=== PATIENT | male | born 1960 | race Hispanic/Latino ===

== ENCOUNTER 2017-06-10 10:39 | Inpatient (IN) | payer OTHER ==
[2017-06-10] MEDS ORDERED: Sodium Chloride 0.9% 1,000 ML IV ONE (11:05)
--- NOTE | 2017-06-10 11:10 | C.PDOC ---
History Of Present Illness Patient is a 56 y/o M diagnosed with prostate cancer with metastasis while incarcerated. He reports that he got 1 lupron injection and was instructed to follow-up with urology and oncology. Patient reports that he has no insurance and no ability to follow-up. He is presenting with uncontrolled pain. Time Seen by Provider: 06/10/17 10:49 Chief Complaint (Nursing): Pain, Chronic Past Medical History Vital Signs: Last Vital Signs Temp 97.7 F 06/10/17 10:43 Pulse 61 06/10/17 11:26 Resp 20 06/10/17 11:26 BP 135/85 06/10/17 11:26 Pulse Ox 100 06/10/17 15:01 Family History: States: No Known Family Hx - Social History Hx Alcohol Use: Yes Hx Substance Use: Yes Review Of Systems Constitutional: Negative for: Fever, Chills Cardiovascular: Negative for: Chest Pain Respiratory: Negative for: Cough, Shortness of Breath Gastrointestinal: Negative for: Nausea, Vomiting, Abdominal Pain, Diarrhea, Constipation Genitourinary: Negative for: Dysuria, Frequency Musculoskeletal: Positive for: Back Pain Neurological: Negative for: Weakness, Numbness Physical Exam - Physical Exam Appears: Well, Non-toxic Skin: Normal Color, Warm, Dry Head: Atraumatic, Normacephalic Eye(s): bilateral: Normal Inspection, PERRL, EOMI Cardiovascular: Rhythm Regular Respiratory: Normal Breath Sounds Gastrointestinal/Abdominal: Soft, No Tenderness, No Mass, No Distention Back: Normal Inspection Extremity: Normal ROM, No Tenderness, No Pedal Edema, No Swelling Neurological/Psych: Oriented x3, Normal Speech, Normal Cranial Nerves, Normal Motor, Normal Sensation Gait: Steady ED Course And Treatment - Laboratory Results Result Diagrams: 06/10/17 11:40 06/10/17 11:40 O2 Sat by Pulse Oximetry: 100 Medical Decision Making Medical Decision Making: Patient's CT shows Heterogeneous abnormal appearance of the included portions inferior thyroid gland with evidence of bilateral suspicious nodules, [id number]. Substernal extension of the left lower pole thyroid. Recommend further evaluation with thyroid ultrasound. Scattered subsegmental basilar atelectasis. Lingular infiltrate. Subpleural 4 mm right upper lobe pulmonary nodule. Follow-up CT at 12 months recommended. Several too small to characterize hepatic hypodensities. For example 5 mm at the hepatic dome, 4 mm and 5 mm within the right hepatic lobe. Hepatomegaly. Hypoattenuation of the liver compatible with hepatic steatosis. Diminished enhancement of the left kidney as compared to the right. Left-sided moderate hydronephrosis and hydroureter to the level of the distal 1/3rd ureter ; no obstructing calculus evident. Enlarged heterogeneous prostate gland consistent with provided history of prostate cancer. Irregularly thick-walled under distended urinary bladder. Recommend correlation with urinalysis. Bulky bilateral inguinal adenopathy. Left pelvic sidewall bulky lymph nodes. 12 mm sclerotic focus worrisome for metastatic disease, right iliac bone. Subtle 14 mm sclerotic lesion within the superior posterior endplate L4. Recommend further evaluation with nuclear medicine bone scan to assess for osseous metastatic disease. 3:01PM Dr. Orozco evaluated at bedside. He will continue to follow during inpatient stay 3:33PM Patient has uncontrolled back pain likely secondary to metastatic disease. He needs PET scan to further evaluate his cancer, as well as urology and oncology evaluation. He has no insurance and has been unable to arrange any follow-up. SW consult placed. Spoke to Dr. Manuel who accepts patient to his service, Disposition - Disposition Disposition Time: 15:35 Condition: FAIR - Clinical Impression Clinical Impression: Prostate cancer metastatic to bone
[2017-06-10] MEDS ORDERED: Sodium Chloride 0.9% 1,000 ML ONE (11:29)
[2017-06-10] MEDS ORDERED: Morphine 4 MG/ML VIAL ONE (11:29)
[2017-06-10 11:44] LABS: BASO # 0.1 K/uL (0.0-0.2); BASO % 0.9 % (0.0-2.0); EOS # 0.9 K/uL (0.0-0.7); EOS % 12.1 % (0.0-4.0); HEMOGLOBIN 11.2 g/dL (12.0-18.0); LYMPH # 1.5 K/uL (1.0-4.3); MEAN CELL VOLUME 73.3 fL (80.0-94.0); MEAN CORPUSCULAR HGB CONC 32.7 g/dL (33.0-37.0); MONO # 0.5 K/uL (0.0-0.8); MONO % 7.2 % (0.0-10.0); NEUT # 4.1 K/uL (1.8-7.0); NEUT % 58.8 % (50.0-75.0); RBC 4.66 Mil/uL (4.40-5.90); WHITE BLOOD COUNT 7.1 K/uL (4.8-10.8)
[2017-06-10 11:52] LABS: ALBUMIN 4.1 g/dL (3.5-5.0)
[2017-06-10 11:55] LABS: GFR AFRICAN-AMERICAN > 60; GFR NON-AFRICAN AMERICAN 58
[2017-06-10 11:56] LABS: ALB/GLOB RATIO 1.1 (1.0-2.1); ALT/SGPT 51 U/L (21-72); AST/SGOT 41 U/L (17-59); BLOOD UREA NITROGEN 19 mg/dL (9-20); MAGNESIUM 2.1 mg/dL (1.6-2.3)
[2017-06-10] MEDS ORDERED: Iodixanol 320 MG/ML 100 ML BOTTLE IV ONE (11:57)
[2017-06-10 13:40] LABS: URINE BILIRUBIN NEGATIVE (NEGATIVE); URINE BLOOD NEGATIVE (NEGATIVE); URINE CLARITY Clear (Clear); URINE COLOR Straw (YELLOW); URINE GLUCOSE (UA) NORMAL (Normal); URINE LEUKOCYTE ESTERASE NEG Leu/uL (Negative); URINE NITRATE NEGATIVE (NEGATIVE); URINE PROTEIN NEGATIVE (NEGATIVE); URINE UROBILINOGEN NORMAL mg/dL (0.2-1.0)
--- NOTE | 2017-06-10 14:53 | CT ---
CT chest, abdomen, and pelvis with IV contrast Indication: Prostate cancer with metastases Technique: Contiguous axial images of the chest, abdomen, and pelvis. Coronal and Sagittal reformats generated and reviewed. This CT exam was performed using 1 or more of the following dose reduction techniques: Automated exposure control, adjustment of the MAA and/or kV according to patient size, and/or use of iterative reconstruction technique. Oral contrast was administered. 100 mL Visipaque. Radiation dose: Total exam DLP = 663.89 MGy-cm. Comparison: None available Findings: Heterogeneous abnormal appearance of the included portions inferior thyroid gland with evidence of bilateral suspicious nodules, [id number]. Substernal extension of the left lower pole thyroid. The mediastinal and hilar vascular structures appear within normal limits. The heart appears within normal limits of size. Scattered subsegmental basilar atelectasis. Lingular infiltrate. No pleural effusion. No pneumothorax. Subpleural right upper lobe pulmonary nodule measures approximately 4 mm (series 4, image 28). Several too small to characterize hepatic hypodensities. For example 5 mm at the hepatic dome, 4 mm and 5 mm within the right hepatic lobe. Hepatomegaly. Hypoattenuation of the liver compatible with hepatic steatosis. Diminished enhancement of the left kidney as compared to the right. Left-sided moderate hydronephrosis and hydroureter to the level of the distal 3rd ureter (approximately series 6, image 128) ; no obstructing calculus evident. Enlarged heterogeneous prostate gland. Irregularly thick-walled under distended urinary bladder. Bulky bilateral inguinal adenopathy. Left pelvic sidewall bulky lymph nodes. The stomach is nondistended. The bowel loops appear within normal limits of caliber without evidence of intestinal obstruction. There is no definite free air. 12 mm sclerotic focus worrisome for metastatic disease, right iliac bone. Subtle 14 mm sclerotic lesion within the superior posterior endplate L4. Recommend further evaluation with nuclear medicine bone scan to assess for osseous metastatic disease. Impression: Heterogeneous abnormal appearance of the included portions inferior thyroid gland with evidence of bilateral suspicious nodules, [id number]-right. Substernal extension of the left lower pole thyroid. Recommend further evaluation with thyroid ultrasound. Scattered subsegmental basilar atelectasis. Lingular infiltrate. Subpleural 4 mm right upper lobe pulmonary nodule. Follow-up CT at 12 months recommended. Several too small to characterize hepatic hypodensities. For example 5 mm at the hepatic dome, 4 mm and 5 mm within the right hepatic lobe. Hepatomegaly. Hypoattenuation of the liver compatible with hepatic steatosis. Diminished enhancement of the left kidney as compared to the right. Left-sided moderate hydronephrosis and hydroureter to the level of the distal 1/3rd ureter ; no obstructing calculus evident. Enlarged heterogeneous prostate gland consistent with provided history of prostate cancer. Irregularly thick-walled under distended urinary bladder. Recommend correlation with urinalysis. Bulky bilateral inguinal adenopathy. Left pelvic sidewall bulky lymph nodes. 12 mm sclerotic focus worrisome for metastatic disease, right iliac bone. Subtle 14 mm sclerotic lesion within the superior posterior endplate L4. Recommend further evaluation with nuclear medicine bone scan to assess for osseous metastatic disease.
--- NOTE | 2017-06-10 16:47 | PCM.URO ---
Urology Progress Note - Objective Vital Signs: Vital Signs - 24 hr 06/10/17 15:35 O2 Sat by Pulse 100 Oximetry
[2017-06-10] MEDS ORDERED: Bisacodyl 5mg EC Tab PO PRN (16:56)
--- NOTE | 2017-06-10 17:13 | CP.PCM.HP ---
History of Present Illness - History of Present Illness History of Present Illness: CC: diffuse bone pain 56 year old male with past medical history of high grade adenocarcinoma prostate cancer diagnosed in 02/2017 [place] score of 10, eczema and polysubstance abuse presents for bone pain located in B/L knees, B/L chest and low back. Patient states that bone pain has been present since January of this year. Patient was in nursing home for about 4 years and discharged about 5 years ago. In January, patient began experiencing diffuse bone pain. He was also having urinary frequency for about 1.5 months. He then began to have difficulty initiating urination. While in nursing home, he had urinary catheter placed for about 1.5 months. It was then removed and patient had TURP procedure done and was found to have high grade adenocarcinoma of prostate. PSA done in April was 394. Patient had Urology consult done in April 2017 while in nursing home. He was given 1 Lupron injection on April 25 2017 and was told that he needs repeat injection in 4 months. While in nursing home, patient had bone scan done which showed bone mets. Ct scan done in nursing home showed extensive retroperitoneal lymph nodes. Patient denies having any weight loss, fatigue. He does c/o cold sweats occasionally. 12 point ROS are negative except for the above mentioned. PMHx: stated above Sx: TURP 02/2017 NKDA Meds: see MAR Social: released from nursing home 5 days ago. Currently homeless. Currently uses heroin (inhales) and history of marijuana use. Smokes 1/2 ppd of ciggs x 30 years. Present on Admission - Present on Admission Any Indicators Present on Admission: No Past Patient History - Past Social History Smoking Status: Light Smoker < 10 Cigarettes Daily Chewing Tobacco Use: No Cigar Use: No Alcohol: Occasional Drugs: Cannabis, Opiates Home Situation {Lives}: Homeless - HEMATOLOGICAL/ONCOLOGICAL Hx Blood Disorders: Yes Hx Cancer: Yes (PROSTATE) - GENITOURINARY/GYNECOLOGICAL Hx Genitourinary Disorders: Yes Hx Prostate Cancer: Yes - PSYCHIATRIC Hx Substance Use: Yes - SURGICAL HISTORY Hx Surgeries: Yes Other/Comment: BONE BIOPSY Meds Allergies/Adverse Reactions: Allergies Allergy/AdvReac Type Severity Reaction Status Date / Time No Known Allergies Allergy Verified 06/10/17 10:43 Physical Exam - Constitutional Appears: Non-toxic, No Acute Distress - Head Exam Head Exam: ATRAUMATIC - Eye Exam Eye Exam: EOMI - ENT Exam ENT Exam: Mucous Membranes Moist - Respiratory Exam Respiratory Exam: Clear to Auscultation Bilateral. absent: Accessory Muscle Use , Rales, Rhonchi, Wheezes, Respiratory Distress - Cardiovascular Exam Cardiovascular Exam: REGULAR RHYTHM, +S1, +S2. absent: Diastolic murmur, Gallop , Rubs, Systolic Murmur - GI/Abdominal Exam GI & Abdominal Exam: Normal Bowel Sounds, Soft. absent: Distended, Firm, Guarding, Organomegaly, Rigid, Tenderness - Extremities Exam Extremities exam: Negative for: pedal edema, tenderness - Neurological Exam Neurological exam: Alert, Oriented x3 - Psychiatric Exam Psychiatric exam: Normal Affect, Normal Mood - Skin Skin Exam: Dry, Intact, Normal Color, Warm Results - Vital Signs Recent Vital Signs: Last Vital Signs Temp 97.7 F 06/10/17 10:43 Pulse 61 06/10/17 11:26 Resp 20 06/10/17 11:26 BP 135/85 06/10/17 11:26 Pulse Ox 100 06/10/17 15:35 - Labs Result Diagrams: 06/10/17 11:40 06/10/17 11:40 Assessment & Plan - Assessment and Plan (Free Text) Assessment: 56 year old male with past medical history of high grade adenocarcinoma of prostate and polysubstance abuse is admitted for intractable bone and muscle pain likely 2/2 metastasis from prostate cancer. CT of chest/abd/pelvis showed suspicious nodules in thyroid gland L>R; scattered subsegmental bibasilar atelectasis; subpleural 4 mm PUL pulm nodule (F/U CT recommended in 12 mo); several small hypodensities in liver; hepatomegaly; left moderate hydronephrosis and hydroureter at distal 1/3 ureter with no obstructing calculi ; enlarged heterogenous prostate gland consistent with prostate cancer; irregularly thick urinary bladder; B/L inguinal LAD; sclerotic lesion in iliac bone likely mets. Intractable bone and muscle pain - Will start patient on oxycontin extended release 20 mg q12 YARELIS and percocet q4 prn High grade adenocarcinoma of prostate - PSA in 04/25/2017 was 394 - Patient received Lupron shot on 04/25/2017. According to records that pt brought with him, next shot is due 08/25 - Urology, Dr. Orozco is consulted. Recommended repeat PSA - Palliative care is consulted Left hydronephrosis with hydroureter - Urology is consulted Microcytic anemia - Recommend outpatient workup Right forearm mass - Right forearm xray ordered. F/U results Prophylaxis - Lovenox - Protonix - SCDs Case discussed with attending, Dr. Hopkins - Date & Time Date: 06/10/17 Time: 17:14
[2017-06-10 17:39] LABS: BENZODIAZEPINES, UR NEGATIVE (NEGATIVE)
[2017-06-10 17:40] LABS: BARBITURATES, UR NEGATIVE (NEGATIVE)
[2017-06-10 17:43] LABS: PHENCYCLIDINE, UR NEGATIVE (NEGATIVE)
[2017-06-10 17:47] LABS: OPIATES, UR POSITIVE (NEGATIVE)
[2017-06-10] MEDS: Enoxaparin 40 mg Syringe SC SCH (17:54)
[2017-06-10] MEDS ORDERED: Enoxaparin 40 mg Syringe ONE (17:54)
[2017-06-10] MEDS ORDERED: oxyCODONE 20 mg ER Tab (oxyCONTIN) PO SCH (22:00)
[2017-06-10] MEDS: oxyCODONE 20 mg ER Tab (oxyCONTIN) PO SCH (23:43)
[2017-06-11] MEDS: Oxycodone/Acetaminophen 5/325 mg Tab PO PRN ×2 (07:59→19:40)
[2017-06-11 08:39] LABS: HEMOGLOBIN 10.1 g/dL (12.0-18.0); MEAN CELL VOLUME 73.6 fL (80.0-94.0); MEAN CORPUSCULAR HEMOGLOBIN 23.7 pg (27.0-31.0); MEAN CORPUSCULAR HGB CONC 32.2 g/dL (33.0-37.0); MEAN PLATELET VOLUME 8.4 fL (7.2-11.7); RBC 4.25 Mil/uL (4.40-5.90); RED CELL DISTRIBUTION WIDTH 16.4 % (11.5-14.5); WHITE BLOOD COUNT 5.9 K/uL (4.8-10.8)
[2017-06-11 08:46] LABS: ALBUMIN 3.4 g/dL (3.5-5.0)
[2017-06-11 08:49] LABS: AST/SGOT 35 U/L (17-59); BLOOD UREA NITROGEN 19 mg/dL (9-20); GFR AFRICAN-AMERICAN > 60; GFR NON-AFRICAN AMERICAN 53
[2017-06-11 08:50] LABS: ALT/SGPT 45 U/L (21-72); CALCIUM 8.7 mg/dl (8.6-10.4)
[2017-06-11] MEDS: Pantoprazole 40 mg EC Tab PO SCH (09:48)
[2017-06-11] MEDS: Enoxaparin 40 mg Syringe SC SCH (09:48)
[2017-06-11] MEDS: BICALUTAMIDE 50 MG PO SCH (09:48)
[2017-06-11] MEDS: oxyCODONE 20 mg ER Tab (oxyCONTIN) PO SCH (09:49)
--- NOTE | 2017-06-11 10:24 | RAD ---
PROCEDURE: Radiographs of the Right Forearm HISTORY: tender growth COMPARISON: None available. TECHNIQUE: Frontal and lateral views obtained. FINDINGS: BONES: No fracture or destructive lesion. Olecranon spurring -triceps insertional enthesophyte. JOINT SPACES: Ulna humeral hypertrophic arthrosis OTHER FINDINGS: None. IMPRESSION: Osseous hypertrophic changes -arthrosis as above. . Comments: Study is limited for evaluating soft tissue pathology. No marker placed regarding "Tender growth" . If the patient has a soft tissue "Mass" clinically evident, consider MR
--- NOTE | 2017-06-11 12:51 | CP.PCM.CON ---
Past Patient History - Past Medical History & Family History Past Medical History?: Yes - Past Social History Smoking Status: Light Smoker < 10 Cigarettes Daily - CARDIAC Hx Cardiac Disorders: No - PULMONARY Hx Respiratory Disorders: No - NEUROLOGICAL Hx Neurological Disorder: No - HEENT Hx HEENT Problems: No - RENAL Hx Chronic Kidney Disease: No - HEMATOLOGICAL/ONCOLOGICAL Hx Blood Disorders: Yes Hx Cancer: Yes (PROSTATE) - INTEGUMENTARY Hx Dermatological Problems: No - MUSCULOSKELETAL/RHEUMATOLOGICAL Hx Musculoskeletal Disorders: Yes Hx Falls: No - GASTROINTESTINAL Hx Gastrointestinal Disorders: No - GENITOURINARY/GYNECOLOGICAL Hx Genitourinary Disorders: Yes Hx Prostate Cancer: Yes - PSYCHIATRIC Hx Psychophysiologic Disorder: Yes Hx Substance Use: Yes (heroin and marijuana) - SURGICAL HISTORY Hx Surgeries: Yes Other/Comment: BONE BIOPSY - ANESTHESIA Hx Anesthesia: Yes Hx Anesthesia Reactions: No Hx Malignant Hyperthermia: No Meds Allergies/Adverse Reactions: Allergies Allergy/AdvReac Type Severity Reaction Status Date / Time No Known Allergies Allergy Verified 06/10/17 10:43 - Medications Medications: Current Medications Bisacodyl (Dulcolax) 10 mg PO DAILY PRN PRN Reason: Constipation Enoxaparin Sodium (Lovenox) 40 mg SC DAILY [facility] Last Admin: 06/11/17 09:48 Dose: 40 mg Home Med (Bicalutamide [Casodex]) 50 mg PO DAILY [facility] Last Admin: 06/11/17 09:48 Dose: 50 mg Oxycodone HCl (Oxycontin Extended Release Tab) 20 mg PO Q12 [facility] Last Admin: 06/11/17 09:49 Dose: 20 mg Oxycodone/Acetaminophen (Percocet 5/325 Mg Tab) 1 tab PO Q4 PRN PRN Reason: Pain, severe (8-10) Stop: 06/13/17 16:57 Last Admin: 06/11/17 07:59 Dose: 1 tab Pantoprazole Sodium (Protonix Ec Tab) 40 mg PO DAILY [facility] Last Admin: 06/11/17 09:48 Dose: 40 mg Tamsulosin HCl (Flomax) 0.4 mg PO HS [facility] Last Admin: 06/10/17 23:43 Dose: 0.4 mg Results - Vital Signs Recent Vital Signs: Last Vital Signs Temp 98 F 06/11/17 09:39 Pulse 55 L 06/11/17 09:39 Resp 20 06/11/17 09:39 BP 106/61 07/18/17 09:39 Pulse Ox 97 06/11/17 09:39 - Labs Result Diagrams: 06/11/17 08:22 06/11/17 08:22 Labs: Laboratory Results - last 24 hr 06/10/17 06/10/17 06/11/17 17:13 17:17 08:22 WBC 5.9 RBC 4.25 L Hgb 10.1 L Hct 31.3 L MCV 73.6 L MCH 23.7 L MCHC 32.2 L RDW 16.4 H Plt Count 308 MPV 8.4 Sodium Potassium Chloride Carbon Dioxide Anion Gap BUN Creatinine Est GFR ( Amer) Est GFR (Non-Af Amer) Random Glucose Calcium Total Bilirubin AST ALT Alkaline Phosphatase Total Protein Albumin Globulin Albumin/Globulin Ratio Prostate Specific Ag 28.5 H Urine Opiates Screen Positive Urine Methadone Screen Negative Ur Barbiturates Screen Negative Ur Phencyclidine Scrn Negative Ur Amphetamines Screen Negative U Benzodiazepines Scrn Negative U Oth Cocaine Metabols Negative U Cannabinoids Screen Negative 06/11/17 08:22 WBC RBC Hgb Hct MCV MCH MCHC RDW Plt Count MPV Sodium 141 Potassium 3.6 Chloride 103 Carbon Dioxide 28 Anion Gap 14 BUN 19 Creatinine 1.4 Est GFR ( Amer) > 60 Est GFR (Non-Af Amer) 53 Random Glucose 94 Calcium 8.7 Total Bilirubin 0.5 AST 35 ALT 45 Alkaline Phosphatase 64 Total Protein 6.6 Albumin 3.4 L Globulin 3.3 Albumin/Globulin Ratio 1.0 Prostate Specific Ag Urine Opiates Screen Urine Methadone Screen Ur Barbiturates Screen Ur Phencyclidine Scrn Ur Amphetamines Screen U Benzodiazepines Scrn U Oth Cocaine Metabols U Cannabinoids Screen
--- NOTE | 2017-06-11 13:34 | CP.PCM.CON ---
History of Present Illness - History of Present Illness History of Present Illness: Palliative consult Requested by Don KAPOOR Reason; Goals of care discussion Patient is a 56 yo male admitted with uncontrolled abdominal pain. Patient diagnosed with stage 4 prostate cancer while was incarcerated. Patient was given one dose of Lupron injection and advised to fallow up. Due to financial issues ( patient is homeless and has no job), patient has not fallowed instructions. Upon admission, Ct abdomen and chest was significant for thyroid and lung nodules, enlarged prostate gland, distended bladder and findings suggestive of hepatic steatosis. Drug screen test was positive for opiates. PSA elevated at 28.5. Flomax on board. Patient seen by Doctor Shobha MEEK. Pain management initiated. PMH: Metastatic prostate cancer Soc. Hx: recently released from nursing home, unemployed, homeless, ETOH and substance use Fam. Hx: mother in her sleep of unknown cause, patient does not know his father, single, has one daughter who grow up without himj Review of Systems - Review of Systems All systems: reviewed and no additional remarkable complaints except - Constitutional Constitutional: absent: As Per HPI, Anorexia, Chills, Daytime Sleepiness, Excessive Sweating, Fatigue, Fever, Frequent Falls, Headache, Increased Appetite , Lethargy, Malaise, Night Sweats, Snoring, Sleep Apnea, Weight Gain, Weight Loss, Weakness, Other - EENT Eyes: absent: As Per HPI, Blind Spots, Blurred Vision, Change in Vision, Decreased Night Vision, Diplopia, Discharge, Dry Eye, Exophthalmos, Floaters, Irritation, Itchy Eyes, Loss of Peripheral Vision, Pain, Photophobia, Requires Corrective Lenses, Sees Flashes, Spots in Vision, Tunnel Vision, Other Visual Disturbances, Loss of Vision, Other Ears: absent: As Per HPI, Decreased Hearing, Ear Discharge, Ear Pain, Tinnitus, Abnormal Hearing, Disequilibrium, Dizziness, Other Nose/Mouth/Throat: absent: As Per HPI, Epistaxis, Nasal Congestion, Nasal Discharge, Nasal Obstruction, Nasal Trauma, Nose Pain, Post Nasal Drip, Sinus Pain, Sinus Pressure, Bleeding Gums, Change in Voice, Dental Pain, Dry Mouth, Dysphagia, Halitosis, Hoarsness, Lip Swelling, Mouth Lesions, Mouth Pain, Odynophagia, Sore Throat, Throat Swelling, Tongue Swelling, Facial Pain, Neck Pain, Neck Mass, Other - Cardiovascular Cardiovascular: absent: As Per HPI, Acrocyanosis, Chest Pain, Chest Pain at Rest , Chest Pain with Activity, Claudication, Diaphoresis, Dyspnea, Dyspnea on Exertion, Edema, Irregular Heart Rhythm, Pain Radiating to Arm/Neck/Jaw, Leg Edema, Leg Ulcers, Lightheadedness, Orthopnea, Palpitations, Paroxysmal Nocturnal Dyspnea, Pedal Edema, Radiating Pain, Rapid Heart Rate, Slow Heart Rate, Syncope, Other - Respiratory Respiratory: absent: As Per HPI, Cough, Dyspnea, Hemoptysis, Dyspnea on Exertion , Wheezing, Snoring, Stridor, Pain on Inspiration, Chest Congestion, Excessive Mucous Production, Change in Mucous Color, Pain with Coughing, Other - Gastrointestinal Gastrointestinal: absent: As Per HPI, Abdominal Pain, Belching, Bloating, Change in Bowel Habits, Change in Stool Character, Coffee Ground Emesis, Constipation, Cramping, Diarrhea, Dyspepsia, Dysphagia, Early Satiety, Excessive Flatus, Fecal Incontinence, Heartburn, Hematemesis, Hematochezia, Loose Stools, Melena, Nausea, Odynophagia, Temesmus, Vomiting, Other - Genitourinary Genitourinary: Bladder Distension Additional comments: lower abdominal pain - Musculoskeletal Musculoskeletal: absent: As Per HPI, Abnormal Gait, Arthralgias, Atrophy, Back Pain, Deformity, Joint Swelling, Limited Range of Motion, Loss of Height, Muscle Cramps, Muscle Weakness, Myalgias, Neck Pain, Numbness, Radiating Pain into Limb, Stiffness, Tingling, Other - Integumentary Integumentary: Change in Pigmentation, Unusual Bruising - Neurological Neurological: absent: As Per HPI, Abnormal Gait, Abnormal Hearing, Abnormal Movements, Abnormal Speech, Behavioral Changes, Burning Sensations, Confusion, Convulsions, Disequilibrium, Dizziness, Numbness, Focal Weakness, Frequent Falls , Headaches, Lack of Coordination, Loss of Vision, Memory Loss, Paresthesias, Radicular Pain, Restless Legs, Sensory Deficit, Syncope, Tingling, Tremor, Vertigo, Weakness, Other Visual Disturbances, Other - Psychiatric Psychiatric: absent: As Per HPI, Abnormal Sleep Pattern, Anhedonia, Anxiety, Auditory Hallucinations, Behavioral Changes, Change in Appetite, Change in Libido, Confusion, Depression, Difficulty Concentrating, Hallucinations, Homicidal Ideation, Hopelessness, Irritability, Memory Loss, Mood Swings, Panic Attacks, Paranoia, Suicidal Ideation, Visual Hallucinations, Tactile Hallucinations, Other - Endocrine Endocrine: absent: As Per HPI, Change in Body Appearance, Change in Libido, Cold Intolorance, Deepening of Voice, Excessive Sweating, Fatigue, Flushing, Heat Intolorance, Increase in Ring/Shoe/Hat Size, Palpitations, Polydipsia, Polyphagia, Polyuria, Other - Hematologic/Lymphatic Hematologic: absent: As Per HPI, Easy Bleeding, Easy Bruising, Lymphadenopathy, Other Past Patient History - Past Medical History & Family History Past Medical History?: Yes - Past Social History Smoking Status: Light Smoker < 10 Cigarettes Daily - CARDIAC Hx Cardiac Disorders: No - PULMONARY Hx Respiratory Disorders: No - NEUROLOGICAL Hx Neurological Disorder: No - HEENT Hx HEENT Problems: No - RENAL Hx Chronic Kidney Disease: No - HEMATOLOGICAL/ONCOLOGICAL Hx Blood Disorders: Yes Hx Cancer: Yes (PROSTATE) - INTEGUMENTARY Hx Dermatological Problems: No - MUSCULOSKELETAL/RHEUMATOLOGICAL Hx Musculoskeletal Disorders: Yes Hx Falls: No - GASTROINTESTINAL Hx Gastrointestinal Disorders: No - GENITOURINARY/GYNECOLOGICAL Hx Genitourinary Disorders: Yes Hx Prostate Cancer: Yes - PSYCHIATRIC Hx Psychophysiologic Disorder: Yes Hx Substance Use: Yes (heroin and marijuana) - SURGICAL HISTORY Hx Surgeries: Yes Other/Comment: BONE BIOPSY - ANESTHESIA Hx Anesthesia: Yes Hx Anesthesia Reactions: No Hx Malignant Hyperthermia: No Meds Allergies/Adverse Reactions: Allergies Allergy/AdvReac Type Severity Reaction Status Date / Time No Known Allergies Allergy Verified 06/10/17 10:43 - Medications Medications: Current Medications Bisacodyl (Dulcolax) 10 mg PO DAILY PRN PRN Reason: Constipation Enoxaparin Sodium (Lovenox) 40 mg SC DAILY [facility] Last Admin: 06/11/17 09:48 Dose: 40 mg Home Med (Bicalutamide [Casodex]) 50 mg PO DAILY [facility] Last Admin: 06/11/17 09:48 Dose: 50 mg Oxycodone HCl (Oxycontin Extended Release Tab) 20 mg PO Q12 [facility] Last Admin: 06/11/17 09:49 Dose: 20 mg Oxycodone/Acetaminophen (Percocet 5/325 Mg Tab) 1 tab PO Q4 PRN PRN Reason: Pain, severe (8-10) Stop: 06/13/17 16:57 Last Admin: 06/11/17 07:59 Dose: 1 tab Pantoprazole Sodium (Protonix Ec Tab) 40 mg PO DAILY [facility] Last Admin: 06/11/17 09:48 Dose: 40 mg Tamsulosin HCl (Flomax) 0.4 mg PO HS [facility] Last Admin: 06/10/17 23:43 Dose: 0.4 mg Physical Exam - Constitutional Appears: No Acute Distress - Head Exam Head Exam: ATRAUMATIC, NORMAL INSPECTION, NORMOCEPHALIC - Eye Exam Eye Exam: EOMI, Normal appearance, PERRL Pupil Exam: NORMAL ACCOMODATION, PERRL - ENT Exam ENT Exam: Mucous Membranes Moist, Normal Exam - Neck Exam Neck exam: Positive for: Normal Inspection - Respiratory Exam Respiratory Exam: Clear to Auscultation Bilateral, NORMAL BREATHING PATTERN - Cardiovascular Exam Cardiovascular Exam: REGULAR RHYTHM, +S1, +S2 - GI/Abdominal Exam GI & Abdominal Exam: Normal Bowel Sounds, Soft - Rectal Exam Rectal Exam: Deferred - Exam Exam: NORMAL INSPECTION - Extremities Exam Extremities exam: Positive for: normal inspection - Back Exam Back exam: NORMAL INSPECTION - Neurological Exam Neurological exam: Alert, CN II-XII Intact, Normal Gait, Oriented x3, Reflexes Normal - Psychiatric Exam Psychiatric exam: Normal Affect, Normal Mood - Skin Skin Exam: Dry, Intact, Normal Color, Petechiae Results - Vital Signs Recent Vital Signs: Last Vital Signs Temp 98 F 06/11/17 09:39 Pulse 55 L 06/11/17 09:39 Resp 20 06/11/17 09:39 BP 106/61 06/11/17 09:39 Pulse Ox 97 06/11/17 09:39 - Labs Result Diagrams: 06/11/17 08:22 06/11/17 08:22 Labs: Laboratory Results - last 24 hr 06/10/17 06/10/17 06/11/17 17:13 17:17 08:22 WBC 5.9 RBC 4.25 L Hgb 10.1 L Hct 31.3 L MCV 73.6 L MCH 23.7 L MCHC 32.2 L RDW 16.4 H Plt Count 308 MPV 8.4 Sodium Potassium Chloride Carbon Dioxide Anion Gap BUN Creatinine Est GFR ( Amer) Est GFR (Non-Af Amer) Random Glucose Calcium Total Bilirubin AST ALT Alkaline Phosphatase Total Protein Albumin Globulin Albumin/Globulin Ratio Prostate Specific Ag 28.5 H Urine Opiates Screen Positive Urine Methadone Screen Negative Ur Barbiturates Screen Negative Ur Phencyclidine Scrn Negative Ur Amphetamines Screen Negative U Benzodiazepines Scrn Negative U Oth Cocaine Metabols Negative U Cannabinoids Screen Negative 06/11/17 08:22 WBC RBC Hgb Hct MCV MCH MCHC RDW Plt Count MPV Sodium 141 Potassium 3.6 Chloride 103 Carbon Dioxide 28 Anion Gap 14 BUN 19 Creatinine 1.4 Est GFR ( Amer) > 60 Est GFR (Non-Af Amer) 53 Random Glucose 94 Calcium 8.7 Total Bilirubin 0.5 AST 35 ALT 45 Alkaline Phosphatase 64 Total Protein 6.6 Albumin 3.4 L Globulin 3.3 Albumin/Globulin Ratio 1.0 Prostate Specific Ag Urine Opiates Screen Urine Methadone Screen Ur Barbiturates Screen Ur Phencyclidine Scrn Ur Amphetamines Screen U Benzodiazepines Scrn U Oth Cocaine Metabols U Cannabinoids Screen Assessment & Plan - Assessment and Plan (Free Text) Assessment: Palliative consult Full Code status prior to consult, PPS 100% I reviewed medical records, all diagnostic studies, examined and interviewed patient in the bed. Patient is alert, oriented X 3, with affect that is appropriate, ambulatory, in no acute distress. BP 134/75, HR 61, O2Sat 96% RA. Breath sounds are clear, HR regular, no murmur, abdomen softly distended. patient reports suprapubic pain only relieved by meds. Patient denied difficulties urinating and denies blood in the urine. Patient reports seeing Doctor Ernesto and was told about his stage 4 prostate cancer. We discussed goals of care. Patient talk openly about his nursing home time, the reasons he went there for 4 years and " need to pay for his mistakes". patient grew up without knowing the father, dropped out of high school, was stealing things as he said " become a criminal". Now when is homeless and has no job, he is concerned about his existence. We discussed his diagnosis. I reviewed the nature of prostate cancer, its slow progression and statistics on 5 years survival rate. Patient took it very well and stated was to fallow up with [facility]. Patient said that the diagnosis of cancer came at worse time , just after he was let out of nursing home, without job and home. Code status discussed as well. Patient was first one to bring it up. he was vry specific that he would not want his life to be prolonged by life support if meaningful recovery was not expected. FRANK completed, calling for DNR/DNI. This was shared with Doctor Kellie and Rochelle, the piano case and bench assembler. I offered information about hospice care as patient may ashly it in the future. Patient had a few questions regarding hospice which I answered. Impression * This is a very unfortunate young man , whose life turned in wrong directions as a teenager * Recently released from nursing home, homeless * Prostate cancer stage 4 with mets * Abdominal pain , controlled by meds only * Patient shows symptoms of despair * Patient is aware of deadly nature of his cancer, and chose natural if his condition becomes terminal * POLST completed Suggestion * DNR/DNI * Continue pain management * Pastoral care for spiritual support * patient should fallow up with [facility] * Discharge to community Thank you very much for consulting Palliative Care
--- NOTE | 2017-06-11 14:46 | CP.PCM.PN ---
Subjective - Date & Time of Evaluation Date of Evaluation: 06/11/17 Time of Evaluation: 09:40 - Subjective Subjective: Medicine note (PGY 1): Dr. Hopkins's service Patient was seen and examined at bedside. Patient reports that his pain is continuous and remains at a 7/10; pain medication was adjusted appropriately. Patient denies chest pain, sob, nausea, vomiting, fever, chills, diarrhea or constipation. Patient is tolerating diet and ambulating. Objective - Vital Signs/Intake and Output Vital Signs (last 24 hours): Temp Pulse Resp BP Pulse Ox 98 F 55 L 20 106/61 97 06/11/17 09:39 06/11/17 09:39 06/11/17 09:39 06/11/17 09:39 06/11/17 09:39 Intake and Output: 06/11/17 06/11/17 06:59 18:59 Intake Total 200 190 Output Total 450 Balance -250 190 - Medications Medications: Current Medications Bisacodyl (Dulcolax) 10 mg PO DAILY PRN PRN Reason: Constipation Enoxaparin Sodium (Lovenox) 40 mg SC DAILY [facility] Last Admin: 06/11/17 09:48 Dose: 40 mg Home Med (Bicalutamide [Casodex]) 50 mg PO DAILY [facility] Last Admin: 06/11/17 09:48 Dose: 50 mg Oxycodone HCl (Oxycontin Extended Release Tab) 40 mg PO Q12 [facility] Oxycodone/Acetaminophen (Percocet 5/325 Mg Tab) 1 tab PO Q4 PRN PRN Reason: Pain, severe (8-10) Stop: 06/13/17 16:57 Last Admin: 06/11/17 07:59 Dose: 1 tab Pantoprazole Sodium (Protonix Ec Tab) 40 mg PO DAILY [facility] Last Admin: 06/11/17 09:48 Dose: 40 mg Tamsulosin HCl (Flomax) 0.4 mg PO HS [facility] Last Admin: 06/10/17 23:43 Dose: 0.4 mg - Labs Labs: 06/11/17 08:22 06/11/17 08:22 - Constitutional Appears: Well, No Acute Distress - Head Exam Head Exam: ATRAUMATIC - Eye Exam Eye Exam: EOMI, Normal appearance - ENT Exam ENT Exam: Mucous Membranes Moist, Normal Exam - Respiratory Exam Respiratory Exam: Clear to Ausculation Bilateral, NORMAL BREATHING PATTERN - Cardiovascular Exam Cardiovascular Exam: REGULAR RHYTHM, +S1, +S2 - GI/Abdominal Exam GI & Abdominal Exam: Soft, Normal Bowel Sounds - Extremities Exam Extremities Exam: Normal Capillary Refill, Normal Inspection. absent: Calf Tenderness, Tenderness - Neurological Exam Neurological Exam: Alert, Awake, Oriented x3 - Psychiatric Exam Psychiatric exam: Flat Affect - Skin Skin Exam: Dry, Normal Color, Warm Assessment and Plan (1) Diffuse pain Assessment & Plan: Intractable bone and muscle pain: secondary to prostate cancer metastasis. CT chest/abdomen/pelvis: Enlarged heterogeneous prostate gland consistent with provided history of prostate cancer. 12 mm sclerotic focus worrisome for metastatic disease, right iliac bone. Subtle 14 mm sclerotic lesion within the superior posterior endplate L4. Recommend further evaluation with nuclear medicine bone scan to assess for osseous metastatic disease. Irregularly thick- walled under distended urinary bladder. Recommend correlation with urinalysis. Bulky bilateral inguinal adenopathy. Left pelvic sidewall bulky lymph nodes. * oxycontin extended release 20 mg q12 YARELIS and percocet q4 prn for pain control- --> Oxycontin extended release adjusted to 40mg Q12H (06/11/17) Status: Acute (2) Pulmonary nodule Assessment & Plan: CT scan chest/abdomen/pelvis: Subpleural 4 mm right upper lobe pulmonary nodule. * Follow-up CT at 12 months recommended to assess stability Status: Acute (3) Prostate cancer Assessment & Plan: Urology, Dr. Orozco is consulted---> help appreciated High grade adenocarcinoma of the prostate * PSA in 04/25/2017 was 394 * Patient received Lupron shot on 04/25/2017. According to records that pt brought with him, next shot is due 08/25 * PSA : 28.5 (06/10/17) Palliative care is consulted----> help appreciated * Patient has decided to be DNR/DNI Status: Acute (4) Hydronephrosis, left Assessment & Plan: - Urology is consulted, Dr. Orozco ---> Help appreciated CT scan of chest/abdomen/pelvis: Diminished enhancement of the left kidney as compared to the right. Left-sided moderate hydronephrosis and hydroureter to the level of the distal 1/3rd ureter ; no obstructing calculus evident Status: Acute (5) Microcytic anemia Assessment & Plan: Stable On admission (06/10/17) H/H: 11.2/34.1---> 10.1/31.3 (06/11/17) MCV: 73.3--> 73.6 (06/11/17) MCH: 24--->23.7 (06/11/17) MCHC: 32.7--->32.3 (06/11/17) RDW: 16--->16.4 (06/11/17) * Recommendation for outpatient work-up Status: Acute (6) Prophylactic measure Assessment & Plan: SCD Lovenox 40mg SC daily Protonix 40mg PO daily Status: Acute
[2017-06-12] MEDS: Oxycodone/Acetaminophen 5/325 mg Tab PO PRN ×4 (00:43→23:58)
[2017-06-12 08:16] LABS: BASO # 0.1 K/uL (0.0-0.2); BASO % 0.8 % (0.0-2.0); EOS % 15.8 % (0.0-4.0); HEMOGLOBIN 10.7 g/dL (12.0-18.0); LYMPH # 0.9 K/uL (1.0-4.3); LYMPH % 14.3 % (20.0-40.0); MEAN CELL VOLUME 72.7 fL (80.0-94.0); MEAN CORPUSCULAR HEMOGLOBIN 23.4 pg (27.0-31.0); MEAN CORPUSCULAR HGB CONC 32.2 g/dL (33.0-37.0); MEAN PLATELET VOLUME 8.1 fL (7.2-11.7); MONO # 0.6 K/uL (0.0-0.8); MONO % 8.5 % (0.0-10.0); NEUT % 60.6 % (50.0-75.0); RBC 4.58 Mil/uL (4.40-5.90); RED CELL DISTRIBUTION WIDTH 16.3 % (11.5-14.5); WHITE BLOOD COUNT 6.6 K/uL (4.8-10.8)
[2017-06-12 08:30] LABS: ALBUMIN 3.5 g/dL (3.5-5.0)
[2017-06-12 08:33] LABS: GFR AFRICAN-AMERICAN > 60; GFR NON-AFRICAN AMERICAN 58
[2017-06-12 08:34] LABS: ALT/SGPT 54 U/L (21-72); AST/SGOT 43 U/L (17-59); BLOOD UREA NITROGEN 18 mg/dL (9-20); CALCIUM 8.9 mg/dl (8.6-10.4); MAGNESIUM 1.9 mg/dL (1.6-2.3)
[2017-06-12] MEDS: Pantoprazole 40 mg EC Tab PO SCH (11:11)
[2017-06-12] MEDS: Enoxaparin 40 mg Syringe SC SCH (11:12)
[2017-06-12] MEDS: oxyCODONE 40 mg ER Tab (oxyCONTIN) PO SCH ×2 (11:12→21:45)
[2017-06-12] MEDS: BICALUTAMIDE 50 MG PO SCH ×2 (11:16→14:26)
[2017-06-12] MEDS ORDERED: POLYETHYLENE GLYCOL 3350 17 GM/Dose PACKET PO ONE ×2 (16:00→19:00)
--- NOTE | 2017-06-12 16:03 | CP.PCM.PN ---
<Dolly Barba V - Last Filed: 06/12/17 16:34> Objective - Vital Signs/Intake and Output Vital Signs (last 24 hours): Temp Pulse Resp BP Pulse Ox 97.6 F 63 20 136/78 97 06/12/17 08:11 06/12/17 08:11 06/12/17 08:11 06/12/17 08:11 06/12/17 08:11 Intake and Output: 06/12/17 06/12/17 06:59 18:59 Intake Total 200 Output Total 1000 Balance -800 - Medications Medications: Current Medications Bisacodyl (Dulcolax) 10 mg PO DAILY PRN PRN Reason: Constipation Last Admin: 06/12/17 11:15 Dose: 10 mg Docusate Sodium (Colace) 100 mg PO BID [facility] Enoxaparin Sodium (Lovenox) 40 mg SC DAILY [facility] Last Admin: 06/12/17 11:12 Dose: 40 mg Home Med (Bicalutamide [Casodex]) 50 mg PO DAILY [facility] Last Admin: 06/12/17 14:26 Dose: 50 mg Oxycodone HCl (Oxycontin Extended Release Tab) 40 mg PO Q12 [facility] Last Admin: 06/12/17 11:12 Dose: 40 mg Oxycodone/Acetaminophen (Percocet 5/325 Mg Tab) 1 tab PO Q4 PRN PRN Reason: Pain, severe (8-10) Stop: 06/13/17 16:57 Last Admin: 06/12/17 14:32 Dose: 1 tab Pantoprazole Sodium (Protonix Ec Tab) 40 mg PO DAILY [facility] Last Admin: 06/12/17 11:11 Dose: 40 mg Tamsulosin HCl (Flomax) 0.4 mg PO HS [facility] Last Admin: 06/11/17 21:31 Dose: 0.4 mg - Labs Labs: 06/12/17 08:04 06/12/17 08:04 Attending/Attestation - Attestation I have personally seen and examined this patient.: Yes I have fully participated in the care of the patient.: Yes I have reviewed all pertinent clinical information, including history, physical exam and plan: Yes Notes (Text): Patient seen, examined, and case discussed with day-time resident. Patient did not achieve adequate pain control. Patient had not receive Oxycodone ER 40mg PO last night; patient received first dose this morning. Patient reports when he was [facility] about 5-6 days ago, and found out about his prostate cancer diagnosis; he wanted to escape and took heroin. I explained to the patient he is currently on two medications for pain relief: one is short-acting and the other is long acting to try to keep the pain tolerable. He understands he cannot mix heroin with his pain medications; it will cause respiratory depression and he can from that. Attempt pain control given metastatic disease Will follow-up with urology Order for heme-onc consult Assessment/Plan (1) Metastatic Prostate Cancer Assessment & Plan: * CT chest/abdomen/pelvis (06/10/17): Enlarged heterogeneous prostate gland consistent with provided history of prostate cancer. 12 mm sclerotic focus worrisome for metastatic disease, right iliac bone. Subtle 14 mm sclerotic lesion within the superior posterior endplate L4. Recommend further evaluation with nuclear medicine bone scan to assess for osseous metastatic disease. Irregularly thick-walled under distended urinary bladder. Recommend correlation with urinalysis. Bulky bilateral inguinal adenopathy. Left pelvic sidewall bulky lymph nodes. * Urology (Dr. Ezekiel Orozco) on the case-->help appreciated * Increased to Oxycontin extended release 40 mg q12 [facility] and Percocet 5/325 1 tab q4 prn for pain control * Patient received Lupron shot on 04/25/2017. According to records that pt brought with him, next shot is due 08/25 * PSA: 28.5 (elevated) Status: Acute (2) Pulmonary nodule Assessment & Plan: * CT scan chest/abdomen/pelvis: Subpleural 4 mm right upper lobe pulmonary nodule. * Follow-up CT at 12 months recommended to assess stability * Likely related to patient's prostate cancer Status: Acute (3) Hydronephrosis, left Assessment & Plan: * Urology is consulted, Dr. Orozco ---> Help appreciated * CT scan of chest/abdomen/pelvis (06/10/17): Diminished enhancement of the left kidney as compared to the right. Left-sided moderate hydronephrosis and hydroureter to the level of the distal 1/3rd ureter ; no obstructing calculus evident Status: Acute (5) Microcytic anemia Assessment & Plan: * low Hgb; order for iron studies, reti count, b12, folate, haptoglobin, occult blood * Recommendation for outpatient work-up Status: Chronic (6) Prophylactic measure Assessment & Plan: * SCDs b/l * Lovenox 40mg SC daily * Protonix 40mg PO daily * DNR/DNI Status: Acute <Vin Mars - Last Filed: 06/12/17 21:45> Subjective - Date & Time of Evaluation Date of Evaluation: 06/12/17 Time of Evaluation: 15:58 - Subjective Subjective: PGY-[address] Barba's service: Patient was seen and examined at bedside in no acute distress. Patient reports that his pain is continuous, and even with medication never decreases below 7/ 10. Patient continues to complain of occasional cold sweats, sometimes accompanied by palpations or dizziness, but denies concurrent new chest pain, changes in the continuous bilateral chest pain located laterally, or sensation of heaviness in his chest. Patient reports that his last BM was 3 days ago. He states he is able to urinate without difficulty. Patient is ambulating to the restroom. Patient denies nausea, vomiting, diarrhea, SOB, fever or chills. Objective - Vital Signs/Intake and Output Vital Signs (last 24 hours): Temp Pulse Resp BP Pulse Ox 97.6 F 63 20 136/78 97 06/12/17 08:11 06/12/17 08:11 06/12/17 08:11 06/12/17 08:11 06/12/17 08:11 Intake and Output: 06/12/17 06/12/17 06:59 18:59 Intake Total 200 Output Total 1000 Balance -800 - Medications Medications: Current Medications Bisacodyl (Dulcolax) 10 mg PO DAILY PRN PRN Reason: Constipation Last Admin: 06/12/17 11:15 Dose: 10 mg Enoxaparin Sodium (Lovenox) 40 mg SC DAILY [facility] Last Admin: 06/12/17 11:12 Dose: 40 mg Home Med (Bicalutamide [Casodex]) 50 mg PO DAILY [facility] Last Admin: 06/12/17 14:26 Dose: 50 mg Oxycodone HCl (Oxycontin Extended Release Tab) 40 mg PO Q12 [facility] Last Admin: 06/12/17 11:12 Dose: 40 mg Oxycodone/Acetaminophen (Percocet 5/325 Mg Tab) 1 tab PO Q4 PRN PRN Reason: Pain, severe (8-10) Stop: 06/13/17 16:57 Last Admin: 06/12/17 14:32 Dose: 1 tab Pantoprazole Sodium (Protonix Ec Tab) 40 mg PO DAILY [facility] Last Admin: 06/12/17 11:11 Dose: 40 mg Tamsulosin HCl (Flomax) 0.4 mg PO HS [facility] Last Admin: 06/11/17 21:31 Dose: 0.4 mg - Labs Labs: 06/12/17 08:04 06/12/17 08:04 - Constitutional Appears: Non-toxic, No Acute Distress - Head Exam Head Exam: ATRAUMATIC, NORMAL INSPECTION, NORMOCEPHALIC - Eye Exam Eye Exam: EOMI Pupil Exam: PERRL - ENT Exam ENT Exam: Mucous Membranes Moist - Respiratory Exam Respiratory Exam: Clear to Ausculation Bilateral, NORMAL BREATHING PATTERN. absent: Rales, Rhonchi, Wheezes - Cardiovascular Exam Cardiovascular Exam: REGULAR RHYTHM. absent: +S1 - GI/Abdominal Exam GI & Abdominal Exam: Soft, Normal Bowel Sounds. absent: Tenderness - Extremities Exam Extremities Exam: Normal Inspection. absent: Pedal Edema - Back Exam Back Exam: absent: CVA tenderness (L), CVA tenderness (R) - Neurological Exam Neurological Exam: Alert, Awake, Oriented x3 - Psychiatric Exam Psychiatric exam: Normal Affect, Normal Mood - Skin Skin Exam: Dry, Normal Color, Warm - Additional Findings Additional findings: - Constitutional Appears: Well, No Acute Distress - Head Exam Head Exam: ATRAUMATIC - Eye Exam Eye Exam: EOMI, Normal appearance - ENT Exam ENT Exam: Mucous Membranes Moist, Normal Exam - Respiratory Exam Respiratory Exam: Clear to Ausculation Bilateral, NORMAL BREATHING PATTERN - Cardiovascular Exam Cardiovascular Exam: REGULAR RHYTHM, +S1, +S2 - GI/Abdominal Exam GI & Abdominal Exam: Soft, Normal Bowel Sounds - Extremities Exam Extremities Exam: Normal Capillary Refill, Normal Inspection. absent: Calf Tenderness, Tenderness - Neurological Exam Neurological Exam: Alert, Awake, Oriented x3 - Psychiatric Exam Psychiatric exam: Flat Affect - Skin Skin Exam: Dry, Normal Color, Warm Assessment and Plan - Assessment and Plan (Free Text) Plan: Disposition: PT DNR/DNI (1) Diffuse pain Assessment & Plan: Intractable bone and muscle pain: secondary to prostate cancer metastasis. CT chest/abdomen/pelvis (06/10/17): Enlarged heterogeneous prostate gland consistent with provided history of prostate cancer. 12 mm sclerotic focus worrisome for metastatic disease, right iliac bone. Subtle 14 mm sclerotic lesion within the superior posterior endplate L4. Recommend further evaluation with nuclear medicine bone scan to assess for osseous metastatic disease. Irregularly thick-walled under distended urinary bladder. Recommend correlation with urinalysis. Bulky bilateral inguinal adenopathy. Left pelvic sidewall bulky lymph nodes. * percocet q4 prn * Oxycontin extended release increased to 40mg Q12H (06/11/17) (2) Pulmonary nodule Assessment & Plan: CT scan chest/abdomen/pelvis: Subpleural 4 mm right upper lobe pulmonary nodule. * Follow-up CT at 12 months recommended to assess stability Status: Acute (3) Prostate cancer Assessment & Plan: Urology, Dr. Orozco is consulted: help appreciated High grade adenocarcinoma of the prostate, Alhaji score of 10 * PSA in 04/25/2017 was 394 * Patient received Lupron shot on 04/25/2017. According to records that pt brought with him, next shot is due 08/25 * PSA : 28.5 (06/10/17) Palliative care is consulted----> help appreciated * Patient has decided to be DNR/DNI Status: Acute (4) Sclerotic lesion, possible metastasis CT C/A/P (06/10/17): 14mm sclerotic lesion within superior posterior endplate L4. 12 mm sclerotic focus worrisome for metastatic disease in right iliac bone. Recommend NM bone scan to assess for osseous metastatic disease. (see full report) - recommend NM Bone scan as outpatient (5) Hydronephrosis, left Assessment & Plan: - Urology is consulted, Dr. Orozco ---> Help appreciated CT scan of chest/abdomen/pelvis: Diminished enhancement of the left kidney as compared to the right. Left-sided moderate hydronephrosis and hydroureter to the level of the distal 1/3rd ureter ; no obstructing calculus evident Status: Acute (6) Microcytic anemia Assessment & Plan: H/H stable: 10.7/33.3 MCV: 73.6 (06/11/17) - f/u iron studies Status: Acute (7) Constipation Dulcolax 10mg PO Daily Miralax once (8) Prophylactic measure Assessment & Plan: SCD Lovenox 40mg SC daily Protonix 40mg PO daily Status: Acute Discussed with Dr. Jameson Mars PGY-1
--- NOTE | 2017-06-12 19:10 | US ---
EXAM: US Soft Tissues Head and Neck, Thyroid CLINICAL HISTORY: 56 years old, male; Signs and symptoms; Other: Nodules seen on CT; Additional info: Thyroid nodules seen on CT TECHNIQUE: Real-time ultrasound scan of the thyroid gland and soft tissues of the neck with image documentation. EXAM DATE/TIME: Exam ordered 06/12/2017 4:10 PM COMPARISON: No relevant prior studies available. FINDINGS: Left thyroid lobe: The left lobe measures 8.6 x 3.1 x 4.4 cm. Multiple nodules are present. Dominant nodule is noted in the midportion of the gland measuring 4.3 x 3 x 3.7 cm. Nodule is isoechoic to the adjacent gland. Small cystic spaces are noted around and within the nodule. No calcifications are seen. A second left batsheva seen in the upper pole measuring 2.5 x 1.5 x 2.1 cm. The nodule was isoechoic to the gland. Small cystic spaces are present. Vascularity seen within the nodule on color Doppler examination. Inferiorly there is a left nodule measuring 2.3 x 2.4 x 2.3 cm. The nodules is isoechoic to the adjacent gland. Internal cystic spaces are noted. Vascularity is present within the nodule.TI-RADS 2 Right thyroid lobe: The right lobe of the thyroid measures 5.8 x 2.5 x 3.6 cm. Complex solid and cystic nodule is noted in the midportion of gland measuring 3.5 x 2.2 x 3.2 cm. A central cystic area is noted. Inferiorly there is a solid nodule measuring 2.9 x 1.8 x 2.2 cm. It is isoechoic to the adjacent gland. A right nodule isoechoic to the glands extends into the right side of the isthmus measuring 2.7 x 2.2 x 1.1 cm. TI-rads 2 Isthmus: Thyroid isthmus is normal in thickness of 4 mm. Lymph nodes: Unremarkable. No lymphadenopathy. Other findings: IMPRESSION: Bilateral thyroid nodules. Dominant nodules received a score of TI-RADs 2 or benign.
--- NOTE | 2017-06-13 06:32 | CP.PCM.PN ---
<Dolly Barba V - Last Filed: 06/13/17 17:19> Objective - Vital Signs/Intake and Output Vital Signs (last 24 hours): Temp Pulse Resp BP Pulse Ox 98.2 F 72 20 135/80 95 06/13/17 15:00 06/13/17 15:00 06/13/17 15:00 06/13/17 15:00 06/13/17 15:00 Intake and Output: 06/13/17 06/13/17 06:59 18:59 Intake Total 740 Balance 740 - Medications Medications: Current Medications Bisacodyl (Dulcolax) 10 mg PO DAILY PRN PRN Reason: Constipation Last Admin: 06/12/17 11:15 Dose: 10 mg Docusate Sodium (Colace) 100 mg PO BID [facility] Last Admin: 06/13/17 09:12 Dose: 100 mg Enoxaparin Sodium (Lovenox) 40 mg SC DAILY [facility] Last Admin: 06/13/17 09:12 Dose: 40 mg Home Med (Bicalutamide [Casodex]) 50 mg PO DAILY [facility] Last Admin: 06/13/17 09:15 Dose: 50 mg Oxycodone HCl (Oxycontin Extended Release Tab) 40 mg PO Q12 [facility] Last Admin: 06/13/17 09:11 Dose: 40 mg Pantoprazole Sodium (Protonix Ec Tab) 40 mg PO DAILY [facility] Last Admin: 06/13/17 09:11 Dose: 40 mg Tamsulosin HCl (Flomax) 0.4 mg PO HS [facility] Last Admin: 06/12/17 21:45 Dose: 0.4 mg - Labs Labs: 06/13/17 07:15 06/13/17 07:15 Attending/Attestation - Attestation I have personally seen and examined this patient.: Yes I have fully participated in the care of the patient.: Yes I have reviewed all pertinent clinical information, including history, physical exam and plan: Yes Notes (Text): Patient seen, examined, and case discussed with day-time resident. I had lengthy conversation with patient regarding NOT using heroin while on being on long acting oxycodone release and percocet. Advised I can only given 5 days worth. Patient has an established first appointment with the [facility], on Jan 19-->he was advised he need to keep this appointment to receive referral for heme-onc, pain management, and refill of medications. Resident had lengthy discussion with hematology-onc regarding prostate cancer management. Heme-onc to see the patient this afternoon. Discharge tomorrow in the morning for residential; will prepare for discharge planning. Discussed with case management who are aware. Assessment/Plan (1) Metastatic Prostate Cancer Assessment & Plan: * CT chest/abdomen/pelvis (06/10/17): Enlarged heterogeneous prostate gland consistent with provided history of prostate cancer. 12 mm sclerotic focus worrisome for metastatic disease, right iliac bone. Subtle 14 mm sclerotic lesion within the superior posterior endplate L4. Recommend further evaluation with nuclear medicine bone scan to assess for osseous metastatic disease. Irregularly thick-walled under distended urinary bladder. Recommend correlation with urinalysis. Bulky bilateral inguinal adenopathy. Left pelvic sidewall bulky lymph nodes. * Urology (Dr. Ezekiel Orozco) on the case-->help appreciated * Oxycontin extended release 40 mg q12 [facility] and Percocet 5/325 1 tab q4 prn for pain control * Patient received Lupron shot on 04/25/2017. According to records that pt brought with him, next shot is due 08/25 (Documentation is physically with the patient) * PSA: 28.5 (elevated) * Heme-oncology: Dr. Skye Oreilly on board-->help appreciated Status: Acute (2) Pulmonary nodule Assessment & Plan: * CT scan chest/abdomen/pelvis: Subpleural 4 mm right upper lobe pulmonary nodule. * Follow-up CT at 12 months recommended to assess stability * Likely related to patient's prostate cancer Status: Acute (3) Hydronephrosis, left Assessment & Plan: * Urology is consulted, Dr. Orozco ---> Help appreciated * CT scan of chest/abdomen/pelvis (06/10/17): Diminished enhancement of the left kidney as compared to the right. Left-sided moderate hydronephrosis and hydroureter to the level of the distal 1/3rd ureter ; no obstructing calculus evident Status: Acute (5) Microcytic anemia Assessment & Plan: * low Hgb * Iron: 68, TIBC: 303, %saturation: 22 * f/u heme onc as outpatient Status: Chronic (6) Prophylactic measure Assessment & Plan: * SCDs b/l * Lovenox 40mg SC daily * Protonix 40mg PO daily * DNR/DNI Status: Acute <Vin Mars - Last Filed: 06/13/17 20:05> Subjective - Date & Time of Evaluation Date of Evaluation: 06/13/17 Time of Evaluation: 06:31 - Subjective Subjective: PGY-[address] Barba's service: Patient was seen and examined at bedside in no acute distress. Patient reports "whole body pain" is improved since yesterday. When asked to point to spot that is most painful he points to his bilateral ribs, and his lower back. Often thought, he cannot localize the pain and he hurts all over. Patient reports that his last BM was yesterday evening, with stool both loose and solid. He states he is able to urinate without difficulty. Patient is ambulating to the restroom. Patient denies nausea, vomiting, diarrhea, SOB, fever or chills. Objective - Vital Signs/Intake and Output Vital Signs (last 24 hours): Temp Pulse Resp BP Pulse Ox 97.1 F L 65 20 130/75 96 06/13/17 00:00 06/13/17 00:00 06/13/17 00:00 06/13/17 00:00 06/13/17 00:00 Intake and Output: 06/12/17 06/13/17 18:59 06:59 Intake Total 500 Balance 500 - Medications Medications: Current Medications Bisacodyl (Dulcolax) 10 mg PO DAILY PRN PRN Reason: Constipation Last Admin: 06/12/17 11:15 Dose: 10 mg Docusate Sodium (Colace) 100 mg PO BID [facility] Last Admin: 06/12/17 18:53 Dose: 100 mg Enoxaparin Sodium (Lovenox) 40 mg SC DAILY [facility] Last Admin: 06/12/17 11:12 Dose: 40 mg Home Med (Bicalutamide [Casodex]) 50 mg PO DAILY [facility] Last Admin: 06/12/17 14:26 Dose: 50 mg Oxycodone HCl (Oxycontin Extended Release Tab) 40 mg PO Q12 [facility] Last Admin: 06/12/17 21:45 Dose: 40 mg Oxycodone/Acetaminophen (Percocet 5/325 Mg Tab) 1 tab PO Q4 PRN PRN Reason: Pain, severe (8-10) Stop: 06/13/17 16:57 Last Admin: 06/12/17 23:58 Dose: 1 tab Pantoprazole Sodium (Protonix Ec Tab) 40 mg PO DAILY [facility] Last Admin: 06/12/17 11:11 Dose: 40 mg Tamsulosin HCl (Flomax) 0.4 mg PO HS [facility] Last Admin: 06/12/17 21:45 Dose: 0.4 mg - Labs Labs: 06/12/17 08:04 06/12/17 08:04 - Additional Findings Additional findings: - Constitutional Appears: Non-toxic, No Acute Distress - Head Exam Head Exam: ATRAUMATIC, NORMAL INSPECTION, NORMOCEPHALIC - Eye Exam Eye Exam: EOMI Pupil Exam: PERRL - ENT Exam ENT Exam: Mucous Membranes Moist - Respiratory Exam Respiratory Exam: Clear to Ausculation Bilateral, NORMAL BREATHING PATTERN. absent: Rales, Rhonchi, Wheezes - Cardiovascular Exam Cardiovascular Exam: REGULAR RHYTHM. absent: +S1 - GI/Abdominal Exam GI & Abdominal Exam: Soft, Normal Bowel Sounds. absent: Tenderness - Extremities Exam Extremities Exam: Normal Inspection. absent: Pedal Edema - Back Exam Back Exam: absent: CVA tenderness (L), CVA tenderness (R) - Neurological Exam Neurological Exam: Alert, Awake, Oriented x3 - Psychiatric Exam Psychiatric exam: Normal Affect, Normal Mood - Skin Skin Exam: Dry, Normal Color, Warm - Eczematous lesion Assessment and Plan - Assessment and Plan (Free Text) Plan: (1) Diffuse pain Assessment & Plan: Intractable bone and muscle pain: secondary to prostate cancer metastasis. CT chest/abdomen/pelvis (06/10/17): Enlarged heterogeneous prostate gland consistent with provided history of prostate cancer. 12 mm sclerotic focus worrisome for metastatic disease, right iliac bone. Subtle 14 mm sclerotic lesion within the superior posterior endplate L4. Recommend further evaluation with nuclear medicine bone scan to assess for osseous metastatic disease. Irregularly thick-walled under distended urinary bladder. Recommend correlation with urinalysis. Bulky bilateral inguinal adenopathy. Left pelvic sidewall bulky lymph nodes. * percocet q4 prn * Oxycontin extended release increased to 40mg Q12H (06/11/17) (2) Pulmonary nodule Assessment & Plan: CT scan chest/abdomen/pelvis: Subpleural 4 mm right upper lobe pulmonary nodule. * Follow-up CT at 12 months recommended to assess stability Status: Acute (3) Prostate cancer Assessment & Plan: High grade adenocarcinoma of the prostate, Alhaji score of 10 (diagnosed 03/11 by [facility] urologist) * PSA in 04/25/2017 was 394, PSA : 28.5 (06/10/17) * Patient received Lupron shot on 04/25/2017. According to records that pt brought with him, next shot is due 08/25 * Casodex 50mg PO daily * Tamsulosin Hcl 0.4 mg PO HS Urology, Dr. Orozco is consulted: help appreciated - recommends Hem/Onc consult for further management Hem/Onc Dr. Oreilly: help appreciated -f/u reccs Palliative care is consulted----> help appreciated * Patient has decided to be DNR/DNI (4) Sclerotic lesion, possible metastasis CT C/A/P (06/10/17): 14mm sclerotic lesion within superior posterior endplate L4. 12 mm sclerotic focus worrisome for metastatic disease in right iliac bone. Recommend NM bone scan to assess for osseous metastatic disease. (see full report) - recommend NM Bone scan as outpatient (5) Hydronephrosis, left Assessment & Plan: Urology is consulted, Dr. Orozco ---> Help appreciated - Tamsulosin 0.4mg PO HS CT scan of chest/abdomen/pelvis: Diminished enhancement of the left kidney as compared to the right. Left-sided moderate hydronephrosis and hydroureter to the level of the distal 1/3rd ureter ; no obstructing calculus evident (6) Microcytic anemia Assessment & Plan: H/H stable: 10.7/33.3 MCV: 73.6 (06/11/17) - iron studies WNL Status: Acute (7) Thyroid nodules Seen on CT C/A/P: bilateral thyroid nodules. Dominant nodules score of TI-RADS 2 (benign) (8) Constipation Dulcolax 10mg PO Daily (9) Eczema Hydrocortisone 1% topical Q6H PRN (10) Prophylactic measure Assessment & Plan: SCD Lovenox 40mg SC daily Protonix 40mg PO daily Disposition: Case mgmt/SW helping pt by providing list of nearby shelters. Pt marked for discharge for tomorrow AM to allow enough time for him to find residential. [facility] appt [facility] for f/u of pain medications. Discussed with Dr. Jameson Mars PGY-1
[2017-06-13 07:34] LABS: BASO % 0.5 % (0.0-2.0); EOS # 1.1 K/uL (0.0-0.7); EOS % 16.7 % (0.0-4.0); HEMOGLOBIN 11.8 g/dL (12.0-18.0); LYMPH # 1.7 K/uL (1.0-4.3); MEAN CORPUSCULAR HEMOGLOBIN 24.2 pg (27.0-31.0); MEAN CORPUSCULAR HGB CONC 33.2 g/dL (33.0-37.0); MEAN PLATELET VOLUME 8.3 fL (7.2-11.7); MONO # 0.6 K/uL (0.0-0.8); MONO % 8.6 % (0.0-10.0); NEUT # 3.3 K/uL (1.8-7.0); NEUT % 49.2 % (50.0-75.0); RBC 4.87 Mil/uL (4.40-5.90); WHITE BLOOD COUNT 6.6 K/uL (4.8-10.8)
[2017-06-13 08:01] LABS: CALCIUM 9.1 mg/dl (8.6-10.4); MAGNESIUM 2.1 mg/dL (1.6-2.3)
[2017-06-13 08:10] LABS: IRON 68 ug/dL (49-181)
[2017-06-13 08:20] LABS: % IRON SATURATION 22 (20-55); TOTAL IRON BINDING CAPACITY 303 ug/dL (250-450)
[2017-06-13 08:28] LABS: FERRITIN 71.2 ng/mL
[2017-06-13] MEDS: oxyCODONE 40 mg ER Tab (oxyCONTIN) PO SCH ×2 (09:11→22:13)
[2017-06-13] MEDS: Pantoprazole 40 mg EC Tab PO SCH (09:11)
[2017-06-13] MEDS: Enoxaparin 40 mg Syringe SC SCH (09:12)
[2017-06-13] MEDS: BICALUTAMIDE 50 MG PO SCH (09:15)
[2017-06-13] MEDS: Oxycodone/Acetaminophen 5/325 mg Tab PO PRN (14:36)
--- NOTE | 2017-06-13 18:35 | CP.PCM.CON ---
History of Present Illness - History of Present Illness History of Present Illness: 56 year old male with a history of stage IV prostate cancer (tk 10) recently initiated in total androgen deprivation in 04/2017 admitted with diffuse body aches. The patient was diagnosed with prostate cancer while in senior care. His initial PSA was about 400 and he had evidence of retroperitoneal and bone metastasis. He was started on Lupron 30mg and Casodex on 04/25/17. Past medical history: HTN, prostate cancer Past surgical history: Denies Family history: Denies hematologic and oncologic problems Social history: Heroin abuse Allergies: NKA Review of systems: All remaining review of systems including HEENT, cardiovascular, respiratory, gastrointestinal, genitourinary, musculoskeletal, dermatologic, neurologic, and psychiatric are negative unless mentioned in the HPI. Past Patient History - Past Medical History & Family History Past Medical History?: Yes - Past Social History Smoking Status: Light Smoker < 10 Cigarettes Daily - CARDIAC Hx Cardiac Disorders: No - PULMONARY Hx Respiratory Disorders: No - NEUROLOGICAL Hx Neurological Disorder: No - HEENT Hx HEENT Problems: No - RENAL Hx Chronic Kidney Disease: No - HEMATOLOGICAL/ONCOLOGICAL Hx Blood Disorders: Yes Hx Cancer: Yes (PROSTATE) - INTEGUMENTARY Hx Dermatological Problems: No - MUSCULOSKELETAL/RHEUMATOLOGICAL Hx Musculoskeletal Disorders: Yes Hx Falls: No - GASTROINTESTINAL Hx Gastrointestinal Disorders: No - GENITOURINARY/GYNECOLOGICAL Hx Genitourinary Disorders: Yes Hx Prostate Cancer: Yes - PSYCHIATRIC Hx Psychophysiologic Disorder: Yes Hx Substance Use: Yes (heroin and marijuana) - SURGICAL HISTORY Hx Surgeries: Yes Other/Comment: BONE BIOPSY - ANESTHESIA Hx Anesthesia: Yes Hx Anesthesia Reactions: No Hx Malignant Hyperthermia: No Meds Home Medications: Home Medication List Medication Instructions Recorded Confirmed Type Hydrocortisone 1% Cream [Cortizone 1 gm TOP Q4H PRN #1 06/14/17 Rx 1% Cream] Tamsulosin [Flomax] 0.4 mg PO HS #30 06/14/17 Rx oxyCODONE [oxyCODONE Immediate 5 mg PO Q4 PRN #30 tab 06/14/17 Rx Release Tab] oxyCODONE [oxyCONTIN Extended 40 mg PO Q12 #10 tab 06/14/17 Rx Release Tab] Allergies/Adverse Reactions: Allergies Allergy/AdvReac Type Severity Reaction Status Date / Time No Known Allergies Allergy Verified 06/10/17 10:43 - Medications Medications: Current Medications Bisacodyl (Dulcolax) 10 mg PO DAILY PRN PRN Reason: Constipation Last Admin: 06/12/17 11:15 Dose: 10 mg Docusate Sodium (Colace) 100 mg PO BID [facility] Last Admin: 06/13/17 17:49 Dose: 100 mg Enoxaparin Sodium (Lovenox) 40 mg SC DAILY [facility] Last Admin: 06/13/17 09:12 Dose: 40 mg Home Med (Bicalutamide [Casodex]) 50 mg PO DAILY [facility] Last Admin: 06/13/17 09:15 Dose: 50 mg Oxycodone HCl (Oxycontin Extended Release Tab) 40 mg PO Q12 [facility] Last Admin: 06/13/17 09:11 Dose: 40 mg Pantoprazole Sodium (Protonix Ec Tab) 40 mg PO DAILY [facility] Last Admin: 06/13/17 09:11 Dose: 40 mg Tamsulosin HCl (Flomax) 0.4 mg PO HS [facility] Last Admin: 06/12/17 21:45 Dose: 0.4 mg Physical Exam - Head Exam Head Exam: ATRAUMATIC - Eye Exam Eye Exam: Normal appearance - ENT Exam ENT Exam: Mucous Membranes Dry - Respiratory Exam Respiratory Exam: NORMAL BREATHING PATTERN - Cardiovascular Exam Cardiovascular Exam: +S1, +S2 - GI/Abdominal Exam GI & Abdominal Exam: Normal Bowel Sounds - Extremities Exam Extremities exam: Positive for: normal inspection - Neurological Exam Neurological exam: Oriented x3 - Psychiatric Exam Psychiatric exam: Normal Affect, Normal Mood - Skin Skin Exam: Warm Results - Vital Signs Recent Vital Signs: Last Vital Signs Temp 98.2 F 06/13/17 15:00 Pulse 72 06/13/17 15:00 Resp 20 06/13/17 15:00 BP 135/80 06/13/17 15:00 Pulse Ox 95 06/13/17 15:00 - Labs Result Diagrams: 06/14/17 07:09 06/14/17 07:09 Labs: Laboratory Results - last 24 hr 06/13/17 06/13/17 06/13/17 07:15 07:15 07:15 WBC 6.6 RBC 4.87 Hgb 11.8 L Hct 35.5 MCV 73.0 L MCH 24.2 L MCHC 33.2 RDW 16.0 H Plt Count 344 MPV 8.3 Neut % (Auto) 49.2 L Lymph % (Auto) 25.0 Nelson % (Auto) 8.6 Eos % (Auto) 16.7 H Baso % (Auto) 0.5 Neut # 3.3 Lymph # 1.7 Nelson # 0.6 Eos # 1.1 H Baso # 0.0 Sodium 139 Potassium 4.1 Chloride 96 L Carbon Dioxide 30 Anion Gap 17 BUN 20 Creatinine 1.5 Est GFR ( Amer) 59 Est GFR (Non-Af Amer) 49 Random Glucose 91 Calcium 9.1 Phosphorus 4.1 Magnesium 2.1 Iron TIBC 306 % Saturation Transferrin Ferritin 71.2 Total Bilirubin 0.8 AST 59 D ALT 70 Alkaline Phosphatase 78 Total Protein 7.9 Albumin 4.0 Globulin 3.9 Albumin/Globulin Ratio 1.0 06/13/17 06/13/17 06/13/17 07:15 07:15 07:17 WBC RBC Hgb Hct MCV MCH MCHC RDW Plt Count MPV Neut % (Auto) Lymph % (Auto) Nelson % (Auto) Eos % (Auto) Baso % (Auto) Neut # Lymph # Nelson # Eos # Baso # Sodium Potassium Chloride Carbon Dioxide Anion Gap BUN Creatinine Est GFR ( Amer) Est GFR (Non-Af Amer) Random Glucose Calcium Phosphorus Magnesium Iron 68 TIBC 303 % Saturation 22 22 Transferrin 244.31 Ferritin Total Bilirubin AST ALT Alkaline Phosphatase Total Protein Albumin Globulin Albumin/Globulin Ratio Assessment & Plan (1) Prostate cancer Assessment and Plan: stage IV lymph node and bone metastasis PSA declining on total androgen deprivation repeat Lupron dosing due in 08/2017 Status: Acute (2) Anemia Assessment and Plan: chronic disease Thank you for this interesting consult. Status: Acute
[2017-06-13] MEDS ORDERED: Hydrocortisone 1% Cream (30 GM) TOP PRN (19:50)
--- NOTE | 2017-06-14 07:08 | CP.PCM.PN ---
Subjective - Date & Time of Evaluation Date of Evaluation: 06/14/17 Time of Evaluation: 07:08 - Subjective Subjective: PGY-[address] Barba's service: Pt seen and examined at bedside. Nursing reports no acute events overnight. Objective - Vital Signs/Intake and Output Vital Signs (last 24 hours): Temp Pulse Resp BP Pulse Ox 97.5 F L 89 16 123/89 99 06/14/17 00:21 06/14/17 00:21 06/14/17 00:21 06/14/17 00:21 06/14/17 00:21 Intake and Output: 06/14/17 06/14/17 06:59 18:59 Intake Total 1240 Balance 1240 - Medications Medications: Current Medications Bisacodyl (Dulcolax) 10 mg PO DAILY PRN PRN Reason: Constipation Last Admin: 06/12/17 11:15 Dose: 10 mg Docusate Sodium (Colace) 100 mg PO BID [facility] Last Admin: 06/13/17 17:49 Dose: 100 mg Enoxaparin Sodium (Lovenox) 40 mg SC DAILY [facility] Last Admin: 06/13/17 09:12 Dose: 40 mg Home Med (Bicalutamide [Casodex]) 50 mg PO DAILY [facility] Last Admin: 06/13/17 09:15 Dose: 50 mg Hydrocortisone (Cortizone 1% Cream) 1 gm TOP Q4H PRN PRN Reason: Itching / Pruritus Last Admin: 06/13/17 22:16 Dose: 1 applic Oxycodone HCl (Oxycontin Extended Release Tab) 40 mg PO Q12 [facility] Last Admin: 06/13/17 22:13 Dose: 40 mg Pantoprazole Sodium (Protonix Ec Tab) 40 mg PO DAILY [facility] Last Admin: 06/13/17 09:11 Dose: 40 mg Tamsulosin HCl (Flomax) 0.4 mg PO HS [facility] Last Admin: 06/13/17 22:13 Dose: 0.4 mg - Labs Labs: 06/13/17 07:15 06/13/17 07:15
[2017-06-14 07:25] LABS: BASO % 0.7 % (0.0-2.0); EOS # 1.1 K/uL (0.0-0.7); EOS % 16.5 % (0.0-4.0); HEMOGLOBIN 10.3 g/dL (12.0-18.0); LYMPH # 1.1 K/uL (1.0-4.3); LYMPH % 16.8 % (20.0-40.0); MEAN CELL VOLUME 73.3 fL (80.0-94.0); MEAN CORPUSCULAR HEMOGLOBIN 23.7 pg (27.0-31.0); MEAN CORPUSCULAR HGB CONC 32.3 g/dL (33.0-37.0); MEAN PLATELET VOLUME 8.2 fL (7.2-11.7); MONO # 0.6 K/uL (0.0-0.8); MONO % 8.3 % (0.0-10.0); NEUT # 3.9 K/uL (1.8-7.0); NEUT % 57.7 % (50.0-75.0); NRBC % 0.1 % (0.0-2.0); RBC 4.36 Mil/uL (4.40-5.90); RED CELL DISTRIBUTION WIDTH 16.2 % (11.5-14.5); WHITE BLOOD COUNT 6.8 K/uL (4.8-10.8)
[2017-06-14 07:47] LABS: ALBUMIN 3.7 g/dL (3.5-5.0)
[2017-06-14 07:50] LABS: CALCIUM 8.7 mg/dl (8.6-10.4)
[2017-06-14 07:51] LABS: MAGNESIUM 1.8 mg/dL (1.6-2.3)
[2017-06-14] MEDS ORDERED: Oxycodone/Acetaminophen 5/325 mg Tab PO PRN (08:48)
[2017-06-14] MEDS: Enoxaparin 40 mg Syringe SC SCH (09:03)
[2017-06-14] MEDS: Pantoprazole 40 mg EC Tab PO SCH (09:03)
[2017-06-14] MEDS: BICALUTAMIDE 50 MG PO SCH (09:04)
[2017-06-14] MEDS: oxyCODONE 40 mg ER Tab (oxyCONTIN) PO SCH (09:47)
[2017-06-14 10:02] VITALS: BP 127/76; PULSE 82; RESP 23; TEMP 98.2; O2SAT 96
--- NOTE | 2017-06-14 10:59 | CP.PCM.DIS ---
Provider - Provider Date of Admission: 06/10/17 15:11 Attending physician: Dolly Barba DO Primary care physician: none, will f/u in clinc moving forward though Consults: Urology: Dr. Ernesto Oreilly: Hem-onc Time Spent in preparation of Discharge (in minutes): 40 Diagnosis - Discharge Diagnosis (1) Hydronephrosis, left Status: Acute Comment: CT scan of chest/abdomen/pelvis (06/10/17): Diminished enhancement of the left kidney as compared to the right. Left-sided moderate hydronephrosis and hydroureter to the level of the distal 1/3rd ureter ; no obstructing calculus evident (2) Prostate cancer Status: Acute Comment: Urology: Dr. Orozco recommended Hem-Onc consult. Dr. Oreilly will see pt as OPDX. Pt can gt lupron injection in august at [facility], provided he gets referred from clinic. PSA in April nearly 400. PSA 28 in [facility]. Takes daily Casadex as home med. Hospital Course - Lab Results Lab Results: Most Recent Lab Values WBC 6.8 K/uL (4.8-10.8) 06/14/17 07:09 RBC 4.36 Mil/uL (4.40-5.90) L 06/14/17 07:09 Hgb 10.3 g/dL (12.0-18.0) L 06/14/17 07:09 Hct 32.0 % (35.0-51.0) L 06/14/17 07:09 MCV 73.3 fL (80.0-94.0) L 06/14/17 07:09 MCH 23.7 pg (27.0-31.0) L 06/14/17 07:09 MCHC 32.3 g/dL (33.0-37.0) L 06/14/17 07:09 RDW 16.2 % (11.5-14.5) H 06/14/17 07:09 Plt Count 305 K/uL (130-400) 06/14/17 07:09 MPV 8.2 fL (7.2-11.7) 06/14/17 07:09 Neut % (Auto) 57.7 % (50.0-75.0) 06/14/17 07:09 Lymph % (Auto) 16.8 % (20.0-40.0) L 06/14/17 07:09 [place] % (Auto) 8.3 % (0.0-10.0) 06/14/17 07:09 Eos % (Auto) 16.5 % (0.0-4.0) H 06/14/17 07:09 Baso % (Auto) 0.7 % (0.0-2.0) 06/14/17 07:09 Neut # 3.9 K/uL (1.8-7.0) 06/14/17 07:09 Lymph # 1.1 K/uL (1.0-4.3) 06/14/17 07:09 [place] # 0.6 K/uL (0.0-0.8) 06/14/17 07:09 Eos # 1.1 K/uL (0.0-0.7) H 06/14/17 07:09 Baso # 0.0 K/uL (0.0-0.2) 06/14/17 07:09 Sodium 134 mmol/L (132-148) 06/14/17 07:09 Potassium 4.0 mmol/L (3.6-5.2) 06/14/17 07:09 Chloride 95 mmol/L (98-107) L 06/14/17 07:09 Carbon Dioxide 30 mmol/L (22-30) 06/14/17 07:09 Anion Gap 13 (10-20) 06/14/17 07:09 BUN 19 mg/dL (9-20) 06/14/17 07:09 Creatinine 1.5 MG/DL (0.8-1.5) 06/14/17 07:09 Est GFR ( Amer) 59 06/14/17 07:09 Est GFR (Non-Af Amer) 49 06/14/17 07:09 Random Glucose 90 mg/dL (75-110) 06/14/17 07:09 Calcium 8.7 mg/dl (8.6-10.4) 06/14/17 07:09 Phosphorus 4.5 mg/dL (2.5-4.5) 06/14/17 07:09 Magnesium 1.8 mg/dL (1.6-2.3) 06/14/17 07:09 Iron 68 ug/dL (49-181) 06/13/17 07:17 TIBC 303 ug/dL (250-450) 06/13/17 07:17 % Saturation 22 (20-55) 06/13/17 07:17 Transferrin 244.31 mg/dL (206-381) 06/13/17 07:15 Ferritin 71.2 ng/mL 06/13/17 07:15 Total Bilirubin 0.7 mg/dL (0.2-1.3) 06/14/17 07:09 AST 66 U/L (17-59) H 06/14/17 07:09 ALT 84 U/L (21-72) H 06/14/17 07:09 Alkaline Phosphatase 70 U/L (38-126) 06/14/17 07:09 Total Protein 7.2 g/dL (6.3-8.3) 06/14/17 07:09 Albumin 3.7 g/dL (3.5-5.0) 06/14/17 07:09 Globulin 3.5 gm/dL (2.2-3.9) 06/14/17 07:09 Albumin/Globulin Ratio 1.0 (1.0-2.1) 06/14/17 07:09 Prostate Specific Ag 28.5 ng/mL (0.00-4.0) H 06/10/17 17:13 Urine Color Straw (YELLOW) 06/10/17 13:34 Urine Clarity Clear (Clear) 06/10/17 13:34 Urine pH 5.0 (5.0-8.0) 06/10/17 13:34 Ur Specific Bullock 1.012 (1.003-1.030) 06/10/17 13:34 Urine Protein Negative mg/dL (NEGATIVE) 06/10/17 13:34 Urine Glucose (UA) Normal mg/dL (Normal) 06/10/17 13:34 Urine Ketones Negative mg/dL (NEGATIVE) 06/10/17 13:34 Urine Blood Negative (NEGATIVE) 06/10/17 13:34 Urine Nitrate Negative (NEGATIVE) 06/10/17 13:34 Urine Bilirubin Negative (NEGATIVE) 06/10/17 13:34 Urine Urobilinogen Normal mg/dL (0.2-1.0) 06/10/17 13:34 Ur Leukocyte Esterase Neg Frederick/uL (Negative) 06/10/17 13:34 Urine WBC (Auto) 3 /hpf (0-5) 06/10/17 13:34 Urine RBC (Auto) < 1 /hpf (0-3) 06/10/17 13:34 Urine Opiates Screen Positive (NEGATIVE) 06/10/17 17:17 Urine Methadone Screen Negative (NEGATIVE) 06/10/17 17:17 Ur Barbiturates Screen Negative (NEGATIVE) 06/10/17 17:17 Ur Phencyclidine Scrn Negative (NEGATIVE) 06/10/17 17:17 Ur Amphetamines Screen Negative (NEGATIVE) 06/10/17 17:17 U Benzodiazepines Scrn Negative (NEGATIVE) 06/10/17 17:17 U Oth Cocaine Metabols Negative (NEGATIVE) 06/10/17 17:17 U Cannabinoids Screen Negative (NEGATIVE) 06/10/17 17:17 - Hospital Course Hospital Course: On admission: HPI 56 year old male with past medical history of high grade adenocarcinoma prostate cancer diagnosed in 02/2017 Cally score of 10, eczema and polysubstance abuse presents for bone pain located in B/L knees, B/L chest and low back. Patient states that bone pain has been present since January of this year. Patient was in skilled nursing for about 3 years and discharged about 5 years ago. In January, patient began experiencing diffuse bone pain. He was also having urinary frequency for about 1.5 months. He then began to have difficulty initiating urination. While in skilled nursing, he had urinary catheter placed for about 1.5 months. It was then removed and patient had TURP procedure done and was found to have high grade adenocarcinoma of prostate. PSA done in April was 394. Patient had Urology consult done in April 2017 while in skilled nursing. He was given 1 Lupron injection on April 25, 2017 and was told that he needs to repeat injection in 4 months. While in skilled nursing, patient had bone scan done which showed bone mets. CT scan done in skilled nursing showed extensive retroperitoneal lymph nodes. Patient denies having any weight loss, fatigue. He does c/o cold sweats occasionally. 12 point ROS are negative except for the above mentioned. Hospital course: Patient admitted on 06/10/17 for intractable bone and muscle pain likely secondary to high grade adenocarcinoma of prostate. Chest/abdomen/pelvis CT with IV contrast [06/10] found an enlarged heterogeneous prostate gland consistent with provided history of prostate cancer. There is 14mm sclerotic lesion within the superior posterior endplate L4. There is irregularly thick walled under distended urinary bladder. Found bulky bilateral inguinal adenopathy. Found left pelvic sidewall bulky lymph nodes. PSA was previously [ 04/25/17] 394 and was 28.5H on 06/10/17. Medication administered included lupron, casodex, tamsulosin. Urologist Dr. Ezekiel Orozco was consulted. Heme oncologist Dr. Skye Oreilly was consulted. Palliative care was consulted - for which pt elected DNR/DNI. Patient monitored for possible metastasis. Chest/abdomen/pelvis CT [06/10] found here is 14mm sclerotic lesion within the superior posterior endplate L4. 12mm sclerotic focus worrisome for metastatic disease in right iliac bone. Recommend further evaluation with nuclear medicine bone scan to assess for osseous metastatic disease. Pulmonary nodule was found on the chest/abdomen/ pelvis CT [06/10] where it found subpleural 4mm right upper lobe pulmonary nodule. Follow up CT at 12 months is recommended to assess stability, it is likely related to prostate cancer Patient monitored and treated for left hydronephrosis. Chest/abdomen/pelvis CT [06/10] found diminished enhancement of the left kidney when compared to the right. There is left sided moderate hydronephrosis and hydroureter to the level of the distal 1/3rd ureter with no evident obstructing calculus. Medications administered include tamsulosin. Patient monitored for thyroid nodules that were seen on Chest/abdomen/pelvis CT [06/10] as bilateral nodules. Thyroid ultrasound [06/12] found bilateral thyroid nodules, dominant nodules received a score of TI-RADS 2 (benign). Pain Management: Adjusted over course to provide pt appropriate relief. At discharge given 5 day prescription of opiods listed below. He was told he must follow up with [facility] on June 17, to get new prescriptions. At the clinic he will be given referral to Dr. Oreilly for further management. Discharge Exam - Additional Findings Additional findings: - Constitutional Appears: Non-toxic, No Acute Distress - Head Exam Head Exam: ATRAUMATIC, NORMAL INSPECTION, NORMOCEPHALIC - Eye Exam Eye Exam: EOMI Pupil Exam: PERRL - ENT Exam ENT Exam: Mucous Membranes Moist - Respiratory Exam Respiratory Exam: Clear to Ausculation Bilateral, NORMAL BREATHING PATTERN. absent: Rales, Rhonchi, Wheezes - Cardiovascular Exam Cardiovascular Exam: REGULAR RHYTHM. absent: +S1 - GI/Abdominal Exam GI & Abdominal Exam: Soft, Normal Bowel Sounds. absent: Tenderness - Extremities Exam Extremities Exam: Normal Inspection. absent: Pedal Edema - Back Exam Back Exam: absent: CVA tenderness (L), CVA tenderness (R) - Neurological Exam Neurological Exam: Alert, Awake, Oriented x3 - Psychiatric Exam Psychiatric exam: Normal Affect, Normal Mood - Skin Skin Exam: Dry, Normal Color, Warm - Additional Findings Additional findings: - Constitutional Appears: Well, No Acute Distress - Head Exam Head Exam: ATRAUMATIC - Eye Exam Eye Exam: EOMI, Normal appearance - ENT Exam ENT Exam: Mucous Membranes Moist, Normal Exam - Respiratory Exam Respiratory Exam: Clear to Ausculation Bilateral, NORMAL BREATHING PATTERN - Cardiovascular Exam Cardiovascular Exam: REGULAR RHYTHM, +S1, +S2 - GI/Abdominal Exam GI & Abdominal Exam: Soft, Normal Bowel Sounds - Extremities Exam Extremities Exam: Normal Capillary Refill, Normal Inspection. absent: Calf Tenderness, Tenderness - Neurological Exam Neurological Exam: Alert, Awake, Oriented x3 - Psychiatric Exam Psychiatric exam: Flat Affect - Skin Skin Exam: Eczema, Petechiae over chest and arms Discharge Plan - Discharge Medications Prescriptions: Hydrocortisone 1% Cream [Cortizone 1% Cream] 1 gm TOP Q4H PRN #1 PRN Reason: Itching / Pruritus oxyCODONE [oxyCODONE Immediate Release Tab] 5 mg PO Q4 PRN #30 tab PRN Reason: Pain, Moderate (4-7) oxyCODONE [oxyCONTIN Extended Release Tab] 40 mg PO Q12 #10 tab Tamsulosin [Flomax] 0.4 mg PO HS #30 - Follow Up Plan Condition: FAIR Disposition: HOME/ ROUTINE Instructions: Oxycodone/Acetaminophen (By mouth), Corticosteroids (On the skin) , Tamsulosin (By mouth), Oxycodone, Slow Release (By mouth) Additional Instructions: Patient stable for discharge home per Dr. Barba. He may continue his home medications for his prostate cancer. He has been prescribed five days of pain medications: oxycontin and percocet. Patient should follow up at his appointment with the [facility] on saturdayJune 18 for referral to hematology/oncology and pain management. He is advised to return to the emergency department if symptoms return or worsen. These instructions were given to the pt, and pts family at bedside, in Georgian. Patient expressed verbal understanding of these instructions. Prescribed medications: Oxcontin IR 5mg, by mouth, every four hours as needed (dispense 30 tabs) Oxcontin ER 40mg, by mouth, every 12 hours as needed (dispense 10 tabs) Flomax 0.4mg PO HS (dispense #30) Cane for ambulation Referrals: Julia Jeong MD [Staff Provider] -
== END 2017-06-14 12:40 | disposition home or self-care (01) | DRG 239 ==
LOC: C.ER 10:39 → C.9E 15:11 → C.3T 20:52
PROVIDERS: ADMIT Hospitalist; ATTEND Hospitalist
DX: C79.51 Secondary malignant neoplasm of bone (principal); C61 Malignant neoplasm of prostate; N13.30 Unspecified hydronephrosis; F11.10 Opioid abuse, uncomplicated; D50.9 Iron deficiency anemia, unspecified; E04.2 Nontoxic multinodular goiter; G89.3 Neoplasm related pain (acute) (chronic); M54.9 Dorsalgia, unspecified; L30.9 Dermatitis, unspecified; Z59.0 Homelessness; F12.90 Cannabis use, unspecified, uncomplicated; F17.210 Nicotine dependence, cigarettes, uncomplicated; Z51.5 Encounter for palliative care; Z66 Do not resuscitate; R91.1 Solitary pulmonary nodule

== ENCOUNTER 2017-08-26 11:41 | Emergency (ER) | payer MEDICAID ==
[2017-08-26 11:42] VITALS: BMI 26.4
[2017-08-26 12:08] VITALS: BP 123/75; RESP 18; TEMP 97.4
--- NOTE | 2017-08-26 12:26 | C.PDOC ---
History Of Present Illness Patient is a 57 y/o M with stage 4 prostate cancer. He is presenting to ED for his shot. He cannot state medication. He reports that he gets them every 4 months and was told that he could come to ED for injection. He reports that his doctor is Dr. Oreilly. Has no new complaints. Time Seen by Provider: 08/26/17 12:21 Chief Complaint (Nursing): Medical Clearance Past Medical History Vital Signs: Last Vital Signs Temp 97.4 F L 08/26/17 12:07 Pulse 61 08/26/17 12:46 Resp 18 08/26/17 12:46 BP 123/75 08/26/17 12:07 Pulse Ox 98 08/26/17 12:46 - Medical History PMH: Hyperthyroidism, Malignancy (prostate CA stage IV) Denies: Chronic Kidney Disease Family History: States: Unknown Family Hx - Social History Hx Alcohol Use: Yes (drinks occasionally) Hx Substance Use: Yes (heroin and marijuana) - Immunization History Hx Tetanus Toxoid Vaccination: No Hx Influenza Vaccination: No Hx Pneumococcal Vaccination: No Review Of Systems Constitutional: Negative for: Fever Cardiovascular: Negative for: Chest Pain Respiratory: Negative for: Cough, Shortness of Breath Gastrointestinal: Negative for: Nausea, Vomiting, Abdominal Pain, Diarrhea, Constipation Neurological: Negative for: Weakness Psych: Negative for: Anxiety, Depression Physical Exam - Physical Exam Appears: Well, Non-toxic, No Acute Distress Skin: Normal Color, Warm, Dry Head: Atraumatic, Normacephalic Eye(s): bilateral: Normal Inspection, PERRL, EOMI Cardiovascular: Rhythm Regular Respiratory: Normal Breath Sounds Extremity: Normal ROM Gait: Steady ED Course And Treatment O2 Sat by Pulse Oximetry: 99 Medical Decision Making Medical Decision Making: Called Dr. Oreilly at [phone]. He reports that patient needs his lupron injection but that patient has never followed up in his office. He reports that this should not be given now in ED. He reports that patient needs to follow-up in his office where he can give lupron injection or refer to Oncology infusion clinic for injection. He instructed me to refer patient to his office. Disposition - Disposition Referrals: Eliu Oreilly MD [Staff Provider] - Disposition: HOME/ ROUTINE Disposition Time: 12:31 Condition: GOOD Additional Instructions: Go to Dr. Oreilly for further evaluation. Return to ED if condition worsens. - Clinical Impression Clinical Impression: Medical assessment
[2017-08-26 12:49] VITALS: PULSE 61
[2017-08-26 13:19] VITALS: O2SAT 99
== END 2017-08-26 12:48 | disposition home or self-care (01) ==
LOC: C.ER 11:41
DX: Z00.00 Encounter for general adult medical examination without abnormal findings (principal)

== ENCOUNTER 2017-10-22 13:12 | Emergency (ER) | payer MEDICAID ==
[2017-10-22 13:12] VITALS: BMI 18.0
--- NOTE | 2017-10-22 15:44 | C.PDOC ---
History Of Present Illness 57 y/o male, diagnosed with metastatic prostate ca to the bone in December, , presents to ED with c/o increasing urinary frequency w/ decreased stream. Patient states he ran out of Flomax, which he renewed and took 1 today. Denies nausea, vomiting, abdominal pain. Time Seen by Provider: 10/22/17 15:16 Chief Complaint (Nursing): Medical Clearance History Per: Patient History/Exam Limitations: no limitations Onset/Duration Of Symptoms: Days, Persistent Current Symptoms Are (Timing): Still Present Recent travel outside of the [place]: No Past Medical History Reviewed: Historical Data, Nursing Documentation, Vital Signs Vital Signs: Last Vital Signs Temp 98.8 F 10/22/17 13:25 Pulse 56 L 10/22/17 13:25 Resp 18 10/22/17 13:25 BP 137/77 10/22/17 15:45 Pulse Ox 100 10/22/17 18:11 - Medical History PMH: Hyperthyroidism, Malignancy (prostate CA stage IV) Family History: States: Unknown Family Hx - Social History Hx Alcohol Use: Yes (drinks occasionally) Hx Substance Use: Yes (heroin and marijuana) - Immunization History Hx Tetanus Toxoid Vaccination: No Hx Influenza Vaccination: No Hx Pneumococcal Vaccination: No Review Of Systems Except As Marked, All Systems Reviewed And Found Negative. Constitutional: Positive for: Other (chronic pain ). Negative for: Fever, Chills Cardiovascular: Negative for: Chest Pain, Palpitations Respiratory: Negative for: Cough, Shortness of Breath Gastrointestinal: Negative for: Vomiting Genitourinary: Positive for: Frequency. Negative for: Hematuria Skin: Negative for: Rash Physical Exam - Physical Exam Appears: Non-toxic, No Acute Distress Skin: Normal Color, Warm, Dry Head: Atraumatic, Normacephalic Oral Mucosa: Moist Chest: Symmetrical Cardiovascular: Rhythm Regular Respiratory: Normal Breath Sounds, No Rales, No Rhonchi, No Wheezing Gastrointestinal/Abdominal: Soft, No Tenderness, No Guarding, No Rebound Back: Normal Inspection, No CVA Tenderness Extremity: Normal ROM, Capillary Refill (< 2 sec.) Neurological/Psych: Oriented x3 ED Course And Treatment - Laboratory Results Result Diagrams: 10/22/17 15:55 10/22/17 15:55 O2 Sat by Pulse Oximetry: 100 (RA) Pulse Ox Interpretation: Normal Medical Decision Making Medical Decision Making: Assessment: urinary sx, chronic pain Progress: Patient refuses Osorio catheter placement in ED. Labs, Toradol, morphine ordered. On reevaluation, patient repots he feels better. Flomax given and patient states urinary stream has improved. Will discharge home. Advised follow up with PMD Dx: urinary retention, prostate ca Disposition Counseled Patient/Family Regarding: Studies Performed, Diagnosis, Need For Followup, Rx Given - Disposition Disposition: HOME/ ROUTINE Disposition Time: 18:03 Condition: STABLE Additional Instructions: follow up with your doctor in 2 days call to make an appointment take medications as prescribed return to hospital if symptoms worsens or progress Prescriptions: Naproxen [Naprosyn] 500 mg PO BID PRN #16 tab PRN Reason: Pain, Moderate (4-7) Oxycodone HCl/Acetaminophen [Percocet 10-325 mg Tablet] 1 each PO TID PRN #12 tablet PRN Reason: Pain, Severe (8-10) Tamsulosin [Flomax] 0.4 mg PO DAILY #15 cap Instructions: Urinary Retention in Men (ED), Bone Metastasis (ED) Forms: [employer] (Ukrainian), General Discharge Instructions - Clinical Impression Clinical Impression: Prostate cancer, Urinary retention - Scribe Statement The provider has reviewed the documentation as recorded by the Scribe SM All medical record entries made by the Scribe were at my direction and personally dictated by me. I have reviewed the chart and agree that the record accurately reflects my personal performance of the history, physical exam, medical decision making, and the department course for this patient. I have also personally directed, reviewed, and agree with the discharge instructions and disposition.
[2017-10-22 16:00] LABS: BASO # 0.1 K/uL (0.0-0.2); BASO % 1.3 % (0.0-2.0); EOS # 0.5 K/uL (0.0-0.7); EOS % 8.2 % (0.0-4.0); HEMATOCRIT 33.3 % (35.0-51.0); LYMPH # 1.2 K/uL (1.0-4.3); LYMPH % 19.5 % (20.0-40.0); MEAN CELL VOLUME 72.3 fL (80.0-94.0); MEAN CORPUSCULAR HEMOGLOBIN 23.7 pg (27.0-31.0); MEAN CORPUSCULAR HGB CONC 32.8 g/dL (33.0-37.0); MEAN PLATELET VOLUME 7.7 fL (7.2-11.7); MONO # 0.4 K/uL (0.0-0.8); NRBC % 0.1 % (0.0-2.0); RED CELL DISTRIBUTION WIDTH 16.3 % (11.5-14.5); WHITE BLOOD COUNT 6.2 K/uL (4.8-10.8)
[2017-10-22 16:16] LABS: ALKALINE PHOSPHATASE 77 U/L (38-126); ALT/SGPT 38 U/L (21-72); AST/SGOT 26 U/L (17-59); BILIRUBIN,TOTAL 0.7 mg/dL (0.2-1.3); BLOOD UREA NITROGEN 18 mg/dL (9-20); CALCIUM 8.6 mg/dl (8.6-10.4); CARBON DIOXIDE 27 mmol/L (22-30); CHLORIDE 100 mmol/L (98-107); GFR AFRICAN-AMERICAN > 60; GLUCOSE,RANDOM 87 mg/dL (75-110); POTASSIUM 3.8 mmol/L (3.6-5.2); SODIUM 135 mmol/L (132-148); TOTAL PROTEIN 8.9 g/dL (6.3-8.3)
[2017-10-22 16:26] LABS: ALB/GLOB RATIO 0.9 (1.0-2.1)
[2017-10-22 16:27] LABS: RBC URINE < 1 /hpf (0-3); URINE BILIRUBIN NEGATIVE (NEGATIVE); URINE BLOOD NEGATIVE (NEGATIVE); URINE COLOR Yellow (YELLOW); URINE GLUCOSE (UA) NORMAL (Normal); URINE KETONE NEGATIVE (NEGATIVE); URINE LEUKOCYTE ESTERASE NEG Leu/uL (Negative); URINE PROTEIN NEGATIVE (NEGATIVE); URINE UROBILINOGEN NORMAL mg/dL (0.2-1.0); WBC URINE < 1 /hpf (0-5)
[2017-10-22 18:35] VITALS: BP 132/78; PULSE 78; RESP 16; TEMP 97.6; O2SAT 98
== END 2017-10-22 18:34 | disposition home or self-care (01) ==
LOC: C.ER 13:12
DX: R33.9 Retention of urine, unspecified (principal); C61 Malignant neoplasm of prostate
CPT/HCPCS: 80053; 81001; 83690; 85025; 87086; 96374; 96375; 99283; J1885; J2270

== ENCOUNTER 2017-11-11 14:14 | Emergency (ER) | payer MEDICAID, OTHER ==
[2017-11-11 14:15] VITALS: BMI 18.0
[2017-11-11] MEDS ORDERED: Sodium Chloride 0.9% 1,000 ML IV ONE (17:01)
[2017-11-11 17:09] LABS: BASO # 0.1 K/uL (0.0-0.2); BASO % 1.4 % (0.0-2.0); EOS # 0.5 K/uL (0.0-0.7); EOS % 8.2 % (0.0-4.0); HEMATOCRIT 33.2 % (35.0-51.0); LYMPH # 1.3 K/uL (1.0-4.3); MEAN CELL VOLUME 71.8 fL (80.0-94.0); MEAN CORPUSCULAR HGB CONC 33.4 g/dL (33.0-37.0); MEAN PLATELET VOLUME 7.6 fL (7.2-11.7); MONO # 0.4 K/uL (0.0-0.8); MONO % 6.3 % (0.0-10.0); RED CELL DISTRIBUTION WIDTH 16.6 % (11.5-14.5); WHITE BLOOD COUNT 6.3 K/uL (4.8-10.8)
[2017-11-11 17:21] LABS: RBC URINE 1 /hpf (0-3); URINE BACTERIA RARE (<OCC); URINE BILIRUBIN NEGATIVE (NEGATIVE); URINE BLOOD NEGATIVE (NEGATIVE); URINE COLOR Yellow (YELLOW); URINE GLUCOSE (UA) NORMAL (Normal); URINE KETONE NEGATIVE (NEGATIVE); URINE LEUKOCYTE ESTERASE NEG Leu/uL (Negative); URINE PROTEIN NEGATIVE (NEGATIVE); URINE UROBILINOGEN NORMAL mg/dL (0.2-1.0); WBC URINE 1 /hpf (0-5)
[2017-11-11 17:22] LABS: ALB/GLOB RATIO 1.1 (1.0-2.1); ALKALINE PHOSPHATASE 63 U/L (38-126); ALT/SGPT 40 U/L (21-72); AST/SGOT 26 U/L (17-59); BILIRUBIN,TOTAL 0.5 mg/dL (0.2-1.3); BLOOD UREA NITROGEN 19 mg/dL (9-20); CALCIUM 8.6 mg/dl (8.6-10.4); CARBON DIOXIDE 29 mmol/L (22-30); CHLORIDE 101 mmol/L (98-107); GFR AFRICAN-AMERICAN > 60; GLUCOSE,RANDOM 128 mg/dL (75-110); SODIUM 140 mmol/L (132-148); TOTAL PROTEIN 7.7 g/dL (6.3-8.3)
[2017-11-11] MEDS ORDERED: Iohexol 350mg/ml 100 ML ONE (18:06)
[2017-11-11 18:48] VITALS: RESP 18
--- NOTE | 2017-11-11 18:57 | RAD ---
PROCEDURE: CHEST RADIOGRAPH, 1 VIEW HISTORY: SOB COMPARISON: Chest radiograph 06/28/2017 FINDINGS: LUNGS: No acute infiltrate bilaterally. PLEURA: No pneumothorax or pleural fluid seen. CARDIOVASCULAR: Right hilum appears somewhat prominent to be a function of rotation of the patient in the interval. Right hilar lymphadenopathy or mass is not completely excluded though does not favored either. Follow-up chest CT with contrast is advised for better characterization nevertheless. OSSEOUS STRUCTURES: No significant abnormalities. VISUALIZED UPPER ABDOMEN: Normal. OTHER FINDINGS: None. IMPRESSION: Possible right hilar adenopathy or mass. Follow-up chest CT with contrast is advised for greater characterization of this region. Remainder of the examination is unremarkable.
--- NOTE | 2017-11-11 19:48 | C.PDOC ---
History Of Present Illness 57yo male with history of widely metastasized prostate cancer per CT scan in May 2017, presents to ED with complaints of back and flank pain. Patient states flank pain is mostly right sided and describes it as achy. Patient denies any associated hematuria, dysuria. Of note, patient takes Percocets daily for his chronic pain. Time Seen by Provider: 11/11/17 15:56 Chief Complaint (Nursing): Abdominal Pain History Per: Patient History/Exam Limitations: no limitations Onset/Duration Of Symptoms: Days Current Symptoms Are (Timing): Still Present Quality Of Discomfort: Aching Past Medical History Reviewed: Historical Data, Nursing Documentation, Vital Signs Vital Signs: Last Vital Signs Temp 98.1 F 11/11/17 21:15 Pulse 72 11/11/17 21:15 Resp 18 11/11/17 21:15 BP 126/67 11/11/17 21:15 Pulse Ox 96 11/11/17 21:33 - Medical History PMH: Hyperthyroidism, Malignancy (prostate CA stage IV) Denies: Chronic Kidney Disease Family History: States: Unknown Family Hx - Social History Hx Alcohol Use: No Hx Substance Use: Yes (heroin and marijuana) - Immunization History Hx Tetanus Toxoid Vaccination: No Hx Influenza Vaccination: No Hx Pneumococcal Vaccination: No Review Of Systems Except As Marked, All Systems Reviewed And Found Negative. Genitourinary: Negative for: Dysuria, Hematuria Musculoskeletal: Positive for: Back Pain (back pain, right sided flank pain) Physical Exam - Physical Exam Appears: Non-toxic Skin: Normal Color, Warm Eye(s): bilateral: Other (pinpoint pupils) Neck: Supple Cardiovascular: Rhythm Regular Respiratory: Normal Breath Sounds Gastrointestinal/Abdominal: Normal Exam, Soft, No Tenderness Back: Normal Inspection, No CVA Tenderness, No Vertebral Tenderness, No Paraspinal Tenderness Neurological/Psych: Oriented x3, Normal Speech, Normal Cognition ED Course And Treatment - Laboratory Results Result Diagrams: 11/11/17 17:05 11/11/17 17:05 Lab Interpretation: Abnormal (d-dimer 847 H) ECG: Interpreted By Me ECG Rhythm: Sinus Rhythm ECG Interpretation: Normal Rate From EC O2 Sat by Pulse Oximetry: 96 (RA) Pulse Ox Interpretation: Normal - Radiology CXR: Interpreted by Me CXR Interpretation: Yes: No Acute Disease Progress Note: percoet, lunch Reevaluation Time: 21:14 Reassessment Condition: Improved - Physician Consult Information Outcome Of Conversation: 2129: d/w Dr. Feroz Oorzco- Urology Permanent Waver- ok to f/u as opt. Medical Decision Making Medical Decision Making: Plan: -- CT Angio Chest/Abdomen/Pelvis -- Labs -- IV Fluids stable metastatic prostate CA no new findings on labs/UA/CT no PE L hydroureter prob from prostate issues, may benefit from L ureteral stent will f/u as opt wtih Dr. Feroz Orozco- Urology Permanent [facility]aver ok for f/u in Nov with Dr. Eliu Oreilly. ok to f/u wt Disposition Doctor Will See Patient In The: Office Counseled Patient/Family Regarding: Studies Performed, Diagnosis - Disposition Referrals: Eliu Oreilly MD [Staff Provider] - Jaswant Orozco MD [Staff Provider] - Disposition: HOSPITALIZED Disposition Time: 21:20 Condition: GOOD Additional Instructions: follow-up with Dr. Oreilly in November for follow-up Defer Bone Scan for now- CT today shows stable mets. Follow-up with Dr. Mao Orozco- Urologist L hydroureter from prostate CA Evaluate for outpatient ureteral stent. Instructions: Hydronephrosis (ED), Bone Metastasis (ED) Forms: [facility] (Italian), Work Excuse - Clinical Impression Clinical Impression: Hydronephrosis, Metastatic malignant neoplasm to prostate - Scribe Statement The provider has reviewed the documentation as recorded by the Latishae Imelda Mccullough Provider Attestation: All medical record entries [facility] by the [facility] were at my direction and personally dictated by me. I have reviewed the chart and agree that the record accurately reflects my personal performance of the history, physical exam, medical decision making, and the department course for this patient. I have also personally directed, reviewed, and agree with the discharge instructions and disposition. Addendum Addendum: 11/11/17 22:[address] Jaswant Riggs; patient was referred to Dr. Riggs before, but never followed through with visit. Dr. Riggs open to seeing patient again.
[2017-11-11] MEDS ORDERED: Oxycodone/Acetaminophen 5/325 mg Tab PO STA (19:52)
[2017-11-11] MEDS ORDERED: Oxycodone/Acetaminophen 5/325 mg Tab ONE (19:58)
--- NOTE | 2017-11-11 21:02 | CT ---
EXAM: CT Abdomen and Pelvis With Intravenous Contrast EXAM DATE/TIME: Exam ordered 11/11/2017 7:23 PM CLINICAL HISTORY: 57 years old, male; Pain; Chest pain; Type not specified; Abdominal pain; Flank; Upper; Additional info: R flank pain, metastatic prostate ca TECHNIQUE: Axial computed tomography images of the abdomen and pelvis with intravenous contrast . All CT scans at this facility use one or more dose reduction techniques, viz.: automated exposure control; ma/kV adjustment per patient size (including targeted exams where dose is matched to indication; i.e. head); or iterative reconstruction technique. Coronal and sagittal reformatted images were created and reviewed. CONTRAST: 0 mL of omnipaque 350 administered intravenously. COMPARISON: CT - CHEST,ABD,PEL W/IV CONT ONLY 2017-06-10 13:40 FINDINGS: Lower thorax: No acute findings. ABDOMEN: Liver: A single less than 5 mm low density lesion is noted in the midportion of the right kidney. At least 6 less than 5 mm low density lesions are scattered throughout the liver. They're too small to characterize fully. Gallbladder and bile ducts: Unremarkable. No calcified stones. No ductal dilation. Pancreas: A punctate calcification is noted within the pancreatic head Spleen: Unremarkable. No splenomegaly. Adrenals: Unremarkable. No mass. Kidneys and ureters: There is a severe left-sided hydronephrosis. There is a nodular enlargement of the prostate at the level of the left ureterovesicular junction. Stomach and bowel: Unremarkable. No obstruction. No mucosal thickening. Appendix: No findings to suggest acute appendicitis. PELVIS: Bladder: Unremarkable. No mass. Reproductive: Unremarkable as visualized. Phleboliths are noted within the left spermatic cord. ABDOMEN and PELVIS: Intraperitoneal space: Unremarkable. No significant fluid collection. No free air. Bones/joints: a 9 mm sclerotic lesion is noted within the left ilium. There are several less than 5 mm sclerotic lesions noted within the sacrum and the iliac bones bilaterally. Rounded sclerotic foci are noted within the L3 and L5 vertebral bodies. There are several sclerotic lesions noted within the ribs bilaterally Soft tissues: Unremarkable. Lymph nodes: Adenopathy is noted along the left external iliac chain. The node measures 2 x 1 by 1.6 cm. Inguinal lymph nodes are seen bilaterally. IMPRESSION: 1. Severe left-sided hydronephrosis secondary to obstruction of the left ureterovesicular junction by enlarged prostate/prostate cancer. 2. Scattered sclerotic lesions noted within the axial skeleton as described above consistent with metastatic disease. 3. Pelvic adenopathy. 4. Multiple less than 5 mm low density liver lesions too small to characterize a Osorio.
[2017-11-11 21:16] VITALS: BP 126/67; PULSE 72; TEMP 98.1
[2017-11-11 21:19] VITALS: O2SAT 96
--- NOTE | 2017-11-12 18:23 | CARD ---
APPROVED REPORT EKG Measurement Heart [id number] IN [id number] <Conclusion> Sinus bradycardia Possible Left atrial enlargement Borderline ECG
== END 2017-11-11 21:28 | disposition home or self-care (01) ==
LOC: C.ER 14:14
DX: C61 Malignant neoplasm of prostate (principal); N13.30 Unspecified hydronephrosis
CPT/HCPCS: 71010; 71270; 74175; 80053; 81001; 84484; 85025; 85378; 93005; 96360; 99284; J7040; Q9967

== ENCOUNTER 2017-12-17 13:24 | Emergency (ER) | payer MEDICAID ==
[2017-12-17 13:25] VITALS: BMI 18.0
[2017-12-17 13:52] VITALS: BP 117/72; PULSE 85; RESP 20; TEMP 98.3; O2SAT 97
--- NOTE | 2017-12-17 14:58 | C.PDOC ---
History Of Present Illness 57 y/o male with history of stage 4 prostate cancer presents to ED with complaints of hematuria and urinary retention progressively worsening the last couple days. Patient notes same symptoms a year ago resolved but came back few days ago. Patient notes when he urinates "it just drips out", and it takes "10 minutes" to urinate. Pt admits to having body aches diffusely, worse in his left mid back. Also notes some swelling there which has developed over the last couple days. Patient notes that he had seen a urolgist while incarcerated but has not seen one since. Pt sees Dr. Eliu Oreilly, last 11/29/17, for Lupron injections. Denies fever, penile discharge, abdominal pain, chest pain, sob, dysuria or any other complaints at this time. Time Seen by Provider: 12/17/17 14:39 Chief Complaint (Nursing): Male Genitourinary History Per: Patient History/Exam Limitations: no limitations Onset/Duration Of Symptoms: Days Current Symptoms Are (Timing): Still Present Associated Symptoms: Urinary Symptoms Past Medical History Reviewed: Historical Data, Nursing Documentation, Vital Signs Vital Signs: Last Vital Signs Temp 98.3 F 12/17/17 13:50 Pulse 85 12/17/17 13:50 Resp 20 12/17/17 13:50 BP 117/72 12/17/17 13:50 Pulse Ox 97 12/17/17 18:18 - Medical History PMH: Hyperthyroidism, Malignancy (prostate CA stage IV) Surgical History: No Surg Hx Family History: States: No Known Family Hx - Social History Hx Alcohol Use: No Hx Substance Use: Yes (heroin and marijuana) - Immunization History Hx Tetanus Toxoid Vaccination: No Hx Influenza Vaccination: No Hx Pneumococcal Vaccination: No Review Of Systems Constitutional: Negative for: Fever, Chills Gastrointestinal: Negative for: Nausea, Vomiting Genitourinary: Positive for: Hematuria. Negative for: Dysuria, Incontinence, Rash Skin: Negative for: Rash Neurological: Negative for: Weakness, Numbness Physical Exam - Physical Exam Appears: Non-toxic, No Acute Distress Skin: Warm, Dry, No Rash Head: Atraumatic, Normacephalic Eye(s): bilateral: Normal Inspection, EOMI Nose: Normal Oral Mucosa: Moist Neck: Normal ROM, Supple Chest: Symmetrical Cardiovascular: Rhythm Regular Respiratory: Normal Breath Sounds, No Accessory Muscle Use, No Rales, No Rhonchi , No Wheezing Gastrointestinal/Abdominal: Soft, No Tenderness Back: No Vertebral Tenderness, Other ((+) 6 cm area of swelling and tenderness to left flank , no erythema , warmth or discharge.) Extremity: Normal ROM, Capillary Refill (<2 seconds) Extremity: Bilateral: Atraumatic Neurological/Psych: Oriented x3 ED Course And Treatment - Laboratory Results Result Diagrams: 12/17/17 16:33 12/17/17 16:33 O2 Sat by Pulse Oximetry: 97 (RA) Pulse Ox Interpretation: Normal Progress Note: Case discussed with Dr Ramirez who instrusts admission and urology consult. Case discussed with Dr. Rashid, agrees upon admission. Case discussed with Dr. Javier Orozco urolgoy paraprofessional interpreter , agreed upon admission. Case discussed with Dr Oreilly who will follow up with patient inpatient. Disposition Discussed With DrJuan: Chemo Rashid Doctor Will See Patient In The: Hospital - Disposition Disposition: HOSPITALIZED Disposition Time: 19:12 Condition: STABLE - Clinical Impression Clinical Impression: Prostate cancer metastatic to bone, Urinary retention, Hematuria - PA / GAS CHARGER / Resident Statement MD/DO has reviewed & agrees with the documentation as recorded. - Scribe Statement The provider has reviewed the documentation as recorded by the Scribe Coleman Rust All medical record entries made by the Elias were at my direction and personally dictated by me. I have reviewed the chart and agree that the record accurately reflects my personal performance of the history, physical exam, medical decision making, and the department course for this patient. I have also personally directed, reviewed, and agree with the discharge instructions and disposition.
[2017-12-17 15:42] LABS: URINE BILIRUBIN NEGATIVE (NEGATIVE); URINE BLOOD 3+ (NEGATIVE); URINE CLARITY Hazy (Clear); URINE COLOR Yellow (YELLOW); URINE GLUCOSE (UA) NORMAL (Normal); URINE LEUKOCYTE ESTERASE NEG Leu/uL (Negative); URINE NITRATE NEGATIVE (NEGATIVE); URINE PROTEIN 1+ mg/dL (NEGATIVE); URINE UROBILINOGEN NORMAL mg/dL (0.2-1.0)
[2017-12-17 16:37] LABS: BASO # 0.1 K/uL (0.0-0.2); BASO % 1.5 % (0.0-2.0); EOS # 0.5 K/uL (0.0-0.7); EOS % 6.3 % (0.0-4.0); HEMOGLOBIN 9.9 g/dL (12.0-18.0); LYMPH # 0.7 K/uL (1.0-4.3); LYMPH % 10.2 % (20.0-40.0); MEAN CELL VOLUME 71.2 fL (80.0-94.0); MEAN CORPUSCULAR HEMOGLOBIN 23.8 pg (27.0-31.0); MEAN CORPUSCULAR HGB CONC 33.5 g/dL (33.0-37.0); MEAN PLATELET VOLUME 7.7 fL (7.2-11.7); MONO # 0.7 K/uL (0.0-0.8); MONO % 9.5 % (0.0-10.0); NEUT # 5.2 K/uL (1.8-7.0); NEUT % 72.5 % (50.0-75.0); NRBC % 0.1 % (0.0-2.0); RBC 4.15 Mil/uL (4.40-5.90); RED CELL DISTRIBUTION WIDTH 16.6 % (11.5-14.5); WHITE BLOOD COUNT 7.2 K/uL (4.8-10.8)
[2017-12-17 16:52] LABS: ALBUMIN 3.9 g/dL (3.5-5.0); ALT/SGPT 23 U/L (21-72); AST/SGOT 29 U/L (17-59); BLOOD UREA NITROGEN 17 mg/dL (9-20); CALCIUM 9.1 mg/dl (8.6-10.4); GFR AFRICAN-AMERICAN > 60; GFR NON-AFRICAN AMERICAN 57
[2017-12-17 16:53] LABS: ALB/GLOB RATIO 0.9 (1.0-2.1)
[2017-12-17] MEDS ORDERED: Oxycodone/Acetaminophen 5/325 mg Tab PO PRN (20:08)
--- NOTE | 2017-12-17 20:08 | CP.PCM.HP ---
Past Patient History - Past Medical History & Family History Past Medical History?: Yes - Past Social History Smoking Status: Light Smoker < 10 Cigarettes Daily - CARDIAC Hx Cardiac Disorders: No - PULMONARY Hx Respiratory Disorders: No - NEUROLOGICAL Hx Neurological Disorder: No - HEENT Hx HEENT Problems: No - RENAL Hx Chronic Kidney Disease: No - ENDOCRINE/METABOLIC Hx Hyperthyroidism: Yes - HEMATOLOGICAL/ONCOLOGICAL Hx Blood Disorders: Yes Hx Cancer: Yes (PROSTATE) - INTEGUMENTARY Hx Dermatological Problems: No - MUSCULOSKELETAL/RHEUMATOLOGICAL Hx Musculoskeletal Disorders: Yes Hx Falls: No - GASTROINTESTINAL Hx Gastrointestinal Disorders: No - GENITOURINARY/GYNECOLOGICAL Hx Genitourinary Disorders: Yes Hx Prostate Cancer: Yes - PSYCHIATRIC Hx Substance Use: Yes (heroin and marijuana) - SURGICAL HISTORY Hx Surgeries: Yes Other/Comment: BONE BIOPSY - ANESTHESIA Hx Anesthesia: Yes Hx Anesthesia Reactions: No Hx Malignant Hyperthermia: No Meds Allergies/Adverse Reactions: Allergies Allergy/AdvReac Type Severity Reaction Status Date / Time honey Allergy Verified 12/17/17 13:52 Results - Vital Signs Recent Vital Signs: Last Vital Signs Temp 98.3 F 12/17/17 13:50 Pulse 85 12/17/17 13:50 Resp 20 12/17/17 13:50 BP 117/72 12/17/17 13:50 Pulse Ox 97 12/17/17 19:12 - Labs Result Diagrams: 12/17/17 16:33 12/17/17 16:33 Labs: Laboratory Results - last 24 hr 12/17/17 12/17/17 12/17/17 15:33 16:33 16:33 WBC 7.2 RBC 4.15 L Hgb 9.9 L Hct 29.6 L MCV 71.2 L MCH 23.8 L MCHC 33.5 RDW 16.6 H Plt Count 533 H MPV 7.7 Neut % (Auto) 72.5 Lymph % (Auto) 10.2 L [place] % (Auto) 9.5 Eos % (Auto) 6.3 H Baso % (Auto) 1.5 Neut # 5.2 Lymph # 0.7 L [place] # 0.7 Eos # 0.5 Baso # 0.1 Sodium 135 Potassium 4.1 Chloride 98 Carbon Dioxide 32 H Anion Gap 9 L BUN 17 Creatinine 1.3 Est GFR ( Amer) > 60 Est GFR (Non-Af Amer) 57 Random Glucose 102 Calcium 9.1 Total Bilirubin 0.5 AST 29 ALT 23 Alkaline Phosphatase 91 Total Protein 8.3 Albumin 3.9 Globulin 4.4 H Albumin/Globulin Ratio 0.9 L Urine Color Yellow Urine Clarity Hazy Urine pH 7.0 Ur Specific [place] 1.012 Urine Protein 1+ H Urine Glucose (UA) Normal Urine Ketones Negative Urine Blood 3+ H Urine Nitrate Negative Urine Bilirubin Negative Urine Urobilinogen Normal Ur Leukocyte Esterase Neg Urine WBC (Auto) 7 H Urine RBC (Auto) 1542 H
[2017-12-18] MEDS ORDERED: Enoxaparin 40 mg Syringe SC SCH (10:00)
[2017-12-18] MEDS ORDERED: Pantoprazole 40 mg EC Tab PO SCH (10:00)
== END 2017-12-17 19:20 | disposition left against medical advice (07) ==
LOC: C.ER 13:24 → UNDOADMOB 17:41 → C.9E 17:41 → UNDODISOB 19:20
DX: C61 Malignant neoplasm of prostate (principal); R31.9 Hematuria, unspecified; R33.8 Other retention of urine; C79.51 Secondary malignant neoplasm of bone
CPT/HCPCS: 80053; 81001; 85025; 87086; 96374; 99284; G0378; J1885

== ENCOUNTER 2017-12-24 08:48 | Inpatient (IN) | payer MEDICAID ==
[2017-12-24 08:48] VITALS: BMI 18.0
[2017-12-24 09:58] LABS: BASO % 0.5 % (0.0-2.0); EOS # 0.4 K/uL (0.0-0.7); EOS % 4.3 % (0.0-4.0); HEMOGLOBIN 9.5 g/dL (12.0-18.0); LYMPH # 0.9 K/uL (1.0-4.3); LYMPH % 10.6 % (20.0-40.0); MEAN CORPUSCULAR HGB CONC 33.8 g/dL (33.0-37.0); MEAN PLATELET VOLUME 7.8 fL (7.2-11.7); MONO # 0.7 K/uL (0.0-0.8); MONO % 8.3 % (0.0-10.0); NEUT # 6.5 K/uL (1.8-7.0); NEUT % 76.3 % (50.0-75.0); RBC 3.95 Mil/uL (4.40-5.90); RED CELL DISTRIBUTION WIDTH 16.6 % (11.5-14.5); WHITE BLOOD COUNT 8.5 K/uL (4.8-10.8)
--- NOTE | 2017-12-24 10:01 | C.PDOC ---
History Of Present Illness 57 y/o male with PMHx of Hyperthyroidism and Stage 4 Metastatic Cancer presents to ED with complaints of full body pain and persisting hematuria with associated urinary retention. Patient was last seen at ED 1 week ago for similar symptoms and reports he did not follow up with Urologist Dr. Jaswant Orozco as instructed. States Dr. Orozco was not there. Patient states he normally takes Percocet for symptoms and last took 2 days ago after running out and admits to heroin and cocaine use. C/O soft tender lumps to his back. No fever, no chills, no URI symptoms Time Seen by Provider: 12/24/17 08:56 Chief Complaint (Nursing): Male Genitourinary History Per: Patient History/Exam Limitations: no limitations Onset/Duration Of Symptoms: Days Current Symptoms Are (Timing): Still Present Past Medical History Reviewed: Historical Data, Nursing Documentation, Vital Signs Vital Signs: Last Vital Signs Temp 98.3 F 12/24/17 08:48 Pulse 70 12/24/17 08:48 Resp 20 12/24/17 08:48 BP 136/82 12/24/17 08:48 Pulse Ox 95 12/24/17 14:06 - Medical History PMH: Hyperthyroidism, Malignancy (prostate CA stage IV) Surgical History: No Surg Hx Family History: States: No Known Family Hx - Social History Hx Alcohol Use: No Hx Substance Use: Yes - Immunization History Hx Tetanus Toxoid Vaccination: No Hx Influenza Vaccination: No Hx Pneumococcal Vaccination: No Review Of Systems Constitutional: Negative for: Fever, Chills Gastrointestinal: Negative for: Nausea, Vomiting, Abdominal Pain Genitourinary: Positive for: Dysuria, Hematuria, Other (Urinary retention ) Skin: Negative for: Rash Physical Exam - Physical Exam Appears: Non-toxic, No Acute Distress, Chronically Ill Skin: Warm, Dry, No Rash Head: Atraumatic, Normacephalic Eye(s): bilateral: Normal Inspection Oral Mucosa: Moist Throat: Normal Neck: Supple Cardiovascular: Rhythm Regular Respiratory: Normal Breath Sounds, No Rales, No Rhonchi, No Wheezing Gastrointestinal/Abdominal: Bowel Sounds, Tenderness (To palpation on LLQ and RLQ), Distention, No Guarding, No Rebound Back: No CVA Tenderness 1 - Lipoma Extremity: Normal ROM, Capillary Refill (<2 seconds) Neurological/Psych: Oriented x3 Gait: Steady ED Course And Treatment - Laboratory Results Result Diagrams: 12/24/17 09:53 12/24/17 09:53 O2 Sat by Pulse Oximetry: 95 (RA) Pulse Ox Interpretation: Normal Disposition Discussed With DrJuan: Julia Jeong Counseled Patient/Family Regarding: Studies Performed, Diagnosis, Need For Followup - Disposition Disposition: HOSPITALIZED Disposition Time: 14:12 Condition: GUARDED Forms: [facility] (Slovenian) - POA Present On Arrival: None - Clinical Impression Clinical Impression: Hematuria, Constipation, Chronic pain - Scribe Statement The provider has reviewed the documentation as recorded by the Scribwilman Rust All medical record entries made by the Scribe were at my direction and personally dictated by me. I have reviewed the chart and agree that the record accurately reflects my personal performance of the history, physical exam, medical decision making, and the department course for this patient. I have also personally directed, reviewed, and agree with the discharge instructions and disposition. Decision To Admit - Pt Status Changed To: Hospital Disposition Of: Inpatient - Admit Certification Admit to Inpatient:: After my assessment, the patient will require hospitalization for at least two midnights. This is because of the severity of symptoms shown, intensity of services needed, and/or the medical risk in this patient being treated as an outpatient. - InPatient: Physician Admission Certification: I certify that this patient requires 2 or more midnights of care for the following reason:: stage 4 prostate CA, chronic pain and gross hematuria - . Bed Request Type: Regular Patient Diagnosis: Hematuria, Constipation, Chronic pain
[2017-12-24 10:03] LABS: INR 1.1; PROTHROMBIN TIME 13.1 SECONDS (9.7-12.2)
[2017-12-24 10:08] LABS: CALCIUM 8.6 mg/dl (8.6-10.4)
[2017-12-24 10:25] LABS: URINE BILIRUBIN NEGATIVE (NEGATIVE); URINE BLOOD 2+ (NEGATIVE); URINE CLARITY Hazy (Clear); URINE COLOR Red (YELLOW); URINE GLUCOSE (UA) 1+ mg/dL (Normal); URINE NITRATE NEGATIVE (NEGATIVE); URINE PROTEIN 2+ mg/dL (NEGATIVE); URINE UROBILINOGEN NORMAL mg/dL (0.2-1.0)
[2017-12-24 10:30] LABS: URINE LEUKOCYTE ESTERASE TRACE Leu/uL (Negative)
[2017-12-24 10:41] LABS: BARBITURATES, UR NEGATIVE (NEGATIVE); BENZODIAZEPINES, UR NEGATIVE (NEGATIVE); PHENCYCLIDINE, UR NEGATIVE (NEGATIVE)
[2017-12-24 11:26] LABS: OPIATES, UR POSITIVE (NEGATIVE)
[2017-12-24] MEDS ORDERED: Lidocaine 2% Jelly (Uro-Jet) TOP ONE (11:29)
[2017-12-24] MEDS ORDERED: Lidocaine 2% Jelly (Uro-Jet) ONE (11:41)
[2017-12-24] MEDS ORDERED: Sodium Chloride 0.9% 1,000 ML IV SCH (16:00)
[2017-12-24] MEDS ORDERED: oxyCODONE 10 mg Immediate Release Tab PO PRN ×2 (16:20→16:26)
--- NOTE | 2017-12-24 16:39 | CP.PCM.HP ---
<William Aldana - Last Filed: 12/24/17 20:09> History of Present Illness - History of Present Illness History of Present Illness: PGY-1 H&P for Dr. Barba CC: "blood in my urine" This is a 57 year old male with PMHx Stage 4 metastatic prostate cancer with mets to the bones, hyperthyroidism, asthma, polysubstance abuse who presented complaining of hematuria. Per patient, this started yesterday; however, per review of EMR, patient has also been here last week for similar complaints. Patient also complaining of chronic diffuse pain secondary to his metastatic cancer. Patient also complaining of dysuria and suprapubic pressure. Patient also complaining of urinary retention with poor urinary stream. Patient states that he has had poor appetite and has not had a bowel movement during the last 10 days. For his cancer, patient follows with Dr. Oreilly. PMHx: Stage IV Prostate Cancer, Hyperthyroidism, Asthma, Eczema PSHx: Denies Allergies: NKDA Social: Current smoker 5 or 6 cigarettes daily for as long as he can remember. Admits to snorting half a gram of cocaine and 1 bag of heroin daily. Denies alcohol use. Homeless, lives in [facility] Family: Brother & Sister have asthma, mom from unknown cause, does not know father Social: Smokes 5-6 cigarettes daily, drinks alcohol once a week, will snort 1-2 bags of heroin every other day to control his diffuse body pain PMD: [facility] Oncologist: Dr. Oreilly Home meds: Flomax 0.4 mg PO daily, Flutamide 250 mg PO Q8H, Lupron injections [id number] last taken 11/29/17, Percocet 5-325 mg PO 2 tabs Q6H (dispensed by Dr. Oreilly for the last 3 months and confirmed on the [place] drug database). Present on Admission - Present on Admission Any Indicators Present on Admission: No Review of Systems - Constitutional Constitutional: Other (Chronic generalized body pain). absent: Chills, Fever - EENT Eyes: absent: Change in Vision Ears: absent: Decreased Hearing Nose/Mouth/Throat: absent: Nasal Congestion - Cardiovascular Cardiovascular: absent: Chest Pain - Respiratory Respiratory: absent: Cough, Dyspnea, Wheezing - Gastrointestinal Gastrointestinal: Constipation. absent: Abdominal Pain, Diarrhea, Nausea, Vomiting - Genitourinary Genitourinary: Dysuria, Hematuria - Musculoskeletal Musculoskeletal: Back Pain - Integumentary Integumentary: Lesions (back lesions) - Neurological Neurological: Weakness. absent: Dizziness, Headaches - Psychiatric Psychiatric: Change in Appetite (poor appetite) - Endocrine Endocrine: Fatigue. absent: Palpitations Past Patient History - Past Medical History & Family History Past Medical History?: Yes - Past Social History Smoking Status: Light Smoker < 10 Cigarettes Daily - CARDIAC Hx Cardiac Disorders: No - PULMONARY Hx Respiratory Disorders: No - NEUROLOGICAL Hx Neurological Disorder: No - HEENT Hx HEENT Problems: No - RENAL Hx Chronic Kidney Disease: No - ENDOCRINE/METABOLIC Hx Hyperthyroidism: Yes - HEMATOLOGICAL/ONCOLOGICAL Hx Blood Disorders: Yes Hx Cancer: Yes (PROSTATE, BONE) - INTEGUMENTARY Hx Dermatological Problems: No - MUSCULOSKELETAL/RHEUMATOLOGICAL Hx Musculoskeletal Disorders: Yes Hx Falls: No - GASTROINTESTINAL Hx Gastrointestinal Disorders: No - GENITOURINARY/GYNECOLOGICAL Hx Genitourinary Disorders: Yes Hx Prostate Cancer: Yes - PSYCHIATRIC Hx Substance Use: Yes - SURGICAL HISTORY Hx Surgeries: Yes Other/Comment: BONE BIOPSY - ANESTHESIA Hx Anesthesia: Yes Hx Anesthesia Reactions: No Hx Malignant Hyperthermia: No Meds Allergies/Adverse Reactions: Allergies Allergy/AdvReac Type Severity Reaction Status Date / Time honey Allergy Verified 12/17/17 13:52 Physical Exam - Constitutional Appears: No Acute Distress, Chronically Ill - Head Exam Head Exam: ATRAUMATIC, NORMOCEPHALIC - Eye Exam Eye Exam: EOMI, PERRL Additional comments: Pupils pinpoint. - ENT Exam ENT Exam: Mucous Membranes Moist - Respiratory Exam Respiratory Exam: Clear to Auscultation Bilateral, Wheezes (basilar wheezes), NORMAL BREATHING PATTERN. absent: Rales, Rhonchi - Cardiovascular Exam Cardiovascular Exam: REGULAR RHYTHM, +S1, +S2 - GI/Abdominal Exam GI & Abdominal Exam: Distended, Normal Bowel Sounds, Soft, Tenderness (lower quadrant tenderness bilaterally as well as suprapubic tenderness). absent: Firm - Exam Additional comments: No gross blood or trauma on the penis - Extremities Exam Extremities exam: Positive for: pedal pulses present. Negative for: pedal edema , tenderness - Back Exam Additional comments: Eczema throughout the back. 5cm by 3.2cm rubbery mobile lesion on the left lower thoracic paraspinal region. 1.7cm by 1.7cm rubbery mobile lesion on the left mid thoracic paraspinal region. - Neurological Exam Neurological exam: Alert, CN II-XII Intact, Oriented x3 - Psychiatric Exam Psychiatric exam: Anxious - Skin Skin Exam: Dry, Warm Results - Vital Signs Recent Vital Signs: Last Vital Signs Temp 99.4 F 12/24/17 15:48 Pulse 79 12/24/17 15:48 Resp 20 12/24/17 15:48 BP 133/68 12/24/17 15:48 Pulse Ox 99 12/24/17 15:48 - Labs Result Diagrams: 12/24/17 09:53 12/24/17 09:53 Labs: Laboratory Results - last 24 hr 12/24/17 12/24/17 12/24/17 09:53 09:53 09:53 WBC 8.5 RBC 3.95 L Hgb 9.5 L Hct 28.0 L MCV 71.0 L MCH 24.0 L MCHC 33.8 RDW 16.6 H Plt Count 513 H MPV 7.8 Neut % (Auto) 76.3 H Lymph % (Auto) 10.6 L Andrews % (Auto) 8.3 Eos % (Auto) 4.3 H Baso % (Auto) 0.5 Neut # 6.5 Lymph # 0.9 L Andrews # 0.7 Eos # 0.4 Baso # 0.0 PT 13.1 H INR 1.1 APTT 36 H Sodium 135 Potassium 3.7 Chloride 99 Carbon Dioxide 29 Anion Gap 10 BUN 20 Creatinine 1.6 H Est GFR ( Amer) 55 Est GFR (Non-Af Amer) 45 Random Glucose 101 Calcium 8.6 Total Bilirubin 1.0 AST 34 ALT 27 Alkaline Phosphatase 100 Total Protein 8.1 Albumin 4.0 Globulin 4.1 H Albumin/Globulin Ratio 1.0 Urine Color Urine Clarity Urine pH Ur Specific [place] Urine Protein Urine Glucose (UA) Urine Ketones Urine Blood Urine Nitrate Urine Bilirubin Urine Urobilinogen Ur Leukocyte Esterase Urine WBC (Auto) Urine RBC (Auto) Urine Opiates Screen Urine Methadone Screen Ur Barbiturates Screen Ur Phencyclidine Scrn Ur Amphetamines Screen U Benzodiazepines Scrn U Oth Cocaine Metabols U Cannabinoids Screen 12/24/17 12/24/17 10:06 10:06 WBC RBC Hgb Hct MCV MCH MCHC RDW Plt Count MPV Neut % (Auto) Lymph % (Auto) Andrews % (Auto) Eos % (Auto) Baso % (Auto) Neut # Lymph # Andrews # Eos # Baso # PT INR APTT Sodium Potassium Chloride Carbon Dioxide Anion Gap BUN Creatinine Est GFR ( Amer) Est GFR (Non-Af Amer) Random Glucose Calcium Total Bilirubin AST ALT Alkaline Phosphatase Total Protein Albumin Globulin Albumin/Globulin Ratio Urine Color Red Urine Clarity Hazy Urine pH 6.0 Ur Specific [place] 1.009 Urine Protein 2+ H Urine Glucose (UA) 1+ H Urine Ketones Negative Urine Blood 2+ H Urine Nitrate Negative Urine Bilirubin Negative Urine Urobilinogen Normal Ur Leukocyte Esterase Trace Urine WBC (Auto) 15 H Urine RBC (Auto) 3171 H Urine Opiates Screen Positive H Urine Methadone Screen Negative Ur Barbiturates Screen Negative Ur Phencyclidine Scrn Negative Ur Amphetamines Screen Negative U Benzodiazepines Scrn Negative U Oth Cocaine Metabols Positive H U Cannabinoids Screen Positive H Assessment & Plan - Assessment and Plan (Free Text) Plan: Hematuria Patient with obvious bra[place] hematuria at bedside in the ED. Patient retaining urine per CT scan [address] Thiago Orozco consulted, help appreciated History of Metastatic Prostate Cancer Oncologist Dr. Oreilly consulted, help appreciated Palliative Care consult for goals of care Resume Flutamide 250 mg PO Q8H Oxycodone 5 mg Q6 prn, will start off slow and advance back to home dose of 10 mg tomorrow Morphine 2 mg IV Q4 prn History of Asthma Not on home medication Duoneb Q6 prn History of Hyperthyroidism Multinodular goiter seen on ultrasound from prior admission f/u TSH and free T4 Patient previously on Methimazole 5 mg PO BID Prophylactic Measure VTE ppx C/I due to bleed SCDs Pepcid 20 mg IV daily Case DW Dr. Jameson Aldana PGY-1 <Dolly Barba V - Last Filed: 12/25/17 23:16> Results - Vital Signs Recent Vital Signs: Last Vital Signs Temp 98.2 F 12/25/17 16:00 Pulse 60 12/25/17 16:00 Resp 20 12/25/17 16:00 BP 131/73 12/25/17 16:00 Pulse Ox 100 12/25/17 16:00 - Labs Result Diagrams: 12/25/17 11:01 12/25/17 11:01 Labs: Laboratory Results - last 24 hr 12/24/17 12/25/17 12/25/17 23:12 11:01 11:01 WBC 7.8 9.3 RBC 3.31 L 3.45 L Hgb 8.2 L 8.4 L Hct 23.5 L 24.4 L MCV 70.8 L 70.8 L MCH 24.8 L 24.5 L MCHC 35.1 34.6 RDW 16.3 H 16.4 H Plt Count 428 H 425 H MPV 7.4 8.1 Neut % (Auto) 74.7 79.8 H Lymph % (Auto) 11.4 L 9.7 L Andrews % (Auto) 9.9 9.0 Eos % (Auto) 3.0 0.8 Baso % (Auto) 1.0 0.7 Neut # (Auto) 5.9 7.4 H Lymph # (Auto) 0.9 L 0.9 L Andrews # (Auto) 0.8 0.8 Eos # (Auto) 0.2 0.1 Baso # (Auto) 0.1 0.1 Neutrophils % (Manual) 80 H Band Neutrophils % 1 Lymphocytes % (Manual) 9 L Monocytes % (Manual) 10 Platelet Estimate Slightly increased H Hypochromasia (manual) Slight Anisocytosis (manual) Slight Target Cells Slight PT 13.0 H INR 1.1 APTT 33 Sodium Potassium Chloride Carbon Dioxide Anion Gap BUN Creatinine Est GFR ( Amer) Est GFR (Non-Af Amer) Random Glucose Calcium Total Bilirubin AST ALT Alkaline Phosphatase Total Protein Albumin Globulin Albumin/Globulin Ratio Free T4 TSH 3rd Generation 12/25/17 12/25/17 11:01 11:01 WBC RBC Hgb Hct MCV MCH MCHC RDW Plt Count MPV Neut % (Auto) Lymph % (Auto) Andrews % (Auto) Eos % (Auto) Baso % (Auto) Neut # (Auto) Lymph # (Auto) Andrews # (Auto) Eos # (Auto) Baso # (Auto) Neutrophils % (Manual) Band Neutrophils % Lymphocytes % (Manual) Monocytes % (Manual) Platelet Estimate Hypochromasia (manual) Anisocytosis (manual) Target Cells PT INR APTT Sodium 137 Potassium 3.9 Chloride 102 Carbon Dioxide 26 Anion Gap 12 BUN 50 H Creatinine 3.3 H Est GFR ( Amer) 24 Est GFR (Non-Af Amer) 20 Random Glucose 132 H Calcium 9.0 Total Bilirubin 0.6 AST 41 ALT 22 Alkaline Phosphatase 100 Total Protein 7.4 Albumin 3.6 Globulin 3.8 Albumin/Globulin Ratio 0.9 L Free T4 1.27 TSH 3rd Generation 0.03 L Assessment & Plan (1) Gross hematuria Status: Acute (2) Cocaine abuse Status: Acute (3) Heroin abuse Status: Acute (4) Metastatic malignant neoplasm to prostate Status: Acute (5) Prophylactic measure Status: Acute Attending/Attestation - Attestation I have personally seen and examined this patient.: Yes I have fully participated in the care of the patient.: Yes I have reviewed all pertinent clinical information: Yes Notes (Text): This is late computer entry for 12/24/17. Patient seen, examined and case discussed with day-time resident. Patient seen in the Emergency Room in [facility] on 12/24/17 approximately 3: 10PM. Patient with known hx of metastatic prostate cancer on flutamide, narcotic medication secondary to intractable pain secondary to prostate cancer comes in for gross hematuria. Patient unable to tolerate [place] placed in the ED secondary to pain. Urology consulted for [place] placement given hematuria. Patient reports 10 day hx of constipation. Patient ordered for CT abdomen/ pelvis w/o PO/IV contrast r/o SBO. Will re-start pain medication at low dose given intractable pain secondary to metastatic prostate cancer Urology consult and palliative consult Chemical anticoagulation contraindicated to gross hematuria Assessment/Plan 1) Gross Hematuria * Patient with obvious braeden hematuria at bedside in the ED. * Patient retaining urine per CT scan 670 cc. * Urology Dr. Thiago Orozco consulted, help appreciated * Informed in the ED, will evaluate the patient * Nursing has attempted [place] in the ED unable to place secondary to pain * CT Abdomen/Pelvis w/o PO and IV contrast (12/24/17): distended bladder (670cc) which contains hyperdense debris. Stranding of the perivesical fat may be related to radiation cystisi. Adenopathy within groin bilaterally and extending along external iliac and common iliac chains b/l, severe eft hydronephrosis without change from previous. Moderate rigt sided hydronephrosis which is new from previous. Multiple bone lesions consistent with hx of metastatic prostate cancer. Plerual pased right lower lobe pulmonary nodule which is slightly larger than previous. Mild rectal wall thickening could be related to radiation change. * Chemical anticoagulation held in light of gross hematuria 2) History of Metastatic Prostate Cancer * Oncologist Dr. Oreilly consulted, help appreciated * Palliative Care consult for goals of care * Resume Flutamide 250 mg PO Q8H (chemotherapic) * Pain PRN: Oxycodone 5 mg Q6 prn, will start off slow and advance back to home dose of 10 mg tomorrow and Morphine 2 mg IV Q4 prn * Patient relapsed into Heroin about day prior given intractable pain * [facility] patient has been taking Oxycodone 10mg (120 tabs/ 30 days) for the past 3 months (10/11; 11/10; and 12/12) prescribed by heme- oncology 3) History of Asthma * Not on home medication * Duoneb Q6 prn shortness of breathe 4) History of Hyperthyroidism * Multinodular goiter seen on ultrasound from prior admission * f/u TSH and free T4 * Patient previously on Methimazole 5 mg PO BID 5) Polysubstance Abuse * UDS: positive opiate, cocaine, cannabis * Patient is on narcotic medication for pain secondary to metastatic cancer but he has also relapsed back into his heroin misuse 6) Prophylactic Measure * VTE ppx C/I due to bleed * SCDs * Pepcid 20 mg IV daily
--- NOTE | 2017-12-24 19:03 | CT ---
EXAM: CT Abdomen and Pelvis Without Intravenous Contrast EXAM DATE/TIME: Exam ordered 12/24/2017 3:56 PM CLINICAL HISTORY: 57 years old, male; Pain; Abdominal pain; Generalized; Additional info: Constipation, urinary retention, met prostate canc TECHNIQUE: Axial computed tomography images of the abdomen and pelvis without intravenous contrast. All CT scans at this facility use one or more dose reduction techniques, viz.: automated exposure control; ma/kV adjustment per patient size (including targeted exams where dose is matched to indication; i.e. head); or iterative reconstruction technique. Coronal and sagittal reformatted images were created and reviewed. COMPARISON: CT - ANGIO CHEST/ABDOMEN/PELVIS 2017-11-11 19:23 FINDINGS: Lower thorax: A pleural based nodule is noted in the posterior basal segment of the right lower lobe measuring 5 mm (series 5 image 23). ABDOMEN: Liver: Unremarkable. Gallbladder and bile ducts: Unremarkable. No calcified stones. No ductal dilation. Pancreas: Unremarkable. No ductal dilation. Spleen: Unremarkable. No splenomegaly. Adrenals: Unremarkable. No mass. Kidneys and ureters: There is moderate hydronephrosis on the right. There is severe hydronephrosis on the left. Stomach and bowel: A small to moderate amount of stool is seen in the ascending colon. A small amount of stool is noted in the rectosigmoid colon. No obstruction. Mild rectal wall thickening is noted.. Appendix: No findings to suggest acute appendicitis. PELVIS: Bladder: Heterogeneous density/debris is noted within the bladder. The prostate measures 3.9 x 3.7 by 5.2 cm. There is loss of the normal fat plane the prostate on the right from the left pelvic sidewall. The bladder is distended. Inflammatory changes are noted within the fat surrounding the bladder. The bladder measures 12.5 x 9.8 by 10.9 cm. for a volume of 670 cc. No stones. Reproductive: See above. ABDOMEN and PELVIS: Intraperitoneal space: Unremarkable. No free air. No significant fluid collection. Bones/joints: Areas of sclerosis are noted in the left 11th and ninth and eighth ribs laterally. Sclerotic lesion is noted in the right seventh rib. A destructive lesion is suggested of the right posterior eighth rib. Areas of sclerosis are noted in the iliac bones bilaterally adjacent to the sacroiliac joints. Facet arthropathy is noted at the mid and lower lumbar spine. No acute fracture. No dislocation. Soft tissues: Unremarkable. Vasculature: Unremarkable. No abdominal aortic aneurysm. Lymph nodes: Enlarged inguinal lymph nodes are noted bilaterally. The largest is on the left measuring 2.9 x 1.7 by 1.8 cm. The largest node on the right measures 2 x 1 by 2.2 cm. Mild wall thickening is noted of the rectum. Adenopathy is noted along the external iliac and common iliac chains bilaterally, left side greater than right. IMPRESSION: 1. Distended bladder ( 670 cc) which contains hyperdense debris. This could represent hemorrhage. Stranding of the perivesical fat may be related to radiation cystitis. 2. Adenopathy noted within the groin bilaterally and extending along the external iliac and common iliac chains bilaterally, left side greater than right. 3. Severe left hydronephrosis without change from previous. Moderate right-sided hydronephrosis which is new from previous. 4. Multiple bone lesions consistent with history of metastatic prostate cancer. 5. Pleural-based right lower lobe pulmonary nodule which is slightly larger than previous. (Now 5 mm compared to previous measurement of 4 mm) 6. Mild rectal wall thickening could be related to radiation change.
[2017-12-24] MEDS ORDERED: Albuterol-Ipratrop 3 mg / 0.5 (3 ml) UD INH PRN (19:31)
[2017-12-24] MEDS ORDERED: Morphine 4 MG/ML VIAL IV PRN (21:00)
--- NOTE | 2017-12-24 21:49 | CP.PCM.CON ---
History of Present Illness - History of Present Illness History of Present Illness: 57 year old male with a history of stage IV prostate cancer (tk 10) initiated on total androgen deprivation admitted with hematuria. The patient [facility] with [facility]. His initial PSA was about 400 and he had evidence of retroperitoneal and bone metastasis. He was started on Lupron 30mg and Casodex on 04/25/17. His last Lupron injection was with me in the office earlier this month. Since then he has been having on and off hematuria and notes to diffuse body aches. Past medical history: HTN, prostate cancer Past surgical history: Denies Family history: Denies hematologic and oncologic problems Social history: Heroin abuse Allergies: NKA Review of systems: All remaining review of systems including HEENT, cardiovascular, respiratory, gastrointestinal, genitourinary, musculoskeletal, dermatologic, neurologic, and psychiatric are negative unless mentioned in the HPI. Past Patient History - Past Medical History & Family History Past Medical History?: Yes - Past Social History Smoking Status: Light Smoker < 10 Cigarettes Daily - CARDIAC Hx Cardiac Disorders: No - PULMONARY Hx Respiratory Disorders: No - NEUROLOGICAL Hx Neurological Disorder: No - HEENT Hx HEENT Problems: No - RENAL Hx Chronic Kidney Disease: No - ENDOCRINE/METABOLIC Hx Hyperthyroidism: Yes - HEMATOLOGICAL/ONCOLOGICAL Hx Blood Disorders: Yes Hx Cancer: Yes (PROSTATE, BONE) - INTEGUMENTARY Hx Dermatological Problems: No - MUSCULOSKELETAL/RHEUMATOLOGICAL Hx Musculoskeletal Disorders: Yes Hx Falls: No - GASTROINTESTINAL Hx Gastrointestinal Disorders: No - GENITOURINARY/GYNECOLOGICAL Hx Genitourinary Disorders: Yes Hx Prostate Cancer: Yes - PSYCHIATRIC Hx Substance Use: Yes - SURGICAL HISTORY Hx Surgeries: Yes Other/Comment: BONE BIOPSY - ANESTHESIA Hx Anesthesia: Yes Hx Anesthesia Reactions: No Hx Malignant Hyperthermia: No Meds Allergies/Adverse Reactions: Allergies Allergy/AdvReac Type Severity Reaction Status Date / Time honey Allergy Verified 12/17/17 13:52 - Medications Medications: Current Medications Albuterol/Ipratropium (Duoneb 3 Mg/0.5 Mg (3 Ml) Ud) 3 ml INH RQ6 PRN PRN Reason: wheezing, shortness of breath Docusate Sodium (Colace) 100 mg PO TID YARELIS Last Admin: 12/24/17 20:19 Dose: 100 mg Famotidine (Pepcid) 20 mg IVP DAILY YARELIS Flutamide (Eulexin) 250 mg PO Q8H YARELIS Sodium Chloride (Sodium Chloride 0.9%) 1,000 mls @ 100 mls/hr IV .Q10H [facility] Last Admin: 12/24/17 18:39 Dose: 100 mls/hr Morphine Sulfate (Morphine) 2 mg IV Q4 PRN PRN Reason: Pain, severe (8-10) Last Admin: 12/24/17 20:08 Dose: 2 mg Oxycodone HCl (Oxycodone Immediate Release Tab) 5 mg PO Q6 PRN PRN Reason: Pain, severe (8-10) Pneumococcal Polyvalent Vaccine (Pneumovax 23 Vaccine) 0.5 ml IM .ONCE ONE Stop: 12/26/17 10:01 Tamsulosin HCl (Flomax) 0.4 mg PO DAILY [facility] Physical Exam - Head Exam Head Exam: ATRAUMATIC - Eye Exam Eye Exam: Normal appearance - ENT Exam ENT Exam: Mucous Membranes Dry - Respiratory Exam Respiratory Exam: NORMAL BREATHING PATTERN - Cardiovascular Exam Cardiovascular Exam: +S1, +S2 - GI/Abdominal Exam GI & Abdominal Exam: Normal Bowel Sounds - Extremities Exam Extremities exam: Positive for: normal inspection - Neurological Exam Neurological exam: Oriented x3 - Psychiatric Exam Psychiatric exam: Normal Affect, Normal Mood - Skin Skin Exam: Warm Results - Vital Signs Recent Vital Signs: Last Vital Signs Temp 98.6 F 12/24/17 17:00 Pulse 72 12/24/17 17:00 Resp 20 12/24/17 17:00 BP 130/61 12/24/17 17:00 Pulse Ox 99 12/24/17 17:00 - Labs Result Diagrams: 12/24/17 09:53 12/24/17 09:53 Labs: Laboratory Results - last 24 hr 12/24/17 12/24/17 12/24/17 09:53 09:53 09:53 WBC 8.5 RBC 3.95 L Hgb 9.5 L Hct 28.0 L MCV 71.0 L MCH 24.0 L MCHC 33.8 RDW 16.6 H Plt Count 513 H MPV 7.8 Neut % (Auto) 76.3 H Lymph % (Auto) 10.6 L Camp % (Auto) 8.3 Eos % (Auto) 4.3 H Baso % (Auto) 0.5 Neut # 6.5 Lymph # 0.9 L Camp # 0.7 Eos # 0.4 Baso # 0.0 PT 13.1 H INR 1.1 APTT 36 H Sodium 135 Potassium 3.7 Chloride 99 Carbon Dioxide 29 Anion Gap 10 BUN 20 Creatinine 1.6 H Est GFR ( Amer) 55 Est GFR (Non-Af Amer) 45 Random Glucose 101 Calcium 8.6 Total Bilirubin 1.0 AST 34 ALT 27 Alkaline Phosphatase 100 Total Protein 8.1 Albumin 4.0 Globulin 4.1 H Albumin/Globulin Ratio 1.0 Urine Color Urine Clarity Urine pH Ur Specific [place] Urine Protein Urine Glucose (UA) Urine Ketones Urine Blood Urine Nitrate Urine Bilirubin Urine Urobilinogen Ur Leukocyte Esterase Urine WBC (Auto) Urine RBC (Auto) Urine Opiates Screen Urine Methadone Screen Ur Barbiturates Screen Ur Phencyclidine Scrn Ur Amphetamines Screen U Benzodiazepines Scrn U Oth Cocaine Metabols U Cannabinoids Screen Influenza Typ A,B (EIA) 12/24/17 12/24/17 12/24/17 10:06 10:06 18:50 WBC RBC Hgb Hct MCV MCH MCHC RDW Plt Count MPV Neut % (Auto) Lymph % (Auto) Camp % (Auto) Eos % (Auto) Baso % (Auto) Neut # Lymph # Camp # Eos # Baso # PT INR APTT Sodium Potassium Chloride Carbon Dioxide Anion Gap BUN Creatinine Est GFR ( Amer) Est GFR (Non-Af Amer) Random Glucose Calcium Total Bilirubin AST ALT Alkaline Phosphatase Total Protein Albumin Globulin Albumin/Globulin Ratio Urine Color Red Urine Clarity Hazy Urine pH 6.0 Ur Specific [place] 1.009 Urine Protein 2+ H Urine Glucose (UA) 1+ H Urine Ketones Negative Urine Blood 2+ H Urine Nitrate Negative Urine Bilirubin Negative Urine Urobilinogen Normal Ur Leukocyte Esterase Trace Urine WBC (Auto) 15 H Urine RBC (Auto) 3171 H Urine Opiates Screen Positive H Urine Methadone Screen Negative Ur Barbiturates Screen Negative Ur Phencyclidine Scrn Negative Ur Amphetamines Screen Negative U Benzodiazepines Scrn Negative U Oth Cocaine Metabols Positive H U Cannabinoids Screen Positive H Influenza Typ A,B (EIA) Negative for flu a/b Assessment & Plan (1) Anemia Assessment and Plan: hematuria chronic disease recommend checking retic count, b12, folate, ferritin Status: Acute (2) Prostate cancer Assessment and Plan: stage IV bone and LN mets on total androgen deprivation repeat PSA Thank you for this interesting consult. Status: Acute
[2017-12-24 23:17] LABS: BASO # 0.1 K/uL (0.0-0.2); EOS # 0.2 K/uL (0.0-0.7); HEMOGLOBIN 8.2 g/dL (12.0-18.0); LYMPH # 0.9 K/uL (1.0-4.3); LYMPH % 11.4 % (20.0-40.0); MEAN CELL VOLUME 70.8 fL (80.0-94.0); MEAN CORPUSCULAR HEMOGLOBIN 24.8 pg (27.0-31.0); MEAN CORPUSCULAR HGB CONC 35.1 g/dL (33.0-37.0); MEAN PLATELET VOLUME 7.4 fL (7.2-11.7); MONO # 0.8 K/uL (0.0-0.8); MONO % 9.9 % (0.0-10.0); NEUT # 5.9 K/uL (1.8-7.0); NEUT % 74.7 % (50.0-75.0); RBC 3.31 Mil/uL (4.40-5.90); RED CELL DISTRIBUTION WIDTH 16.3 % (11.5-14.5); WHITE BLOOD COUNT 7.8 K/uL (4.8-10.8)
--- NOTE | 2017-12-25 09:30 | CP.PCM.PN ---
<William Aldana - Last Filed: 12/25/17 18:36> Subjective - Date & Time of Evaluation Date of Evaluation: 12/25/17 Time of Evaluation: 10:00 - Subjective Subjective: Medicine progress note for Dr. Barba Patient seen and examined at bedside. Patient complaining of inability to void and continued suprapubic pressure from urinary retention. Patient also with continued diffuse body aches. Objective - Vital Signs/Intake and Output Vital Signs (last 24 hours): Temp Pulse Resp BP Pulse Ox 98.1 F 58 L 20 118/69 99 12/25/17 07:02 12/25/17 07:02 12/25/17 07:02 12/25/17 07:02 12/25/17 07:02 Intake and Output: 12/25/17 12/25/17 06:59 18:59 Intake Total 600 Output Total 150 Balance 450 - Medications Medications: Current Medications Albuterol/Ipratropium (Duoneb 3 Mg/0.5 Mg (3 Ml) Ud) 3 ml INH RQ6 PRN PRN Reason: wheezing, shortness of breath Docusate Sodium (Colace) 100 mg PO TID [facility] Last Admin: 12/24/17 20:19 Dose: 100 mg Famotidine (Pepcid) 20 mg IVP DAILY [facility] Flutamide (Eulexin) 250 mg PO Q8H [facility] Last Admin: 12/25/17 03:30 Dose: Not Given Morphine Sulfate (Morphine) 2 mg IV Q4 PRN PRN Reason: Pain, severe (8-10) Last Admin: 12/24/17 20:08 Dose: 2 mg Oxycodone HCl (Oxycodone Immediate Release Tab) 5 mg PO Q6 PRN PRN Reason: Pain, severe (8-10) Tamsulosin HCl (Flomax) 0.4 mg PO DAILY [facility] - Labs Labs: 12/24/17 23:12 12/24/17 09:53 PT 13.1 SECONDS (9.7-12.2) H 12/24/17 09:53 INR 1.1 12/24/17 09:53 APTT 36 SECONDS (21-34) H 12/24/17 09:53 - Constitutional Appears: No Acute Distress - Head Exam Head Exam: ATRAUMATIC, NORMOCEPHALIC - Eye Exam Eye Exam: EOMI, Normal appearance - ENT Exam ENT Exam: Mucous Membranes Moist Additional comments: Friable nasal mucosa bilaterally - Respiratory Exam Respiratory Exam: Clear to Ausculation Bilateral. absent: Rales, Rhonchi, Wheezes - Cardiovascular Exam Cardiovascular Exam: REGULAR RHYTHM, +S1, +S2 - GI/Abdominal Exam GI & Abdominal Exam: Distended, Guarding, Soft, Tenderness (diffusely but concentrated in bilateral lower quadrants and suprapubic region), Normal Bowel Sounds. absent: Firm - Exam Additional comments: No gross blood or trauma on the penis - Extremities Exam Extremities Exam: absent: Pedal Edema, Tenderness - Back Exam Additional comments: Eczema throughout the back. 5cm by 3.2cm rubbery mobile lesion on the left lower thoracic paraspinal region. 1.7cm by 1.7cm rubbery mobile lesion on the left mid thoracic paraspinal region. - Neurological Exam Neurological Exam: Alert, Awake, Oriented x3 - Psychiatric Exam Psychiatric exam: Anxious - Skin Skin Exam: Dry, Warm Assessment and Plan - Assessment and Plan (Free Text) Plan: Hematuria Patient with obvious braeden hematuria at bedside in the ED. Patient retaining urine per CT scan [address] Thiago Orozco consulted, help appreciated Unable to place del rio in today due to obstruction. Will need to plan to be done in the OR under sedation History of Metastatic Prostate Cancer Oncologist Dr. Oreilly consulted, help appreciated Palliative Care consult for goals of care--POLST: DNR/DNI Resume Flutamide 250 mg PO Q8H Per palliative care recommendation, patient started on * Fentanyl patch 50 mcg Q72H * Morphine 5 mg IV Q4 prn History of Asthma Not on home medication Duoneb Q6 prn History of Hyperthyroidism Multinodular goiter seen on ultrasound from prior admission Although TSH low at 0.03, free T4 was 1.27 Patient previously on Methimazole 5 mg PO BID Prophylactic Measure VTE ppx C/I due to bleed SCDs Pepcid 20 mg IV daily Disposition: CXR and EKG ordered in anticipation of OR. CXR with no active disease. EKG showing sinus bradycardia rate [address] changes. Patient medically stable for OR procedure. Case DW Dr. Jameson Aldana PGY-1 <Dolly Barba V - Last Filed: 01/31/18 23:35> Objective - Vital Signs/Intake and Output Vital Signs (last 24 hours): Temp Pulse Resp BP Pulse Ox 98.2 F 60 20 131/73 100 12/25/17 16:00 12/25/17 16:00 12/25/17 16:00 12/25/17 16:00 12/25/17 16:00 Intake and Output: 12/25/17 12/26/17 18:59 06:59 Intake Total 400 1500 Output Total 350 300 Balance 50 1200 - Medications Medications: Current Medications Albuterol/Ipratropium (Duoneb 3 Mg/0.5 Mg (3 Ml) Ud) 3 ml INH RQ6 PRN PRN Reason: wheezing, shortness of breath Docusate Sodium (Colace) 100 mg PO TID [facility] Last Admin: 12/25/17 18:30 Dose: 100 mg Famotidine (Pepcid) 20 mg IVP DAILY [facility] Last Admin: 12/25/17 09:29 Dose: 20 mg Fentanyl (Duragesic) 1 patch TD Q72H [facility] Last Admin: 12/25/17 12:39 Dose: 1 patch Flutamide (Eulexin) 250 mg PO Q8H [facility] Last Admin: 12/25/17 18:30 Dose: 250 mg Morphine Sulfate (Morphine) 5 mg IV Q4 PRN PRN Reason: Pain, severe (8-10) Last Admin: 12/25/17 18:25 Dose: 5 mg Pneumococcal Polyvalent Vaccine (Pneumovax 23 Vaccine) 0.5 ml IM .ONCE ONE Stop: 12/26/17 10:01 Tamsulosin HCl (Flomax) 0.4 mg PO DAILY [facility] Last Admin: 12/25/17 09:29 Dose: 0.4 mg - Labs Labs: 12/25/17 11:01 12/25/17 11:01 PT 13.0 SECONDS (9.7-12.2) H 12/25/17 11:01 INR 1.1 12/25/17 11:01 APTT 33 SECONDS (21-34) 12/25/17 11:01 Assessment and Plan (1) Gross hematuria Status: Acute (2) Cocaine abuse Status: Acute (3) Heroin abuse Status: Acute (4) Metastatic malignant neoplasm to prostate Status: Acute (5) Prophylactic measure Status: Acute Attending/Attestation - Attestation I have personally seen and examined this patient.: Yes I have fully participated in the care of the patient.: Yes I have reviewed all pertinent clinical information, including history, physical exam and plan: Yes Notes (Text): Patient seen, examined and case discussed with day-time resident. Patient seen this morning and reports intractable pain. We have discussed with urology during the day. Patient has refused del rio placement yesterday by urologist. We have attempted to placed del rio today with Versed 1mg IVP X1 but patient could not tolerate placement. We have left messages with Dr. Ezekiel Orozco given last option to place Del Rio in the OR. We will place NPO after midnight in preparation to see if [place] can be placed IV fluids d/c but patient had refused IV fluids Discussed with palliative care regarding pain management given patients pain threshold in light of his metastatic prostate cancer. We will need to monitor H/H given hematuria, will ordered for EKG and chest as preoperative. Patient per is POST is DNR/DNI from prior hospitalization. Allows for full medical treatment is patient is breathing and has a pulse-->use all approriate medical and surgical interventions as indicated to support life. Assessment/Plan 1) Obstructive Uropathy Gross Hematuria * Patient with obvious braeden hematuria at bedside in the ED on admission * Patient retaining urine per CT scan 670 cc on admission * Urology Dr. Thiago Orozco consulted, help appreciated * Informed in the ED, will evaluate the patient * Nursing has attempted Del Rio in the ED unable to place secondary to pain * Dr. Orozco attempted to place del rio but patient had refused. * CT Abdomen/Pelvis w/o PO and IV contrast (12/24/17): distended bladder (670cc) which contains hyperdense debris. Stranding of the perivesical fat may be related to radiation cystisi. Adenopathy within groin bilaterally and extending along external iliac and common iliac chains b/l, severe eft hydronephrosis without change from previous. Moderate rigt sided hydronephrosis which is new from previous. Multiple bone lesions consistent with hx of metastatic prostate cancer. Plerual pased right lower lobe pulmonary nodule which is slightly larger than previous. Mild rectal wall thickening could be related to radiation change. * Renal US (12/25/17): moderate right and severe left hydronephrosis, Bladder volume 929.4. Unable to void. Echogenic material within the dependent bladder may represent pus, blood, or debris. * Chemical anticoagulation held in light of gross hematuria * NPO for possible placement of del rio in OR setting 12/26/17; will need to follow- up with urology. * UA: hematuria; Urine culture; no growth 2) History of Metastatic Prostate Cancer * Oncologist Dr. Oreilly consulted, help appreciated * Palliative Care consult for goals of care and pain management * Prior POLST 06/10 available * Pain recommendations:Fentanyl patch * Morphine 5mg IVQ 4H PRN severe pain * Resume Flutamide 250 mg PO Q8H (chemotherapic) * Patient relapsed into Heroin about day prior given intractable pain * [place] on [place]: patient has been taking Oxycodone 10mg (120 tabs/ 30 days) for the past 3 months (10/11; 11/10; and 12/12) prescribed by heme- oncology 3) History of Asthma * Not on home medication * Duoneb Q6 prn shortness of breathe 4) History of Hyperthyroidism * Multinodular goiter seen on ultrasound from prior admission * Low TSH, normal Free T4 will resume Methimazole 5 mg PO BID 5) Polysubstance Abuse * UDS: positive opiate, cocaine, cannabis * Patient is on narcotic medication for pain secondary to metastatic cancer but he has also relapsed back into his heroin misuse 6) Back Mass * Soft tissue (12/25/17): soft tissue lesions within posterior chest wall, correlating with fat-containing lesion on CT, compatible with lipomas 6) Prophylactic Measure * VTE ppx C/I due to bleed * SCDs * Pepcid 20 mg IV daily Disposition: Patient placed for NPO for possible OR for [place] placement with urology in the AM.
[2017-12-25] MEDS ORDERED: oxyCODONE 5 mg Immediate Release Tab PO PRN ×2 (09:45)
--- NOTE | 2017-12-25 09:45 | US ---
PROCEDURE: Ultrasound of the Kidneys HISTORY: hx of metastatic prostate cancer, hematuria COMPARISON: CT scan of the abdomen and pelvis dated 12/24/2017. TECHNIQUE: Sonogram of the kidneys. FINDINGS: RIGHT KIDNEY: Measures: 12.1 x 7.1 x 8.4 cm. Moderate hydronephrosis. Midpole cyst measuring 0.7 x 0.4 x 0.5 centimeter. Normal in size, contour and echogenicity. No stone or solid mass lesion visualized. LEFT KIDNEY: Measures: 11.7 x 5.8 x 6.7 cm. Severe hydronephrosis. Normal in size, contour and echogenicity. No nor solid mass lesion visualized. OTHER FINDINGS: Prevoid urinary bladder volume measured 929.4 cc. Patient was unable to void. Prominent amount of echogenic material layering dependently within the bladder may represent pus, blood or debris. IMPRESSION: Moderate right and severe left hydronephrosis. Bladder volume measured 929.4 cc. Patient was unable to void. Echogenic material within the dependent bladder may represent pus, blood or debris.
--- NOTE | 2017-12-25 10:48 | CP.PCM.CON ---
History of Present Illness - History of Present Illness History of Present Illness: Palliative consult requested by Doctor Barba for pain management and goals of care discussion Patient is a 57 yo male admitted with urinary retention, hemathuria and generalized body pain. patient is known to me from May/2017 when he signed POLST, DNR/DNI, copy on chart. Patient was in ED one week ago for the same symtoms. Upon discharge, patient instructed to fallow up with Doctor Ernesto as an outpatient but he did not. Upon this admission the CT abd/pelvis was significant for distended bladde, severe left hydronephrosis, bone mets and increase in RLL lung nodule. Patient has know Hx of stage IV prostate cancer and was fallowed up by Doctor Oreilly for Lupron injection. PMH: hypothyroidism, stage IV prostate cancer, S/p radiation and Lupron injection, admits to heroin and cocaine use Soc. Hx: unemployed, homeless, lives in residential, no family contacts, ex prisoner Fam. hx: states unknown family Hx Review of Systems - Constitutional Constitutional: Other Additional comments: urinary retention - EENT Eyes: absent: As Per HPI, Blind Spots, Blurred Vision, Change in Vision, Decreased Night Vision, Diplopia, Discharge, Dry Eye, Exophthalmos, Floaters, Irritation, Itchy Eyes, Loss of Peripheral Vision, Pain, Photophobia, Requires Corrective Lenses, Sees Flashes, Spots in Vision, Tunnel Vision, Other Visual Disturbances, Loss of Vision, Other Ears: absent: As Per HPI, Decreased Hearing, Ear Discharge, Ear Pain, Tinnitus, Abnormal Hearing, Disequilibrium, Dizziness, Other Nose/Mouth/Throat: absent: As Per HPI, Epistaxis, Nasal Congestion, Nasal Discharge, Nasal Obstruction, Nasal Trauma, Nose Pain, Post Nasal Drip, Sinus Pain, Sinus Pressure, Bleeding Gums, Change in Voice, Dental Pain, Dry Mouth, Dysphagia, Halitosis, Hoarsness, Lip Swelling, Mouth Lesions, Mouth Pain, Odynophagia, Sore Throat, Throat Swelling, Tongue Swelling, Facial Pain, Neck Pain, Neck Mass, Other - Cardiovascular Cardiovascular: absent: As Per HPI, Acrocyanosis, Chest Pain, Chest Pain at Rest , Chest Pain with Activity, Claudication, Diaphoresis, Dyspnea, Dyspnea on Exertion, Edema, Irregular Heart Rhythm, Pain Radiating to Arm/Neck/Jaw, Leg Edema, Leg Ulcers, Lightheadedness, Orthopnea, Palpitations, Paroxysmal Nocturnal Dyspnea, Pedal Edema, Radiating Pain, Rapid Heart Rate, Slow Heart Rate, Syncope, Other - Respiratory Respiratory: absent: As Per HPI, Cough, Dyspnea, Hemoptysis, Dyspnea on Exertion , Wheezing, Snoring, Stridor, Pain on Inspiration, Chest Congestion, Excessive Mucous Production, Change in Mucous Color, Pain with Coughing, Other - Gastrointestinal Gastrointestinal: absent: As Per HPI, Abdominal Pain, Belching, Bloating, Change in Bowel Habits, Change in Stool Character, Coffee Ground Emesis, Constipation, Cramping, Diarrhea, Dyspepsia, Dysphagia, Early Satiety, Excessive Flatus, Fecal Incontinence, Heartburn, Hematemesis, Hematochezia, Loose Stools, Melena, Nausea, Odynophagia, Temesmus, Vomiting, Other - Genitourinary Genitourinary: Difficulty Urinating, Hematuria - Musculoskeletal Musculoskeletal: absent: As Per HPI, Abnormal Gait, Arthralgias, Atrophy, Back Pain, Deformity, Joint Swelling, Limited Range of Motion, Loss of Height, Muscle Cramps, Muscle Weakness, Myalgias, Neck Pain, Numbness, Radiating Pain into Limb, Stiffness, Tingling, Other - Integumentary Additional comments: Lipoma left upper back - Neurological Neurological: absent: As Per HPI, Abnormal Gait, Abnormal Hearing, Abnormal Movements, Abnormal Speech, Behavioral Changes, Burning Sensations, Confusion, Convulsions, Disequilibrium, Dizziness, Numbness, Focal Weakness, Frequent Falls , Headaches, Lack of Coordination, Loss of Vision, Memory Loss, Paresthesias, Radicular Pain, Restless Legs, Sensory Deficit, Syncope, Tingling, Tremor, Vertigo, Weakness, Other Visual Disturbances, Other - Psychiatric Psychiatric: absent: As Per HPI, Abnormal Sleep Pattern, Anhedonia, Anxiety, Auditory Hallucinations, Behavioral Changes, Change in Appetite, Change in Libido, Confusion, Depression, Difficulty Concentrating, Hallucinations, Homicidal Ideation, Hopelessness, Irritability, Memory Loss, Mood Swings, Panic Attacks, Paranoia, Suicidal Ideation, Visual Hallucinations, Tactile Hallucinations, Other - Endocrine Endocrine: absent: As Per HPI, Change in Body Appearance, Change in Libido, Cold Intolorance, Deepening of Voice, Excessive Sweating, Fatigue, Flushing, Heat Intolorance, Increase in Ring/Shoe/Hat Size, Palpitations, Polydipsia, Polyphagia, Polyuria, Other - Hematologic/Lymphatic Additional comments: hematuria Past Patient History - Past Medical History & Family History Past Medical History?: Yes - Past Social History Smoking Status: Light Smoker < 10 Cigarettes Daily - CARDIAC Hx Cardiac Disorders: No - PULMONARY Hx Respiratory Disorders: No - NEUROLOGICAL Hx Neurological Disorder: No - HEENT Hx HEENT Problems: No - RENAL Hx Chronic Kidney Disease: No - ENDOCRINE/METABOLIC Hx Hyperthyroidism: Yes - HEMATOLOGICAL/ONCOLOGICAL Hx Blood Disorders: Yes Hx Cancer: Yes (PROSTATE, BONE) - INTEGUMENTARY Hx Dermatological Problems: No - MUSCULOSKELETAL/RHEUMATOLOGICAL Hx Musculoskeletal Disorders: Yes Hx Falls: No - GASTROINTESTINAL Hx Gastrointestinal Disorders: No - GENITOURINARY/GYNECOLOGICAL Hx Genitourinary Disorders: Yes Hx Prostate Cancer: Yes - PSYCHIATRIC Hx Substance Use: Yes - SURGICAL HISTORY Hx Surgeries: Yes Other/Comment: BONE BIOPSY - ANESTHESIA Hx Anesthesia: Yes Hx Anesthesia Reactions: No Hx Malignant Hyperthermia: No Meds Allergies/Adverse Reactions: Allergies Allergy/AdvReac Type Severity Reaction Status Date / Time honey Allergy Verified 12/17/17 13:52 - Medications Medications: Current Medications Albuterol/Ipratropium (Duoneb 3 Mg/0.5 Mg (3 Ml) Ud) 3 ml INH RQ6 PRN PRN Reason: wheezing, shortness of breath Docusate Sodium (Colace) 100 mg PO TID [facility] Last Admin: 12/25/17 09:29 Dose: 100 mg Famotidine (Pepcid) 20 mg IVP DAILY [facility] Last Admin: 12/25/17 09:29 Dose: 20 mg Flutamide (Eulexin) 250 mg PO Q8H [facility] Last Admin: 12/25/17 09:51 Dose: 250 mg Morphine Sulfate (Morphine) 2 mg IV Q4 PRN PRN Reason: Pain, severe (8-10) Last Admin: 12/24/17 20:08 Dose: 2 mg Oxycodone HCl (Oxycodone Immediate Release Tab) 5 mg PO Q6 PRN PRN Reason: Pain, moderate (4-7) Last Admin: 12/25/17 09:50 Dose: 5 mg Tamsulosin HCl (Flomax) 0.4 mg PO DAILY [facility] Last Admin: 12/25/17 09:29 Dose: 0.4 mg Physical Exam - Constitutional Appears: Chronically Ill - Head Exam Head Exam: ATRAUMATIC, NORMAL INSPECTION, NORMOCEPHALIC - Eye Exam Eye Exam: EOMI, Normal appearance, PERRL Pupil Exam: NORMAL ACCOMODATION, PERRL - ENT Exam ENT Exam: Mucous Membranes Moist, Normal Exam - Neck Exam Neck exam: Positive for: Normal Inspection - Respiratory Exam Respiratory Exam: Decreased Breath Sounds, NORMAL BREATHING PATTERN - Cardiovascular Exam Cardiovascular Exam: Bradycardia, REGULAR RHYTHM - GI/Abdominal Exam GI & Abdominal Exam: Normal Bowel Sounds, Soft - Rectal Exam Rectal Exam: Deferred - Exam Additional comments: urine retention, hematuria - Extremities Exam Extremities exam: Positive for: normal inspection - Back Exam Back exam: CVA tenderness (L) - Neurological Exam Neurological exam: Alert, Oriented x3 - Psychiatric Exam Psychiatric exam: Agitated, Anxious - Skin Skin Exam: Normal Color, Warm Results - Vital Signs Recent Vital Signs: Last Vital Signs Temp 98.1 F 12/25/17 07:02 Pulse 58 L 12/25/17 07:02 Resp 20 12/25/17 07:02 BP 118/69 12/25/17 07:02 Pulse Ox 99 12/25/17 07:02 - Labs Result Diagrams: 12/24/17 23:12 12/24/17 09:53 Labs: Laboratory Results - last 24 hr 12/24/17 12/24/17 12/24/17 10:06 10:06 18:50 WBC RBC Hgb Hct MCV MCH MCHC RDW Plt Count MPV Neut % (Auto) Lymph % (Auto) [place] % (Auto) Eos % (Auto) Baso % (Auto) Neut # (Auto) Lymph # (Auto) [place] # (Auto) Eos # (Auto) Baso # (Auto) Urine Color Red Urine Clarity Hazy Urine pH 6.0 Ur Specific [place] 1.009 Urine Protein 2+ H Urine Glucose (UA) 1+ H Urine Ketones Negative Urine Blood 2+ H Urine Nitrate Negative Urine Bilirubin Negative Urine Urobilinogen Normal Ur Leukocyte Esterase Trace Urine WBC (Auto) 15 H Urine RBC (Auto) 3171 H Urine Opiates Screen Positive H Urine Methadone Screen Negative Ur Barbiturates Screen Negative Ur Phencyclidine Scrn Negative Ur Amphetamines Screen Negative U Benzodiazepines Scrn Negative U Oth Cocaine Metabols Positive H U Cannabinoids Screen Positive H Influenza Typ A,B (EIA) Negative for flu a/b 12/24/17 23:12 WBC 7.8 RBC 3.31 L Hgb 8.2 L Hct 23.5 L MCV 70.8 L MCH 24.8 L MCHC 35.1 RDW 16.3 H Plt Count 428 H MPV 7.4 Neut % (Auto) 74.7 Lymph % (Auto) 11.4 L [place] % (Auto) 9.9 Eos % (Auto) 3.0 Baso % (Auto) 1.0 Neut # (Auto) 5.9 Lymph # (Auto) 0.9 L [place] # (Auto) 0.8 Eos # (Auto) 0.2 Baso # (Auto) 0.1 Urine Color Urine Clarity Urine pH Ur Specific [place] Urine Protein Urine Glucose (UA) Urine Ketones Urine Blood Urine Nitrate Urine Bilirubin Urine Urobilinogen Ur Leukocyte Esterase Urine WBC (Auto) Urine RBC (Auto) Urine Opiates Screen Urine Methadone Screen Ur Barbiturates Screen Ur Phencyclidine Scrn Ur Amphetamines Screen U Benzodiazepines Scrn U Oth Cocaine Metabols U Cannabinoids Screen Influenza Typ A,B (EIA) Assessment & Plan - Assessment and Plan (Free Text) Assessment: Palliative consult Code status DNR/DNI, POLST on chart, PPS 40% I reviewed medical records, all diagnostic studies, examined and interviewed patient in bed. Interview was limited due to patient's pain level. Patient is alert, oriented X 3, in bed complaining of severe abdominal and suprapubic pain, with affect that is aggitated. On exam , bladder distended.At present, pain is managed by Oxycontin 5 mg IR Q 6 hr PRN pain and Morphine 2 mg Iv Q 4 hr PRN. Pain is examined using PQRST scale: P- Pain is provoked by urinary retention and relieved by meds only up to 2 to 3 hr Q- Pain is pressuring sensation to lower abdomen R_ Pain is located to lower abdomen and radiates to left flank area, and rectum S_ 10/10 T_ Pain gets worse between the pain meds doses, relief lasts up to 2 hr only Skin intact. There is Lipoma to Left upper back, patient reports discomfort to that area. Breath sounds are shallow, RR regular. Abdomen didtended and tender to touch. Urinates very small amount of bloody urine, 250 cc /24hr. Osorio catheter insertion attempted yesterday by Doctor Ernesto but patient refused it. This morning he is requesting it due to increased discomfort. The urinal at bed side reveals about 20 cc of bloody urine. BP 118/69, HR 58, afebrile. Hb 8.2, Platelets 428, Group Home [employer] 1.6. urine screen positive for opioids and cannabinaids patient refused to discuss goals of care at the moment due to severe pain. Impression * This is chronically ill patient with acute severe cancer related pain. * Patient may have the withdrawal symptoms combined with cancer pain what makes clinical picture much worse * Patient is not opioid naive what makes his tolerance to pain meds much higher and in turn he would require larger doses of pain meds in order to achieve effect * Pain rated 10/10 at its worse and relieved up to 2 -3 hr by current pain meds * urinary retention * Hematuria Suggestions * Would increase Morphine to 5mg Iv Q 4 PRN breakthrough pain * Would DC Oxyconting 5 mg Q 4 hr PRN * Would start Fentanyl patch 50 mg for basal pain control * Based on amount of Morphine used in 24 hr, the fentanyl patch dose will need to be readjusted. Plus, upon discharge, the Fentanyl pact is more convinient for pain management in this patient given his life style I will return tomorrow to further discuss goals of care. Patient is approaching the stage in his life where the Comfort only care would be appropriate. Discussed with Doctor Barba Thank you or consulting Palliative care
[2017-12-25] MEDS ORDERED: Lidocaine 2% Jelly (Uro-Jet) TOP ONE (11:15)
[2017-12-25 11:21] LABS: BASO # 0.1 K/uL (0.0-0.2); BASO % 0.7 % (0.0-2.0); EOS # 0.1 K/uL (0.0-0.7); EOS % 0.8 % (0.0-4.0); HEMOGLOBIN 8.4 g/dL (12.0-18.0); LYMPH # 0.9 K/uL (1.0-4.3); LYMPH % 9.7 % (20.0-40.0); MEAN CELL VOLUME 70.8 fL (80.0-94.0); MEAN CORPUSCULAR HEMOGLOBIN 24.5 pg (27.0-31.0); MEAN CORPUSCULAR HGB CONC 34.6 g/dL (33.0-37.0); MEAN PLATELET VOLUME 8.1 fL (7.2-11.7); MONO # 0.8 K/uL (0.0-0.8); NEUT # 7.4 K/uL (1.8-7.0); NEUT % 79.8 % (50.0-75.0); PLATELET COUNT 425 K/uL (130-400); RBC 3.45 Mil/uL (4.40-5.90); RED CELL DISTRIBUTION WIDTH 16.4 % (11.5-14.5); WHITE BLOOD COUNT 9.3 K/uL (4.8-10.8)
[2017-12-25 11:25] LABS: INR 1.1
[2017-12-25] MEDS ORDERED: Midazolam 2 MG/2 ML VIAL IVP ONE (11:30)
[2017-12-25] MEDS ORDERED: Morphine 4 MG/ML VIAL IV PRN (11:44)
[2017-12-25 12:19] LABS: ALB/GLOB RATIO 0.9 (1.0-2.1); ALBUMIN 3.6 g/dL (3.5-5.0)
[2017-12-25 12:25] LABS: ANISOCYTOSIS SLIGHT; BANDS 1 % (0-2); LYMPHOCYTE 9 % (20-40); MONOCYTE 10 % (0-10); NEUTROPHIL 80 % (50-75); PLATELET ESTIMATE SLIGHTLY INCREASED (NORMAL); TOTAL CELLS COUNTED 100
[2017-12-25 12:26] LABS: HYPOCHROMIC SLIGHT; TARGET CELLS SLIGHT
--- NOTE | 2017-12-25 13:54 | RAD ---
HISTORY: preadmission testing COMPARISON: No prior. FINDINGS: LUNGS: No active pulmonary disease. PLEURA: No significant pleural effusion identified, no pneumothorax apparent. CARDIOVASCULAR: Normal. OSSEOUS STRUCTURES: No significant abnormalities. VISUALIZED UPPER ABDOMEN: Normal. OTHER FINDINGS: None. IMPRESSION: No active disease.
--- NOTE | 2017-12-25 22:29 | US ---
EXAM: US Soft Tissues CLINICAL HISTORY: 57 years old, male; Condition or disease; Other: Check back for lipoma vs abscess TECHNIQUE: Real-time ultrasound scan of the soft tissues of posterior chest wall with image documentation. COMPARISON: CT 11/11/2017 FINDINGS: Soft tissues: 4.7 x 0.7 x 5.2 cm hypoechoic lesion within left lower posterior chest wall. No internal vascularity. 2.4 x 0.8 x 2.6 cm hypoechoic lesion within left mid posterior chest wall. No internal vascularity. IMPRESSION: 1. Soft tissue lesions within posterior chest wall, correlating with fat-containing lesions on CT, compatible with lipomas.
--- NOTE | 2017-12-25 22:51 | CP.PCM.PN ---
Subjective - Date & Time of Evaluation Date of Evaluation: 12/25/17 Time of Evaluation: 19:00 - Subjective Subjective: Has body aches for placement of del rio in OR Objective - Vital Signs/Intake and Output Vital Signs (last 24 hours): Temp Pulse Resp BP Pulse Ox 98.2 F 60 20 131/73 100 12/25/17 16:00 12/25/17 16:00 12/25/17 16:00 12/25/17 16:00 12/25/17 16:00 Intake and Output: 12/25/17 12/26/17 18:59 06:59 Intake Total 400 Output Total 350 Balance 50 - Medications Medications: Current Medications Albuterol/Ipratropium (Duoneb 3 Mg/0.5 Mg (3 Ml) Ud) 3 ml INH RQ6 PRN PRN Reason: wheezing, shortness of breath Docusate Sodium (Colace) [address] [facility] Last Admin: 12/25/17 18:30 Dose: 100 mg Famotidine (Pepcid) [address] [facility] Last Admin: 12/25/17 09:29 Dose: 20 mg Fentanyl (Duragesic) [address] [facility] Last Admin: 12/25/17 12:39 Dose: 1 patch Flutamide (Eulexin) [address] [facility] Last Admin: 12/25/17 18:30 Dose: 250 mg Morphine Sulfate (Morphine) 5 mg IV Q4 PRN PRN Reason: Pain, severe (8-10) Last Admin: 12/25/17 18:25 Dose: 5 mg Pneumococcal Polyvalent Vaccine (Pneumovax 23 Vaccine) 0.5 ml IM .ONCE ONE Stop: 12/26/17 10:01 Tamsulosin HCl (Flomax) 0.[address] [facility] Last Admin: 12/25/17 09:29 Dose: 0.4 mg - Labs Labs: 12/25/17 11:01 12/25/17 11:01 PT 13.0 SECONDS (9.7-12.2) H 12/25/17 11:01 INR 1.1 12/25/17 11:01 APTT 33 SECONDS (21-34) 12/25/17 11:01 - Head Exam Head Exam: ATRAUMATIC - Eye Exam Eye Exam: Normal appearance - ENT Exam ENT Exam: Mucous Membranes Dry - Respiratory Exam Respiratory Exam: NORMAL BREATHING PATTERN - Cardiovascular Exam Cardiovascular Exam: +S1, +S2 - GI/Abdominal Exam GI & Abdominal Exam: Normal Bowel Sounds Assessment and Plan (1) Anemia Assessment & Plan: hematuria chronic disease anemia w/u sent Status: Acute (2) Prostate cancer Assessment & Plan: stage IV on total androgen deprivation repeat PSA Status: Acute
[2017-12-25] MEDS ORDERED: Morphine 4 MG/ML VIAL IVP PRN (23:34)
--- NOTE | 2017-12-26 07:07 | CP.PCM.PN ---
<William Aldana - Last Filed: 12/26/17 17:21> Subjective - Date & Time of Evaluation Date of Evaluation: 12/26/17 Time of Evaluation: 07:00 - Subjective Subjective: Medicine progress note for Dr. Barba Patient seen and examined at bedside. Patient complaining of suprapubic pressure from urinary retention. Patient also complaining of diffuse body aches. Patient is for OR later this morning for del rio placement under anesthesia. Objective - Vital Signs/Intake and Output Vital Signs (last 24 hours): Temp Pulse Resp BP Pulse Ox 98.2 F 60 20 131/73 100 12/25/17 16:00 12/25/17 16:00 12/25/17 16:00 12/25/17 16:00 12/25/17 16:00 Intake and Output: 12/26/17 12/26/17 06:59 18:59 Intake Total 1500 Output Total 750 Balance 750 - Medications Medications: Current Medications Albuterol/Ipratropium (Duoneb 3 Mg/0.5 Mg (3 Ml) Ud) 3 ml INH RQ6 PRN PRN Reason: wheezing, shortness of breath Docusate Sodium (Colace) 100 mg PO TID [facility] Last Admin: 12/25/17 18:30 Dose: 100 mg Famotidine (Pepcid) 20 mg IVP DAILY [facility] Last Admin: 12/25/17 09:29 Dose: 20 mg Fentanyl (Duragesic) 1 patch TD Q72H [facility] Last Admin: 12/25/17 12:39 Dose: 1 patch Flutamide (Eulexin) 250 mg PO Q8H [facility] Last Admin: 12/26/17 02:31 Dose: 250 mg Methimazole (Tapazole) 5 mg PO BID [facility] Morphine Sulfate (Morphine) 5 mg IVP Q4 PRN PRN Reason: Pain, severe (8-10) Last Admin: 12/26/17 06:55 Dose: 5 mg Pneumococcal Polyvalent Vaccine (Pneumovax 23 Vaccine) 0.5 ml IM .ONCE ONE Stop: 12/26/17 10:01 Tamsulosin HCl (Flomax) 0.4 mg PO DAILY [facility] Last Admin: 12/25/17 09:29 Dose: 0.4 mg - Labs Labs: 12/25/17 11:01 12/25/17 11:01 PT 13.0 SECONDS (9.7-12.2) H 12/25/17 11:01 INR 1.1 12/25/17 11:01 APTT 33 SECONDS (21-34) 12/25/17 11:01 - Constitutional Appears: No Acute Distress - Head Exam Head Exam: ATRAUMATIC, NORMOCEPHALIC - Eye Exam Eye Exam: EOMI, Normal appearance - ENT Exam ENT Exam: Mucous Membranes Moist Additional comments: Friable nasal mucosa bilaterally - Respiratory Exam Respiratory Exam: Clear to Ausculation Bilateral, NORMAL BREATHING PATTERN. absent: Rales, Rhonchi, Wheezes - Cardiovascular Exam Cardiovascular Exam: REGULAR RHYTHM, +S1, +S2 - GI/Abdominal Exam GI & Abdominal Exam: Distended, Guarding, Soft, Tenderness (diffusely but concentrated in bilateral lower quadrants and suprapubic region), Normal Bowel Sounds. absent: Firm - Exam Additional comments: No gross blood or trauma on the penis - Extremities Exam Extremities Exam: absent: Pedal Edema, Tenderness - Back Exam Additional comments: Eczema throughout the back. 5cm by 3.2cm rubbery mobile lesion on the left lower thoracic paraspinal region. 1.7cm by 1.7cm rubbery mobile lesion on the left mid thoracic paraspinal region. - Neurological Exam Neurological Exam: Alert, Awake, Oriented x3 - Psychiatric Exam Psychiatric exam: Anxious - Skin Skin Exam: Dry, Warm Assessment and Plan - Assessment and Plan (Free Text) Plan: Hematuria Patient with obvious braeden hematuria at bedside in the ED. Patient retaining urine per CT scan [address] Thiago Orozco consulted, help appreciated Del Rio placed in the OR, per Dr. Orozco, ordered catheter irrigation Fever 101.1 degree temp on 12/26/17 f/u UA, urine cultures, blood cultures Incentive Spirometry ordered Rocephin 1 gm IV daily History of Metastatic Prostate Cancer Oncologist Dr. Oreilly consulted, help appreciated Palliative Care consult for goals of care--POLST: DNR/DNI Resume Flutamide 250 mg PO Q8H Per palliative care recommendation, patient started on * Fentanyl patch 50 mcg Q72H * Morphine 5 mg IV Q4 prn History of Asthma Not on home medication Duoneb Q6 prn History of Hyperthyroidism Multinodular goiter seen on ultrasound from prior admission Although TSH low at 0.03, free T4 was 1.27 Resumed Methimazole 5 mg PO BID Prophylactic Measure VTE ppx C/I due to bleed SCDs Pepcid 20 mg IV daily Case DW Dr. Jameson Aldana PGY-1 <Dolly Barba V - Last Filed: 12/27/17 22:20> Objective - Vital Signs/Intake and Output Vital Signs (last 24 hours): Temp Pulse Resp BP Pulse Ox 100.1 F H 79 20 107/54 L 95 12/27/17 17:03 12/27/17 08:00 12/27/17 08:00 12/27/17 08:00 12/27/17 08:00 Intake and Output: 12/27/17 12/28/17 18:59 06:59 Intake Total 500 Output Total 0 Balance -1550 - Labs Labs: 12/27/17 07:03 12/27/17 07:03 PT 13.0 SECONDS (9.7-12.2) H 12/25/17 11:01 INR 1.1 12/25/17 11:01 APTT 33 SECONDS (21-34) 12/25/17 11:01 Assessment and Plan (1) Gross hematuria Status: Acute (2) Cocaine abuse Status: Acute (3) Heroin abuse Status: Acute (4) Metastatic malignant neoplasm to prostate Status: Acute (5) Prophylactic measure Status: Acute Attending/Attestation - Attestation I have personally seen and examined this patient.: Yes I have fully participated in the care of the patient.: Yes I have reviewed all pertinent clinical information, including history, physical exam and plan: Yes Notes (Text): This is late computer entry for 12/26/17. Patient seen, examined and case discussed with day-time resident. Patient went to the OR today with urology for del rio placement. Help appreciated by urology. Patient seen status-post OR s/p del rio placement. Patient is comfortable and pain is controlled. Patient's creatinine increased prior to del rio placement likely to obstructive uropathy due to urinary retention secondary prostate cancer. Resident has spoke with urology, del rio irrigation to prevent the del rio from being clotted. Patient started on IV fluids status post procedure. Will need to monitor creatinine to return to baseline. Patient spiked temperature s/p procedure. Patient started on Rocephin 1 gram Iv q daily as empiric antibiotic treatment. Blood and urine studies collected. Patient started on incentive spirometry given post-op Day 0 of [place] placement. Held Flutamide prior to OR. Assessment/Plan 1) Obstructive Uropathy Gross Hematuria * Patient with obvious braeden hematuria at bedside in the ED on admission * Patient retaining urine per CT scan 670 cc on admission * Urology Dr. Thiago Orozco consulted, help appreciated * Informed in the ED, will evaluate the patient * Nursing has attempted Del Rio in the ED unable to place secondary to pain * Dr. Orozco attempted to place del rio but patient had refused. * CT Abdomen/Pelvis w/o PO and IV contrast (12/24/17): distended bladder (670cc) which contains hyperdense debris. Stranding of the perivesical fat may be related to radiation cystisi. Adenopathy within groin bilaterally and extending along external iliac and common iliac chains b/l, severe eft hydronephrosis without change from previous. Moderate rigt sided hydronephrosis which is new from previous. Multiple bone lesions consistent with hx of metastatic prostate cancer. Plerual pased right lower lobe pulmonary nodule which is slightly larger than previous. Mild rectal wall thickening could be related to radiation change. * Renal US (12/25/17): moderate right and severe left hydronephrosis, Bladder volume 929.4. Unable to void. Echogenic material within the dependent bladder may represent pus, blood, or debris. * Chemical anticoagulation held in light of gross hematuria * S/P del rio placement in the OR (12/27/17) * UA: hematuria; Urine culture; no growth 2) Fever * Tmax: 102.7F * Blood and urine cultures collected * Incentive spirometry started * Prior to fever * Chest xray (12/25/17): no active disease * Urine culture (12/24/17): no growth 3) History of Metastatic Prostate Cancer * Oncologist Dr. Oreilly consulted, help appreciated * Palliative Care consult for goals of care and pain management * Prior POL06/10 available * Pain recommendations:Fentanyl patch * Morphine 5mg IVQ 4H PRN severe pain * held Flutamide 250 mg PO Q8H (chemotherapic) * Patient relapsed into Heroin about day prior admission given intractable pain * [place] on admission: patient has been taking Oxycodone 10mg (120 tabs/ 30 days) for the past 3 months (10/11; 11/10; and 12/12) prescribed by heme- oncology 3) History of Asthma * Not on home medication * Duoneb Q6 prn shortness of breathe 4) History of Hyperthyroidism * Multinodular goiter seen on ultrasound from prior admission * Low TSH, normal Free T4 will resume Methimazole 5 mg PO BID 5) Polysubstance Abuse * UDS: positive opiate, cocaine, cannabis * Patient is on narcotic medication for pain secondary to metastatic cancer but he has also relapsed back into his heroin misuse 6) Back Mass * Soft tissue (12/25/17): soft tissue lesions within posterior chest wall, correlating with fat-containing lesion on CT, compatible with lipomas 6) Prophylactic Measure * VTE ppx C/I due to bleed * SCDs * Pepcid 20 mg IV daily Disposition: Patient is status post del rio placement. Patient spiked a fever. Patient started on IV Abx. Blood and urine cultures collected. Monitor urine output and monitor renal function.
[2017-12-26 07:46] LABS: BASO # 0.1 K/uL (0.0-0.2); BASO % 1.3 % (0.0-2.0); EOS # 0.4 K/uL (0.0-0.7); EOS % 3.6 % (0.0-4.0); HEMOGLOBIN 8.7 g/dL (12.0-18.0); LYMPH # 1.4 K/uL (1.0-4.3); LYMPH % 13.2 % (20.0-40.0); MEAN CELL VOLUME 71.4 fL (80.0-94.0); MEAN CORPUSCULAR HEMOGLOBIN 24.2 pg (27.0-31.0); MEAN CORPUSCULAR HGB CONC 33.9 g/dL (33.0-37.0); MONO % 9.7 % (0.0-10.0); NEUT # 7.4 K/uL (1.8-7.0); NEUT % 72.2 % (50.0-75.0); RBC 3.61 Mil/uL (4.40-5.90); RED CELL DISTRIBUTION WIDTH 16.5 % (11.5-14.5); WHITE BLOOD COUNT 10.3 K/uL (4.8-10.8)
[2017-12-26 08:14] LABS: ALB/GLOB RATIO 0.9 (1.0-2.1); ALBUMIN 3.7 g/dL (3.5-5.0); CALCIUM 8.9 mg/dl (8.6-10.4)
[2017-12-26 09:25] LABS: FOLATE 15.5 ng/mL
[2017-12-26] MEDS ORDERED: Pneumococcal 23-Valent Vaccine IM ONE ×2 (10:00)
[2017-12-26] MEDS ORDERED: Influenza Vaccine 60 mcg/0.5 mL SYR (4YR UP) IM ONE (10:00)
[2017-12-26] MEDS ORDERED: Lactated Ringer's 500 ML IV ONE (10:45)
[2017-12-26] MEDS ORDERED: Midazolam 2 MG/2 ML VIAL ONE (10:54)
[2017-12-26] MEDS ORDERED: Propofol 10 mg/ml Inj (20 ML) ONE (10:54)
[2017-12-26] MEDS ORDERED: Sodium Chloride 0.9% 250 ML IV ONE (11:41)
[2017-12-26] MEDS: Sodium Chloride 0.9% 1,000 ML IV SCH (12:38)
[2017-12-26] MEDS: methIMAzole 5 MG TAB PO SCH ×2 (13:19→18:10)
--- NOTE | 2017-12-26 15:58 | CP.PCM.PN ---
Subjective - Date & Time of Evaluation Date of Evaluation: 12/26/17 Time of Evaluation: 15:00 - Subjective Subjective: Passing some hematuria Objective - Vital Signs/Intake and Output Vital Signs (last 24 hours): Temp Pulse Resp BP Pulse Ox 99.7 F H 94 H 18 138/75 100 12/26/17 11:21 12/26/17 12:15 12/26/17 12:15 12/26/17 12:15 12/26/17 12:15 Intake and Output: 12/26/17 12/26/17 06:59 18:59 Intake Total 1500 300 Output Total 750 400 Balance 750 -100 - Medications Medications: Current Medications Albuterol/Ipratropium (Duoneb 3 Mg/0.5 Mg (3 Ml) Ud) 3 ml INH RQ6 PRN PRN Reason: wheezing, shortness of breath Docusate Sodium (Colace) 100 mg PO TID [facility] Last Admin: 12/26/17 13:19 Dose: 100 mg Famotidine (Pepcid) 20 mg IVP DAILY [facility] Last Admin: 12/26/17 13:21 Dose: 20 mg Fentanyl (Duragesic) 1 patch TD Q72H [facility] Last Admin: 12/25/17 12:39 Dose: 1 patch Flutamide (Eulexin) 250 mg PO Q8H [facility] Last Admin: 12/26/17 13:19 Dose: 250 mg Sodium Chloride (Sodium Chloride 0.9%) 1,000 mls @ 100 mls/hr IV .Q10H [facility] Last Admin: 12/26/17 12:38 Dose: Not Given Methimazole (Tapazole) 5 mg PO BID [facility] Last Admin: 12/26/17 13:19 Dose: 5 mg Morphine Sulfate (Morphine) 5 mg IVP Q4 PRN PRN Reason: Pain, severe (8-10) Tamsulosin HCl (Flomax) 0.4 mg PO DAILY [facility] Last Admin: 12/26/17 13:19 Dose: 0.4 mg - Labs Labs: 12/26/17 07:33 12/26/17 07:33 PT 13.0 SECONDS (9.7-12.2) H 12/25/17 11:01 INR 1.1 12/25/17 11:01 APTT 33 SECONDS (21-34) 12/25/17 11:01 - Head Exam Head Exam: ATRAUMATIC - Eye Exam Eye Exam: Normal appearance - ENT Exam ENT Exam: Mucous Membranes Dry - Respiratory Exam Respiratory Exam: NORMAL BREATHING PATTERN - Cardiovascular Exam Cardiovascular Exam: +S1, +S2 - GI/Abdominal Exam GI & Abdominal Exam: Normal Bowel Sounds Assessment and Plan (1) Anemia Assessment & Plan: hematuria, chronic disease, renal disease transfusion support PRN Status: Acute (2) Prostate cancer Assessment & Plan: stage IV on total androgen deprivation Status: Acute
[2017-12-26] MEDS: Morphine 4 MG/ML VIAL IVP PRN ×2 (16:00→20:36)
[2017-12-26 16:49] VITALS: RESP 20
[2017-12-26] MEDS ORDERED: cefTRIAXone IV 1 gm in Dextros 50 ML IVPB SCH (17:30)
[2017-12-26 17:44] LABS: CALCIUM 8.7 mg/dl (8.6-10.4)
[2017-12-26] MEDS: cefTRIAXone IV 1 gm in Dextros 50 ML IVPB SCH (19:08)
[2017-12-27] MEDS: Morphine 4 MG/ML VIAL IVP PRN ×4 (00:20→12:48)
[2017-12-27] MEDS: Sodium Chloride 0.9% 1,000 ML IV SCH ×4 (01:05→19:00)
--- NOTE | 2017-12-27 07:14 | CP.PCM.PN ---
<William Aldana - Last Filed: 12/27/17 18:24> Subjective - Date & Time of Evaluation Date of Evaluation: 12/27/17 Time of Evaluation: 11:00 - Subjective Subjective: Medicine progress note for Dr. Barba Patient seen and examined at bedside. Patient reported improved pain control today but stated that his del rio will intermittently clog requiring irrigation. Patient initially agitated later on rounds but was calmed down with explanation of his current goals in the hospital. Objective - Vital Signs/Intake and Output Vital Signs (last 24 hours): Temp Pulse Resp BP Pulse Ox 98.7 F 74 20 113/63 96 12/27/17 00:00 12/27/17 00:00 12/27/17 00:00 12/27/17 00:00 12/27/17 00:00 Intake and Output: 12/27/17 12/27/17 06:59 18:59 Intake Total 1160 Output Total 1900 Balance -740 - Medications Medications: Current Medications Acetaminophen (Tylenol 325mg Tab) 650 mg PO Q6 PRN PRN Reason: fever, pain, headache Last Admin: 12/27/17 06:12 Dose: 650 mg Albuterol/Ipratropium (Duoneb 3 Mg/0.5 Mg (3 Ml) Ud) 3 ml INH RQ6 PRN PRN Reason: wheezing, shortness of breath Docusate Sodium (Colace) 100 mg PO TID [facility] Last Admin: 12/26/17 18:10 Dose: 100 mg Famotidine (Pepcid) 20 mg IVP DAILY [facility] Last Admin: 12/26/17 13:21 Dose: 20 mg Fentanyl (Duragesic) 1 patch TD Q72H [facility] Last Admin: 12/25/17 12:39 Dose: 1 patch Flutamide (Eulexin) 250 mg PO Q8H [facility] Last Admin: 12/26/17 19:08 Dose: 250 mg Sodium Chloride (Sodium Chloride 0.9%) 1,000 mls @ 100 mls/hr IV .Q10H [facility] Last Admin: 12/27/17 02:17 Dose: 100 mls/hr Ceftriaxone Sodium (Rocephin Iv 1 Gm Duplex) 50 mls @ 100 mls/hr IVPB Q24H [facility] Last Admin: 12/26/17 19:08 Dose: 100 mls/hr Methimazole (Tapazole) 5 mg PO BID [facility] Last Admin: 12/26/17 18:10 Dose: 5 mg Morphine Sulfate (Morphine) 5 mg IVP Q4 PRN PRN Reason: Pain, severe (8-10) Last Admin: 12/27/17 04:40 Dose: 5 mg Tamsulosin HCl (Flomax) 0.4 mg PO DAILY [facility] Last Admin: 12/26/17 13:19 Dose: 0.4 mg - Labs Labs: 12/26/17 07:33 12/26/17 17:24 PT 13.0 SECONDS (9.7-12.2) H 12/25/17 11:01 INR 1.1 12/25/17 11:01 APTT 33 SECONDS (21-34) 12/25/17 11:01 - Additional Findings Additional findings: - Constitutional Appears: No Acute Distress - Head Exam Head Exam: ATRAUMATIC, NORMOCEPHALIC - Eye Exam Eye Exam: EOMI, Normal appearance - ENT Exam ENT Exam: Mucous Membranes Moist Additional comments: Friable nasal mucosa bilaterally - Respiratory Exam Respiratory Exam: Clear to Ausculation Bilateral, NORMAL BREATHING PATTERN. absent: Rales, Rhonchi, Wheezes - Cardiovascular Exam Cardiovascular Exam: REGULAR RHYTHM, +S1, +S2 - GI/Abdominal Exam GI & Abdominal Exam: Distended, Guarding, Soft, Tenderness (diffusely but concentrated in bilateral lower quadrants and suprapubic region), Normal Bowel Sounds. absent: Firm - Exam Additional comments: No gross blood or trauma on the penis - Extremities Exam Extremities Exam: absent: Pedal Edema, Tenderness - Back Exam Additional comments: Eczema throughout the back. 5cm by 3.2cm rubbery mobile lesion on the left lower thoracic paraspinal region. 1.7cm by 1.7cm rubbery mobile lesion on the left mid thoracic paraspinal region. - Neurological Exam Neurological Exam: Alert, Awake, Oriented x3 - Psychiatric Exam Psychiatric exam: Anxious - Skin Skin Exam: Dry, Warm Assessment and Plan - Assessment and Plan (Free Text) Plan: Hematuria Patient with obvious braeden hematuria at bedside in the ED. Patient retaining urine per CT scan [address] Thiago Orozco consulted, help appreciated Del [place] placed in the OR, per Dr. Orozco, ordered catheter irrigation Fever 101.1 degree temp on 12/26/17 Tmax 102.2 Pending afebrile for 48 hours f/u urine cultures, blood cultures Incentive Spirometry ordered Rocephin 1 gm IV daily History of Metastatic Prostate Cancer Oncologist Dr. Oreilly consulted, help appreciated Palliative Care consult for goals of care--POLST: DNR/DNI Resume Flutamide 250 mg PO Q8H Per palliative care recommendation, patient started on * Fentanyl patch 50 mcg Q72H * Morphine 5 mg IV Q4 prn History of Asthma Not on home medication Duoneb Q6 prn History of Hyperthyroidism Multinodular goiter seen on ultrasound from prior admission Although TSH low at 0.03, free T4 was 1.27 Resumed Methimazole 5 mg PO BID Prophylactic Measure VTE ppx C/I due to bleed SCDs Pepcid 20 mg IV daily Case DW Dr. Jameson Aldana PGY-1 <Dolly Barba V - Last Filed: 12/27/17 22:30> Objective - Vital Signs/Intake and Output Vital Signs (last 24 hours): Temp Pulse Resp BP Pulse Ox 100.1 F H 79 20 107/54 L 95 12/27/17 17:03 12/27/17 08:00 12/27/17 08:00 12/27/17 08:00 12/27/17 08:00 Intake and Output: 12/27/17 12/28/17 18:59 06:59 Intake Total 500 Output Total 2050 Balance -1550 - Labs Labs: 12/27/17 07:03 12/27/17 07:03 PT 13.0 SECONDS (9.7-12.2) H 12/25/17 11:01 INR 1.1 12/25/17 11:01 APTT 33 SECONDS (21-34) 12/25/17 11:01 Assessment and Plan (1) Gross hematuria Status: Acute (2) Cocaine abuse Status: Acute (3) Heroin abuse Status: Acute (4) Metastatic malignant neoplasm to prostate Status: Acute (5) Prophylactic measure Status: Acute Attending/Attestation - Attestation I have personally seen and examined this patient.: Yes I have fully participated in the care of the patient.: Yes I have reviewed all pertinent clinical information, including history, physical exam and plan: Yes Notes (Text): Patient seen, examined, and case discussed with resident. Patient seen this afternoon with the resident and with the nurse present. Patient requesting to leave against medical advice. I personally discussed the following problems that acute for him including Patient spiked a fever. We have ordered cultures in light of fever and he is currently IV antibiotics. Patient has a del rio and recommended del rio irrigation to prevent the del rio from getting clotted. patient reports the del rio isn't working. patient's del rio is filled with fluid. It is working and nurse confirms. Patient also instructed the del rio is to prevent him from retaining urine culture and putting him at risk for bladder risk. He is also instructed that the reason why he received the del rio was because he wasn't able to urinate well and he came to hospital for hematuria. Patient reports he understands given we have these unresolved acute issues. Assessment/Plan 1) Obstructive Uropathy Gross Hematuria * Patient with obvious braeden hematuria at bedside in the ED on admission * Patient retaining urine per CT scan 670 cc on admission * Urology Dr. Thiago Orozco consulted, help appreciated * Informed in the ED, will evaluate the patient * Nursing has attempted [place] in the ED unable to place secondary to pain * Dr. Orozco attempted to place del rio but patient had refused. * CT Abdomen/Pelvis w/o PO and IV contrast (12/24/17): distended bladder (670cc) which contains hyperdense debris. Stranding of the perivesical fat may be related to radiation cystisi. Adenopathy within groin bilaterally and extending along external iliac and common iliac chains b/l, severe eft hydronephrosis without change from previous. Moderate rigt sided hydronephrosis which is new from previous. Multiple bone lesions consistent with hx of metastatic prostate cancer. Plerual pased right lower lobe pulmonary nodule which is slightly larger than previous. Mild rectal wall thickening could be related to radiation change. * Renal US (12/25/17): moderate right and severe left hydronephrosis, Bladder volume 929.4. Unable to void. Echogenic material within the dependent bladder may represent pus, blood, or debris. * Chemical anticoagulation held in light of gross hematuria * S/P del rio placement in the OR (12/27/17) * UA: hematuria; Urine culture; no growth 2) Fever * Tmax: 102.7F * Blood and urine cultures collected-->follow-up * Incentive spirometry started * Prior to fever * Chest xray (12/25/17): no active disease * Urine culture (12/24/17): no growth 3) History of Metastatic Prostate Cancer * Oncologist Dr. Oreilly consulted, help appreciated * Palliative Care consult for goals of care and pain management * Prior POLST 06/10 available * Pain recommendations:Fentanyl patch * Morphine 5mg IVQ 4H PRN severe pain * held Flutamide 250 mg PO Q8H (chemotherapic) * Patient relapsed into Heroin about day prior admission given intractable pain * [place]: patient has been taking Oxycodone 10mg (120 tabs/ 30 days) for the past 3 months (10/11; 11/10; and 12/12) prescribed by heme- oncology 3) History of Asthma * Not on home medication * Duoneb Q6 prn shortness of breathe 4) History of Hyperthyroidism * Multinodular goiter seen on ultrasound from prior admission * Low TSH, normal Free T4 will resume Methimazole 5 mg PO BID 5) Polysubstance Abuse * UDS: positive opiate, cocaine, cannabis * Patient is on narcotic medication for pain secondary to metastatic cancer but he has also relapsed back into his heroin misuse 6) Back Mass * Soft tissue (12/25/17): soft tissue lesions within posterior chest wall, correlating with fat-containing lesion on CT, compatible with lipomas 6) Prophylactic Measure * VTE ppx C/I due to bleed * SCDs * Pepcid 20 mg IV daily Disposition: Patient is status post del rio placement POD 1. Patient spiked a fever. Patient started on IV Abx. Blood and urine cultures collected. Monitor urine output and monitor renal function. Patient instructed risks and benefits of leaving the hospital prematurely in light of his acute issues by myself, witnessed by my resident and the nurse at bedside.
[2017-12-27 07:33] LABS: BASO % 0.3 % (0.0-2.0); EOS # 0.2 K/uL (0.0-0.7); EOS % 1.7 % (0.0-4.0); HEMOGLOBIN 7.9 g/dL (12.0-18.0); LYMPH % 8.9 % (20.0-40.0); MEAN CELL VOLUME 69.6 fL (80.0-94.0); MEAN CORPUSCULAR HEMOGLOBIN 24.2 pg (27.0-31.0); MEAN CORPUSCULAR HGB CONC 34.8 g/dL (33.0-37.0); MEAN PLATELET VOLUME 8.1 fL (7.2-11.7); MONO % 9.5 % (0.0-10.0); NEUT # 8.5 K/uL (1.8-7.0); NEUT % 79.6 % (50.0-75.0); PLATELET COUNT 389 K/uL (130-400); RBC 3.26 Mil/uL (4.40-5.90); RED CELL DISTRIBUTION WIDTH 16.5 % (11.5-14.5); WHITE BLOOD COUNT 10.7 K/uL (4.8-10.8)
[2017-12-27 07:49] LABS: ALB/GLOB RATIO 0.9 (1.0-2.1); ALBUMIN 3.1 g/dL (3.5-5.0); CALCIUM 8.2 mg/dl (8.6-10.4)
[2017-12-27 09:02] LABS: URINE CLARITY Hazy (Clear); URINE COLOR YELLOW (YELLOW); URINE GLUCOSE (UA) Normal (Normal)
[2017-12-27 09:03] LABS: PH,URINE 5.5 (5.0-8.0); URINE BILIRUBIN NEGATIVE (NEGATIVE); URINE BLOOD LARGE (NEGATIVE); URINE LEUKOCYTE ESTERASE SMALL Leu/uL (Negative); URINE NITRATE NEGATIVE (NEGATIVE); URINE PROTEIN 30 mg/dL (NEGATIVE); URINE UROBILINOGEN 0.2 mg/dL (0.2-1.0)
[2017-12-27 09:04] LABS: SQUAMOUS EPITHIAL 5 /hpf (0-5); URINE BACTERIA FEW (<OCC); WBC CLUMPS RARE /hpf
[2017-12-27 09:05] LABS: URINE AMORPHOUS SEDIMENT FEW /ul (<OCC)
[2017-12-27 09:42] VITALS: BP 107/54; PULSE 79; O2SAT 95
[2017-12-27 09:57] LABS: BASOPHIL 1 % (0-2); EOSINOPHIL 1 % (0-4); LYMPHOCYTE 7 % (20-40); MONOCYTE 10 % (0-10); NEUTROPHIL 81 % (50-75); PLATELET ESTIMATE NORMAL (NORMAL); TOTAL CELLS COUNTED 100
[2017-12-27 09:58] LABS: ANISOCYTOSIS SLIGHT; POIKILOCYTOSIS SLIGHT
[2017-12-27 09:59] LABS: HYPOCHROMIC SLIGHT; TARGET CELLS SLIGHT
[2017-12-27] MEDS: methIMAzole 5 MG TAB PO SCH ×2 (10:56→18:45)
[2017-12-27] MEDS ORDERED: Bisacodyl 5mg EC Tab PO ONE (16:00)
[2017-12-27] MEDS: cefTRIAXone IV 1 gm in Dextros 50 ML IVPB SCH (18:45)
[2017-12-27 19:01] VITALS: TEMP 100.1
--- NOTE | 2017-12-27 19:22 | CP.PCM.PN ---
Subjective - Date & Time of Evaluation Date of Evaluation: 12/27/17 Time of Evaluation: 18:45 - Subjective Subjective: Feels better with [place] Objective - Vital Signs/Intake and Output Vital Signs (last 24 hours): Temp Pulse Resp BP Pulse Ox 100.1 F H 79 20 107/54 L 95 12/27/17 17:03 12/27/17 08:00 12/27/17 08:00 12/27/17 08:00 12/27/17 08:00 Intake and Output: 12/27/17 12/28/17 18:59 06:59 Intake Total 500 Output Total 2049 Balance -1550 - Medications Medications: Current Medications Acetaminophen (Tylenol 325mg Tab) 650 mg PO Q6 PRN PRN Reason: fever, pain, headache Last Admin: 12/27/17 16:03 Dose: 650 mg Albuterol/Ipratropium (Duoneb 3 Mg/0.5 Mg (3 Ml) Ud) 3 ml INH RQ6 PRN PRN Reason: wheezing, shortness of breath Docusate Sodium (Colace) 100 mg PO TID [facility] Last Admin: 12/27/17 18:45 Dose: 100 mg Famotidine (Pepcid) 20 mg IVP DAILY [facility] Last Admin: 12/27/17 10:55 Dose: 20 mg Fentanyl (Duragesic) 1 patch TD Q72H [facility] Last Admin: 12/25/17 12:39 Dose: 1 patch Flutamide (Eulexin) 250 mg PO Q8H [facility] Last Admin: 12/26/17 19:08 Dose: 250 mg Sodium Chloride (Sodium Chloride 0.9%) 1,000 mls @ 100 mls/hr IV .Q10H [facility] Last Admin: 12/27/17 19:00 Dose: Not Given Ceftriaxone Sodium (Rocephin Iv 1 Gm Duplex) 50 mls @ 100 mls/hr IVPB Q24H [facility] Last Admin: 12/27/17 18:45 Dose: 100 mls/hr Methimazole (Tapazole) 5 mg PO BID [facility] Last Admin: 12/27/17 18:45 Dose: 5 mg Morphine Sulfate (Morphine) 5 mg IVP Q4 PRN PRN Reason: Pain, severe (8-10) Last Admin: 12/27/17 12:48 Dose: 5 mg Tamsulosin HCl (Flomax) 0.4 mg PO DAILY [facility] Last Admin: 12/27/17 10:56 Dose: 0.4 mg - Labs Labs: 12/27/17 07:03 12/27/17 07:03 PT 13.0 SECONDS (9.7-12.2) H 12/25/17 11:01 INR 1.1 12/25/17 11:01 APTT 33 SECONDS (21-34) 12/25/17 11:01 - Head Exam Head Exam: ATRAUMATIC - Eye Exam Eye Exam: Normal appearance - ENT Exam ENT Exam: Mucous Membranes Dry - Respiratory Exam Respiratory Exam: NORMAL BREATHING PATTERN - Cardiovascular Exam Cardiovascular Exam: +S1, +S2 - GI/Abdominal Exam GI & Abdominal Exam: Normal Bowel Sounds - Extremities Exam Extremities Exam: Normal Inspection Assessment and Plan (1) Anemia Assessment & Plan: anemia of chronic disease, hematuria transfusion support PRN Status: Acute (2) Prostate cancer Assessment & Plan: bone mets on total androgen deprivation Status: Acute
--- NOTE | 2017-12-27 23:25 | PCM.URO ---
Urology Progress Note - General General: Tolerating Diet - Subjective Abdominal Pain: Yes Flank Pain: No Nausea: No Vomiting: No Hematuria: No (urine clear today) Good Stream: No (catheter in place) Chest Pain: No - Objective Lab Results Last 24 Hours: Laboratory Results - last 24 hr 12/27/17 12/27/17 12/27/17 07:03 07:03 07:28 WBC 10.7 RBC 3.26 L Hgb 7.9 L Hct 22.7 L MCV 69.6 L MCH 24.2 L MCHC 34.8 RDW 16.5 H Plt Count 389 MPV 8.1 Neut % (Auto) 79.6 H Lymph % (Auto) 8.9 L [place] % (Auto) 9.5 Eos % (Auto) 1.7 Baso % (Auto) 0.3 Neut # (Auto) 8.5 H Lymph # (Auto) 1.0 [place] # (Auto) 1.0 H Eos # (Auto) 0.2 Baso # (Auto) 0.0 Neutrophils % (Manual) 81 H Lymphocytes % (Manual) 7 L Monocytes % (Manual) 10 Eosinophils % (Manual) 1 Basophils % (Manual) 1 Platelet Estimate Normal Hypochromasia (manual) Slight Poikilocytosis (manual Slight Anisocytosis (manual) Slight Target Cells Slight Sodium 133 Potassium 3.6 Chloride 100 Carbon Dioxide 23 Anion Gap 14 BUN 51 H Creatinine 3.4 H Est GFR ( Amer) 23 Est GFR (Non-Af Amer) 19 Random Glucose 111 H Calcium 8.2 L Total Bilirubin 0.5 AST 25 ALT 21 Alkaline Phosphatase 77 Total Protein 6.6 Albumin 3.1 L Globulin 3.5 Albumin/Globulin Ratio 0.9 L Urine Color Yellow Urine Clarity Hazy Urine pH 5.5 Ur Specific [place] 1.010 Urine Protein 30 Urine Glucose (UA) Normal Urine Ketones Negative Urine Blood Large Urine Nitrate Negative Urine Bilirubin Negative Urine Urobilinogen 0.2 Ur Leukocyte Esterase Small Urine WBC (Auto) 25 H Urine RBC (Auto) 4 H Urine WBC Clumps (Auto) Rare H Ur Squamous Epith Cells 5 Amorphous Sediment Few H Urine Bacteria Few H Intake & Output: Intake & Output 12/27/17 12/27/17 12/28/17 06:59 18:59 06:59 Intake Total 1160 500 Output Total 1902049 Balance -740 -1550 Intake: Intake, IV Amount 800 Left Hand 800 Oral 360 500 Output: Urine 1899 2049 Urethral ([place]) 1899 2049 Vital Signs: Vital Signs - 24 hr 12/27/17 12/27/17 12/27/17 00:00 04:00 08:00 Temperature 98.7 F 102.2 F H 98.7 F Pulse Rate 74 72 79 Respiratory 20 20 20 Rate Blood Pressure 113/63 115/64 107/54 L O2 Sat by Pulse 96 98 95 Oximetry 12/27/17 12/27/17 16:03 17:03 Temperature 102.2 F H 100.1 F H Pulse Rate Respiratory Rate Blood Pressure O2 Sat by Pulse Oximetry - Physical Exam Abdominal Exam: Soft, Non-Tender, Non-Distended Back: No CVA Tenderness Genitalia: Without Inflammation Urinary Catheter Draining Well: Yes (catheter irrigates well) Urine Color: Clear, Yellow - Male Phallus: Normal Scrotum: Normal Testes: Normal: Bilateral - Plan Catheter Care: Yes Additional Information: urologically stable. prostate ca. Hx of hematuria. catheter in place. P?Rec: [place] in place. possible trial of voiding t/f - Date & Time of Note Date: 12/27/17 Time: 07:25
--- NOTE | 2017-12-28 05:18 | CP.PCM.DIS ---
<Betsy Muñiz - Last Filed: 12/28/17 05:11> Provider - Provider Date of Admission: 12/24/17 14:14 Attending physician: Dolly Barba DO Time Spent in preparation of Discharge (in minutes): 40 Hospital Course - Lab Results Lab Results: Micro Results 12/26/17 19:47 Blood Blood Culture - Preliminary NO GROWTH AFTER 24 HOURS 12/24/17 15:51 Urine Urine Culture - Final No Growth (<1,000 CFU/ML) Most Recent Lab Values WBC 10.7 K/uL (4.8-10.8) 12/27/17 07:03 RBC 3.26 Mil/uL (4.40-5.90) L 12/27/17 07:03 Hgb 7.9 g/dL (12.0-18.0) L 12/27/17 07:03 Hct 22.7 % (35.0-51.0) L 12/27/17 07:03 MCV 69.6 fL (80.0-94.0) L 12/27/17 07:03 MCH 24.2 pg (27.0-31.0) L 12/27/17 07:03 MCHC 34.8 g/dL (33.0-37.0) 12/27/17 07:03 RDW 16.5 % (11.5-14.5) H 12/27/17 07:03 Plt Count 389 K/uL (130-400) 12/27/17 07:03 MPV 8.1 fL (7.2-11.7) 12/27/17 07:03 Neut % (Auto) 79.6 % (50.0-75.0) H 12/27/17 07:03 Lymph % (Auto) 8.9 % (20.0-40.0) L 12/27/17 07:03 [place] % (Auto) 9.5 % (0.0-10.0) 12/27/17 07:03 Eos % (Auto) 1.7 % (0.0-4.0) 12/27/17 07:03 Baso % (Auto) 0.3 % (0.0-2.0) 12/27/17 07:03 Neut # (Auto) 8.5 K/uL (1.8-7.0) H 12/27/17 07:03 Lymph # (Auto) 1.0 K/uL (1.0-4.3) 12/27/17 07:03 [place] # (Auto) 1.0 K/uL (0.0-0.8) H 12/27/17 07:03 Eos # (Auto) 0.2 K/uL (0.0-0.7) 12/27/17 07:03 Baso # (Auto) 0.0 K/uL (0.0-0.2) 12/27/17 07:03 Neutrophils % (Manual) 81 % (50-75) H 12/27/17 07:03 Band Neutrophils % 1 % (0-2) 12/25/17 11:01 Lymphocytes % (Manual) 7 % (20-40) L 12/27/17 07:03 Monocytes % (Manual) 10 % (0-10) 12/27/17 07:03 Eosinophils % (Manual) 1 % (0-4) 12/27/17 07:03 Basophils % (Manual) 1 % (0-2) 12/27/17 07:03 Platelet Estimate Normal (NORMAL) 12/27/17 07:03 Hypochromasia (manual) Slight 12/27/17 07:03 Poikilocytosis (manual Slight 12/27/17 07:03 Anisocytosis (manual) Slight 12/27/17 07:03 Target Cells Slight 12/27/17 07:03 Retic Count 1.2 % (0.5-1.5) 12/26/17 07:33 PT 13.0 SECONDS (9.7-12.2) H 12/25/17 11:01 INR 1.1 12/25/17 11:01 APTT 33 SECONDS (21-34) 12/25/17 11:01 Sodium 133 mmol/L (132-148) 12/27/17 07:03 Potassium 3.6 mmol/L (3.6-5.2) 12/27/17 07:03 Chloride 100 mmol/L (98-107) 12/27/17 07:03 Carbon Dioxide 23 mmol/L (22-30) 12/27/17 07:03 Anion Gap 14 (10-20) 12/27/17 07:03 BUN 51 mg/dL (9-20) H 12/27/17 07:03 Creatinine 3.4 mg/dL (0.8-1.5) H 12/27/17 07:03 Est GFR ( Amer) 23 12/27/17 07:03 Est GFR (Non-Af Amer) 19 12/27/17 07:03 Random Glucose 111 mg/dL (75-110) H 12/27/17 07:03 Calcium 8.2 mg/dl (8.6-10.4) L 12/27/17 07:03 Ferritin 207.0 ng/mL 12/26/17 07:33 Total Bilirubin 0.5 mg/dL (0.2-1.3) 12/27/17 07:03 AST 25 U/L (17-59) 12/27/17 07:03 ALT 21 U/L (21-72) 12/27/17 07:03 Alkaline Phosphatase 77 U/L (38-126) 12/27/17 07:03 Total Protein 6.6 g/dL (6.3-8.3) 12/27/17 07:03 Albumin 3.1 g/dL (3.5-5.0) L 12/27/17 07:03 Globulin 3.5 gm/dL (2.2-3.9) 12/27/17 07:03 Albumin/Globulin Ratio 0.9 (1.0-2.1) L 12/27/17 07:03 Vitamin B12 341 pg/mL (239-931) 12/26/17 07:33 Folate 15.5 ng/mL 12/26/17 07:33 Free T4 1.27 ng/dL (0.78-2.19) 12/25/17 11:01 TSH 3rd Generation 0.03 mIU/L (0.46-4.68) L 12/25/17 11:01 Urine Color Yellow (YELLOW) 12/27/17 07:28 Urine Clarity Hazy (Clear) 12/27/17 07:28 Urine pH 5.5 (5.0-8.0) 12/27/17 07:28 Ur Specific [place] 1.010 (1.003-1.030) 12/27/17 07:28 Urine Protein 30 mg/dL (NEGATIVE) 12/27/17 07:28 Urine Glucose (UA) Normal mg/dL (Normal) 12/27/17 07:28 Urine Ketones Negative mg/dL (NEGATIVE) 12/27/17 07:28 Urine Blood Large (NEGATIVE) 12/27/17 07:28 Urine Nitrate Negative (NEGATIVE) 12/27/17 07:28 Urine Bilirubin Negative (NEGATIVE) 12/27/17 07:28 Urine Urobilinogen 0.2 mg/dL (0.2-1.0) 12/27/17 07:28 Ur Leukocyte Esterase Small [place]/uL (Negative) 12/27/17 07:28 Urine WBC (Auto) 25 /hpf (0-5) H 12/27/17 07:28 Urine RBC (Auto) 4 /hpf (0-3) H 12/27/17 07:28 Urine WBC Clumps (Auto) Rare /hpf (NONE) H 12/27/17 07:28 Ur Squamous Epith Cells 5 /hpf (0-5) 12/27/17 07:28 Amorphous Sediment Few /ul (<OCC) H 12/27/17 07:28 Urine Bacteria Few (<OCC) H 12/27/17 07:28 Urine Opiates Screen Positive (NEGATIVE) H 12/24/17 10:06 Urine Methadone Screen Negative (NEGATIVE) 12/24/17 10:06 Ur Barbiturates Screen Negative (NEGATIVE) 12/24/17 10:06 Ur Phencyclidine Scrn Negative (NEGATIVE) 12/24/17 10:06 Ur Amphetamines Screen Negative (NEGATIVE) 12/24/17 10:06 U Benzodiazepines Scrn Negative (NEGATIVE) 12/24/17 10:06 U Oth Cocaine Metabols Positive (NEGATIVE) H 12/24/17 10:06 U Cannabinoids Screen Positive (NEGATIVE) H 12/24/17 10:06 Influenza Typ A,B (EIA) Negative for flu a/b (NEGATIVE) 12/24/17 18:50 - Hospital Course Hospital Course: CC: "blood in my urine" This is a 57 year old male with PMHx Stage 4 metastatic prostate cancer with mets to the bones, hyperthyroidism, asthma, polysubstance abuse who presented complaining of hematuria. Per patient, this started yesterday; however, per review of EMR, patient has also been here last week for similar complaints. Patient also complaining of chronic diffuse pain secondary to his metastatic cancer. Patient also complaining of dysuria and suprapubic pressure. Patient also complaining of urinary retention with poor urinary stream. Patient states that he has had poor appetite and has not had a bowel movement during the last 10 days. For his cancer, patient follows with Dr. Oreilly. PMHx: Stage IV Prostate Cancer, Hyperthyroidism, Asthma, Eczema PSHx: Denies Allergies: NKDA Social: Current smoker 5 or 6 cigarettes daily for as long as he can remember. Admits to snorting half a gram of cocaine and 1 bag of heroin daily. Denies alcohol use. Homeless, lives in [facility] Family: Brother & Sister have asthma, mom from unknown cause, does not know father Social: Smokes 5-6 cigarettes daily, drinks alcohol once a week, will snort 1-2 bags of heroin every other day to control his diffuse body pain PMD: [facility] Oncologist: Dr. Oreilly Home meds: Flomax 0.4 mg PO daily, Flutamide 250 mg PO Q8H, Lupron injections [id number] last taken 11/29/17, Percocet 5-325 mg PO 2 tabs Q6H (dispensed by Dr. Oreilly for the last 3 months and confirmed on the [place] drug database). Hospital Course: Patient was treated for braeden hematuria. Urology Dr. Thiago Orozco was consulted. CT showed patient was retaining urine. [place] was placed in the OR by Dr. Orozco who ordered catheter irrigation. Patient had a fever while in the hospital. Pending the return of urine culture and blood culture results. Patient was started on Rocephin 1gm daily. Due to the patient's history of metastatic prostate cancer, oncologist Dr. Oreilly was consulted. In addition palliative care was consulted and discussed with patient his goals of care and he came to the decision of a POLST: DNR/DNI. Patient left against medical advice. Patient was oriented x3. Explained to patient the risks of leaving against medical advice which included - infection, bleeding and . In addition patient stated he was leaving with the [place] catheter. Explained to patient the risk of infection. Also explained to the patient if he removes the [place] catheter he has the risk of his bladder over filling it then bursting and leading to . Patient stated he understood those risks and he still wanted to sign out and leave the hospital. Primary care attending was notified. This is a brief summary of the hospital course. Please see EMR for more details. Discharge Exam - Head Exam Head Exam: ATRAUMATIC Discharge Plan - Follow Up Plan Condition: GUARDED Disposition: AGAINST MEDICAL ADVICE <Dolly Barba V - Last Filed: 01/27/18 23:56> Provider - Provider Date of Admission: 12/24/17 14:14 Attending physician: Dolly Barba DO Diagnosis - Discharge Diagnosis (1) Gross hematuria Status: Acute (2) Cocaine abuse Status: Acute (3) Heroin abuse Status: Acute (4) Metastatic malignant neoplasm to prostate Status: Acute (5) Prophylactic measure Status: Acute Hospital Course - Lab Results Lab Results: Micro Results 12/26/17 19:47 Blood Blood Culture - Final NO GROWTH AFTER 5 DAYS 12/26/17 19:47 Blood Gram Stain - Final TEST NOT PERFORMED 12/27/17 00:32 Urine,[place] Urine Culture - Final No Growth (<1,000 CFU/ML) 12/24/17 15:51 Urine Urine Culture - Final No Growth (<1,000 CFU/ML) Most Recent Lab Values WBC 10.7 K/uL (4.8-10.8) 12/27/17 07:03 RBC 3.26 Mil/uL (4.40-5.90) L 12/27/17 07:03 Hgb 7.9 g/dL (12.0-18.0) L 12/27/17 07:03 Hct 22.7 % (35.0-51.0) L 12/27/17 07:03 MCV 69.6 fL (80.0-94.0) L 12/27/17 07:03 MCH 24.2 pg (27.0-31.0) L 12/27/17 07:03 MCHC 34.8 g/dL (33.0-37.0) 12/27/17 07:03 RDW 16.5 % (11.5-14.5) H 12/27/17 07:03 Plt Count 389 K/uL (130-400) 12/27/17 07:03 MPV 8.1 fL (7.2-11.7) 12/27/17 07:03 Neut % (Auto) 79.6 % (50.0-75.0) H 12/27/17 07:03 Lymph % (Auto) 8.9 % (20.0-40.0) L 12/27/17 07:03 [place]iles % (Auto) 9.5 % (0.0-10.0) 12/27/17 07:03 Eos % (Auto) 1.7 % (0.0-4.0) 12/27/17 07:03 Baso % (Auto) 0.3 % (0.0-2.0) 12/27/17 07:03 Neut # (Auto) 8.5 K/uL (1.8-7.0) H 12/27/17 07:03 Lymph # (Auto) 1.0 K/uL (1.0-4.3) 12/27/17 07:03 [place] # (Auto) 1.0 K/uL (0.0-0.8) H 12/27/17 07:03 Eos # (Auto) 0.2 K/uL (0.0-0.7) 12/27/17 07:03 Baso # (Auto) 0.0 K/uL (0.0-0.2) 12/27/17 07:03 Neutrophils % (Manual) 81 % (50-75) H 12/27/17 07:03 Band Neutrophils % 1 % (0-2) 12/25/17 11:01 Lymphocytes % (Manual) 7 % (20-40) L 12/27/17 07:03 Monocytes % (Manual) 10 % (0-10) 12/27/17 07:03 Eosinophils % (Manual) 1 % (0-4) 12/27/17 07:03 Basophils % (Manual) 1 % (0-2) 12/27/17 07:03 Platelet Estimate Normal (NORMAL) 12/27/17 07:03 Hypochromasia (manual) Slight 12/27/17 07:03 Poikilocytosis (manual Slight 12/27/17 07:03 Anisocytosis (manual) Slight 12/27/17 07:03 Target Cells Slight 12/27/17 07:03 Retic Count 1.2 % (0.5-1.5) 12/26/17 07:33 PT 13.0 SECONDS (9.7-12.2) H 12/25/17 11:01 INR 1.1 12/25/17 11:01 APTT 33 SECONDS (21-34) 12/25/17 11:01 Sodium 133 mmol/L (132-148) 12/27/17 07:03 Potassium 3.6 mmol/L (3.6-5.2) 12/27/17 07:03 Chloride 100 mmol/L (98-107) 12/27/17 07:03 Carbon Dioxide 23 mmol/L (22-30) 12/27/17 07:03 Anion Gap 14 (10-20) 12/27/17 07:03 BUN 51 mg/dL (9-20) H 12/27/17 07:03 Creatinine 3.4 mg/dL (0.8-1.5) H 12/27/17 07:03 Est GFR ( Amer) 23 12/27/17 07:03 Est GFR (Non-Af Amer) 19 12/27/17 07:03 Random Glucose 111 mg/dL (75-110) H 12/27/17 07:03 Calcium 8.2 mg/dl (8.6-10.4) L 12/27/17 07:03 Ferritin 207.0 ng/mL 12/26/17 07:33 Total Bilirubin 0.5 mg/dL (0.2-1.3) 12/27/17 07:03 AST 25 U/L (17-59) 12/27/17 07:03 ALT 21 U/L (21-72) 12/27/17 07:03 Alkaline Phosphatase 77 U/L (38-126) 12/27/17 07:03 Total Protein 6.6 g/dL (6.3-8.3) 12/27/17 07:03 Albumin 3.1 g/dL (3.5-5.0) L 12/27/17 07:03 Globulin 3.5 gm/dL (2.2-3.9) 12/27/17 07:03 Albumin/Globulin Ratio 0.9 (1.0-2.1) L 12/27/17 07:03 Vitamin B12 341 pg/mL (239-931) 12/26/17 07:33 Folate 15.5 ng/mL 12/26/17 07:33 Free T4 1.27 ng/dL (0.78-2.19) 12/25/17 11:01 TSH 3rd Generation 0.03 mIU/L (0.46-4.68) L 12/25/17 11:01 Urine Color Yellow (YELLOW) 12/27/17 07:28 Urine Clarity Hazy (Clear) 12/27/17 07:28 Urine pH 5.5 (5.0-8.0) 12/27/17 07:28 Ur Specific [place] 1.010 (1.003-1.030) 12/27/17 07:28 Urine Protein 30 mg/dL (NEGATIVE) 12/27/17 07:28 Urine Glucose (UA) Normal mg/dL (Normal) 12/27/17 07:28 Urine Ketones Negative mg/dL (NEGATIVE) 12/27/17 07:28 Urine Blood Large (NEGATIVE) 12/27/17 07:28 Urine Nitrate Negative (NEGATIVE) 12/27/17 07:28 Urine Bilirubin Negative (NEGATIVE) 12/27/17 07:28 Urine Urobilinogen 0.2 mg/dL (0.2-1.0) 12/27/17 07:28 Ur Leukocyte Esterase Small [place]/uL (Negative) 12/27/17 07:28 Urine WBC (Auto) 25 /hpf (0-5) H 12/27/17 07:28 Urine RBC (Auto) 4 /hpf (0-3) H 12/27/17 07:28 Urine WBC Clumps (Auto) Rare /hpf (NONE) H 12/27/17 07:28 Ur Squamous Epith Cells 5 /hpf (0-5) 12/27/17 07:28 Amorphous Sediment Few /ul (<OCC) H 12/27/17 07:28 Urine Bacteria Few (<OCC) H 12/27/17 07:28 Urine Opiates Screen Positive (NEGATIVE) H 12/24/17 10:06 Urine Methadone Screen Negative (NEGATIVE) 12/24/17 10:06 Ur Barbiturates Screen Negative (NEGATIVE) 12/24/17 10:06 Ur Phencyclidine Scrn Negative (NEGATIVE) 12/24/17 10:06 Ur Amphetamines Screen Negative (NEGATIVE) 12/24/17 10:06 U Benzodiazepines Scrn Negative (NEGATIVE) 12/24/17 10:06 U Oth Cocaine Metabols Positive (NEGATIVE) H 12/24/17 10:06 U Cannabinoids Screen Positive (NEGATIVE) H 12/24/17 10:06 Influenza Typ A,B (EIA) Negative for flu a/b (NEGATIVE) 12/24/17 18:50 Attending/Attestation - Attestation Notes (Text): This is late computer entry for 12/27/17. Patient wanted to leave against medical advice later on the evening shift. Resident has discussed with patient about leaving prematurely from the hospital about risks and benefits. Workup was in progress given patient spiked a fever. Discharge Diagnoses: 1) Left Against Medical Advice Obstructive Uropathy Gross Hematuria * Patient with obvious braeden hematuria at bedside in the ED on admission * Patient retaining urine per CT scan 670 cc on admission * Urology Dr. Thiago Orozco consulted, help appreciated * Informed in the ED, will evaluate the patient * Nursing has attempted [place] in the ED unable to place secondary to pain * Dr. Orozco attempted to place [place] but patient had refused. * CT Abdomen/Pelvis w/o PO and IV contrast (12/24/17): distended bladder (670cc) which contains hyperdense debris. Stranding of the perivesical fat may be related to radiation cystisi. Adenopathy within groin bilaterally and extending along external iliac and common iliac chains b/l, severe eft hydronephrosis without change from previous. Moderate rigt sided hydronephrosis which is new from previous. Multiple bone lesions consistent with hx of metastatic prostate cancer. Plerual pased right lower lobe pulmonary nodule which is slightly larger than previous. Mild rectal wall thickening could be related to radiation change. * Renal US (12/25/17): moderate right and severe left hydronephrosis, Bladder volume 929.4. Unable to void. Echogenic material within the dependent bladder may represent pus, blood, or debris. * Chemical anticoagulation held in light of gross hematuria * S/P [place]o placement in the OR (12/27/17) * UA: hematuria; Urine culture; no growth 2) Fever * Tmax: 102.7F * Blood and urine cultures collected-->follow-up * Incentive spirometry started * Prior to fever * Chest xray (12/25/17): no active disease * Urine culture (12/24/17): no growth 3) History of Metastatic Prostate Cancer * Oncologist Dr. Oreilly consulted, help appreciated * Palliative Care consult for goals of care and pain management * Prior POLST 06/10 available * Pain recommendations:Fentanyl patch * Morphine 5mg IVQ 4H PRN severe pain * held Flutamide 250 mg PO Q8H (chemotherapic) * Patient relapsed into Heroin about day prior admission given intractable pain * [facility]: patient has been taking Oxycodone 10mg (120 tabs/ 30 days) for the past 3 months (10/11; 11/10; and 12/12) prescribed by heme- oncology 3) History of Asthma * Not on home medication * Duoneb Q6 prn shortness of breathe 4) History of Hyperthyroidism * Multinodular goiter seen on ultrasound from prior admission * Low TSH, normal Free T4 will resume Methimazole 5 mg PO BID 5) Polysubstance Abuse * UDS: positive opiate, cocaine, cannabis * Patient is on narcotic medication for pain secondary to metastatic cancer but he has also relapsed back into his heroin misuse 6) Back Mass * Soft tissue (12/25/17): soft tissue lesions within posterior chest wall, correlating with fat-containing lesion on CT, compatible with lipomas 6) Prophylactic Measure * VTE ppx C/I due to bleed * SCDs * Pepcid 20 mg IV daily
--- NOTE | 2018-01-02 15:35 | CARD ---
APPROVED REPORT EKG Measurement Heart [id number] <Conclusion> Sinus bradycardia Otherwise normal ECG
--- NOTE | 2018-01-27 07:21 | OP ---
PROCEDURE DATE: 12/26/2017 PREOPERATIVE DIAGNOSES: Urinary retention, prostate cancer, gross hematuria, and voiding dysfunction. POSTOPERATIVE DIAGNOSES: Urinary retention, prostate cancer, gross hematuria, and voiding dysfunction. PROCEDURE: Insertion of Osorio catheter with sedation. There were no complications. See previously dictated consultation note on 12/25/2017 and previously dictated bedside procedure note on 12/25/2017. INDICATIONS OF PROCEDURE: The patient is a very pleasant but extremely noncompliant gentleman who has underlying advanced prostate cancer. He is being seen by Medical Oncology. He is not able to make all visits. On Saturday evening, I saw the patient. I offered at that time insertion of Osorio catheter. See the previously dictated consult note and previous bedside procedure note. The patient received, we have given lidocaine, but after lidocaine a couple of doses and also some p.o. analgesics, he was still worried about this hurting. Again, ____ I explained to the patient that previously the people who inserted Osorio catheter may or may not familiar with his prostate cancer, may not be familiar with all the other things, but I am a urologist, we take one gentle shot to try to insert the Osorio catheter lidocaine and I told him we would try gently with a small catheter at least to drain the bladder, even with the presence of hematuria. At that point, the patient refused. I explained to him that we would not be able to do anything on 12/25/2017, this is 12/24/2017 at 6:00 p.m. but instead we would bring the patient now for the above listed procedure. DESCRIPTION OF PROCEDURE: After obtaining informed consent, the patient was placed on the table in routine manner for time-out. We confirmed the patient and positioning. Under sedation anesthesia, we inserted a Osorio catheter via urethra without difficulty and emptied the bladder. A large volume was recorded. The patient tolerated this without complications. Mao Orozco MD
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
== END 2017-12-27 21:16 | disposition left against medical advice (07) | DRG 346 ==
LOC: C.ER 08:48 → C.9E 14:14 → C.3T 15:37
PROVIDERS: ADMIT Hospitalist; ATTEND Hospitalist
PROC: 0T9B70Z Drainage of Bladder with Drainage Device, Via Natural or Artificial Opening (ICD-10-PCS; principal; 2017-12-26 09:45)
DX: C61 Malignant neoplasm of prostate (principal); R33.8 Other retention of urine; N13.30 Unspecified hydronephrosis; R31.0 Gross hematuria; C79.51 Secondary malignant neoplasm of bone; F11.10 Opioid abuse, uncomplicated; F14.10 Cocaine abuse, uncomplicated; D64.9 Anemia, unspecified; E04.2 Nontoxic multinodular goiter; G89.3 Neoplasm related pain (acute) (chronic); I10 Essential (primary) hypertension; J45.909 Unspecified asthma, uncomplicated; D17.9 Benign lipomatous neoplasm, unspecified; K59.00 Constipation, unspecified; F17.210 Nicotine dependence, cigarettes, uncomplicated; Z66 Do not resuscitate; Z91.19 Patient's noncompliance with other medical treatment and regimen; Z59.0 Homelessness

== ENCOUNTER 2017-12-29 22:33 | Emergency (ER) | payer MEDICAID ==
[2017-12-29 22:33] VITALS: BMI 18.0
--- NOTE | 2017-12-29 23:12 | C.PDOC ---
History Of Present Illness Patient presents to ED with complaints of diffuse bodyaches. Patient has metastatic prostate cancer with mets to his bones. He also has an indwelling del rio catheter which has been draining appropriately. Of note, patient recently signed out AMA stating he had a "panic attack". No other complaints. Time Seen by Provider: 12/29/17 23:12 Chief Complaint (Nursing): Male Genitourinary History Per: Patient History/Exam Limitations: no limitations Onset/Duration Of Symptoms: Persistent Current Symptoms Are (Timing): Still Present Severity: Moderate Pain Scale Rating Of: 4 Quality Of Discomfort: Dull Associated Symptoms: denies: Fever, Chills Alleviating Factors: None Recent travel outside of the [place]: No Additional History Per: Patient Past Medical History Reviewed: Historical Data, Nursing Documentation, Vital Signs Vital Signs: Last Vital Signs Temp 99.1 F 12/30/17 05:17 Pulse 60 12/30/17 05:17 Resp 20 12/30/17 05:17 BP 106/56 L 12/30/17 05:17 Pulse Ox 95 12/30/17 05:17 - Medical History PMH: Hyperthyroidism, Malignancy (prostate CA stage IV) Denies: Chronic Kidney Disease Family History: States: Unknown Family Hx - Social History Hx Alcohol Use: Yes Hx Substance Use: Yes - Immunization History Hx Tetanus Toxoid Vaccination: No Hx Influenza Vaccination: No Hx Pneumococcal Vaccination: No Review Of Systems Constitutional: Positive for: Other (bodyaches). Negative for: Fever, Chills Cardiovascular: Negative for: Chest Pain Respiratory: Negative for: Shortness of Breath Gastrointestinal: Negative for: Nausea, Vomiting Genitourinary: Positive for: Hematuria Musculoskeletal: Positive for: Back Pain Skin: Negative for: Rash Neurological: Negative for: Weakness Psych: Negative for: Anxiety Physical Exam - Physical Exam Appears: Non-toxic Skin: Warm, Dry Head: Normacephalic Eye(s): bilateral: Normal Inspection Oral Mucosa: Moist Neck: Supple Chest: Symmetrical Cardiovascular: Rhythm Regular Respiratory: No Rales, No Rhonchi, No Wheezing Gastrointestinal/Abdominal: Bowel Sounds, Soft, Tenderness (mild), No Guarding, No Rebound Back: No CVA Tenderness Male Genital: Other (indwelling del rio catheter) Extremity: Normal ROM Extremity: Bilateral: Atraumatic Neurological/Psych: Oriented x3 Gait: Steady ED Course And Treatment - Laboratory Results Result Diagrams: 12/29/17 23:50 12/29/17 23:50 O2 Sat by Pulse Oximetry: 99 (RA) Pulse Ox Interpretation: Normal Progress Note: 1:21 am pt feels better. requests to stay the night because he has nowhere to go tonight. Has appointment with dr oreilly on saturday morning Reevaluation Time: 05:33 Reassessment Condition: Improved Disposition Counseled Patient/Family Regarding: Studies Performed, Diagnosis, Need For Followup, Rx Given - Disposition Referrals: Calos Oreilly MD [Staff Provider] - Disposition: HOME/ ROUTINE Disposition Time: 23:12 Condition: FAIR Prescriptions: traMADol [Ultram] 50 mg PO TID PRN #15 tab PRN Reason: Pain, Severe (8-10) Instructions: Chronic Pain (DC) Forms: [employer] [employer] (French) - Clinical Impression Clinical Impression: Prostate cancer metastatic to bone, Chronic pain - Scribe Statement The provider has reviewed the documentation as recorded by the Scribe (Imelda Mccullough) Provider Attestation: All medical record entries made by the Scribe were at my direction and personally dictated by me. I have reviewed the chart and agree that the record accurately reflects my personal performance of the history, physical exam, medical decision making, and the department course for this patient. I have also personally directed, reviewed, and agree with the discharge instructions and disposition.
[2017-12-29] MEDS ORDERED: Sodium Chloride 0.9% 1,000 ML IV ONE (23:15)
[2017-12-29] MEDS ORDERED: HYDROmorphone 1 mg/ml ISec IVP STA (23:15)
[2017-12-29] MEDS ORDERED: Sodium Chloride 0.9% 1,000 ML ONE (23:54)
[2017-12-30 00:01] LABS: INR 1.1; PROTHROMBIN TIME 12.5 SECONDS (9.7-12.2)
[2017-12-30 00:13] LABS: BASO # 0.1 K/uL (0.0-0.2); BASO % 1.3 % (0.0-2.0); EOS # 0.7 K/uL (0.0-0.7); EOS % 6.9 % (0.0-4.0); HEMOGLOBIN 8.4 g/dL (12.0-18.0); LYMPH # 1.7 K/uL (1.0-4.3); LYMPH % 17.3 % (20.0-40.0); MEAN CORPUSCULAR HEMOGLOBIN 23.5 pg (27.0-31.0); MEAN CORPUSCULAR HGB CONC 34.2 g/dL (33.0-37.0); MEAN PLATELET VOLUME 7.9 fL (7.2-11.7); MONO # 0.7 K/uL (0.0-0.8); NEUT # 6.5 K/uL (1.8-7.0); NEUT % 67.5 % (50.0-75.0); RBC 3.59 Mil/uL (4.40-5.90); RED CELL DISTRIBUTION WIDTH 16.2 % (11.5-14.5); WHITE BLOOD COUNT 9.6 K/uL (4.8-10.8)
[2017-12-30 00:17] LABS: MEAN CELL VOLUME 68.7 fL (80.0-94.0)
[2017-12-30 01:14] LABS: ALB/GLOB RATIO 0.9 (1.0-2.1); ALBUMIN 3.6 g/dL (3.5-5.0); CALCIUM 9.1 mg/dl (8.6-10.4)
[2017-12-30 02:12] LABS: BARBITURATES, UR NEGATIVE (NEGATIVE); BENZODIAZEPINES, UR NEGATIVE (NEGATIVE); PHENCYCLIDINE, UR NEGATIVE (NEGATIVE)
[2017-12-30 02:37] LABS: OPIATES, UR POSITIVE (NEGATIVE)
[2017-12-30] MEDS ORDERED: HYDROmorphone 1 mg/ml ISec IVP STA (03:12)
[2017-12-30 05:18] VITALS: RESP 20
[2017-12-30 06:25] VITALS: BP 121/69; PULSE 71; TEMP 98.8; O2SAT 97
== END 2017-12-30 06:39 | disposition home or self-care (01) ==
LOC: C.ER 22:33
DX: G89.29 Other chronic pain (principal); C61 Malignant neoplasm of prostate; C79.51 Secondary malignant neoplasm of bone
CPT/HCPCS: 80053; 80324; 80345; 80346; 80349; 80353; 80358; 80361; 83992; 85025; 85610; 85730; 96361; 96374; 96375; 96376; 99285; J1170; J2405; J7040

== ENCOUNTER 2018-01-06 15:51 | Emergency (ER) | payer MEDICAID ==
[2018-01-06 15:52] VITALS: BMI 18.0
[2018-01-06 16:00] VITALS: BP 117/69; PULSE 69; RESP 18; TEMP 99; O2SAT 96
--- NOTE | 2018-01-06 16:20 | C.PDOC ---
History Of Present Illness PS WAS ADVISED TO REMOVE [place] TODAY BUT UNABLE TO MAKE IT TO OFFICE. PERSIST HEMATURIA BUT IMPROVED FROM BEFORE. PMHx Stage 4 metastatic prostate cancer with mets to the bones, hyperthyroidism , asthma, polysubstance abuse SP AMA 2/3, MULT PRIOR ADMISSIONS AND ER FOR CHRONIC PAIN. HEME ONC DR CURRY Time Seen by Provider: 01/06/18 16:00 Chief Complaint (Nursing): Male Genitourinary History Per: Patient History/Exam Limitations: no limitations Onset/Duration Of Symptoms: Days Past Medical History Reviewed: Historical Data, Nursing Documentation, Vital Signs Vital Signs: Last Vital Signs Temp 99.0 F 01/06/18 15:59 Pulse 69 01/06/18 15:59 Resp 18 01/06/18 15:59 BP 117/69 01/06/18 15:59 Pulse Ox 96 01/06/18 17:14 - Medical History PMH: Hyperthyroidism, Malignancy (prostate CA stage IV) Family History: States: No Known Family Hx - Social History Hx Alcohol Use: Yes Hx Substance Use: Yes - Immunization History Hx Tetanus Toxoid Vaccination: No Hx Influenza Vaccination: No Hx Pneumococcal Vaccination: No Review Of Systems Except As Marked, All Systems Reviewed And Found Negative. Constitutional: Negative for: Fever Gastrointestinal: Negative for: Nausea, Vomiting, Abdominal Pain Genitourinary: Positive for: Hematuria (persistent). Negative for: Dysuria Physical Exam - Physical Exam Appears: Non-toxic, No Acute Distress Skin: Warm, Dry Ear(s): Bilateral: Normal Oral Mucosa: Moist Respiratory: Normal Breath Sounds, No Rhonchi Gastrointestinal/Abdominal: Normal Exam, Soft, No Tenderness, No Guarding, No Rebound Male Genital: Other (cunningham in place, no lesions, no purulent discharges) Neurological/Psych: Oriented x3, Normal Speech ED Course And Treatment O2 Sat by Pulse Oximetry: 96 (RA) Pulse Ox Interpretation: Normal Medical Decision Making Medical Decision Making: PLAN: * Urinalysis Disposition Counseled Patient/Family Regarding: Studies Performed, Diagnosis, Need For Followup - Disposition Referrals: Office Worker Service [Outside] [facility] [Outside] Jaswant Orozco MD [Staff Provider] - Disposition: HOME/ ROUTINE Disposition Time: 17:22 Condition: GOOD Prescriptions: Ciprofloxacin [Cipro] 1 tab PO BID #14 tab Instructions: Urinary Retention in Men (ED) Forms: [employer] (Montenegrin) - Clinical Impression Clinical Impression: Prostate cancer metastatic to bone, Encounter for Cunningham catheter removal - Scribe Statement The provider has reviewed the documentation as recorded by the Scribe [place]isa [place] Provider Attestation: All medical record entries made by the Scribe were at my direction and personally dictated by me. I have reviewed the chart and agree that the record accurately reflects my personal performance of the history, physical exam, medical decision making, and the department course for this patient. I have also personally directed, reviewed, and agree with the discharge instructions and disposition.
[2018-01-06 17:17] LABS: SQUAMOUS EPITHIAL < 1 /hpf (0-5); URINE BACTERIA FEW (<OCC); URINE BILIRUBIN NEGATIVE (NEGATIVE); URINE BLOOD 3+ (NEGATIVE); URINE CLARITY Hazy (Clear); URINE COLOR Yellow (YELLOW); URINE GLUCOSE (UA) NORMAL (Normal); URINE LEUKOCYTE ESTERASE 2+ Leu/uL (Negative); URINE NITRATE NEGATIVE (NEGATIVE); URINE PROTEIN 1+ mg/dL (NEGATIVE); URINE UROBILINOGEN NORMAL mg/dL (0.2-1.0)
== END 2018-01-06 18:09 | disposition home or self-care (01) ==
LOC: C.ER 15:51
DX: Z46.6 Encounter for fitting and adjustment of urinary device (principal); C61 Malignant neoplasm of prostate; C79.51 Secondary malignant neoplasm of bone

== ENCOUNTER 2018-01-18 18:44 | Inpatient (IN) | payer MEDICAID ==
[2018-01-18 18:46] VITALS: BMI 18.0
--- NOTE | 2018-01-18 19:16 | C.PDOC ---
History Of Present Illness pt presents with intractable pain. has history of metastatic prostate ca. Also complains of hematuria. No fever, chills, nausea or vomiting. Pt also uses heroin and cocaine daily Time Seen by Provider: 01/18/18 19:15 Chief Complaint (Nursing): Back Pain History Per: Patient History/Exam Limitations: no limitations Onset/Duration Of Symptoms: Days Current Symptoms Are (Timing): Worse Quality Of Discomfort: Sharp Severity: Severe Pain Scale Rating Of: 8 Previous Symptoms: Back Pain, Chronic Pain Associated Symptoms: None Exacerbating Factor(s): Turning, Movement, Sitting, Standing Recent travel outside of the [place]: No Additional History Per: Patient Past Medical History Reviewed: Historical Data, Nursing Documentation, Vital Signs Vital Signs: Last Vital Signs Temp 98.6 F 01/18/18 18:51 Pulse 77 01/18/18 18:51 Resp 20 01/18/18 18:51 BP 143/82 01/18/18 18:51 Pulse Ox 99 01/18/18 20:25 - Medical History PMH: Hyperthyroidism, Malignancy (prostate CA stage IV) Denies: Chronic Kidney Disease Family History: States: No Known Family Hx - Social History Hx Alcohol Use: Yes Hx Substance Use: Yes - Immunization History Hx Tetanus Toxoid Vaccination: No Hx Influenza Vaccination: No Hx Pneumococcal Vaccination: No Review Of Systems Constitutional: Negative for: Fever, Chills Cardiovascular: Negative for: Chest Pain Respiratory: Negative for: Shortness of Breath Gastrointestinal: Positive for: Nausea. Negative for: Vomiting, Abdominal Pain Genitourinary: Positive for: Hematuria Musculoskeletal: Positive for: Back Pain Skin: Negative for: Rash Neurological: Negative for: Weakness Psych: Negative for: Anxiety Physical Exam - Physical Exam Appears: In Acute Distress Skin: Warm, Dry Head: Normacephalic Oral Mucosa: Dry Neck: Supple Chest: Symmetrical Cardiovascular: Rhythm Regular Respiratory: No Rales, No Rhonchi, No Wheezing Gastrointestinal/Abdominal: Soft, Tenderness, No Distention Male Genital: No Testicular Tenderness, Circumcised, Other (some blood at meatus ) Extremity: Normal ROM Extremity: Bilateral: Atraumatic Neurological/Psych: Oriented x3, Normal Speech, Normal Cognition Gait: With Assistance (due to pain) ED Course And Treatment - Laboratory Results Result Diagrams: 01/18/18 19:54 01/18/18 19:54 O2 Sat by Pulse Oximetry: 99 Pulse Ox Interpretation: Normal Disposition Discussed With Dr.: Swapna Leonard Comment: accepted the pt on his service and took over the care at 10:26PM Doctor Will See Patient In The: Hospital Counseled Patient/Family Regarding: Studies Performed, Diagnosis - Disposition Disposition: HOSPITALIZED Disposition Time: 19:15 Condition: FAIR Forms: [employer] (Swiss) - Clinical Impression Clinical Impression: Prostate cancer metastatic to bone, Anemia, Diffuse pain, Renal insufficiency, Polysubstance abuse Decision To Admit - Pt Status Changed To: Hospital Disposition Of: Inpatient - Admit Certification Admit to Inpatient:: After my assessment, the patient will require hospitalization for at least two midnights. This is because of the severity of symptoms shown, intensity of services needed, and/or the medical risk in this patient being treated as an outpatient. - InPatient: Physician Admission Certification:: After my assessment, the patient will require hospitalization for at least two midnights. This is because of the severity of symptoms shown, intensity of services needed, and/or the medical risk in this patient being treated as an outpatient. - . Bed Request Type: Regular Admitting Physician: Swapna Leonard Patient Diagnosis: Prostate cancer metastatic to bone, Anemia, Diffuse pain, Renal insufficiency, Polysubstance abuse
[2018-01-18] MEDS ORDERED: Sodium Chloride 0.9% 1,000 ML IV ONE (19:34)
[2018-01-18] MEDS ORDERED: HYDROmorphone 1 mg/ml ISec IVP STA ×2 (19:34→23:08)
[2018-01-18] MEDS ORDERED: HYDROmorphone 1 mg/ml ISec ONE ×2 (19:38→23:08)
[2018-01-18 20:07] LABS: BASO # 0.1 K/uL (0.0-0.2); BASO % 1.1 % (0.0-2.0); EOS # 0.3 K/uL (0.0-0.7); HEMOGLOBIN 7.4 g/dL (12.0-18.0); LYMPH # 1.2 K/uL (1.0-4.3); LYMPH % 13.8 % (20.0-40.0); MEAN CELL VOLUME 68.5 fL (80.0-94.0); MEAN CORPUSCULAR HGB CONC 33.6 g/dL (33.0-37.0); MEAN PLATELET VOLUME 7.8 fL (7.2-11.7); MONO # 0.6 K/uL (0.0-0.8); NEUT # 6.5 K/uL (1.8-7.0); NEUT % 75.1 % (50.0-75.0); RBC 3.22 Mil/uL (4.40-5.90); RED CELL DISTRIBUTION WIDTH 17.6 % (11.5-14.5); WHITE BLOOD COUNT 8.7 K/uL (4.8-10.8)
[2018-01-18 20:08] LABS: INR 1.2; PROTHROMBIN TIME 12.9 SECONDS (9.7-12.2)
[2018-01-18 20:17] LABS: ALB/GLOB RATIO 0.9 (1.0-2.1); ALBUMIN 3.6 g/dL (3.5-5.0); CALCIUM 9.2 mg/dl (8.6-10.4)
[2018-01-18 20:19] LABS: URINE BILIRUBIN NEGATIVE (NEGATIVE); URINE BLOOD 3+ (NEGATIVE); URINE COLOR Red (YELLOW); URINE GLUCOSE (UA) 1+ mg/dL (Normal); URINE LEUKOCYTE ESTERASE NEG Leu/uL (Negative); URINE PROTEIN 3+ mg/dL (NEGATIVE); URINE UROBILINOGEN NORMAL mg/dL (0.2-1.0); WBC CLUMPS MANY /hpf
[2018-01-18 20:20] LABS: URINE CLARITY Bloody (Clear)
[2018-01-18] MEDS ORDERED: Piperacillin/Tazobact 3.375 gm 100 ML IVPB STA (20:22)
[2018-01-18] MEDS ORDERED: Piperacillin/Tazobact 3.375 GM in Sodium Chloride 0.9% 100 ML IVPB ONE (21:00)
[2018-01-19] MEDS: HYDROmorphone 0.5 mg/0.5 ml ISec IVP PRN ×5 (01:33→21:06)
--- NOTE | 2018-01-19 06:32 | PCM.URO ---
Urology Progress Note - Objective Lab Studies: Reviewed (ca of prostate gu plans to be discussed thank you for gu consult) Lab Results Last 24 Hours: Laboratory Results - last 24 hr 01/18/18 01/18/18 01/18/18 19:54 19:54 19:54 WBC 8.7 RBC 3.22 L Hgb 7.4 L Hct 22.0 L MCV 68.5 L MCH 23.0 L MCHC 33.6 RDW 17.6 H Plt Count 562 H MPV 7.8 Neut % (Auto) 75.1 H Lymph % (Auto) 13.8 L Crosby % (Auto) 7.0 Eos % (Auto) 3.0 Baso % (Auto) 1.1 Neut # (Auto) 6.5 Lymph # (Auto) 1.2 Crosby # (Auto) 0.6 Eos # (Auto) 0.3 Baso # (Auto) 0.1 PT 12.9 H INR 1.2 APTT 35 H Sodium 139 Potassium 4.3 Chloride 105 Carbon Dioxide 23 Anion Gap 16 BUN 34 H Creatinine 3.9 H Est GFR ( Amer) 20 Est GFR (Non-Af Amer) 16 Random Glucose 99 Calcium 9.2 Total Bilirubin 0.4 AST 28 ALT 22 Alkaline Phosphatase 104 Total Protein 7.7 Albumin 3.6 Globulin 4.1 H Albumin/Globulin Ratio 0.9 L Urine Color Urine Clarity Urine pH Ur Specific [place] Urine Protein Urine Glucose (UA) Urine Ketones Urine Blood Urine Nitrate Urine Bilirubin Urine Urobilinogen Ur Leukocyte Esterase Urine WBC (Auto) Urine RBC (Auto) Urine WBC Clumps (Auto) Blood Type Blood Type Confirm Antibody Screen 01/18/18 01/18/18 20:05 22:40 WBC RBC Hgb Hct MCV MCH MCHC RDW Plt Count MPV Neut % (Auto) Lymph % (Auto) [place] % (Auto) Eos % (Auto) Baso % (Auto) Neut # (Auto) Lymph # (Auto) [place] # (Auto) Eos # (Auto) Baso # (Auto) PT INR APTT Sodium Potassium Chloride Carbon Dioxide Anion Gap BUN Creatinine Est GFR ( Amer) Est GFR (Non-Af Amer) Random Glucose Calcium Total Bilirubin AST ALT Alkaline Phosphatase Total Protein Albumin Globulin Albumin/Globulin Ratio Urine Color Red Urine Clarity Bloody Urine pH 7.0 Ur Specific [place] 1.019 Urine Protein 3+ H Urine Glucose (UA) 1+ H Urine Ketones Negative Urine Blood 3+ H Urine Nitrate Negative Urine Bilirubin Negative Urine Urobilinogen Normal Ur Leukocyte Esterase Neg Urine WBC (Auto) 1036 H Urine RBC (Auto) 2945 H Urine WBC Clumps (Auto) Many H Blood Type B POSITIVE Blood Type Confirm B POSITIVE Antibody Screen Negative Intake & Output: Intake & Output 01/18/18 01/18/18 01/19/18 06:59 18:59 06:59 Intake Total 325 Balance 325 Weight 180 lb Intake: Blood Product 325 Red Blood Cells Cpd As1 0 Lr Unit [id number] Red Blood Cells Cpd As1 325 Lr Unit [id number] Other: Voiding Method Toilet Vital Signs: Vital Signs - 24 hr 01/18/18 01/18/18 01/18/18 18:51 22:32 23:49 Temperature 98.6 F 99.7 F H Pulse Rate 77 80 Respiratory 20 18 Rate Blood Pressure 143/82 133/71 O2 Sat by Pulse 99 99 96 Oximetry 01/19/18 01/19/18 01/19/18 00:00 01:00 01:31 Temperature 98.9 F 98.7 F 98.7 F Pulse Rate 87 85 73 Respiratory 20 20 18 Rate Blood Pressure 138/72 135/70 128/65 O2 Sat by Pulse Oximetry 01/19/18 01/19/18 01:56 04:37 Temperature 98.9 F 99.0 F Pulse Rate 68 67 Respiratory 20 20 Rate Blood Pressure 124/66 120/66 O2 Sat by Pulse Oximetry
--- NOTE | 2018-01-19 09:04 | PCM.RRT ---
HERBARIUM WORKER Nurses Assessment - Situation Date: 01/19/18 Time HERBARIUM WORKER was called: 08:41 HERBARIUM WORKER Responder Arrival Time:: 08:43 HERBARIUM WORKER Location:: Med/Oncology Room Number: 364A I.Reason for HERBARIUM WORKER - A) Acute Change in Patient: Subjective: severe pain Plan - Assessment of Findings&Treatment Plan HERBARIUM WORKER was called at 8:41am because the patient had severe lower back pain on the right. This patient has a hx of prostate cancer complicated by mets which may be the major contributing factor for the pain. He is taking extensive opioids as well as street narcotics. Pt admitted to not having a bowel movement for 10 days. His abdomen was examined and it was firm and tender. Abdominal obstructive series, EKG and labs (cbc/cmp) were drawn. The patient was placed on colace to assist with the constipation. We will follow up the obstructive series and recommend adding on additional medications for constipation as needed. Additionally we highly recommend pain management consult. The patient's physician, Dr. Leonard was notified by the nursing staff.
[2018-01-19 09:16] LABS: BASO # 0.1 K/uL (0.0-0.2); BASO % 0.8 % (0.0-2.0); EOS # 0.5 K/uL (0.0-0.7); EOS % 5.9 % (0.0-4.0); HEMOGLOBIN 7.5 g/dL (12.0-18.0); LYMPH % 11.6 % (20.0-40.0); MEAN CORPUSCULAR HEMOGLOBIN 23.9 pg (27.0-31.0); MEAN CORPUSCULAR HGB CONC 33.8 g/dL (33.0-37.0); MEAN PLATELET VOLUME 8.1 fL (7.2-11.7); MONO # 0.7 K/uL (0.0-0.8); MONO % 7.8 % (0.0-10.0); NEUT # 6.5 K/uL (1.8-7.0); NEUT % 73.9 % (50.0-75.0); RBC 3.14 Mil/uL (4.40-5.90); RED CELL DISTRIBUTION WIDTH 18.7 % (11.5-14.5); WHITE BLOOD COUNT 8.8 K/uL (4.8-10.8)
[2018-01-19 09:18] LABS: ALB/GLOB RATIO 0.9 (1.0-2.1); ALBUMIN 3.3 g/dL (3.5-5.0); CALCIUM 8.9 mg/dl (8.6-10.4); MEAN CELL VOLUME 70.8 fL (80.0-94.0)
--- NOTE | 2018-01-19 10:08 | RAD ---
Abdomen two views History: Abdominal pain. Comparison: None available. Findings: Multiple distended/mildly dilated loops of small bowel seen throughout the upper and mid abdomen. Fecal retention in the colon. Patchy increased markings at the left lung base. Venous congestion. Top normal heart size. Degenerative changes spine. Impression: Nonspecific bowel gas pattern with multiple distended/mildly dilated loops of small bowel throughout the abdomen. Clinical correlation.
[2018-01-19] MEDS: methIMAzole 5 MG TAB PO SCH (10:18)
[2018-01-19] MEDS: Lidocaine 5% Patch TD SCH (17:07)
[2018-01-19 19:49] LABS: BASO # 0.1 K/uL (0.0-0.2); EOS # 0.5 K/uL (0.0-0.7); EOS % 5.7 % (0.0-4.0); HEMOGLOBIN 8.6 g/dL (12.0-18.0); LYMPH # 1.4 K/uL (1.0-4.3); LYMPH % 15.5 % (20.0-40.0); MEAN CELL VOLUME 71.5 fL (80.0-94.0); MEAN CORPUSCULAR HEMOGLOBIN 24.4 pg (27.0-31.0); MEAN CORPUSCULAR HGB CONC 34.1 g/dL (33.0-37.0); MEAN PLATELET VOLUME 8.1 fL (7.2-11.7); MONO # 0.8 K/uL (0.0-0.8); MONO % 8.7 % (0.0-10.0); NEUT # 6.2 K/uL (1.8-7.0); NEUT % 69.1 % (50.0-75.0); RBC 3.53 Mil/uL (4.40-5.90); RED CELL DISTRIBUTION WIDTH 18.9 % (11.5-14.5)
[2018-01-19 20:03] LABS: IRON 14 ug/dL (49-181)
[2018-01-19 20:12] LABS: % IRON SATURATION 7 (20-55); TOTAL IRON BINDING CAPACITY 214 ug/dL (250-450)
[2018-01-19 21:09] LABS: FOLATE 9.5 ng/mL
--- NOTE | 2018-01-20 01:05 | HP ---
CHIEF COMPLAINT: Intractable back pain. HISTORY OF PRESENT ILLNESS: Mr. Miah Maldonado is a 57 years old male with past medical history of metastatic prostate cancer, came with intractable back pain, also complaining of hematuria. No fever, no chills. No nausea or vomiting or diarrhea. No headache. The patient also uses heroin and cocaine daily. According to him pain is very sharp, is acute on chronic, it is more with turning movement, sitting and standing. PAST MEDICAL HISTORY: Hyperthyroidism and prostate CA stage IV. FAMILY HISTORY: Father and mother, noncontributory. HABITS: No alcohol. No substance abuse, but using cocaine and heroin. Smoking, denied. ALLERGIES: THE PATIENT IS ALLERGIC WITH HONEY. HOME MEDICATIONS: Flomax, methimazole, flutamide. REVIEW OF SYSTEMS: The patient was seen and examined on the bedside, getting blood transfusion, has intractable back pain, getting Dilaudid and according to him it is not helping. The patient was upset with back pain and there was rapid response. The patient do not have fever, no chills, no chest pain, no shortness of breath. Positive for nausea, negative for vomiting. Positive for hematuria. No rash. No hematochezia. PHYSICAL EXAMINATION: VITAL SIGNS: Temperature 98.6, pulse 77, respiratory 20, blood pressure 142/82, pulse oximetry 99. HEENT: Head is normocephalic, atraumatic. Eyes, PERRLA. Extraocular muscles intact. Conjunctivae clear. Nose patent. Mucous membrane moist. NECK: Supple. No carotid bruit or thyromegaly. CHEST: Bilaterally symmetrical. HEART: S1 and S2 positive. LUNGS: Clear to auscultation. ABDOMEN: Soft. Bowel sounds are present. No organomegaly. EXTREMITIES: No edema. No cyanosis. NEUROLOGICAL: The patient is awake and alert. Moving all 4 extremities. No focal deficits. LABORATORY DATA: White blood cell 8.7, hemoglobin 7.4, hematocrit 22.0, platelets 256, sodium 139, potassium 4.3, BUN 34, creatinine 3.9 and glucose 99. ASSESSMENT AND PLAN: Mr. Miah Maldonado is a 57 years old male with anemia acute on chronic, getting blood transfusion, thrombocytosis, renal insufficiency, has history of hyperthyroidism, prostate cancer stage IV with metastasis, came with intractable back pain, history of polysubstance abuse. We could consult with the urologist and oncologist, reviewed Dr. Román Dash , abdomen obstructive series done according to Dr. Fred Perez, nonspecific bowel gas pattern with multiple descended, mildly dilated loops of small bowel throughout the abdomen, there were rapid response reviewed by me. Getting blood transfusion. Pain management consult called. Discussion with the nursing staff about rapid response. Waiting for Dr. Oreilly's input, he knows this patient very well. For me, this patient is service patient, but Dr. Oreilly's private patient. Gave Colace, according to patient he did not have bowel movements for couple of days. Getting hydromorphone. We will give Lidoderm patch. Methimazole patient was taking at home. GI and DVT prophylaxis. Repeat labs. We will follow. Swapna Leonard MD [facility]
[2018-01-20] MEDS: HYDROmorphone 0.5 mg/0.5 ml ISec IVP PRN ×5 (01:15→17:36)
[2018-01-20 06:18] LABS: HEMOGLOBIN 7.8 g/dL (12.0-18.0); MEAN CELL VOLUME 71.1 fL (80.0-94.0); MEAN CORPUSCULAR HEMOGLOBIN 23.9 pg (27.0-31.0); MEAN CORPUSCULAR HGB CONC 33.7 g/dL (33.0-37.0); MEAN PLATELET VOLUME 7.9 fL (7.2-11.7); RBC 3.25 Mil/uL (4.40-5.90); RED CELL DISTRIBUTION WIDTH 19.4 % (11.5-14.5); WHITE BLOOD COUNT 7.5 K/uL (4.8-10.8)
[2018-01-20 06:47] LABS: CALCIUM 8.3 mg/dl (8.6-10.4)
--- NOTE | 2018-01-20 09:01 | CT ---
PROCEDURE: CT Lumbar Spine without contrast HISTORY: Back pain COMPARISON: None. TECHNIQUE: Axial computed tomography images were obtained of the lumbar spine without the use of intravenous contrast. Coronal and sagittal reformatted images were created and reviewed. Radiation dose: Total exam DLP = 616.75 mGy-cm. This CT exam was performed using one or more of the following dose reduction techniques: Automated exposure control, adjustment of the mA and/or kV according to patient size, and/or use of iterative reconstruction technique. FINDINGS: VERTEBRAE: There is normal alignment of the lumbar vertebral bodies. There is normal lumbar lordosis. There is apparent increased density in the posterior superior L5 vertebral body with a probable acute nondisplaced fracture posterior superiorly without retropulsion. There are also apparent radiolucent areas in the inferior S1 vertebra. Evaluation of the conus medullaris and nerve roots of cauda equina is limited on noncontrast CT examination however the spinal canal is grossly patent. DISCS/SPINAL CANAL/NEURAL FORAMINA: L1-2: No large disc herniation, neural foraminal or spinal canal stenosis. L2-3: No large disc herniation, neural foraminal or spinal canal stenosis. L3-4: No large disc herniation, neural foraminal or spinal canal stenosis. L4-5: Diffuse disc bulge and superimposed left foraminal disc protrusion with resultant severe left neural foraminal narrowing. No spinal canal stenosis. L5-S1: Diffuse posterior disc bulge with superimposed left posterolateral disc protrusion without spinal canal stenosis. Mild bilateral facet arthropathy contribute to moderate right and [id number] left neural foraminal narrowing. PARASPINAL SOFT TISSUES: The paraspinous soft tissues are normal. OTHER FINDINGS: Again seen is moderate right and severe left hydronephrosis. The urinary bladder is well distended and there is apparent mild mural thickening of the bladder wall. There is echogenic material within the urinary bladder which may represent hemorrhage, worse or debris. IMPRESSION: 1. Suspect acute nondisplaced fracture in the posterior superior L5 vertebral body without retropulsion. Associated focal increased density in the posterior superior vertebral body could be related to compression however metastatic lesion cannot be entirely excluded. 2. Also noted are left foraminal disc protrusion at L4-5 and left posterolateral disc protrusion at L5-S1 with moderate to severe neural foraminal narrowing. No spinal canal stenosis. 3. Apparent radiolucent areas in the S1 vertebral body could be related to demineralization however metastatic lesions cannot be entirely excluded. 4. Moderate right and severe left hydronephrosis. High density material within the urinary bladder which may represent hemorrhage, pus or debris. A dedicated MRI of the lumbar spine without and with intravenous contrast would be helpful for further evaluation of L5 and presumable S1 vertebrae lesions. A preliminary report was provided by [employer].
--- NOTE | 2018-01-20 10:03 | CT ---
PROCEDURE: CT Thoracic Spine without contrast HISTORY: Upper back pain COMPARISON: None. TECHNIQUE: Axial computed tomography images were obtained of the thoracic spine without intravenous contrast. Coronal and sagittal reformatted images were created and reviewed. Radiation dose: Total exam DLP = 842.12 mGy-cm. This CT exam was performed using one or more of the following dose reduction techniques: Automated exposure control, adjustment of the mA and/or kV according to patient size, and/or use of iterative reconstruction technique. FINDINGS: VERTEBRAE: There is normal alignment of the thoracic vertebral bodies. There is normal thoracic kyphosis. Bone mineralization is normal. There is no acute fracture. Incompletely imaged is increased sclerosis in 1 of the lower cervical vertebral body. DISCS/SPINAL CANAL/NEURAL FORAMINA: Within the limits of the CT technique, no disc herniation seen. No central canal or neural foraminal stenosis.. There is focal ligamentum flavum ossification in the mid thoracic spine with effacement of the posterior epidural space without evidence of spinal canal narrowing. PARASPINAL SOFT TISSUES: The paraspinous soft tissues are normal.. OTHER FINDINGS: There are scattered osteolytic lesions in the thoracic ribs and a pathologic fracture in the left lateral 11th rib. There are moderate bilateral pleural effusions and focal consolidation in the left lower lobe. There is an enlarged multinodular thyroid gland.. IMPRESSION: 1. No acute fracture in the thoracic spine. No destructive bony lesion. Incompletely imaged increased sclerosis in 1 of the lower cervical vertebral body, dedicated MRI of the cervical spine without and with intravenous contrast is recommended for definitive evaluation. 2. Multifocal metastatic lesions in the ribs. 3. Moderate bilateral pleural effusions and focal consolidation in the left lower lobe. 4. Enlarged multinodular thyroid gland, if not already performed, dedicated thyroid ultrasound on a nonemergent basis is recommended for further evaluation. A preliminary report was provided by [employer]. A preliminary report was provided by [employer].
[2018-01-20] MEDS: methIMAzole 5 MG TAB PO SCH (10:10)
[2018-01-20] MEDS: Lidocaine 5% Patch TD SCH (10:10)
--- NOTE | 2018-01-20 15:45 | PCM.URO ---
Urology Progress Note - Objective Lab Studies: Reviewed (no gu change may need cystoscopy) Lab Results Last 24 Hours: Laboratory Results - last 24 hr 01/19/18 01/19/18 01/19/18 19:44 19:44 19:44 WBC 9.0 RBC 3.53 L Hgb 8.6 L Hct 25.2 L MCV 71.5 L MCH 24.4 L MCHC 34.1 RDW 18.9 H Plt Count 508 H MPV 8.1 Neut % (Auto) 69.1 Lymph % (Auto) 15.5 L Bull[place] % (Auto) 8.7 Eos % (Auto) 5.7 H Baso % (Auto) 1.0 Neut # (Auto) 6.2 Lymph # (Auto) 1.4 Bull[place] # (Auto) 0.8 Eos # (Auto) 0.5 Baso # (Auto) 0.1 Sodium Potassium Chloride Carbon Dioxide Anion Gap BUN Creatinine Est GFR ( Amer) Est GFR (Non-Af Amer) Random Glucose Hemoglobin A1c Calcium Iron 14 L TIBC 214 L % Saturation 7 L Vitamin B12 351 Folate 9.5 TSH 3rd Generation 01/19/18 01/20/18 01/20/18 19:44 06:14 06:14 WBC 7.5 RBC 3.25 L Hgb 7.8 L Hct 23.1 L MCV 71.1 L MCH 23.9 L MCHC 33.7 RDW 19.4 H Plt Count 460 H MPV 7.9 Neut % (Auto) Lymph % (Auto) Bull[place] % (Auto) Eos % (Auto) Baso % (Auto) Neut # (Auto) Lymph # (Auto) Bull[place] # (Auto) Eos # (Auto) Baso # (Auto) Sodium 133 Potassium 4.5 Chloride 104 Carbon Dioxide 20 L Anion Gap 13 BUN 36 H Creatinine 4.6 H Est GFR ( Amer) 16 Est GFR (Non-Af Amer) 13 Random Glucose 89 Hemoglobin A1c 5.8 Calcium 8.3 L Iron TIBC % Saturation Vitamin B12 Folate TSH 3rd Generation 1.37 Intake & Output: Intake & Output 01/19/18 01/20/18 01/20/18 18:59 06:59 18:59 Intake Total 525 240 Balance 525 240 Intake: Oral 240 Blood Product 325 Red Blood Cells Cpd As1 325 Lr Unit [id number] Other 200 Red Blood Cells Cpd As1 200 Lr Unit [id number] Other: # Voids Urine, Voided 450 # Bowel Movements 0 Vital Signs: Vital Signs - 24 hr 01/19/18 01/19/18 01/20/18 16:00 23:20 08:20 Temperature 99.4 F 99.1 F 98.5 F Pulse Rate 68 68 68 Respiratory 20 20 20 Rate Blood Pressure 139/75 130/64 139/75 O2 Sat by Pulse 96 95 98 Oximetry
[2018-01-20] MEDS: Oxycodone/Acetaminophen 5/325 mg Tab PO SCH ×2 (16:37→21:49)
[2018-01-20] MEDS: oxyCODONE 5 mg Immediate Release Tab PO SCH ×2 (16:38→21:48)
--- NOTE | 2018-01-20 20:40 | CP.PCM.CON ---
History of Present Illness - History of Present Illness History of Present Illness: 57 year old male with a history of stage IV prostate cancer (tk 10) initiated on total androgen deprivation admitted with diffuse body pain and hematuria. The patient was diagnosed with prostate cancer while in correction. His initial PSA was about 400 and he had evidence of retroperitoneal and bone metastasis. He was started on Lupron 30mg and Casodex on 04/25/17. His last Lupron injection was last month with me in the office earlier this month. Since then he has been having on and off hematuria and notes to diffuse body aches. Past medical history: HTN, prostate cancer Past surgical history: Denies Family history: Denies hematologic and oncologic problems Social history: Heroin abuse Allergies: NKA Review of systems: All remaining review of systems including HEENT, cardiovascular, respiratory, gastrointestinal, genitourinary, musculoskeletal, dermatologic, neurologic, and psychiatric are negative unless mentioned in the HPI. Past Patient History - Past Medical History & Family History Past Medical History?: Yes - Past Social History Smoking Status: Light Smoker < 10 Cigarettes Daily - CARDIAC Hx Cardiac Disorders: No - PULMONARY Hx Respiratory Disorders: Yes Hx Asthma: Yes - NEUROLOGICAL Hx Neurological Disorder: No - HEENT Hx HEENT Problems: No - RENAL Hx Chronic Kidney Disease: No - ENDOCRINE/METABOLIC Hx Endocrine Disorders: Yes Hx Hyperthyroidism: Yes - HEMATOLOGICAL/ONCOLOGICAL Hx Blood Disorders: Yes Hx Anemia: Yes Hx Cancer: Yes (PROSTATE with BONE METS) - INTEGUMENTARY Hx Dermatological Problems: Yes Hx Eczema: Yes - MUSCULOSKELETAL/RHEUMATOLOGICAL Hx Musculoskeletal Disorders: Yes Hx Back Pain: Yes Hx Falls: No - GASTROINTESTINAL Hx Gastrointestinal Disorders: No - GENITOURINARY/GYNECOLOGICAL Hx Genitourinary Disorders: Yes Hx Prostate Cancer: Yes - PSYCHIATRIC Hx Psychophysiologic Disorder: Yes Hx Substance Use: Yes - SURGICAL HISTORY Hx Surgeries: Yes Other/Comment: BONE BIOPSY - ANESTHESIA Hx Anesthesia: Yes Hx Anesthesia Reactions: No Hx Malignant Hyperthermia: No Meds Allergies/Adverse Reactions: Allergies Allergy/AdvReac Type Severity Reaction Status Date / Time honey Allergy Verified 01/18/18 18:53 - Medications Medications: Current Medications Docusate Sodium (Colace) 100 mg PO TID [facility] Last Admin: 01/20/18 17:35 Dose: 100 mg Flutamide (Eulexin) 125 mg PO Q8H [facility] Last Admin: 01/20/18 17:35 Dose: 125 mg Hydromorphone HCl (Dilaudid) 0.5 mg IVP Q4H PRN PRN Reason: breakthrough pain Last Admin: 01/20/18 17:36 Dose: 0.5 mg Lidocaine (Lidoderm) 1 ea TD DAILY [facility] Last Admin: 01/20/18 10:10 Dose: 1 ea Methimazole (Tapazole) 5 mg PO DAILY [facility] Last Admin: 01/20/18 10:10 Dose: 5 mg Oxycodone HCl (Oxycodone Immediate Release Tab) 5 mg PO Q6H [facility] Stop: 01/24/18 16:01 Last Admin: 01/20/18 16:38 Dose: 5 mg Oxycodone/Acetaminophen (Percocet 5/325 Mg Tab) 1 tab PO Q6H [facility] Stop: 01/24/18 16:01 Last Admin: 01/20/18 16:37 Dose: 1 tab Tamsulosin HCl (Flomax) 0.4 mg PO DAILY [facility] Last Admin: 01/20/18 10:10 Dose: 0.4 mg Physical Exam - Head Exam Head Exam: ATRAUMATIC - Eye Exam Eye Exam: Normal appearance - ENT Exam ENT Exam: Mucous Membranes Dry - Respiratory Exam Respiratory Exam: NORMAL BREATHING PATTERN - Cardiovascular Exam Cardiovascular Exam: +S1, +S2 - GI/Abdominal Exam GI & Abdominal Exam: Normal Bowel Sounds - Extremities Exam Extremities exam: Positive for: normal inspection - Neurological Exam Neurological exam: Oriented x3 - Psychiatric Exam Psychiatric exam: Normal Affect, Normal Mood - Skin Skin Exam: Warm Results - Vital Signs Recent Vital Signs: Last Vital Signs Temp 99.3 F 01/20/18 16:00 Pulse 64 01/20/18 16:00 Resp 20 01/20/18 16:00 BP 130/70 01/20/18 16:00 Pulse Ox 96 01/20/18 16:00 - Labs Result Diagrams: 01/20/18 06:14 01/20/18 06:14 Labs: Laboratory Results - last 24 hr 01/19/18 01/19/18 01/20/18 19:44 19:44 06:14 WBC 7.5 RBC 3.25 L Hgb 7.8 L Hct 23.1 L MCV 71.1 L MCH 23.9 L MCHC 33.7 RDW 19.4 H Plt Count 460 H MPV 7.9 Sodium Potassium Chloride Carbon Dioxide Anion Gap BUN Creatinine Est GFR ( Amer) Est GFR (Non-Af Amer) Random Glucose Hemoglobin A1c 5.8 Calcium Vitamin B12 351 Folate 9.5 TSH 3rd Generation 01/20/18 06:14 WBC RBC Hgb Hct MCV MCH MCHC RDW Plt Count MPV Sodium 133 Potassium 4.5 Chloride 104 Carbon Dioxide 20 L Anion Gap 13 BUN 36 H Creatinine 4.6 H Est GFR ( Amer) 16 Est GFR (Non-Af Amer) 13 Random Glucose 89 Hemoglobin A1c Calcium 8.3 L Vitamin B12 Folate TSH 3rd Generation 1.37 Assessment & Plan (1) Anemia Assessment and Plan: hematuria and chronic disease rule out iron deficiency transfusion support PRN f/u for hematuria Status: Acute (2) Prostate cancer Assessment and Plan: stage IV bone and LN mets on total androgen deprivation repeat testosterone and PSA Thank you for this interesting consult. Status: Acute
[2018-01-21] MEDS: HYDROmorphone 0.5 mg/0.5 ml ISec IVP PRN ×5 (01:27→20:24)
[2018-01-21] MEDS: oxyCODONE 5 mg Immediate Release Tab PO SCH ×4 (04:45→22:45)
[2018-01-21] MEDS: Oxycodone/Acetaminophen 5/325 mg Tab PO SCH ×4 (04:45→22:46)
--- NOTE | 2018-01-21 04:49 | PN ---
DATE: SUBJECTIVE: The patient is a 57-year-old male. The patient was seen and examined on the bedside, looking comfortable. No nausea, vomiting, diarrhea. No hematuria, hematochezia. No swelling of the leg. No chest pain, no palpitations but according to the patient having intractable back pain. No fever, no chills. PHYSICAL EXAMINATION VITAL SIGNS: Temperature 99.3, pulse 64, blood pressure 130/70, respiratory rate 20. HEENT: Head, normocephalic and atraumatic. Eyes, PERRLA. Extraocular muscles intact. Conjunctivae clear. Nose patent. Mucous membrane moist. NECK: Supple. No carotid bruit or thyromegaly. CHEST: Bilaterally symmetrical. HEART: S1 and S2 positive. LUNGS: Clear to auscultation. ABDOMEN: Soft. Bowel sounds positive. No organomegaly. EXTREMITIES: No edema. No cyanosis. NEUROLOGIC: The patient is awake and alert. Moving all 4 extremities. No focal deficits. MEDICATIONS: Colace, Dilaudid, Flutamide, Flomax, Lidoderm, oxycodone, Tapazole. LABS: White blood cell count 7.5, hemoglobin 7.8, hemoglobin 23.1, platelets 416. Sodium 133, potassium 4.5, BUN 36, creatinine 4.6. ASSESSMENT AND PLAN: Mr. Miah Maldonado is a 57-year-old male with anemia, thrombocytosis, renal insufficiency, hypoglycemia, iron deficiency, seen by patient's can dryer/oncologist, Dr. Oreilly, Dr. Nowak. The patient has stage IV prostate cancer, Cally 10, initiated on total androgen deprivation, came with hematuria and intractable back pain. The patient was diagnosed with prostate cancer when he was in residential. Initial PSA was 400 with evidence of retroperitoneal and bone metastasis. He was started on Lupron, gets Sedoxil, having on and off hematuria, anemia is acute on chronic, can dryer will give blood transfusion. The patient has intractable back pain, pain management called. Appreciate Dr. Oreilly and Dr. Orozco's input. Thoracic spine CT done showed no acute fracture in thoracic spine and no destructive bone lesion, incompletely . sclerosis in one of the lower cervical vertebral body. Multifocal metastatic lesions in the ribs. Moderate bilateral pleural effusion and focal consolidation in the left lower lobe. A large multinodular thyroid gland. If not already performed, try to get thyroid ultrasound on an nonemergent basis is recommended for further evaluation. Cervical and lumbar spine CAT scan done. Pain management, GI/DVT prophylaxis. Repeat labs. We will follow up. Swapna Leonard MD ALEX
[2018-01-21 06:56] LABS: HEMOGLOBIN 8.8 g/dL (12.0-18.0); MEAN CELL VOLUME 72.5 fL (80.0-94.0); MEAN CORPUSCULAR HGB CONC 33.2 g/dL (33.0-37.0); MEAN PLATELET VOLUME 7.9 fL (7.2-11.7); RBC 3.66 Mil/uL (4.40-5.90); RED CELL DISTRIBUTION WIDTH 19.3 % (11.5-14.5); WHITE BLOOD COUNT 7.6 K/uL (4.8-10.8)
[2018-01-21 07:13] LABS: CALCIUM 9.2 mg/dl (8.6-10.4)
[2018-01-21 07:46] LABS: TESTOSTERONE 11.7 ng/mL
--- NOTE | 2018-01-21 09:31 | CP.PCM.CON ---
History of Present Illness - History of Present Illness History of Present Illness: Pain management consult Patient is 57yo M with history of hyperthyroidism, polysubstance abuse (uses heroin and cocaine daily), renal insufficiency and metastatic prostate cancer with mets to spine and rib cage admitted with intractable back pain. Imaging of the spine revealed multifocal metastatic lesions in the ribs, L5 and S1 lesions with acute nondisplaced L5 fracture. Currently patient still complaining of pain even with multiple pain medications. He reports primarily pain in the rib cage and also in the spine, pain is constant in nature and sharp. At its worse it is 10/10 in pain scale but with the current pain medications it improves to 5/10. Patient current pain regiment includes fentanyl patch, hydromorphone 0.5mg Q6h, lidoderm, oxycodone 5mg Q6H, and percocet 5/325 q6h. Case discussed with Pain management Dr. Edwards Recommendation: Start IV hydromorphone DAIRY NUTRITION SPECIALIST- 0.2mg demand dose, 10 mins interval, no basal, and max of 6mg q4hrs Discontinue current fentanyl patch, hydromorphone IVP, oxycodone and percocet Consult neurosurgery given finding of acute L5 nondisplaced fracture Past Patient History - Past Medical History & Family History Past Medical History?: Yes - Past Social History Smoking Status: Light Smoker < 10 Cigarettes Daily - CARDIAC Hx Cardiac Disorders: No - PULMONARY Hx Respiratory Disorders: Yes Hx Asthma: Yes - NEUROLOGICAL Hx Neurological Disorder: No - HEENT Hx HEENT Problems: No - RENAL Hx Chronic Kidney Disease: No - ENDOCRINE/METABOLIC Hx Endocrine Disorders: Yes Hx Hyperthyroidism: Yes - HEMATOLOGICAL/ONCOLOGICAL Hx Blood Disorders: Yes Hx Anemia: Yes Hx Cancer: Yes (PROSTATE with BONE METS) - INTEGUMENTARY Hx Dermatological Problems: Yes Hx Eczema: Yes - MUSCULOSKELETAL/RHEUMATOLOGICAL Hx Musculoskeletal Disorders: Yes Hx Back Pain: Yes Hx Falls: No - GASTROINTESTINAL Hx Gastrointestinal Disorders: No - GENITOURINARY/GYNECOLOGICAL Hx Genitourinary Disorders: Yes Hx Prostate Cancer: Yes - PSYCHIATRIC Hx Psychophysiologic Disorder: Yes Hx Substance Use: Yes - SURGICAL HISTORY Hx Surgeries: Yes Other/Comment: BONE BIOPSY - ANESTHESIA Hx Anesthesia: Yes Hx Anesthesia Reactions: No Hx Malignant Hyperthermia: No Meds Allergies/Adverse Reactions: Allergies Allergy/AdvReac Type Severity Reaction Status Date / Time honey Allergy Verified 01/18/18 18:53 - Medications Medications: Current Medications Docusate Sodium (Colace) 100 mg PO TID [facility] Last Admin: 01/20/18 17:35 Dose: 100 mg Fentanyl (Duragesic) 1 patch TD Q72H [facility] Last Admin: 01/21/18 00:05 Dose: 1 patch Flutamide (Eulexin) 125 mg PO Q8H [facility] Last Admin: 01/21/18 02:10 Dose: 125 mg Hydromorphone HCl (Dilaudid) 0.5 mg IVP Q4H PRN PRN Reason: breakthrough pain Last Admin: 01/21/18 05:45 Dose: 0.5 mg Lidocaine (Lidoderm) 1 ea TD DAILY [facility] Last Admin: 01/20/18 10:10 Dose: 1 ea Methimazole (Tapazole) 5 mg PO DAILY [facility] Last Admin: 01/20/18 10:10 Dose: 5 mg Oxycodone HCl (Oxycodone Immediate Release Tab) 5 mg PO Q6H [facility] Stop: 01/24/18 16:01 Last Admin: 01/21/18 04:45 Dose: 5 mg Oxycodone/Acetaminophen (Percocet 5/325 Mg Tab) 1 tab PO Q6H [facility] Stop: 01/24/18 16:01 Last Admin: 01/21/18 04:45 Dose: 1 tab Tamsulosin HCl (Flomax) 0.4 mg PO DAILY [facility] Last Admin: 01/20/18 10:10 Dose: 0.4 mg Results - Vital Signs Recent Vital Signs: Last Vital Signs Temp 97.4 F L 01/21/18 07:29 Pulse 70 01/21/18 07:29 Resp 20 01/21/18 07:29 BP 127/79 01/21/18 07:29 Pulse Ox 98 01/21/18 07:29 - Labs Result Diagrams: 01/21/18 06:42 01/21/18 06:42 Labs: Laboratory Results - last 24 hr 01/21/18 01/21/18 06:42 06:42 WBC 7.6 RBC 3.66 L Hgb 8.8 L Hct 26.6 L MCV 72.5 L MCH 24.0 L MCHC 33.2 RDW 19.3 H Plt Count 538 H MPV 7.9 Sodium 139 Potassium 4.5 Chloride 105 Carbon Dioxide 19 L Anion Gap 19 BUN 45 H Creatinine 5.7 H Est GFR ( Amer) 13 Est GFR (Non-Af Amer) 10 Random Glucose 100 Calcium 9.2 Ferritin 169.0 Testosterone Level 11.7
--- NOTE | 2018-01-21 10:30 | CP.PCM.CON ---
History of Present Illness - History of Present Illness History of Present Illness: nondisplaced minimal fx superior posterior L5 stable Fx Rec MRI with gadolodium to eval metastatic disease no sugical intervention indicated based on CT may be candidate for XRT Past Patient History - Past Medical History & Family History Past Medical History?: Yes - Past Social History Smoking Status: Light Smoker < 10 Cigarettes Daily - CARDIAC Hx Cardiac Disorders: No - PULMONARY Hx Respiratory Disorders: Yes Hx Asthma: Yes - NEUROLOGICAL Hx Neurological Disorder: No - HEENT Hx HEENT Problems: No - RENAL Hx Chronic Kidney Disease: No - ENDOCRINE/METABOLIC Hx Endocrine Disorders: Yes Hx Hyperthyroidism: Yes - HEMATOLOGICAL/ONCOLOGICAL Hx Blood Disorders: Yes Hx Anemia: Yes Hx Cancer: Yes (PROSTATE with BONE METS) - INTEGUMENTARY Hx Dermatological Problems: Yes Hx Eczema: Yes - MUSCULOSKELETAL/RHEUMATOLOGICAL Hx Musculoskeletal Disorders: Yes Hx Back Pain: Yes Hx Falls: No - GASTROINTESTINAL Hx Gastrointestinal Disorders: No - GENITOURINARY/GYNECOLOGICAL Hx Genitourinary Disorders: Yes Hx Prostate Cancer: Yes - PSYCHIATRIC Hx Psychophysiologic Disorder: Yes Hx Substance Use: Yes - SURGICAL HISTORY Hx Surgeries: Yes Other/Comment: BONE BIOPSY - ANESTHESIA Hx Anesthesia: Yes Hx Anesthesia Reactions: No Hx Malignant Hyperthermia: No Meds Allergies/Adverse Reactions: Allergies Allergy/AdvReac Type Severity Reaction Status Date / Time honey Allergy Verified 01/18/18 18:53 - Medications Medications: Current Medications Docusate Sodium (Colace) 100 mg PO TID [facility] Last Admin: 01/20/18 17:35 Dose: 100 mg Fentanyl (Duragesic) 1 patch TD Q72H [facility] Last Admin: 01/21/18 00:05 Dose: 1 patch Flutamide (Eulexin) 125 mg PO Q8H [facility] Last Admin: 01/21/18 02:10 Dose: 125 mg Hydromorphone HCl (Dilaudid) 0.5 mg IVP Q4H PRN PRN Reason: breakthrough pain Last Admin: 01/21/18 05:45 Dose: 0.5 mg Lidocaine (Lidoderm) 1 ea TD DAILY [facility] Last Admin: 01/20/18 10:10 Dose: 1 ea Methimazole (Tapazole) 5 mg PO DAILY [facility] Last Admin: 01/20/18 10:10 Dose: 5 mg Oxycodone HCl (Oxycodone Immediate Release Tab) 5 mg PO Q6H [facility] Stop: 01/24/18 16:01 Last Admin: 01/21/18 04:45 Dose: 5 mg Oxycodone/Acetaminophen (Percocet 5/325 Mg Tab) 1 tab PO Q6H [facility] Stop: 01/24/18 16:01 Last Admin: 01/21/18 04:45 Dose: 1 tab Tamsulosin HCl (Flomax) 0.4 mg PO DAILY [facility] Last Admin: 01/20/18 10:10 Dose: 0.4 mg Results - Vital Signs Recent Vital Signs: Last Vital Signs Temp 97.4 F L 01/21/18 07:29 Pulse 70 01/21/18 07:29 Resp 20 01/21/18 07:29 BP 127/79 01/21/18 07:29 Pulse Ox 98 01/21/18 07:29 - Labs Result Diagrams: 01/21/18 06:42 01/21/18 06:42 Labs: Laboratory Results - last 24 hr 01/21/18 01/21/18 06:42 06:42 WBC 7.6 RBC 3.66 L Hgb 8.8 L Hct 26.6 L MCV 72.5 L MCH 24.0 L MCHC 33.2 RDW 19.3 H Plt Count 538 H MPV 7.9 Sodium 139 Potassium 4.5 Chloride 105 Carbon Dioxide 19 L Anion Gap 19 BUN 45 H Creatinine 5.7 H Est GFR ( Amer) 13 Est GFR (Non-Af Amer) 10 Random Glucose 100 Calcium 9.2 Ferritin 169.0 Prostate Specific Ag 269 H Testosterone Level 11.7
[2018-01-21] MEDS: methIMAzole 5 MG TAB PO SCH (11:33)
[2018-01-21] MEDS: Lidocaine 5% Patch TD SCH (11:43)
[2018-01-21] MEDS ORDERED: POLYETHYLENE GLYCOL 3350 17 GM/Dose PACKET PO ONE (14:46)
--- NOTE | 2018-01-21 15:37 | CP.PCM.PN ---
Subjective - Date & Time of Evaluation Date of Evaluation: 01/21/18 Time of Evaluation: 15:37 - Subjective Subjective: NOTIFIED AT THIS TIME BY PRIMARY FRANCESCO CASTRO THAT PT HAD AN EPISODE OF VOMITING AND ADMITS TO NO BM IN APPROX 7-10 DAYS. PT PHYSICALLY NOT ON THE FLOOR; IN MRI. LEFT ORDER FOR ZOFRAN PRN FOR THE PT UPON RETURN TO [address] [place] [address]. ORDERED OBSTRUCTIVE SERIES. DISCUSSED WITH FRANCESCO CASTRO TO HAVE PT GO FOR THE OBSTRUCTIVE SERIES ANSELMO AND TO NOTIFIY DR. ALONSO, THE ATTENDING, OF THE RESULTS. NO FURTHER ORDERS BY THIS GROUTER HELPER. Objective - Vital Signs/Intake and Output Vital Signs (last 24 hours): Temp Pulse Resp BP Pulse Ox 97.6 F 70 20 127/79 98 01/21/18 07:29 01/21/18 07:29 01/21/18 07:29 01/21/18 07:29 01/21/18 07:29 Intake and Output: 01/21/18 01/21/18 06:59 18:59 Intake Total 650 Output Total 1150 Balance -500 - Medications Medications: Current Medications Docusate Sodium (Colace) 100 mg PO TID [facility] Last Admin: 01/21/18 15:10 Dose: 100 mg Fentanyl (Duragesic) 1 patch TD Q72H [facility] Last Admin: 01/21/18 00:05 Dose: 1 patch Flutamide (Eulexin) 125 mg PO Q8H [facility] Last Admin: 01/21/18 11:32 Dose: 125 mg Hydromorphone HCl (Dilaudid) 0.5 mg IVP Q4H PRN PRN Reason: breakthrough pain Last Admin: 01/21/18 15:11 Dose: 0.5 mg Lidocaine (Lidoderm) 1 ea TD DAILY [facility] Last Admin: 01/21/18 11:43 Dose: 1 ea Methimazole (Tapazole) 5 mg PO DAILY [facility] Last Admin: 01/21/18 11:33 Dose: 5 mg Oxycodone HCl (Oxycodone Immediate Release Tab) 5 mg PO Q6H [facility] Stop: 01/24/18 16:01 Last Admin: 01/21/18 11:28 Dose: 5 mg Oxycodone/Acetaminophen (Percocet 5/325 Mg Tab) 1 tab PO Q6H [facility] Stop: 03/02/18 16:01 Last Admin: 01/21/18 11:27 Dose: 1 tab Tamsulosin HCl (Flomax) 0.4 mg PO DAILY [facility] Last Admin: 01/21/18 11:27 Dose: 0.4 mg - Labs Labs: 01/21/18 06:42 01/21/18 06:42 PT 12.9 SECONDS (9.7-12.2) H 01/18/18 19:54 INR 1.2 01/18/18 19:54 APTT 35 SECONDS (21-34) H 01/18/18 19:54
--- NOTE | 2018-01-21 20:38 | CP.PCM.PN ---
Subjective - Date & Time of Evaluation Date of Evaluation: 01/21/18 Time of Evaluation: 19:45 - Subjective Subjective: Has pain Objective - Vital Signs/Intake and Output Vital Signs (last 24 hours): Temp Pulse Resp BP Pulse Ox 98.0 F 57 L 20 127/77 95 01/21/18 15:52 01/21/18 15:52 01/21/18 15:52 01/21/18 15:52 01/21/18 15:52 - Medications Medications: Current Medications Docusate Sodium (Colace) 100 mg PO TID [facility] Last Admin: 01/21/18 17:53 Dose: 100 mg Fentanyl (Duragesic) 1 patch TD Q72H [facility] Last Admin: 01/21/18 00:05 Dose: 1 patch Flutamide (Eulexin) 125 mg PO Q8H [facility] Last Admin: 01/21/18 17:53 Dose: 125 mg Hydromorphone HCl (Dilaudid) 0.5 mg IVP Q4H PRN PRN Reason: breakthrough pain Last Admin: 01/21/18 20:24 Dose: 0.5 mg Lidocaine (Lidoderm) 1 ea TD DAILY [facility] Last Admin: 01/21/18 11:43 Dose: 1 ea Methimazole (Tapazole) 5 mg PO DAILY [facility] Last Admin: 01/21/18 11:33 Dose: 5 mg Ondansetron HCl (Zofran Inj) 4 mg IVP Q6 PRN PRN Reason: Nausea/Vomiting Last Admin: 01/21/18 16:22 Dose: 4 mg Oxycodone HCl (Oxycodone Immediate Release Tab) 5 mg PO Q6H [facility] Stop: 01/24/18 16:01 Last Admin: 01/21/18 17:54 Dose: 5 mg Oxycodone/Acetaminophen (Percocet 5/325 Mg Tab) 1 tab PO Q6H [facility] Stop: 01/24/18 16:01 Last Admin: 01/21/18 17:55 Dose: 1 tab Tamsulosin HCl (Flomax) 0.4 mg PO DAILY [facility] Last Admin: 01/21/18 11:27 Dose: 0.4 mg - Labs Labs: 01/21/18 06:42 01/21/18 06:42 PT 12.9 SECONDS (9.7-12.2) H 01/18/18 19:54 INR 1.2 02/24/18 19:54 APTT 35 SECONDS (21-34) H 01/18/18 19:54 - Head Exam Head Exam: ATRAUMATIC - Eye Exam Eye Exam: Normal appearance - ENT Exam ENT Exam: Mucous Membranes Dry - Respiratory Exam Respiratory Exam: NORMAL BREATHING PATTERN - Cardiovascular Exam Cardiovascular Exam: +S1, +S2 - GI/Abdominal Exam GI & Abdominal Exam: Normal Bowel Sounds Assessment and Plan (1) Anemia Assessment & Plan: chronic disease no evidence of b12/folate/iron deficiency Status: Acute (2) Prostate cancer Assessment & Plan: stage IV bone mets PSA rising despite total androgen blockade outpatient palliative radiotherapy to L5 Status: Acute
[2018-01-22] MEDS: HYDROmorphone 0.5 mg/0.5 ml ISec IVP PRN ×6 (00:25→20:15)
--- NOTE | 2018-01-22 00:48 | PN ---
DATE: SUBJECTIVE: The patient seen and examined on the bedside, looking comfortable. Still having back pain. No nausea, vomiting or diarrhea. No hematuria, hematochezia. No swelling of the leg. No chest pain, no palpitations. No headache or dizziness. PHYSICAL EXAMINATION: VITAL SIGNS: Temperature 98.0, pulse 57, blood pressure 127/77, respiratory rate 20. HEENT: Head, normocephalic and atraumatic. Eyes, PERRLA. Extraocular muscles intact. Conjunctivae clear. Nose patent. Mucous membrane moist. NECK: Supple. No carotid bruit or thyromegaly. CHEST: Bilaterally symmetrical. HEART: S1 and S2 positive. LUNGS: Clear to auscultation. ABDOMEN: Soft. Bowel sounds positive. No organomegaly. EXTREMITIES: No edema. No cyanosis. NEUROLOGIC: The patient is awake and alert. Moving all 4 extremities. No focal deficits. MEDICATIONS: Colace, Dilaudid, Flutamide, Flomax, Lidoderm, oxycodone, OxyContin, Tapazole, Zofran. LABORATORY DATA: White blood cell is 7.6, hemoglobin 8.8, hematocrit 26.6, platelets 538, sodium 139, potassium 4.5, BUN 45, creatinine 5.7. Vitamin B12 351. Prostate-specific antigen 269. ASSESSMENT AND PLAN: Mr. Miah Maldonado is a 57 years old male with anemia, status post blood transfusion; renal insufficiency, we will call Nephrology consult; hypocalcemia; iron deficiency; proteinuria; glucosuria; ketonuria; seen by Blanca Cloud nurse practitioner and seen by Dr. Dennis Dai, neurosurgeon. The patient has nondisplaced minimal superior, posterior L5 subtle fracture. The patient will need MRI with gadolinium to evaluate metastatic disease. No surgical intervention indicated. Based on CT may be candidate for physical therapy. The patient has history of hypothyroidism, polysubstance abuse, uses heroin and cocaine daily, metastatic prostate cancer with metastases to spine and rib, admitted for intractable back pain. The patient is getting fentanyl patch, hydromorphone, Lidoderm, oxycodone and Percocet. Started hydromorphone EVENT [employer]OM[employer] 0.2 mg DEM dose at 10 minutes interval, with continue current fentanyl patch by the Pain Management, hydromorphone IVP, oxycodone, Percocet. Neurosurgeon and Pain Management consults appreciated. GI and DVT prophylaxis. Repeat labs. We will follow up. Swapna Leonard MD [facility]
[2018-01-22] MEDS: Oxycodone/Acetaminophen 5/325 mg Tab PO SCH ×4 (04:41→21:46)
[2018-01-22] MEDS: oxyCODONE 5 mg Immediate Release Tab PO SCH ×4 (04:42→21:47)
--- NOTE | 2018-01-22 07:01 | RAD ---
PROCEDURE: Radiographs of the chest and abdomen (obstructive series) HISTORY: R/O OBSTRUCTION; NO BM 15 DAYS; VOMITED TODAY COMPARISON: No prior. TECHNIQUE: AP radiograph of the chest, with upright and supine radiographs of the abdomen. FINDINGS: CHEST: Lungs: Subtle patchy infiltrate is seen the left perihilar region and potentiate the medial right base. Linear atelectasis identified in both bases versus fibrosis. . Cardiovascular: Normal size heart. No pulmonary vascular congestion. Pleura: No pleural fluid. No pneumothorax. Other findings: None. ABDOMEN AND PELVIS: Bowel: There is a nonspecific bowel gas pattern though obstruction is not favored. A developing ileus is possible. Free air: None. Bones: Unremarkable. Other findings: None. IMPRESSION: Limited patchy infiltrate suggested both lung [place]roy[place] as discussed above though mild. Remainder of the chest radiograph is unremarkable. Likely nonobstructive bowel gas pattern with probable developing ileus noted. No free intrarenal gas or suspicious intra-abdominal calcifications. Clinically correlate further.
[2018-01-22] MEDS: Lidocaine 5% Patch TD SCH (09:54)
[2018-01-22] MEDS: methIMAzole 5 MG TAB PO SCH (10:16)
[2018-01-22 11:48] LABS: HEMOGLOBIN 7.9 g/dL (12.0-18.0); MEAN CELL VOLUME 71.8 fL (80.0-94.0); MEAN CORPUSCULAR HEMOGLOBIN 24.1 pg (27.0-31.0); MEAN CORPUSCULAR HGB CONC 33.6 g/dL (33.0-37.0); MEAN PLATELET VOLUME 7.9 fL (7.2-11.7); RBC 3.28 Mil/uL (4.40-5.90); RED CELL DISTRIBUTION WIDTH 19.3 % (11.5-14.5)
[2018-01-22 12:01] LABS: CALCIUM 8.8 mg/dl (8.6-10.4)
[2018-01-22] MEDS ORDERED: Bisacodyl 5mg EC Tab PO ONE (12:54)
--- NOTE | 2018-01-22 13:56 | CP.PCM.CON ---
History of Present Illness - History of Present Illness History of Present Illness: 57 year old male with a history of stage IV prostate cancer (tk 10) initiated on total androgen deprivation admitted with diffuse body pain and hematuria. The patient was diagnosed with prostate cancer while in [place] [facility] 1 year ago. His initial PSA was about 400 and he had evidence of retroperitoneal and bone metastasis. He was started on Lupron 30mg and Casodex on 04/25/17. His last Lupron injection was last month with me in the office earlier this month. Since then he has been having on and off hematuria and notes to diffuse body aches. Past medical history: HTN, prostate cancer, hyperthyroidism Past surgical history: Denies Family history: Denies hematologic and oncologic problems; no known CKD Social history: Heroin abuse; former heavy smoker Allergies: NKA Review of systems: All remaining review of systems including HEENT, cardiovascular, respiratory, gastrointestinal, genitourinary, musculoskeletal, dermatologic, neurologic, and psychiatric are negative unless mentioned in the HPI. Review of Systems - Review of Systems All systems: reviewed and no additional remarkable complaints except - Constitutional Constitutional: As Per HPI - EENT Eyes: absent: As Per HPI, Blind Spots, Blurred Vision, Change in Vision, Decreased Night Vision, Diplopia, Discharge, Dry Eye, Exophthalmos, Floaters, Irritation, Itchy Eyes, Loss of Peripheral Vision, Pain, Photophobia, Requires Corrective Lenses, Sees Flashes, Spots in Vision, Tunnel Vision, Other Visual Disturbances, Loss of Vision, Other Ears: absent: As Per HPI, Decreased Hearing, Ear Discharge, Ear Pain, Tinnitus, Abnormal Hearing, Disequilibrium, Dizziness, Other Nose/Mouth/Throat: absent: As Per HPI, Epistaxis, Nasal Congestion, Nasal Discharge, Nasal Obstruction, Nasal Trauma, Nose Pain, Post Nasal Drip, Sinus Pain, Sinus Pressure, Bleeding Gums, Change in Voice, Dental Pain, Dry Mouth, Dysphagia, Halitosis, Hoarsness, Lip Swelling, Mouth Lesions, Mouth Pain, Odynophagia, Sore Throat, Throat Swelling, Tongue Swelling, Facial Pain, Neck Pain, Neck Mass, Other - Cardiovascular Cardiovascular: Dyspnea on Exertion, Lightheadedness - Respiratory Respiratory: Dyspnea on Exertion - Gastrointestinal Gastrointestinal: Abdominal Pain, Bloating, Constipation, Early Satiety, Nausea , Vomiting - Genitourinary Genitourinary: As Per HPI, Change in Urinary Stream - Musculoskeletal Musculoskeletal: Muscle Cramps, Myalgias - Integumentary Integumentary: absent: As Per HPI, Acne, Alopecia, Bleeding Lesions, Change in Hair, Change in Nails, Change in Pigmentation, Changing Lesions, Dry Skin, Erythema, Furuncle, Hirsutism, Lesions, New Lesions, Non-Healing Lesions, Photosensitivity, Pruritus, Rash, Skin Pain, Skin Ulcer, Sores, Striae, Swelling , Unusual Bruising, Wounds, Jaundice, Other - Neurological Neurological: Weakness Past Patient History - Past Medical History & Family History Past Medical History?: Yes - Past Social History Smoking Status: Former Smoker Chewing Tobacco Use: No Cigar Use: No Alcohol: Occasional Drugs: Opiates - CARDIAC Hx Cardiac Disorders: No - PULMONARY Hx Respiratory Disorders: Yes Hx Asthma: Yes - NEUROLOGICAL Hx Neurological Disorder: No - HEENT Hx HEENT Problems: No - RENAL Hx Chronic Kidney Disease: No - ENDOCRINE/METABOLIC Hx Endocrine Disorders: Yes Hx Hyperthyroidism: Yes - HEMATOLOGICAL/ONCOLOGICAL Hx Blood Disorders: Yes Hx Anemia: Yes Hx Cancer: Yes (PROSTATE with BONE METS) - INTEGUMENTARY Hx Dermatological Problems: Yes Hx Eczema: Yes - MUSCULOSKELETAL/RHEUMATOLOGICAL Hx Musculoskeletal Disorders: Yes Hx Back Pain: Yes Hx Falls: No - GASTROINTESTINAL Hx Gastrointestinal Disorders: No - GENITOURINARY/GYNECOLOGICAL Hx Genitourinary Disorders: Yes Hx Prostate Cancer: Yes - PSYCHIATRIC Hx Psychophysiologic Disorder: Yes Hx Substance Use: Yes - SURGICAL HISTORY Hx Surgeries: Yes Other/Comment: BONE BIOPSY - ANESTHESIA Hx Anesthesia: Yes Hx Anesthesia Reactions: No Hx Malignant Hyperthermia: No Meds Allergies/Adverse Reactions: Allergies Allergy/AdvReac Type Severity Reaction Status Date / Time honey Allergy Verified 01/18/18 18:53 - Medications Medications: Current Medications Docusate Sodium (Colace) 100 mg PO TID [facility] Last Admin: 01/22/18 09:54 Dose: 100 mg Fentanyl (Duragesic) 1 patch TD Q72H [facility] Last Admin: 01/21/18 00:05 Dose: 1 patch Flutamide (Eulexin) 125 mg PO Q8H [facility] Last Admin: 01/22/18 09:54 Dose: 125 mg Hydromorphone HCl (Dilaudid) 0.5 mg IVP Q4H PRN PRN Reason: breakthrough pain Last Admin: 01/22/18 12:10 Dose: 0.5 mg Sodium Chloride (Sodium Chloride 0.9%) 1,000 mls @ 80 mls/hr IV .[id number] [facility] Lidocaine (Lidoderm) 1 ea TD DAILY [facility] Last Admin: 01/22/18 09:54 Dose: 1 ea Methimazole (Tapazole) 5 mg PO DAILY [facility] Last Admin: 01/22/18 10:16 Dose: 5 mg Ondansetron HCl (Zofran Inj) 4 mg IVP Q6 PRN PRN Reason: Nausea/Vomiting Last Admin: 01/22/18 10:00 Dose: 4 mg Oxycodone HCl (Oxycodone Immediate Release Tab) 5 mg PO Q6H [facility] Stop: 01/24/18 16:01 Last Admin: 01/22/18 09:54 Dose: 5 mg Oxycodone/Acetaminophen (Percocet 5/325 Mg Tab) 1 tab PO Q6H [facility] Stop: 01/24/18 16:01 Last Admin: 01/22/18 09:56 Dose: 1 tab Pantoprazole Sodium (Protonix Inj) 40 mg IVP DAILY [facility] Last Admin: 01/22/18 13:29 Dose: 40 mg Tamsulosin HCl (Flomax) 0.4 mg PO DAILY [facility] Last Admin: 01/22/18 09:54 Dose: 0.4 mg Physical Exam - Head Exam Head Exam: ATRAUMATIC, NORMAL INSPECTION - Eye Exam Eye Exam: EOMI, Normal appearance - Neck Exam Neck exam: Positive for: Normal Inspection. Negative for: Tenderness - Respiratory Exam Respiratory Exam: Clear to Auscultation Bilateral, NORMAL BREATHING PATTERN - Cardiovascular Exam Cardiovascular Exam: REGULAR RHYTHM, +S1 - GI/Abdominal Exam GI & Abdominal Exam: Distended, Normal Bowel Sounds, Tenderness - Extremities Exam Extremities exam: Positive for: normal inspection. Negative for: tenderness - Neurological Exam Neurological exam: Alert, CN II-XII Intact - Skin Skin Exam: Dry, Warm Results - Vital Signs Recent Vital Signs: Last Vital Signs Temp 98.1 F 01/22/18 08:24 Pulse 65 01/22/18 08:24 Resp 20 01/22/18 08:24 BP 146/80 01/22/18 08:24 Pulse Ox 97 01/22/18 08:24 - Labs Result Diagrams: 01/22/18 11:31 01/22/18 11:31 Labs: Laboratory Results - last 24 hr 01/22/18 01/22/18 01/22/18 07:09 11:31 11:31 WBC 6.0 RBC 3.28 L Hgb 7.9 L Hct 23.6 L MCV 71.8 L MCH 24.1 L MCHC 33.6 RDW 19.3 H Plt Count 450 H MPV 7.9 Sodium 138 Potassium 4.7 Chloride 103 Carbon Dioxide 21 L Anion Gap 20 BUN 57 H Creatinine 6.9 H Est GFR ( Amer) 10 Est GFR (Non-Af Amer) 8 POC Glucose (mg/dL) 98 Random Glucose 92 Calcium 8.8 Assessment & Plan (1) Obstructive uropathy Status: Acute (2) Prostate cancer metastatic to bone Status: Acute (3) Substance abuse Status: Acute (4) EMMETT (acute kidney injury) Status: Acute - Assessment and Plan (Free Text) Plan: renal US if obstructed- [place], possible stent or PNT serial chemistries treat constipation
[2018-01-22] MEDS: Sodium Chloride 0.9% 1,000 ML IV SCH (13:59)
[2018-01-22] MEDS: Ferric Sodium Gluconat Complex 62.5 mg/5 ml Vial IVPB SCH (15:54)
--- NOTE | 2018-01-22 20:21 | US ---
EXAM: US Retroperitoneal Limited, Renal EXAM DATE/TIME: Exam ordered 01/22/2018 2:06 PM CLINICAL HISTORY: 57 years old, male; Signs and symptoms; Other: John; Patient HX: Prior 12-25-17 TECHNIQUE: Real-time ultrasound of the retroperitoneum (limited) with image documentation. COMPARISON: RENAL/URINARY BLADDER US 2017-12-25 08:36 FINDINGS: Right kidney: The right kidney measures 13.6 x 7.5 x 6.2 cm. There is moderate to severe hydronephrosis. The echotexture of the right kidney is slightly increased. No stones. There is a small fluid surrounding the right kidney in the hepatorenal space. Left kidney: The left kidney measures 12.4 x 6.7 x 6.7 cm. There is severe hydronephrosis. No stones. Bladder: Polypoid mass is noted within the bladder measuring 7.4 x 5.8 x 6.5 cm. It is avascular on color Doppler examination. Pleural space: There is a small right pleural effusion. Aorta: The mid-distal aorta are obscured by bowel gas. Inferior vena cava: Obscured by bowel gas. IMPRESSION: 1. Severe hydronephrosis bilaterally. This has progressed slightly on the right. No significant change on the left. 2. Polypoid mass in the bladder. This likely represents a blood clot given the patient's history of hematuria and the presence of a fluid fluid level within the bladder on previous CT scan dated 12/25/2017. 3. Small right pleural effusion.
--- NOTE | 2018-01-22 23:02 | CP.PCM.PN ---
Subjective - Date & Time of Evaluation Date of Evaluation: 01/22/18 Time of Evaluation: 12:00 - Subjective Subjective: Pain improved, seen by nephrology Objective - Vital Signs/Intake and Output Vital Signs (last 24 hours): Temp Pulse Resp BP Pulse Ox 98.6 F 76 20 135/74 96 01/22/18 16:00 01/22/18 16:00 01/22/18 16:00 01/22/18 16:00 01/22/18 16:00 Intake and Output: 01/22/18 01/23/18 18:59 06:59 Intake Total 800 300 Output Total 250 Balance 800 50 - Medications Medications: Current Medications Docusate Sodium (Colace) 100 mg PO TID [facility] Last Admin: 01/22/18 17:56 Dose: 100 mg Fentanyl (Duragesic) 1 patch TD Q72H [facility] Last Admin: 01/21/18 00:05 Dose: 1 patch Ferric Sodium Gluconate Complex (Ferrlecit) 125 mg IVPB DAILY [facility] Stop: 01/30/18 14:16 Last Admin: 01/22/18 15:54 Dose: 125 mg Flutamide (Eulexin) 125 mg PO Q8H [facility] Last Admin: 01/22/18 18:01 Dose: 125 mg Hydromorphone HCl (Dilaudid) 0.5 mg IVP Q4H PRN PRN Reason: breakthrough pain Last Admin: 01/22/18 20:15 Dose: 0.5 mg Sodium Chloride (Sodium Chloride 0.9%) 1,000 mls @ 80 mls/hr IV .[id number] [facility] Last Admin: 01/22/18 13:59 Dose: 80 mls/hr Lidocaine (Lidoderm) 1 ea TD DAILY [facility] Last Admin: 01/22/18 09:54 Dose: 1 ea Methimazole (Tapazole) 5 mg PO DAILY [facility] Last Admin: 01/22/18 10:16 Dose: 5 mg Ondansetron HCl (Zofran Inj) 4 mg IVP Q6 PRN PRN Reason: Nausea/Vomiting Last Admin: 01/22/18 16:15 Dose: 4 mg Oxycodone HCl (Oxycodone Immediate Release Tab) 5 mg PO Q6H [facility] Stop: 01/24/18 16:01 Last Admin: 01/22/18 21:47 Dose: 5 mg Oxycodone/Acetaminophen (Percocet 5/325 Mg Tab) 1 tab PO Q6H [facility] Stop: 01/24/18 16:01 Last Admin: 01/22/18 21:46 Dose: 1 tab Pantoprazole Sodium (Protonix Inj) 40 mg IVP DAILY [facility] Last Admin: 01/22/18 13:29 Dose: 40 mg Tamsulosin HCl (Flomax) 0.4 mg PO DAILY [facility] Last Admin: 01/22/18 09:54 Dose: 0.4 mg - Labs Labs: 01/22/18 11:31 01/22/18 11:31 PT 12.9 SECONDS (9.7-12.2) H 01/18/18 19:54 INR 1.2 01/18/18 19:54 APTT 35 SECONDS (21-34) H 01/18/18 19:54 - Head Exam Head Exam: ATRAUMATIC - Eye Exam Eye Exam: Normal appearance - ENT Exam ENT Exam: Mucous Membranes Dry - Respiratory Exam Respiratory Exam: NORMAL BREATHING PATTERN - Cardiovascular Exam Cardiovascular Exam: +S1, +S2 - GI/Abdominal Exam GI & Abdominal Exam: Normal Bowel Sounds Assessment and Plan (1) Anemia Assessment & Plan: chronic disease, renal disease to receive PRBC transfusion today Status: Acute (2) Prostate cancer Assessment & Plan: rising PSA concerning cont. androgen deprivation possible palliative radiotherapy to Tspine outpatient treatment Status: Acute
[2018-01-23] MEDS: HYDROmorphone 0.5 mg/0.5 ml ISec IVP PRN ×5 (00:15→20:23)
[2018-01-23] MEDS: Sodium Chloride 0.9% 1,000 ML IV SCH ×2 (01:50→16:06)
[2018-01-23] MEDS: oxyCODONE 5 mg Immediate Release Tab PO SCH ×4 (04:07→22:06)
[2018-01-23] MEDS: Oxycodone/Acetaminophen 5/325 mg Tab PO SCH ×4 (04:07→22:05)
--- NOTE | 2018-01-23 04:09 | PN ---
DATE: SUBJECTIVE: The patient is 57-year-old male. The patient is seen and examined at the bedside, looking comfortable. Pain is improving, seen by the commodity industry analyst, legal services manager, oncologist, and Pain Management. No active dizziness. No palpitation. No fever. No chills. Still having back pain, but getting better. PHYSICAL EXAMINATION VITAL SIGNS: Temperature 98.6, pulse 76, respirations 20, and blood pressure 135/74. HEENT: Head, normocephalic and atraumatic. Eyes, PERRLA. Extraocular muscles intact. Conjunctivae clear. Nose patent. Mucous membrane moist. NECK: Supple. No carotid bruit or thyromegaly. CHEST: Bilaterally symmetrical. HEART: S1 and S2 positive. LUNGS: Clear to auscultation. ABDOMEN: Soft. Bowel sounds positive. No organomegaly. EXTREMITIES: No edema. No cyanosis. NEUROLOGIC: The patient is awake and alert. Moving all 4 extremities. No focal deficits. MEDICATIONS: Duragesic patch, iron, flutamide, Dilaudid, Lidoderm, Cefazolin, Zofran, oxycodone, and pantoprazole. LABORATORY DATA: White blood cell is 6.0, hemoglobin 7.9, hematocrit 23.6, and platelets 450. Sodium 138, potassium 4.7, BUN 57, creatinine 6.9, and glucose 92. ASSESSMENT AND PLAN: The patient is a 57-year-old male with anemia, thrombocytosis, renal insufficiency, prostate cancer with metastasis, possible palliative radiation to C-spine, outpatient treatment, as per Dr. Viviana Robertson. Urology consult called. Nephrology consult called. ultrasound. She has severe hydronephrosis bilaterally. This has progressed, this is likely on the right. No significant change on the left. Polypoid mass in the bladder. This is likely represents a blood clot, given the patient's history of hematuria and the presence of the fluid filled level within the bladder on previous CT scan and this CT was on 12/25/2017, small right plural effusion. Area Captain and urologist is on the case. He is seen by Dr. Cornelio Harmon. He has hypertension, hyperthyroidism, acute kidney injury, serum chemistries, and treat constipation. Repeat labs. Swapna Leonard MD [facility]
[2018-01-23] MEDS: Ferric Sodium Gluconat Complex 62.5 mg/5 ml Vial IVPB SCH (09:21)
--- NOTE | 2018-01-23 10:00 | CP.PCM.PN ---
Subjective - Date & Time of Evaluation Date of Evaluation: 01/23/18 Time of Evaluation: 09:59 - Subjective Subjective: Renal US confirmed severe bilateral hydro Now NPO for cysto- possible stent follow up labs Objective - Vital Signs/Intake and Output Vital Signs (last 24 hours): Temp Pulse Resp BP Pulse Ox 98.6 F 66 20 148/83 97 01/23/18 07:46 01/23/18 07:46 01/23/18 07:46 01/23/18 07:46 01/23/18 07:46 Intake and Output: 01/23/18 01/23/18 06:59 18:59 Intake Total 420 Output Total 600 Balance -180 - Medications Medications: Current Medications Docusate Sodium (Colace) 100 mg PO TID [facility] Last Admin: 01/22/18 17:56 Dose: 100 mg Fentanyl (Duragesic) 1 patch TD Q72H [facility] Last Admin: 01/21/18 00:05 Dose: 1 patch Ferric Sodium Gluconate Complex (Ferrlecit) 125 mg IVPB DAILY [facility] Stop: 01/30/18 14:16 Last Admin: 01/23/18 09:21 Dose: 125 mg Flutamide (Eulexin) 125 mg PO Q8H [facility] Last Admin: 01/23/18 02:02 Dose: 125 mg Hydromorphone HCl (Dilaudid) 0.5 mg IVP Q4H PRN PRN Reason: breakthrough pain Last Admin: 01/23/18 08:57 Dose: 0.5 mg Sodium Chloride (Sodium Chloride 0.9%) 1,000 mls @ 80 mls/hr IV .[id number] [facility] Last Admin: 01/23/18 01:50 Dose: 80 mls/hr Lidocaine (Lidoderm) 1 ea TD DAILY [facility] Last Admin: 01/22/18 09:54 Dose: 1 ea Methimazole (Tapazole) 5 mg PO DAILY [facility] Last Admin: 01/22/18 10:16 Dose: 5 mg Ondansetron HCl (Zofran Inj) 4 mg IVP Q6 PRN PRN Reason: Nausea/Vomiting Last Admin: 01/22/18 16:15 Dose: 4 mg Oxycodone HCl (Oxycodone Immediate Release Tab) 5 mg PO Q6H [facility] Stop: 01/24/18 16:01 Last Admin: 01/23/18 04:07 Dose: 5 mg Oxycodone/Acetaminophen (Percocet 5/325 Mg Tab) 1 tab PO Q6H [facility] Stop: 01/24/18 16:01 Last Admin: 01/23/18 04:07 Dose: 1 tab Pantoprazole Sodium (Protonix Inj) 40 mg IVP DAILY [facility] Last Admin: 01/23/18 09:26 Dose: 40 mg Tamsulosin HCl (Flomax) 0.4 mg PO DAILY [facility] Last Admin: 01/22/18 09:54 Dose: 0.4 mg - Labs Labs: 01/22/18 11:31 01/22/18 11:31 PT 12.9 SECONDS (9.7-12.2) H 01/18/18 19:54 INR 1.2 01/18/18 19:54 APTT 35 SECONDS (21-34) H 01/18/18 19:54 Assessment and Plan (1) Obstructive uropathy Status: Acute (2) Prostate cancer metastatic to bone Status: Acute (3) Substance abuse Status: Acute (4) EMMETT (acute kidney injury) Status: Acute
[2018-01-23] MEDS: Lidocaine 5% Patch TD SCH (10:01)
[2018-01-23] MEDS: methIMAzole 5 MG TAB PO SCH ×2 (10:04→10:13)
[2018-01-23 11:21] LABS: HEMOGLOBIN 7.7 g/dL (12.0-18.0); MEAN CELL VOLUME 71.7 fL (80.0-94.0); MEAN CORPUSCULAR HEMOGLOBIN 24.5 pg (27.0-31.0); MEAN CORPUSCULAR HGB CONC 34.1 g/dL (33.0-37.0); MEAN PLATELET VOLUME 8.1 fL (7.2-11.7); RBC 3.13 Mil/uL (4.40-5.90); RED CELL DISTRIBUTION WIDTH 19.3 % (11.5-14.5); WHITE BLOOD COUNT 7.4 K/uL (4.8-10.8)
[2018-01-23 11:52] LABS: ALB/GLOB RATIO 0.9 (1.0-2.1); ALBUMIN 3.4 g/dL (3.5-5.0); ALT/SGPT 19 U/L (21-72); AST/SGOT 32 U/L (17-59); BLOOD UREA NITROGEN 65 mg/dL (9-20); CALCIUM 8.6 mg/dl (8.6-10.4); GFR AFRICAN-AMERICAN 8; GFR NON-AFRICAN AMERICAN 6
[2018-01-23 12:13] LABS: HEPATITIS B SURFACE AG Negative (NEGATIVE)
[2018-01-23 12:19] LABS: HEPATITIS B CORE AB NEGATIVE (NEGATIVE)
[2018-01-23 12:31] LABS: HEPATITIS C ANTIBODY NEGATIVE (NEGATIVE)
[2018-01-23] MEDS ORDERED: Propofol 10 mg/ml Inj (20 ML) ONE (14:15)
[2018-01-23] MEDS ORDERED: Lidocaine Hydrochloride 5 ML INJ ONE (14:15)
[2018-01-23] MEDS ORDERED: Midazolam 2 MG/2 ML VIAL ONE ×2 (14:15→14:47)
[2018-01-23] MEDS ORDERED: Lidocaine 2% Jelly (Uro-Jet) ONE (14:30)
[2018-01-23] MEDS ORDERED: Iohexol 240 200 ML ONE (14:34)
[2018-01-23] MEDS ORDERED: Iodixanol 320 MG/ML 200 ML BOTTLE IV ONE (14:35)
[2018-01-23] MEDS ORDERED: HYDROmorphone 1 mg/ml ISec IVP PRN (14:56)
--- NOTE | 2018-01-23 22:08 | CP.PCM.PN ---
Subjective - Date & Time of Evaluation Date of Evaluation: 01/23/18 Time of Evaluation: 12:05 - Subjective Subjective: pain improved sever hydronephrosis noted Objective - Vital Signs/Intake and Output Vital Signs (last 24 hours): Temp Pulse Resp BP Pulse Ox 98.4 F 94 H 20 143/85 96 01/23/18 16:00 01/23/18 16:00 01/23/18 16:00 01/23/18 16:00 01/23/18 16:00 Intake and Output: 01/23/18 01/24/18 18:59 06:59 Intake Total 800 Output Total 100 Balance 700 - Medications Medications: Current Medications Docusate Sodium (Colace) 100 mg PO TID [facility] Last Admin: 01/23/18 17:56 Dose: 100 mg Fentanyl (Duragesic) 1 patch TD Q72H [facility] Last Admin: 01/21/18 00:05 Dose: 1 patch Ferric Sodium Gluconate Complex (Ferrlecit) 125 mg IVPB DAILY [facility] Stop: 01/30/18 14:16 Last Admin: 01/23/18 09:21 Dose: 125 mg Flutamide (Eulexin) 125 mg PO Q8H [facility] Last Admin: 01/23/18 17:56 Dose: 125 mg Hydromorphone HCl (Dilaudid) 0.5 mg IVP Q4H PRN PRN Reason: breakthrough pain Last Admin: 01/23/18 20:23 Dose: 0.5 mg Sodium Chloride (Sodium Chloride 0.9%) 1,000 mls @ 80 mls/hr IV .[id number] [facility] Last Admin: 01/23/18 16:06 Dose: 80 mls/hr Lidocaine (Lidoderm) 1 ea TD DAILY [facility] Last Admin: 01/23/18 10:01 Dose: Not Given Methimazole (Tapazole) 5 mg PO DAILY [facility] Last Admin: 01/23/18 10:13 Dose: Not Given Ondansetron HCl (Zofran Inj) 4 mg IVP Q6 PRN PRN Reason: Nausea/Vomiting Last Admin: 01/22/18 16:15 Dose: 4 mg Oxycodone HCl (Oxycodone Immediate Release Tab) 5 mg PO Q6H [facility] Stop: 01/24/18 16:01 Last Admin: 01/23/18 22:06 Dose: 5 mg Oxycodone/Acetaminophen (Percocet 5/325 Mg Tab) 1 tab PO Q6H [facility] Stop: 01/24/18 16:01 Last Admin: 01/23/18 22:05 Dose: 1 tab Pantoprazole Sodium (Protonix Inj) 40 mg IVP DAILY [facility] Last Admin: 01/23/18 09:26 Dose: 40 mg Tamsulosin HCl (Flomax) 0.4 mg PO DAILY [facility] Last Admin: 01/23/18 10:00 Dose: Not Given - Labs Labs: 01/23/18 11:09 01/23/18 11:09 PT 12.9 SECONDS (9.7-12.2) H 01/18/18 19:54 INR 1.2 01/18/18 19:54 APTT 35 SECONDS (21-34) H 01/18/18 19:54 - Head Exam Head Exam: ATRAUMATIC - Eye Exam Eye Exam: Normal appearance - ENT Exam ENT Exam: Mucous Membranes Dry - Respiratory Exam Respiratory Exam: NORMAL BREATHING PATTERN - Cardiovascular Exam Cardiovascular Exam: +S1, +S2 - GI/Abdominal Exam GI & Abdominal Exam: Normal Bowel Sounds Assessment and Plan (1) Anemia Assessment & Plan: chronic disease Status: Acute (2) Prostate cancer Assessment & Plan: stage IV PSA rising despite total androgen deprivation will need outpatient Zytiga palliative Lspine radiotherapy for pain. Status: Acute
[2018-01-24] MEDS: HYDROmorphone 0.5 mg/0.5 ml ISec IVP PRN ×4 (00:35→19:25)
[2018-01-24] MEDS: Sodium Chloride 0.9% 1,000 ML IV SCH (03:00)
[2018-01-24] MEDS: oxyCODONE 5 mg Immediate Release Tab PO SCH ×3 (04:02→19:22)
[2018-01-24] MEDS: Oxycodone/Acetaminophen 5/325 mg Tab PO SCH ×3 (04:02→19:22)
[2018-01-24 07:18] LABS: HEMOGLOBIN 7.5 g/dL (12.0-18.0); MEAN CELL VOLUME 70.8 fL (80.0-94.0); MEAN CORPUSCULAR HEMOGLOBIN 23.6 pg (27.0-31.0); MEAN CORPUSCULAR HGB CONC 33.3 g/dL (33.0-37.0); MEAN PLATELET VOLUME 8.3 fL (7.2-11.7); RBC 3.16 Mil/uL (4.40-5.90); RED CELL DISTRIBUTION WIDTH 19.2 % (11.5-14.5); WHITE BLOOD COUNT 8.6 K/uL (4.8-10.8)
--- NOTE | 2018-01-24 08:03 | PN ---
DATE: SUBJECTIVE: The patient is a 57-year-old male. The patient was seen and examined at the bedside. Looking comfortable. Pain improved. No nausea, vomiting. No fever. No chills. PHYSICAL EXAMINATION: VITAL SIGNS: Temperature 98.4, pulse 94, respiratory rate 20, blood pressure 143/85, pulse oximetry 96. HEENT: Head normocephalic, atraumatic. Eyes: PERRLA. Extraocular muscles are intact. Conjunctivae clear. Nose patent. Mucous membrane moist. NECK: Supple. No carotid bruit. No JVD or thyromegaly. CHEST: Bilaterally symmetrical. HEART: S1 and S2 positive. LUNGS: Clear to auscultation. ABDOMEN: Soft. Bowel sounds positive. No organomegaly. EXTREMITIES: No edema. No cyanosis. NEUROLOGICAL: The patient is awake and alert. Moving all 4 extremities. No focal deficits. LABORATORY DATA: White blood cells 7.4, hemoglobin 7.7, hematocrit 22.7, platelets 462. Sodium 137, potassium 4.2, BUN 65, creatinine 8.9, glucose 86. MEDICATIONS: Duragesic patch, iron, Dilaudid, NS, Lidoderm, Tapazole, Zofran, oxycodone, pantoprazole, Flomax. ASSESSMENT AND PLAN: Patient is a 57-year-old male with severe anemia, status post blood transfusion; thrombocytosis; renal insufficiency; prostate cancer stage IV, PSA rising despite total androgen deprivation, will need outpatient Zytiga, palliative spine radiotherapy for pain as per Dr. Eliu Oreilly, the patient's litigation secretary. The patient went for cystoscopy due to severe hydronephrosis, hematuria, prostate cancer. Plan for cystoscopy with possible retrograde pyelogram. Seen by Dr. Cornelio Harmon. Obstructive uropathy, history of substance abuse, acute kidney injury. Continue hydration, pain medication. Gastrointestinal, deep venous thrombosis prophylaxis. Repeat labs. Swapna Leonard MD MTDD
[2018-01-24 08:15] LABS: ALB/GLOB RATIO 0.9 (1.0-2.1); ALBUMIN 3.4 g/dL (3.5-5.0); CALCIUM 9.1 mg/dl (8.6-10.4)
[2018-01-24] MEDS: methIMAzole 5 MG TAB PO SCH (09:22)
[2018-01-24] MEDS: Ferric Sodium Gluconat Complex 62.5 mg/5 ml Vial IVPB SCH (09:23)
[2018-01-24] MEDS: Lidocaine 5% Patch TD SCH (09:31)
[2018-01-24] MEDS: Pantoprazole 40 mg EC Tab PO SCH (09:31)
[2018-01-24] MEDS ORDERED: Lidocaine 2% Inj (20ml) ONE (12:41)
[2018-01-24] MEDS ORDERED: Midazolam 2 MG/2 ML VIAL ONE (12:42)
[2018-01-24] MEDS ORDERED: Iodixanol 320 MG/ML 100 ML BOTTLE IV ONE (12:42)
--- NOTE | 2018-01-24 13:19 | CP.PCM.PN ---
Subjective - Date & Time of Evaluation Date of Evaluation: 01/24/18 Time of Evaluation: 13:16 - Subjective Subjective: s/p cysto- [place] placed stent could not be placed- orifices not identified PNT not placed sleepy now; c/o gross hematuria creat increased to 10.5, K elevated discussed with - advised need for percutaneous nephrostomy due to uremic sxs- will try to obtain consent and arrange for dialysis ANSELMO now went for dialysis cath?- not in room Objective - Vital Signs/Intake and Output Vital Signs (last 24 hours): Temp Pulse Resp BP Pulse Ox 98.7 F 84 20 158/87 H 99 01/24/18 00:00 01/24/18 00:00 01/24/18 00:00 01/24/18 00:00 01/24/18 00:00 Intake and Output: 01/24/18 01/24/18 06:59 18:59 Intake Total 600 Output Total 1150 Balance -550 - Medications Medications: Current Medications Docusate Sodium (Colace) 100 mg PO TID [facility] Last Admin: 01/24/18 09:22 Dose: 100 mg Fentanyl (Duragesic) 1 patch TD Q72H [facility] Last Admin: 01/23/18 23:40 Dose: 1 patch Ferric Sodium Gluconate Complex (Ferrlecit) 125 mg IVPB DAILY [facility] Stop: 01/30/18 14:16 Last Admin: 01/24/18 09:23 Dose: 125 mg Flutamide (Eulexin) 125 mg PO Q8H [facility] Last Admin: 01/24/18 09:22 Dose: 125 mg Hydromorphone HCl (Dilaudid) 0.5 mg IVP Q4H PRN PRN Reason: breakthrough pain Last Admin: 01/24/18 09:21 Dose: 0.5 mg Sodium Chloride (Sodium Chloride 0.9%) 1,000 mls @ 80 mls/hr IV .[id number] [facility] Last Admin: 01/24/18 03:00 Dose: Not Given Lidocaine (Lidoderm) 1 ea TD DAILY [facility] Last Admin: 01/24/18 09:31 Dose: 1 ea Methimazole (Tapazole) 5 mg PO DAILY [facility] Last Admin: 01/24/18 09:22 Dose: 5 mg Ondansetron HCl (Zofran Inj) 4 mg IVP Q6 PRN PRN Reason: Nausea/Vomiting Last Admin: 01/22/18 16:15 Dose: 4 mg Oxycodone HCl (Oxycodone Immediate Release Tab) 5 mg PO Q6H [facility] Stop: 01/24/18 16:01 Last Admin: 01/24/18 11:15 Dose: 5 mg Oxycodone/Acetaminophen (Percocet 5/325 Mg Tab) 1 tab PO Q6H [facility] Stop: 01/24/18 16:01 Last Admin: 01/24/18 11:16 Dose: 1 tab Pantoprazole Sodium (Protonix Ec Tab) 40 mg PO DAILY [facility] Last Admin: 01/24/18 09:31 Dose: 40 mg Tamsulosin HCl (Flomax) 0.4 mg PO DAILY [facility] Last Admin: 01/24/18 09:22 Dose: 0.4 mg - Labs Labs: 01/24/18 07:01 01/24/18 07:01 PT 12.9 SECONDS (9.7-12.2) H 01/18/18 19:54 INR 1.2 01/18/18 19:54 APTT 35 SECONDS (21-34) H 01/18/18 19:54 - Constitutional Appears: Confused, Chronically Ill - Head Exam Head Exam: ATRAUMATIC, NORMAL INSPECTION - Eye Exam Eye Exam: EOMI, Normal appearance - Neck Exam Neck Exam: Normal Inspection. absent: Tenderness - Respiratory Exam Respiratory Exam: Clear to Ausculation Bilateral, NORMAL BREATHING PATTERN - Cardiovascular Exam Cardiovascular Exam: REGULAR RHYTHM, +S1 - GI/Abdominal Exam GI & Abdominal Exam: Soft. absent: Tenderness - Extremities Exam Extremities Exam: Normal Inspection. absent: Tenderness - Neurological Exam Neurological Exam: Altered, CN II-XII Intact - Skin Skin Exam: Dry, Warm Assessment and Plan (1) Obstructive uropathy Status: Acute (2) Prostate cancer metastatic to bone Status: Acute (3) Substance abuse Status: Acute (4) EMMETT (acute kidney injury) Status: Acute (5) Uremia Status: Acute - Assessment and Plan (Free Text) Plan: As above- will try to arrange for dialysis ANSELMO would recommend percutaneous nephrostomy
--- NOTE | 2018-01-24 13:19 | PCM.SURG1 ---
Surgeon's Initial Post Op Note - Surgeon's Notes Surgeon: Lawrence Tai MD System Software Developer: NONE Type of Anesthesia: Moderate Sedation{RN} Pre-Operative Diagnosis: Prostate mass, hydronephrosis Operative Findings: US showed severe left hydronephrosis and moderate right hydroenephrosis. Post-Operative Diagnosis: Hydroneprhosis Operation Performed: Right and left 8 fr percutaneous nephrostomy tube placement. Specimen/Specimens Removed: NONE Estimated Blood Loss: EBL {In ML}: 3 Blood Products Given: N/A Drains Used: No Drains Post-Op Condition: Fair Date of Surgery/Procedure: 01/24/18 Time of Surgery/Procedure: 13:10
--- NOTE | 2018-01-24 15:48 | CP.PCM.CON ---
History of Present Illness - History of Present Illness History of Present Illness: Vasc Surgery: Dr Herrera asked to place emergent dialysis catheter. last meal 8AM. Pt added onto OR for permacath insertion ~430PM. d/w Dr Sharon Ramirez, PGY3 Past Patient History - Past Medical History & Family History Past Medical History?: Yes - Past Social History Smoking Status: Former Smoker Chewing Tobacco Use: No Cigar Use: No Alcohol: Occasional Drugs: Opiates - CARDIAC Hx Cardiac Disorders: No - PULMONARY Hx Respiratory Disorders: Yes Hx Asthma: Yes - NEUROLOGICAL Hx Neurological Disorder: No - HEENT Hx HEENT Problems: No - RENAL Hx Chronic Kidney Disease: No - ENDOCRINE/METABOLIC Hx Endocrine Disorders: Yes Hx Hyperthyroidism: Yes - HEMATOLOGICAL/ONCOLOGICAL Hx Blood Disorders: Yes Hx Anemia: Yes Hx Cancer: Yes (PROSTATE with BONE METS) - INTEGUMENTARY Hx Dermatological Problems: Yes Hx Eczema: Yes - MUSCULOSKELETAL/RHEUMATOLOGICAL Hx Musculoskeletal Disorders: Yes Hx Back Pain: Yes Hx Falls: No - GASTROINTESTINAL Hx Gastrointestinal Disorders: No - GENITOURINARY/GYNECOLOGICAL Hx Genitourinary Disorders: Yes Hx Prostate Cancer: Yes - PSYCHIATRIC Hx Psychophysiologic Disorder: Yes Hx Substance Use: Yes - SURGICAL HISTORY Hx Surgeries: Yes Other/Comment: BONE BIOPSY - ANESTHESIA Hx Anesthesia: Yes Hx Anesthesia Reactions: No Hx Malignant Hyperthermia: No Meds Allergies/Adverse Reactions: Allergies Allergy/AdvReac Type Severity Reaction Status Date / Time honey Allergy Verified 01/18/18 18:53 - Medications Medications: Current Medications Docusate Sodium (Colace) 100 mg PO TID [facility] Last Admin: 01/24/18 09:22 Dose: 100 mg Fentanyl (Duragesic) 1 patch TD Q72H [facility] Last Admin: 01/23/18 23:40 Dose: 1 patch Ferric Sodium Gluconate Complex (Ferrlecit) 125 mg IVPB DAILY [facility] Stop: 01/30/18 14:16 Last Admin: 01/24/18 09:23 Dose: 125 mg Flutamide (Eulexin) 125 mg PO Q8H [facility] Last Admin: 01/24/18 09:22 Dose: 125 mg Hydromorphone HCl (Dilaudid) 0.5 mg IVP Q4H PRN PRN Reason: breakthrough pain Last Admin: 01/24/18 09:21 Dose: 0.5 mg Sodium Chloride (Sodium Chloride 0.9%) 1,000 mls @ 80 mls/hr IV .[id number] [facility] Last Admin: 01/24/18 03:00 Dose: Not Given Lidocaine (Lidoderm) 1 ea TD DAILY [facility] Last Admin: 01/24/18 09:31 Dose: 1 ea Methimazole (Tapazole) 5 mg PO DAILY [facility] Last Admin: 01/24/18 09:22 Dose: 5 mg Ondansetron HCl (Zofran Inj) 4 mg IVP Q6 PRN PRN Reason: Nausea/Vomiting Last Admin: 01/24/18 08:00 Dose: 4 mg Oxycodone HCl (Oxycodone Immediate Release Tab) 5 mg PO Q6H [facility] Stop: 01/24/18 16:01 Last Admin: 01/24/18 11:15 Dose: 5 mg Oxycodone/Acetaminophen (Percocet 5/325 Mg Tab) 1 tab PO Q6H [facility] Stop: 01/24/18 16:01 Last Admin: 01/24/18 11:16 Dose: 1 tab Pantoprazole Sodium (Protonix Ec Tab) 40 mg PO DAILY [facility] Last Admin: 01/24/18 09:31 Dose: 40 mg Tamsulosin HCl (Flomax) 0.4 mg PO DAILY [facility] Last Admin: 01/24/18 09:22 Dose: 0.4 mg Results - Vital Signs Recent Vital Signs: Last Vital Signs Temp 98.7 F 01/24/18 00:00 Pulse 84 01/24/18 00:00 Resp 20 01/24/18 00:00 BP 158/87 H 01/24/18 00:00 Pulse Ox 99 01/24/18 00:00 - Labs Result Diagrams: 01/24/18 07:01 01/24/18 07:01 Labs: Laboratory Results - last 24 hr 01/23/18 01/24/18 01/24/18 11:09 07:01 07:01 WBC 8.6 RBC 3.16 L Hgb 7.5 L Hct 22.4 L MCV 70.8 L MCH 23.6 L MCHC 33.3 RDW 19.2 H Plt Count 457 H MPV 8.3 Sodium 135 Potassium 5.5 H Chloride 103 Carbon Dioxide 19 L Anion Gap 19 BUN 79 H Creatinine 10.5 H* Est GFR ( Amer) 6 Est GFR (Non-Af Amer) 5 POC Glucose (mg/dL) Random Glucose 101 Calcium 9.1 Phosphorus 6.8 H Magnesium 1.8 Total Bilirubin 0.6 AST 35 ALT 20 L Alkaline Phosphatase 82 Total Protein 7.3 Albumin 3.4 L Globulin 3.9 Albumin/Globulin Ratio 0.9 L PTH Intact Whole Molec 51 01/24/18 07:31 WBC RBC Hgb Hct MCV MCH MCHC RDW Plt Count MPV Sodium Potassium Chloride Carbon Dioxide Anion Gap BUN Creatinine Est GFR ( Amer) Est GFR (Non-Af Amer) POC Glucose (mg/dL) 96 Random Glucose Calcium Phosphorus Magnesium Total Bilirubin AST ALT Alkaline Phosphatase Total Protein Albumin Globulin Albumin/Globulin Ratio PTH Intact Whole Molec
--- NOTE | 2018-01-24 15:52 | PCM.URO ---
Urology Progress Note - Objective Lab Studies: Reviewed (cap, hematuria, rf will follow along, and follow bun/ creatinine) Lab Results Last 24 Hours: Laboratory Results - last 24 hr 01/23/18 01/24/18 01/24/18 11:09 07:01 07:01 WBC 8.6 RBC 3.16 L Hgb 7.5 L Hct 22.4 L MCV 70.8 L MCH 23.6 L MCHC 33.3 RDW 19.2 H Plt Count 457 H MPV 8.3 Sodium 135 Potassium 5.5 H Chloride 103 Carbon Dioxide 19 L Anion Gap 19 BUN 79 H Creatinine 10.5 H* Est GFR ( Amer) 6 Est GFR (Non-Af Amer) 5 POC Glucose (mg/dL) Random Glucose 101 Calcium 9.1 Phosphorus 6.8 H Magnesium 1.8 Total Bilirubin 0.6 AST 35 ALT 20 L Alkaline Phosphatase 82 Total Protein 7.3 Albumin 3.4 L Globulin 3.9 Albumin/Globulin Ratio 0.9 L PTH Intact Whole Molec 51 01/24/18 07:31 WBC RBC Hgb Hct MCV MCH MCHC RDW Plt Count MPV Sodium Potassium Chloride Carbon Dioxide Anion Gap BUN Creatinine Est GFR ( Amer) Est GFR (Non-Af Amer) POC Glucose (mg/dL) 96 Random Glucose Calcium Phosphorus Magnesium Total Bilirubin AST ALT Alkaline Phosphatase Total Protein Albumin Globulin Albumin/Globulin Ratio PTH Intact Whole Molec Intake & Output: Intake & Output 01/23/18 01/24/18 01/24/18 18:59 06:59 18:59 Intake Total 800 600 Output Total 100 1150 Balance 700 -550 Intake: IV 300 Intake, IV Amount 500 Right Forearm 500 Oral 0 600 Output: Urine 100 [address] Urethral 1150 Other: # Voids Urine, Voided 2 # Bowel Movements 0 1 Vital Signs: Vital Signs - 24 hr 01/23/18 01/24/18 16:00 00:00 Temperature 98.4 F 98.7 F Pulse Rate 94 H 84 Respiratory 20 20 Rate Blood Pressure 143/85 158/87 H O2 Sat by Pulse 96 99 Oximetry
[2018-01-24] MEDS ORDERED: HEPARIN-NS 5,000 UNITS/500 ML 5,000 UNIT/500 ML BAG IV ONE (16:22)
[2018-01-24] MEDS ORDERED: Lidocaine 1% Inj (20ml) ONE (16:22)
[2018-01-24] MEDS ORDERED: ceFAZolin 1 gm in NS 1 GM/100 ML BAG IVPB ONE (17:10)
--- NOTE | 2018-01-24 17:44 | PCM.SURG1 ---
Surgeon's Initial Post Op Note - Surgeon's Notes Surgeon: Dr. Herrera Risk Consultant: Mukesh PGY1 Type of Anesthesia: Local Pre-Operative Diagnosis: Acute Kidney Injury Operative Findings: see operative report Post-Operative Diagnosis: same Operation Performed: Right IJ Permacath placement Specimen/Specimens Removed: none Estimated Blood Loss: EBL {In ML}: 10 Blood Products Given: N/A Drains Used: No Drains Post-Op Condition: Fair Date of Surgery/Procedure: 01/24/18 Time of Surgery/Procedure: 17:44
[2018-01-24] MEDS: HYDROmorphone 1 mg/ml ISec IVP PRN ×2 (17:46→22:44)
--- NOTE | 2018-01-24 18:37 | RAD ---
HISTORY: Right IJ Permacath placement COMPARISON: Portable chest 12/25/2017. FINDINGS: In the interval, 8 tunneled central venous dialysis catheter in place by a right internal jugular approach with tip terminating at the cavoatrial junction. LUNGS: Limited patchy airspace disease seen at the right base and left perihilar and medial basilar distribution. PLEURA: No significant pleural effusion identified, no pneumothorax apparent. CARDIOVASCULAR: Cardiac silhouette is likely magnified by portable technique though an element of pulmonary venous congestion is now apparent. OSSEOUS STRUCTURES: No significant abnormalities. VISUALIZED UPPER ABDOMEN: Normal. OTHER FINDINGS: None. IMPRESSION: Mild pulmonary venous congestion. Limited right basilar patchy airspace disease with left perihilar and medial basilar atelectasis or infiltrate present. Interval right center venous dialysis catheter in position.
--- NOTE | 2018-01-24 21:10 | CP.PCM.PN ---
Subjective - Date & Time of Evaluation Date of Evaluation: 01/24/18 Time of Evaluation: 12:30 - Subjective Subjective: For emergent dialysis, not seen in room Objective - Vital Signs/Intake and Output Vital Signs (last 24 hours): Temp Pulse Resp BP Pulse Ox 98 F 83 11 L 151/78 H 95 01/24/18 18:30 01/24/18 18:30 01/24/18 18:30 01/24/18 18:30 01/24/18 18:15 Intake and Output: 01/24/18 01/25/18 18:59 06:59 Intake Total 200 Output Total 450 Balance 200 -450 - Medications Medications: Current Medications Docusate Sodium (Colace) 100 mg PO TID [facility] Last Admin: 01/24/18 21:01 Dose: Not Given Fentanyl (Duragesic) 1 patch TD Q72H [facility] Last Admin: 01/23/18 23:40 Dose: 1 patch Ferric Sodium Gluconate Complex (Ferrlecit) 125 mg IVPB DAILY [facility] Stop: 01/30/18 14:16 Last Admin: 01/24/18 09:23 Dose: 125 mg Flutamide (Eulexin) 125 mg PO Q8H [facility] Last Admin: 01/24/18 19:39 Dose: 125 mg Hydromorphone HCl (Dilaudid) 0.5 mg IVP Q4H PRN PRN Reason: breakthrough pain Last Admin: 01/24/18 19:25 Dose: 0.5 mg Hydromorphone HCl (Dilaudid) 1 mg IVP Q10M PRN PRN Reason: Pain, moderate (4-7) Last Admin: 01/24/18 17:46 Dose: 1 mg Sodium Chloride (Sodium Chloride 0.9%) 1,000 mls @ 80 mls/hr IV .[id number] [facility] Last Admin: 01/24/18 03:00 Dose: Not Given Lidocaine (Lidoderm) 1 ea TD DAILY [facility] Last Admin: 01/24/18 09:31 Dose: 1 ea Methimazole (Tapazole) 5 mg PO DAILY [facility] Last Admin: 01/24/18 09:22 Dose: 5 mg Ondansetron HCl (Zofran Inj) 4 mg IVP Q6 PRN PRN Reason: Nausea/Vomiting Last Admin: 01/24/18 08:00 Dose: 4 mg Pantoprazole Sodium (Protonix Ec Tab) 40 mg PO DAILY [facility] Last Admin: 01/24/18 09:31 Dose: 40 mg Tamsulosin HCl (Flomax) 0.4 mg PO DAILY [facility] Last Admin: 01/24/18 09:22 Dose: 0.4 mg - Labs Labs: 01/24/18 07:01 01/24/18 07:01 PT 12.9 SECONDS (9.7-12.2) H 01/18/18 19:54 INR 1.2 01/18/18 19:54 APTT 35 SECONDS (21-34) H 01/18/18 19:54 Assessment and Plan (1) Anemia Assessment & Plan: chronic disease, renal disease, hematuria bone mets transfusion support PRN Status: Acute (2) Prostate cancer Assessment & Plan: stage IV rising PSA despite total androgen deprivation will need outpatient Zytiga outpatient palliative Lspine radiotherapy for pain Status: Acute
[2018-01-25] MEDS: HYDROmorphone 0.5 mg/0.5 ml ISec IVP PRN ×6 (00:17→22:02)
[2018-01-25] MEDS: Sodium Chloride 0.9% 1,000 ML IV SCH ×3 (04:57→21:29)
--- NOTE | 2018-01-25 04:59 | OP ---
PROCEDURE DATE: 01/24/2018 PREOPERATIVE DIAGNOSIS: Renal failure. POSTOPERATIVE DIAGNOSIS: Renal failure. PROCEDURE CARRIED OUT: Placement of Perm-A-Cath in right jugular vein with C-arm fluoroscopy with ultrasound-guided puncture and micropuncture technique. SURGEON: Osvaldo Herrera MD [employer] SUPERINTENDENT: ____ ANESTHESIA ADMINISTERED BY: Dr. Milligan INDICATIONS: The patient is a older middle-aged gentleman with prostate cancer who requires a Perm-A-Cath for dialysis. OPERATIVE FINDINGS: The catheter was inserted uneventfully via jugular vein. The operation carried out was Perm-A-Cath in right jugular vein with C-arm fluoroscopy and ultrasound-guided puncture. DESCRIPTION OF PROCEDURE: Using ultrasound guidance and micropuncture technique, the right jugular vein was punctured. Under fluoroscopic control, the guidewire was advanced centrally. This was subsequently exchanged for an 0.035 wire and sheath dilator was passed over this and then the catheter, which originated on the right was a femoral catheter which originated on the right chest wall, went through the jugular vein and terminated in the superior vena cava. It was flushed with heparinized saline with excellent return. There were no operative complications or problems. Blood loss for the procedure was 15 mL. Ultrasound images of the neck showed the vein was 13 mm in diameter with normal compressibility and no intraluminal thrombosis. Osvaldo Herrera Jr., MD
--- NOTE | 2018-01-25 09:26 | CP.PCM.PN ---
Subjective - Date & Time of Evaluation Date of Evaluation: 01/25/18 Time of Evaluation: 09:23 - Subjective Subjective: Vascular Surgery Progress note. Dr. Herrera Pt seen and examined at bedside. No acute events overnight. No new complaints. No F/C. Received dialysis through Right IJ permacath yesterday. Objective - Vital Signs/Intake and Output Vital Signs (last 24 hours): Temp Pulse Resp BP Pulse Ox 98.7 F 99 H 20 125/72 95 01/25/18 07:50 01/25/18 08:22 01/25/18 07:50 01/25/18 07:50 01/25/18 07:50 Intake and Output: 01/25/18 01/25/18 06:59 18:59 Intake Total 1320 Output Total 2350 1700 Balance -1030 -1700 - Medications Medications: Current Medications Docusate Sodium (Colace) 100 mg PO TID [facility] Last Admin: 01/24/18 21:01 Dose: Not Given Fentanyl (Duragesic) 1 patch TD Q72H [facility] Last Admin: 01/25/18 03:17 Dose: 1 patch Ferric Sodium Gluconate Complex (Ferrlecit) 125 mg IVPB DAILY [facility] Stop: 01/30/18 14:16 Last Admin: 01/24/18 09:23 Dose: 125 mg Flutamide (Eulexin) 125 mg PO Q8H [facility] Last Admin: 01/25/18 03:16 Dose: 125 mg Hydromorphone HCl (Dilaudid) 0.5 mg IVP Q4H PRN PRN Reason: breakthrough pain Last Admin: 01/25/18 08:35 Dose: 0.5 mg Sodium Chloride (Sodium Chloride 0.9%) 1,000 mls @ 80 mls/hr IV .[id number] [facility] Last Admin: 01/25/18 04:57 Dose: Not Given Lidocaine (Lidoderm) 1 ea TD DAILY [facility] Last Admin: 01/24/18 09:31 Dose: 1 ea Methimazole (Tapazole) 5 mg PO DAILY [facility] Last Admin: 01/24/18 09:22 Dose: 5 mg Ondansetron HCl (Zofran Inj) 4 mg IVP Q6 PRN PRN Reason: Nausea/Vomiting Last Admin: 01/25/18 08:19 Dose: 4 mg Pantoprazole Sodium (Protonix Ec Tab) 40 mg PO DAILY [facility] Last Admin: 01/24/18 09:31 Dose: 40 mg Tamsulosin HCl (Flomax) 0.4 mg PO DAILY [facility] Last Admin: 01/24/18 09:22 Dose: 0.4 mg - Labs Labs: 01/24/18 07:01 01/24/18 07:01 PT 12.9 SECONDS (9.7-12.2) H 01/18/18 19:54 INR 1.2 01/18/18 19:54 APTT 35 SECONDS (21-34) H 01/18/18 19:54 - Constitutional Appears: Well, Non-toxic, No Acute Distress - Head Exam Head Exam: ATRAUMATIC, NORMAL INSPECTION, NORMOCEPHALIC - Eye Exam Eye Exam: EOMI - ENT Exam ENT Exam: Mucous Membranes Moist - Respiratory Exam Respiratory Exam: NORMAL BREATHING PATTERN. absent: Accessory Muscle Use, Respiratory Distress - Cardiovascular Exam Cardiovascular Exam: Tachycardia. absent: JVD Additional comments: Right IJ Permacath site clean, dry and intact. No drainage or ozzing noted. - GI/Abdominal Exam GI & Abdominal Exam: Soft. absent: Firm, Guarding, Rigid, Tenderness, Rebound - Extremities Exam Extremities Exam: Normal Inspection. absent: Calf Tenderness - Neurological Exam Neurological Exam: Alert, Awake - Psychiatric Exam Psychiatric exam: Normal Affect, Normal Mood - Skin Skin Exam: Dry, Intact, Normal Color, Warm Assessment and Plan - Assessment and Plan (Free Text) Assessment: 57yo M S/P Right IJ permacath placed 02/14. POD1 Plan: - Okay to use permacath for dialysis - left arm precautions - f/u vein mapping - Possible AVF creation Further recs as per Dr. Sharon Mayorga PGY1 surgery pager: [phone]
--- NOTE | 2018-01-25 10:04 | CP.PCM.PN ---
Subjective - Date & Time of Evaluation Date of Evaluation: 01/25/18 Time of Evaluation: 10:00 - Subjective Subjective: Notes reviewed Sitting up in bed S/p b/l pcn tube placement HD 3/2 tolerated well [place] catheter with minimal urine according to patient Right pcn with > 400cc urine , minimal on left No cp or palp, sob or cough, no n/v/d Pain controlled ROS as above otherwise negative Objective - Vital Signs/Intake and Output Vital Signs (last 24 hours): Temp Pulse Resp BP Pulse Ox 98.7 F 99 H 20 125/72 95 01/25/18 07:50 01/25/18 08:22 01/25/18 07:50 01/25/18 07:50 01/25/18 07:50 Intake and Output: 01/25/18 01/25/18 06:59 18:59 Intake Total 1320 Output Total 2350 1700 Balance -1030 -1700 - Medications Medications: Current Medications Docusate Sodium (Colace) 100 mg PO TID [facility] Last Admin: 01/24/18 21:01 Dose: Not Given Fentanyl (Duragesic) 1 patch TD Q72H [facility] Last Admin: 01/25/18 03:17 Dose: 1 patch Ferric Sodium Gluconate Complex (Ferrlecit) 125 mg IVPB DAILY [facility] Stop: 01/30/18 14:16 Last Admin: 01/24/18 09:23 Dose: 125 mg Flutamide (Eulexin) 125 mg PO Q8H [facility] Last Admin: 01/25/18 03:16 Dose: 125 mg Hydromorphone HCl (Dilaudid) 0.5 mg IVP Q4H PRN PRN Reason: breakthrough pain Last Admin: 01/25/18 08:35 Dose: 0.5 mg Sodium Chloride (Sodium Chloride 0.9%) 1,000 mls @ 80 mls/hr IV .[id number] [facility] Last Admin: 01/25/18 04:57 Dose: Not Given Lidocaine (Lidoderm) 1 ea TD DAILY [facility] Last Admin: 01/24/18 09:31 Dose: 1 ea Methimazole (Tapazole) 5 mg PO DAILY [facility] Last Admin: 01/24/18 09:22 Dose: 5 mg Ondansetron HCl (Zofran Inj) 4 mg IVP Q6 PRN PRN Reason: Nausea/Vomiting Last Admin: 01/25/18 08:19 Dose: 4 mg Pantoprazole Sodium (Protonix Ec Tab) 40 mg PO DAILY [facility] Last Admin: 01/24/18 09:31 Dose: 40 mg Tamsulosin HCl (Flomax) 0.4 mg PO DAILY [facility] Last Admin: 01/24/18 09:22 Dose: 0.4 mg - Labs Labs: 01/24/18 07:01 01/24/18 07:01 PT 12.9 SECONDS (9.7-12.2) H 01/18/18 19:54 INR 1.2 01/18/18 19:54 APTT 35 SECONDS (21-34) H 01/18/18 19:54 - Constitutional Appears: Non-toxic, Chronically Ill - Head Exam Head Exam: ATRAUMATIC, NORMAL INSPECTION - Eye Exam Eye Exam: EOMI, Normal appearance - ENT Exam ENT Exam: Mucous Membranes Moist, Normal Oropharynx - Neck Exam Neck Exam: absent: Lymphadenopathy, Thyromegaly - Respiratory Exam Respiratory Exam: absent: Rales, Rhonchi, Wheezes - Cardiovascular Exam Cardiovascular Exam: REGULAR RHYTHM, +S1, +S2 - GI/Abdominal Exam GI & Abdominal Exam: Soft, Normal Bowel Sounds - Exam Additional comments: [place] - Extremities Exam Extremities Exam: absent: Joint Swelling, Tenderness - Back Exam Back Exam: absent: rash noted, tenderness Additional comments: B/l pcn tubes in place - Neurological Exam Neurological Exam: Alert, Awake - Skin Skin Exam: Dry, Intact Assessment and Plan (1) EMMETT (acute kidney injury) Status: Acute (2) Anemia Status: Acute (3) Obstructive uropathy Status: Acute (4) Prostate cancer metastatic to bone Status: Acute (5) Hematuria Status: Acute - Assessment and Plan (Free Text) Assessment: Monitor PCN output Dialysis today for clearance and management of hyperkalemia Continue current medications Stable post procedures
[2018-01-25] MEDS: Pantoprazole 40 mg EC Tab PO SCH (11:00)
[2018-01-25] MEDS: Lidocaine 5% Patch TD SCH (11:00)
[2018-01-25] MEDS: methIMAzole 5 MG TAB PO SCH (11:00)
[2018-01-25] MEDS: Ferric Sodium Gluconat Complex 62.5 mg/5 ml Vial IVPB SCH (13:15)
--- NOTE | 2018-01-25 14:07 | VASCLAB ---
PROCEDURE: Upper Extremity Venous Duplex Exam HISTORY: AVF creation Pre-op Examination, ESRD PRIORS: None. TECHNIQUE: Bilateral upper extremity, internal jugular, subclavian, axillary, brachial, ulnar, radial, basilic and upper cephalic veins were evaluated. Flow was assessed with color Doppler, compressibility, assessment of phasic flow and augmentation response. Report prepared by Stanislaw Park, RVT FINDINGS: RIGHT: 1. Internal Jugular Vein: Compressibility - Fully compressible: Thrombus - None : Flow - Sluggish 2. Subclavian Vein:Compressibility - No Evaluated due hemo access Cath in place: Thrombus - : Flow - 3. Axillary Vein: Compressibility - Fully compressible: Thrombus - None 4. Brachial Vein: Compressibility - Fully compressible: Thrombus - None 5. Ulnar Vein:Compressibility - Fully compressible: Thrombus - None 6. Radial Vein:Compressibility - Fully compressible: Thrombus - None 7. Cephalic Vein: Compressibility - Fully compressible: thrombus - None 7.1. Upper Arm: Proximal Diameter: 0.17cm. Mid Diameter: 0.18cm. Distal Diameter: 0.19cm. 7.2. Forearm: Proximal Diameter: 0.23cm. Mid Diameter:0.20cm. Distal Diameter: 0.25cm 8. Basilic Vein:Compressibility - Fully compressible: thrombus - None 8.1. Upper Arm:Proximal Diameter: 0.29cm. Mid Diameter: 0.20cm. Distal Diameter: 0.23cm. 8.2. Forearm: Proximal Diameter: 0.17cm. Mid Diameter:0.13cm. Distal Diameter: 0.11cm. LEFT: 1. Internal Jugular Vein: Compressibility - Fully compressible: Thrombus - None : Flow - Phasic 2. Subclavian Vein:Compressibility - Fully compressible: Thrombus - None : Flow - Phasic 3. Axillary Vein: Compressibility - Fully compressible: Thrombus - None 4. Brachial Vein: Compressibility - Fully compressible: Thrombus - None 5. Ulnar Vein:Compressibility - Fully compressible: Thrombus - None 6. Radial Vein:Compressibility - Fully compressible: Thrombus - None 7. Cephalic Vein: Compressibility - Incompressible: thrombus - Acute 7.1. Upper Arm: Proximal Diameter: 0.24cm. Mid Diameter: 0.20cm. Distal Diameter: 0.23cm. 7.2. Forearm: Proximal Diameter: 0.30cm. Mid Diameter:0.18cm. Distal Diameter: 0.18cm 8. Basilic Vein:Compressibility - Fully compressible: thrombus - None 8.1. Upper Arm:Proximal Diameter: 0.30cm. Mid Diameter: 0.23cm. Distal Diameter: 0.28cm. 8.2. Forearm: Proximal Diameter: 0.27cm. Mid Diameter:0.18cm. Distal Diameter: 0.13cm. OTHER FINDINGS: Bilateral internal jugular, subclavian, axillary, brachial, ulnar, basilar and cephalic veins are compressible. The right brachial artery mean measurement was 0.57 cm with normal doppler signal and velocity of 69.5 cm/s. The radial artery mean measurement was 0.25 cm with normal Doppler signal and velocity of 75.0 cm/s. The left brachial artery mean measurement was 0.57 cm with normal doppler signal and velocity of 57.2 cm/s. The radial artery mean measurement was 0.26 cm with normal Doppler signal and velocity of 62.4cm/s. IMPRESSION: Right: Diameter measurements of the right cephalic vein is measured between 0.25 cm and 0.17 cm and basilic vein is measured between 0.29 cm and 0.11 cm. Left: The cephalic vein from the antecubital fossa down to mid forearm was dilated and occluded with echolucent THROMBUS. Positive study for acute superficial thrombophlebitis. Diameter measurements of the left cephalic vein is measured between 0.30 cm and 0.18 cm and basilic vein is measured between 0.30cm and 0.13cm. Findings conveyed to FRANCESCO Olmstead by Dr. Garcia at 1:58 pm on 01/25/2018.
[2018-01-25 14:17] LABS: BASO % 0.5 % (0.0-2.0); EOS # 0.4 K/uL (0.0-0.7); EOS % 5.9 % (0.0-4.0); HEMOGLOBIN 7.5 g/dL (12.0-18.0); LYMPH # 0.9 K/uL (1.0-4.3); LYMPH % 12.6 % (20.0-40.0); MEAN CORPUSCULAR HEMOGLOBIN 24.1 pg (27.0-31.0); MEAN CORPUSCULAR HGB CONC 33.9 g/dL (33.0-37.0); MEAN PLATELET VOLUME 7.9 fL (7.2-11.7); MONO # 0.4 K/uL (0.0-0.8); MONO % 5.2 % (0.0-10.0); NEUT # 5.2 K/uL (1.8-7.0); NEUT % 75.8 % (50.0-75.0); RBC 3.12 Mil/uL (4.40-5.90); RED CELL DISTRIBUTION WIDTH 19.7 % (11.5-14.5); WHITE BLOOD COUNT 6.8 K/uL (4.8-10.8)
[2018-01-25 14:31] LABS: ALB/GLOB RATIO 0.8 (1.0-2.1); ALBUMIN 3.7 g/dL (3.5-5.0); CALCIUM 9.3 mg/dl (8.6-10.4)
--- NOTE | 2018-01-25 20:33 | CP.PCM.PN ---
Subjective - Date & Time of Evaluation Date of Evaluation: 01/25/18 Time of Evaluation: 18:00 - Subjective Subjective: Feeling better after dialysis Objective - Vital Signs/Intake and Output Vital Signs (last 24 hours): Temp Pulse Resp BP Pulse Ox 97.8 F 79 18 128/71 96 01/25/18 17:55 01/25/18 17:55 01/25/18 17:55 01/25/18 17:55 01/25/18 17:55 Intake and Output: 01/25/18 01/26/18 18:59 06:59 Intake Total 640 Output Total 2950 Balance -2310 - Medications Medications: Current Medications Docusate Sodium (Colace) [address] [facility] Last Admin: 01/25/18 18:54 Dose: 100 mg Fentanyl (Duragesic) [address] [facility] Last Admin: 01/25/18 03:17 Dose: 1 patch Ferric Sodium Gluconate Complex (Ferrlecit) [address] [facility] Stop: 01/30/18 14:16 Last Admin: 01/25/18 13:15 Dose: 125 mg Flutamide (Eulexin) [address] [facility] Last Admin: 01/25/18 18:54 Dose: 125 mg Hydromorphone HCl (Dilaudid) 0.5 mg IVP Q4H PRN PRN Reason: breakthrough pain Last Admin: 01/25/18 17:30 Dose: 0.5 mg Sodium Chloride (Sodium Chloride 0.9%) 1,000 mls @ 80 mls/hr IV .[id number] [facility] Last Admin: 01/25/18 11:03 Dose: 80 mls/hr Lidocaine (Lidoderm) [address] [facility] Last Admin: 01/25/18 11:00 Dose: 1 ea Methimazole (Tapazole) [address] [facility] Last Admin: 01/25/18 11:00 Dose: 5 mg Ondansetron HCl (Zofran Inj) 4 mg IVP Q6 PRN PRN Reason: Nausea/Vomiting Last Admin: 01/25/18 08:19 Dose: 4 mg Pantoprazole Sodium (Protonix Ec Tab) [address] [facility] Last Admin: 01/25/18 11:00 Dose: 40 mg Tamsulosin HCl (Flomax) 0.4 mg PO DAILY [facility] Last Admin: 01/25/18 11:00 Dose: 0.4 mg - Labs Labs: 01/25/18 13:59 01/25/18 13:59 PT 12.9 SECONDS (9.7-12.2) H 01/18/18 19:54 INR 1.2 01/18/18 19:54 APTT 35 SECONDS (21-34) H 01/18/18 19:54 - Head Exam Head Exam: ATRAUMATIC - Eye Exam Eye Exam: Normal appearance - ENT Exam ENT Exam: Mucous Membranes Dry - Respiratory Exam Respiratory Exam: NORMAL BREATHING PATTERN - Cardiovascular Exam Cardiovascular Exam: +S1, +S2 - GI/Abdominal Exam GI & Abdominal Exam: Normal Bowel Sounds Assessment and Plan (1) Anemia Assessment & Plan: chronic disease, renal disease, hematuria recommend 2U PRBC with HD Status: Acute (2) Prostate cancer Assessment & Plan: stage IV on total androgen deprivation with rising PSA will need outpatient Zytiga Status: Acute
[2018-01-26] MEDS: HYDROmorphone 0.5 mg/0.5 ml ISec IVP PRN ×5 (02:08→20:07)
[2018-01-26] MEDS: Sodium Chloride 0.9% 1,000 ML IV SCH ×3 (05:21→18:28)
--- NOTE | 2018-01-26 06:47 | CP.PCM.PN ---
Subjective - Date & Time of Evaluation Date of Evaluation: 01/26/18 Time of Evaluation: 06:46 - Subjective Subjective: Vasc Sx: Dr Herrera Pt S&E. VIN. Resting comfortably. Being dialyzed via permacath. Plan for AVF this week, possibly saturday. No sticks in left arm! Objective - Vital Signs/Intake and Output Vital Signs (last 24 hours): Temp Pulse Resp BP Pulse Ox 98.4 F 82 20 136/78 96 01/25/18 23:00 01/26/18 00:00 01/25/18 23:00 01/25/18 23:00 01/25/18 23:00 Intake and Output: 01/25/18 01/26/18 18:59 06:59 Intake Total 640 740 Output Total 3150 1750 Balance -2510 -1010 - Medications Medications: Current Medications Docusate Sodium (Colace) 100 mg PO TID [facility] Last Admin: 01/25/18 18:54 Dose: 100 mg Fentanyl (Duragesic) 1 patch TD Q72H [facility] Last Admin: 01/25/18 03:17 Dose: 1 patch Ferric Sodium Gluconate Complex (Ferrlecit) 125 mg IVPB DAILY [facility] Stop: 01/30/18 14:16 Last Admin: 01/25/18 13:15 Dose: 125 mg Flutamide (Eulexin) 125 mg PO Q8H [facility] Last Admin: 01/26/18 02:08 Dose: 125 mg Hydromorphone HCl (Dilaudid) 0.5 mg IVP Q4H PRN PRN Reason: breakthrough pain Last Admin: 01/26/18 06:24 Dose: 0.5 mg Sodium Chloride (Sodium Chloride 0.9%) 1,000 mls @ 80 mls/hr IV .[id number] [facility] Last Admin: 01/26/18 05:21 Dose: Not Given Lidocaine (Lidoderm) 1 ea TD DAILY [facility] Last Admin: 01/25/18 11:00 Dose: 1 ea Methimazole (Tapazole) 5 mg PO DAILY [facility] Last Admin: 01/25/18 11:00 Dose: 5 mg Ondansetron HCl (Zofran Inj) 4 mg IVP Q6 PRN PRN Reason: Nausea/Vomiting Last Admin: 01/25/18 08:19 Dose: 4 mg Pantoprazole Sodium (Protonix Ec Tab) 40 mg PO DAILY [facility] Last Admin: 01/25/18 11:00 Dose: 40 mg Tamsulosin HCl (Flomax) 0.4 mg PO DAILY [facility] Last Admin: 01/25/18 11:00 Dose: 0.4 mg - Labs Labs: 01/25/18 13:59 01/25/18 13:59 PT 12.9 SECONDS (9.7-12.2) H 01/18/18 19:54 INR 1.2 01/18/18 19:54 APTT 35 SECONDS (21-34) H 01/18/18 19:54 - Constitutional Appears: Non-toxic, No Acute Distress - Head Exam Head Exam: NORMAL INSPECTION - Eye Exam Eye Exam: Normal appearance - ENT Exam ENT Exam: Normal Exam - Respiratory Exam Respiratory Exam: absent: Accessory Muscle Use, Respiratory Distress - Cardiovascular Exam Cardiovascular Exam: Tachycardia, REGULAR RHYTHM Assessment and Plan - Assessment and Plan (Free Text) Assessment: 57M with ESRD - for AVF next week d/w Dr Sharon Ramirez, PGY3
[2018-01-26 08:22] LABS: ALB/GLOB RATIO 0.8 (1.0-2.1); ALBUMIN 3.4 g/dL (3.5-5.0); CALCIUM 9.2 mg/dl (8.6-10.4)
[2018-01-26] MEDS: Ferric Sodium Gluconat Complex 62.5 mg/5 ml Vial IVPB SCH (11:08)
[2018-01-26] MEDS: Pantoprazole 40 mg EC Tab PO SCH (11:09)
[2018-01-26] MEDS: Lidocaine 5% Patch TD SCH (11:09)
[2018-01-26] MEDS: methIMAzole 5 MG TAB PO SCH (11:09)
--- NOTE | 2018-01-26 21:48 | CP.PCM.PN ---
Subjective - Date & Time of Evaluation Date of Evaluation: 01/26/18 Time of Evaluation: 18:00 - Subjective Subjective: Patient seen and evaluated at bedside Objective - Vital Signs/Intake and Output Vital Signs (last 24 hours): Temp Pulse Resp BP Pulse Ox 98.8 F 86 20 136/83 94 L 01/26/18 15:45 01/26/18 16:00 01/26/18 15:45 01/26/18 15:45 01/26/18 15:45 Intake and Output: 01/26/18 01/27/18 18:59 06:59 Intake Total 900 Output Total 4650 Balance -3750 - Medications Medications: Current Medications Clindamycin HCl (Cleocin) 150 mg PO Q6H [facility] Last Admin: 01/26/18 20:07 Dose: 150 mg Docusate Sodium (Colace) 100 mg PO TID [facility] Last Admin: 01/26/18 18:15 Dose: 100 mg Fentanyl (Duragesic) 1 patch TD Q72H [facility] Last Admin: 01/25/18 03:17 Dose: 1 patch Ferric Sodium Gluconate Complex (Ferrlecit) 125 mg IVPB DAILY [facility] Stop: 01/30/18 14:16 Last Admin: 01/26/18 11:08 Dose: 125 mg Flutamide (Eulexin) 125 mg PO Q8H [facility] Last Admin: 01/26/18 18:15 Dose: 125 mg Hydromorphone HCl (Dilaudid) 0.5 mg IVP Q4H PRN PRN Reason: breakthrough pain Sodium Chloride (Sodium Chloride 0.9%) 1,000 mls @ 80 mls/hr IV .[id number] [facility] Last Admin: 01/26/18 18:28 Dose: Not Given Lidocaine (Lidoderm) 1 ea TD DAILY [facility] Last Admin: 01/26/18 11:09 Dose: 1 ea Methimazole (Tapazole) 5 mg PO DAILY [facility] Last Admin: 01/26/18 11:09 Dose: 5 mg Ondansetron HCl (Zofran Inj) 4 mg IVP Q6 PRN PRN Reason: Nausea/Vomiting Last Admin: 01/26/18 08:14 Dose: 4 mg Pantoprazole Sodium (Protonix Ec Tab) 40 mg PO DAILY [facility] Last Admin: 01/26/18 11:09 Dose: 40 mg Tamsulosin HCl (Flomax) 0.4 mg PO DAILY [facility] Last Admin: 01/26/18 11:10 Dose: 0.4 mg - Labs Labs: 01/25/18 13:59 01/26/18 07:37 PT 12.9 SECONDS (9.7-12.2) H 01/18/18 19:54 INR 1.2 01/18/18 19:54 APTT 35 SECONDS (21-34) H 01/18/18 19:54
--- NOTE | 2018-01-26 22:49 | CP.PCM.PN ---
Subjective - Date & Time of Evaluation Date of Evaluation: 01/26/18 Time of Evaluation: 20:00 - Subjective Subjective: Feeling better since HD for 2U PRBC tomorrow with HD Objective - Vital Signs/Intake and Output Vital Signs (last 24 hours): Temp Pulse Resp BP Pulse Ox 98.8 F 86 20 136/83 94 L 01/26/18 15:45 01/26/18 16:00 01/26/18 15:45 01/26/18 15:45 01/26/18 15:45 Intake and Output: 01/26/18 01/27/18 18:59 06:59 Intake Total 900 Output Total 4650 Balance -3750 - Medications Medications: Current Medications Clindamycin HCl (Cleocin) 150 mg PO Q6H [facility] Last Admin: 01/26/18 20:07 Dose: 150 mg Docusate Sodium (Colace) 100 mg PO TID [facility] Last Admin: 01/26/18 18:15 Dose: 100 mg Fentanyl (Duragesic) 1 patch TD Q72H [facility] Last Admin: 01/25/18 03:17 Dose: 1 patch Ferric Sodium Gluconate Complex (Ferrlecit) 125 mg IVPB DAILY [facility] Stop: 01/30/18 14:16 Last Admin: 01/26/18 11:08 Dose: 125 mg Flutamide (Eulexin) 125 mg PO Q8H [facility] Last Admin: 01/26/18 18:15 Dose: 125 mg Hydromorphone HCl (Dilaudid) 0.5 mg IVP Q4H PRN PRN Reason: breakthrough pain Sodium Chloride (Sodium Chloride 0.9%) 1,000 mls @ 80 mls/hr IV .[id number] [facility] Last Admin: 01/26/18 18:28 Dose: Not Given Lidocaine (Lidoderm) 1 ea TD DAILY [facility] Last Admin: 01/26/18 11:09 Dose: 1 ea Methimazole (Tapazole) 5 mg PO DAILY [facility] Last Admin: 01/26/18 11:09 Dose: 5 mg Ondansetron HCl (Zofran Inj) 4 mg IVP Q6 PRN PRN Reason: Nausea/Vomiting Last Admin: 01/26/18 08:14 Dose: 4 mg Pantoprazole Sodium (Protonix Ec Tab) 40 mg PO DAILY [facility] Last Admin: 01/26/18 11:09 Dose: 40 mg Tamsulosin HCl (Flomax) 0.4 mg PO DAILY [facility] Last Admin: 01/26/18 11:10 Dose: 0.4 mg - Labs Labs: 01/25/18 13:59 01/26/18 07:37 PT 12.9 SECONDS (9.7-12.2) H 01/18/18 19:54 INR 1.2 01/18/18 19:54 APTT 35 SECONDS (21-34) H 01/18/18 19:54 - Head Exam Head Exam: ATRAUMATIC - Eye Exam Eye Exam: Normal appearance - ENT Exam ENT Exam: Mucous Membranes Dry - Respiratory Exam Respiratory Exam: NORMAL BREATHING PATTERN - Cardiovascular Exam Cardiovascular Exam: +S1, +S2 - GI/Abdominal Exam GI & Abdominal Exam: Normal Bowel Sounds Assessment and Plan (1) Anemia Assessment & Plan: chronic disease, renal disease, hematuria, bone mets for 2U PRBC tomorrow with dialysis Status: Acute (2) Prostate cancer Assessment & Plan: stage IV progressing on total androgen deprivation outpatient Zytiga Status: Acute
[2018-01-27] MEDS: HYDROmorphone 0.5 mg/0.5 ml ISec IVP PRN ×6 (00:15→20:35)
[2018-01-27] MEDS: Sodium Chloride 0.9% 1,000 ML IV SCH (04:02)
[2018-01-27 08:37] LABS: HEMOGLOBIN 6.8 g/dL (12.0-18.0); MEAN CELL VOLUME 70.3 fL (80.0-94.0); MEAN CORPUSCULAR HEMOGLOBIN 24.1 pg (27.0-31.0); MEAN CORPUSCULAR HGB CONC 34.3 g/dL (33.0-37.0); MEAN PLATELET VOLUME 7.7 fL (7.2-11.7); RBC 2.8 Mil/uL (4.40-5.90); RED CELL DISTRIBUTION WIDTH 19.4 % (11.5-14.5); WHITE BLOOD COUNT 10.1 K/uL (4.8-10.8)
[2018-01-27 08:38] LABS: INR 1.2; PROTHROMBIN TIME 14.1 SECONDS (9.7-12.2)
[2018-01-27 08:56] LABS: ALB/GLOB RATIO 0.9 (1.0-2.1); ALBUMIN 3.7 g/dL (3.5-5.0); CALCIUM 9.2 mg/dl (8.6-10.4)
--- NOTE | 2018-01-27 09:01 | RAD ---
PROCEDURE: Intraoperative Fluoroscopy. HISTORY: DIALYSIS FINDINGS: Fluoroscopic assistance was provided for right-sided PermCath placement. Please refer to the operative report from VIRGIE Burgess.
[2018-01-27] MEDS: Lidocaine 5% Patch TD SCH (10:32)
[2018-01-27] MEDS: methIMAzole 5 MG TAB PO SCH (10:33)
[2018-01-27] MEDS: Pantoprazole 40 mg EC Tab PO SCH (10:33)
[2018-01-27] MEDS: Ferric Sodium Gluconat Complex 62.5 mg/5 ml Vial IVPB SCH (11:11)
--- NOTE | 2018-01-27 12:18 | CP.PCM.PN ---
Subjective - Date & Time of Evaluation Date of Evaluation: 01/27/18 Time of Evaluation: 12:16 - Subjective Subjective: s/p 2 dialysis treatments- last time 01/25 increased nephrostomy output noted- mostly right side awake, more alert, does not seem to understand situation; spoke with daughter creat down to 3.3; lytes acceptable Objective - Vital Signs/Intake and Output Vital Signs (last 24 hours): Temp Pulse Resp BP Pulse Ox 99.2 F 78 20 128/64 95 01/27/18 10:00 01/27/18 10:00 01/27/18 10:00 01/27/18 10:00 01/27/18 10:00 Intake and Output: 01/27/18 01/27/18 06:59 18:59 Intake Total 1830 Output Total 2900 Balance -1070 - Medications Medications: Current Medications Clindamycin HCl (Cleocin) 150 mg PO Q6H [facility] Last Admin: 01/27/18 10:33 Dose: 150 mg Docusate Sodium (Colace) 100 mg PO TID [facility] Last Admin: 01/27/18 10:33 Dose: 100 mg Fentanyl (Duragesic) 1 patch TD Q72H [facility] Last Admin: 01/25/18 03:17 Dose: 1 patch Ferric Sodium Gluconate Complex (Ferrlecit) 125 mg IVPB DAILY [facility] Stop: 01/30/18 14:16 Last Admin: 01/27/18 11:11 Dose: 125 mg Flutamide (Eulexin) 125 mg PO Q8H [facility] Last Admin: 01/27/18 10:33 Dose: 125 mg Hydromorphone HCl (Dilaudid) 0.5 mg IVP Q4H PRN PRN Reason: breakthrough pain Last Admin: 01/27/18 08:02 Dose: 0.5 mg Sodium Chloride (Sodium Chloride 0.9%) 1,000 mls @ 80 mls/hr IV .[id number] [facility] Last Admin: 01/27/18 04:02 Dose: 80 mls/hr Lidocaine (Lidoderm) 1 ea TD DAILY [facility] Last Admin: 01/27/18 10:32 Dose: 1 ea Methimazole (Tapazole) 5 mg PO DAILY [facility] Last Admin: 01/27/18 10:33 Dose: 5 mg Ondansetron HCl (Zofran Inj) 4 mg IVP Q6 PRN PRN Reason: Nausea/Vomiting Last Admin: 01/27/18 07:58 Dose: 4 mg Pantoprazole Sodium (Protonix Ec Tab) 40 mg PO DAILY [facility] Last Admin: 01/27/18 10:33 Dose: 40 mg Tamsulosin HCl (Flomax) 0.4 mg PO DAILY [facility] Last Admin: 01/27/18 10:33 Dose: 0.4 mg - Labs Labs: 01/27/18 08:24 01/27/18 08:24 PT 14.1 SECONDS (9.7-12.2) H 01/27/18 08:24 INR 1.2 01/27/18 08:24 APTT 36 SECONDS (21-34) H 01/27/18 08:24 - Constitutional Appears: No Acute Distress, Chronically Ill - Head Exam Head Exam: ATRAUMATIC, NORMAL INSPECTION - Eye Exam Eye Exam: EOMI, Normal appearance - Neck Exam Neck Exam: Normal Inspection. absent: Tenderness - Respiratory Exam Respiratory Exam: Clear to Ausculation Bilateral, NORMAL BREATHING PATTERN - Cardiovascular Exam Cardiovascular Exam: Tachycardia, +S1 - GI/Abdominal Exam GI & Abdominal Exam: Soft. absent: Tenderness - Extremities Exam Extremities Exam: Normal Inspection. absent: Tenderness - Neurological Exam Neurological Exam: Altered, CN II-XII Intact - Skin Skin Exam: Dry, Warm Assessment and Plan (1) Obstructive uropathy Status: Acute (2) Prostate cancer metastatic to bone Status: Acute (3) Substance abuse Status: Acute (4) EMMETT (acute kidney injury) Status: Acute (5) Uremia Status: Acute - Assessment and Plan (Free Text) Plan: hold on dialysis for now follow up chemistries, phos monitor UO closely via PNT
--- NOTE | 2018-01-27 13:26 | CP.PCM.CON ---
History of Present Illness - History of Present Illness History of Present Illness: Palliative consultation requested by Dr. Ely for goals of care discussion Patient is 57 years old male known to me from previous admission, admitted with intractable pain and hematuria. Patient has known history of prostate cancer stage IV. CAT scan of lumbar spine positive for metastases and pathological fractures, X Ray of abdomen was significant for possibly Illeus. Patient is followed by Dr. Oreilly in community and is on Epogen injections. Patient was seen Dr. Oreilly as inpatient and outpatient palliative radiation was suggested. The latest blood work shows WBC 10.1, hemoglobin 6.8, BUN 29 and creatinine 3.3. At one point the creatinine was > 5 and patient was given emergency hemodialysis. Past medical history: prostate cancer stage IV diagnosed while in [place] Social history: homeless, heroine and cocaine use daily, M[facility] visits Past family history: denies known history of cancer in family Review of Systems - Constitutional Constitutional: Daytime Sleepiness, Lethargy, Malaise - EENT Eyes: absent: As Per HPI, Blind Spots, Blurred Vision, Change in Vision, Decreased Night Vision, Diplopia, Discharge, Dry Eye, Exophthalmos, Floaters, Irritation, Itchy Eyes, Loss of Peripheral Vision, Pain, Photophobia, Requires Corrective Lenses, Sees Flashes, Spots in Vision, Tunnel Vision, Other Visual Disturbances, Loss of Vision, Other Ears: absent: As Per HPI, Decreased Hearing, Ear Discharge, Ear Pain, Tinnitus, Abnormal Hearing, Disequilibrium, Dizziness, Other Nose/Mouth/Throat: absent: As Per HPI, Epistaxis, Nasal Congestion, Nasal Discharge, Nasal Obstruction, Nasal Trauma, Nose Pain, Post Nasal Drip, Sinus Pain, Sinus Pressure, Bleeding Gums, Change in Voice, Dental Pain, Dry Mouth, Dysphagia, Halitosis, Hoarsness, Lip Swelling, Mouth Lesions, Mouth Pain, Odynophagia, Sore Throat, Throat Swelling, Tongue Swelling, Facial Pain, Neck Pain, Neck Mass, Other - Cardiovascular Cardiovascular: absent: As Per HPI, Acrocyanosis, Chest Pain, Chest Pain at Rest , Chest Pain with Activity, Claudication, Diaphoresis, Dyspnea, Dyspnea on Exertion, Edema, Irregular Heart Rhythm, Pain Radiating to Arm/Neck/Jaw, Leg Edema, Leg Ulcers, Lightheadedness, Orthopnea, Palpitations, Paroxysmal Nocturnal Dyspnea, Pedal Edema, Radiating Pain, Rapid Heart Rate, Slow Heart Rate, Syncope, Other - Respiratory Respiratory: absent: As Per HPI, Cough, Dyspnea, Hemoptysis, Dyspnea on Exertion , Wheezing, Snoring, Stridor, Pain on Inspiration, Chest Congestion, Excessive Mucous Production, Change in Mucous Color, Pain with Coughing, Other - Gastrointestinal Gastrointestinal: absent: As Per HPI, Abdominal Pain, Belching, Bloating, Change in Bowel Habits, Change in Stool Character, Coffee Ground Emesis, Constipation, Cramping, Diarrhea, Dyspepsia, Dysphagia, Early Satiety, Excessive Flatus, Fecal Incontinence, Heartburn, Hematemesis, Hematochezia, Loose Stools, Melena, Nausea, Odynophagia, Temesmus, Vomiting, Other - Genitourinary Additional comments: Hematuria - Musculoskeletal Musculoskeletal: absent: As Per HPI, Abnormal Gait, Arthralgias, Atrophy, Back Pain, Deformity, Joint Swelling, Limited Range of Motion, Loss of Height, Muscle Cramps, Muscle Weakness, Myalgias, Neck Pain, Numbness, Radiating Pain into Limb, Stiffness, Tingling, Other - Integumentary Integumentary: Dry Skin - Neurological Neurological: absent: As Per HPI, Abnormal Gait, Abnormal Hearing, Abnormal Movements, Abnormal Speech, Behavioral Changes, Burning Sensations, Confusion, Convulsions, Disequilibrium, Dizziness, Numbness, Focal Weakness, Frequent Falls , Headaches, Lack of Coordination, Loss of Vision, Memory Loss, Paresthesias, Radicular Pain, Restless Legs, Sensory Deficit, Syncope, Tingling, Tremor, Vertigo, Weakness, Other Visual Disturbances, Other - Psychiatric Psychiatric: absent: As Per HPI, Abnormal Sleep Pattern, Anhedonia, Anxiety, Auditory Hallucinations, Behavioral Changes, Change in Appetite, Change in Libido, Confusion, Depression, Difficulty Concentrating, Hallucinations, Homicidal Ideation, Hopelessness, Irritability, Memory Loss, Mood Swings, Panic Attacks, Paranoia, Suicidal Ideation, Visual Hallucinations, Tactile Hallucinations, Other - Endocrine Endocrine: absent: As Per HPI, Change in Body Appearance, Change in Libido, Cold Intolorance, Deepening of Voice, Excessive Sweating, Fatigue, Flushing, Heat Intolorance, Increase in Ring/Shoe/Hat Size, Palpitations, Polydipsia, Polyphagia, Polyuria, Other - Hematologic/Lymphatic Hematologic: absent: As Per HPI, Easy Bleeding, Easy Bruising, Lymphadenopathy, Other Past Patient History - Past Medical History & Family History Past Medical History?: Yes - Past Social History Smoking Status: Former Smoker Chewing Tobacco Use: No Cigar Use: No Alcohol: Occasional Drugs: Opiates - CARDIAC Hx Cardiac Disorders: No - PULMONARY Hx Respiratory Disorders: Yes Hx Asthma: Yes - NEUROLOGICAL Hx Neurological Disorder: No - HEENT Hx HEENT Problems: No - RENAL Hx Chronic Kidney Disease: No - ENDOCRINE/METABOLIC Hx Endocrine Disorders: Yes Hx Hyperthyroidism: Yes - HEMATOLOGICAL/ONCOLOGICAL Hx Blood Disorders: Yes Hx Anemia: Yes Hx Cancer: Yes (PROSTATE with BONE METS) - INTEGUMENTARY Hx Dermatological Problems: Yes Hx Eczema: Yes - MUSCULOSKELETAL/RHEUMATOLOGICAL Hx Musculoskeletal Disorders: Yes Hx Back Pain: Yes Hx Falls: No - GASTROINTESTINAL Hx Gastrointestinal Disorders: No - GENITOURINARY/GYNECOLOGICAL Hx Genitourinary Disorders: Yes Hx Prostate Cancer: Yes - PSYCHIATRIC Hx Psychophysiologic Disorder: Yes Hx Substance Use: Yes - SURGICAL HISTORY Hx Surgeries: Yes Other/Comment: BONE BIOPSY - ANESTHESIA Hx Anesthesia: Yes Hx Anesthesia Reactions: No Hx Malignant Hyperthermia: No Meds Allergies/Adverse Reactions: Allergies Allergy/AdvReac Type Severity Reaction Status Date / Time honey Allergy Verified 01/18/18 18:53 - Medications Medications: Current Medications Clindamycin HCl (Cleocin) 150 mg PO Q6H [facility] Last Admin: 01/27/18 10:33 Dose: 150 mg Docusate Sodium (Colace) 100 mg PO TID [facility] Last Admin: 01/27/18 10:33 Dose: 100 mg Fentanyl (Duragesic) 1 patch TD Q72H [facility] Last Admin: 01/25/18 03:17 Dose: 1 patch Ferric Sodium Gluconate Complex (Ferrlecit) 125 mg IVPB DAILY [facility] Stop: 01/30/18 14:16 Last Admin: 01/27/18 11:11 Dose: 125 mg Flutamide (Eulexin) 125 mg PO Q8H [facility] Last Admin: 01/27/18 10:33 Dose: 125 mg Hydromorphone HCl (Dilaudid) 0.5 mg IVP Q4H PRN PRN Reason: breakthrough pain Last Admin: 01/27/18 12:33 Dose: 0.5 mg Sodium Chloride (Sodium Chloride 0.9%) 1,000 mls @ 80 mls/hr IV .[id number] [facility] Last Admin: 01/27/18 04:02 Dose: 80 mls/hr Lidocaine (Lidoderm) 1 ea TD DAILY [facility] Last Admin: 01/27/18 10:32 Dose: 1 ea Methimazole (Tapazole) 5 mg PO DAILY [facility] Last Admin: 01/27/18 10:33 Dose: 5 mg Ondansetron HCl (Zofran Inj) 4 mg IVP Q6 PRN PRN Reason: Nausea/Vomiting Last Admin: 01/27/18 07:58 Dose: 4 mg Pantoprazole Sodium (Protonix Ec Tab) 40 mg PO DAILY [facility] Last Admin: 01/27/18 10:33 Dose: 40 mg Tamsulosin HCl (Flomax) 0.4 mg PO DAILY [facility] Last Admin: 01/27/18 10:33 Dose: 0.4 mg Physical Exam - Constitutional Appears: No Acute Distress, Chronically Ill - Head Exam Head Exam: ATRAUMATIC, NORMAL INSPECTION, NORMOCEPHALIC - Eye Exam Eye Exam: EOMI, Normal appearance, PERRL Pupil Exam: NORMAL ACCOMODATION, PERRL - ENT Exam ENT Exam: Mucous Membranes Moist, Normal Exam - Neck Exam Neck exam: Positive for: Normal Inspection - Respiratory Exam Respiratory Exam: Decreased Breath Sounds, NORMAL BREATHING PATTERN - Cardiovascular Exam Cardiovascular Exam: Tachycardia, REGULAR RHYTHM - GI/Abdominal Exam GI & Abdominal Exam: Diminished Bowel Sounds - Rectal Exam Rectal Exam: Deferred - Exam Exam: NORMAL INSPECTION - Extremities Exam Extremities exam: Positive for: pedal edema - Back Exam Back exam: CVA tenderness (L), CVA tenderness (R) Additional comments: Complaints of lower back pain - Neurological Exam Neurological exam: Alert, Oriented x3 - Psychiatric Exam Psychiatric exam: Flat Affect - Skin Skin Exam: Pallor Results - Vital Signs Recent Vital Signs: Last Vital Signs Temp 99.2 F 01/27/18 10:00 Pulse 78 01/27/18 10:00 Resp 20 01/27/18 10:00 BP 128/64 01/27/18 10:00 Pulse Ox 95 01/27/18 10:00 - Labs Result Diagrams: 01/27/18 08:24 01/27/18 08:24 Labs: Laboratory Results - last 24 hr 01/27/18 01/27/18 01/27/18 08:24 08:24 08:24 WBC 10.1 RBC 2.80 L Hgb 6.8 L Hct 19.7 L MCV 70.3 L MCH 24.1 L MCHC 34.3 RDW 19.4 H Plt Count 426 H MPV 7.7 PT 14.1 H INR 1.2 APTT 36 H Sodium 143 Potassium 4.2 Chloride 102 Carbon Dioxide 27 Anion Gap 19 BUN 29 H Creatinine 3.3 H Est GFR ( Amer) 24 Est GFR (Non-Af Amer) 20 Random Glucose 97 Calcium 9.2 Total Bilirubin 0.4 AST 61 H D ALT 29 Alkaline Phosphatase 123 Total Protein 7.8 Albumin 3.7 Globulin 4.1 H Albumin/Globulin Ratio 0.9 L Assessment & Plan - Assessment and Plan (Free Text) Assessment: Palliative consult Old POLST on chart suggesting a DNR/DNI. No advanced directive on chart. PPS 30% I reviewed medical records, all diagnostic studies, examined and interviewed patient in the bed, and discussed goals of care and CODE STATUS with patient and the daughter at the bedside Patient is alert, drowsy, most likely due to effect of fentanyl patch and Dilaudid IV for pain. Patient is easily awakened, and its alert, orientated 3. Short attention span. Goes back to sleep very easily. Speech is clear. Skin pale. Breath sounds diminished, O2 sat 98%'s, denies cough, denies shortness of breath. Heart rate 86, tachycardia. Abdomen softly distended, diminished bowel sounds. Complains of lower back pain. Pain is intense, deep, and poorly reactive to the current pain medications as per patient. Fentanyl patch 50 mcg and Dilaudid 0.5 mg Iv Q 4 hr on board for pain control. Hematuria is present. Latest hemoglobin 6.8. Blood transfusions for the blood replacement.Mild edema to lower extremities. Patient is able to freely move upper and lower extremities. Patient is mostly on bed rest. I was informed by the RN that after arrival of patient's daughter, patient called the nurse asking to change his Code Status to a Full Code. In presence of his daughter I reviewed patient's medical history, emphasize on stage IV prostate cancer. Patient stated knowledge about his diagnosis and reported being followed by Dr. Oreilly. I elicited their understanding about the diagnosis and expectations of care. Patient reported that despite the poor prognosis he would like to be treated using all measures including aggressive measures such as CPR and intubation in order to support his life. The daughter at the bedside supported him. I reviewed the meaning of DNR DNI. New POLST signed by the patient calling for a Full Code. Patient named his daughter Shanna as a surrogate decision maker. This was shared with Eve LUCIO. Impression * Chronically ill man with stage IV prostate cancer * Severe lower back pain. Patient has high tolerance to opioids due to recreational drugs use * Hematuria * Anemia due to acute blood loss * Patient is at bargaining stage of denial, when he begins to realize the severity of his diagnosis and is re- loading decision making power to his daughter, in exchange for a hope of survival * lack of housing * Lack of family support Suggestions * Cancer treatment Dr. Oreilly * Continue equivalent pain medications, I would not increase the doses due to patient's lethargy * Would consider steroids by mouth to assist with pain management * Blood transfusions * Would involve social sciences instructor for psychosocial support * FULL CODE * POLST on chart
[2018-01-27] MEDS: Piperacillin/Tazobact 3.375 GM in Sodium Chloride 0.9% 100 ML IVPB SCH (21:12)
--- NOTE | 2018-01-27 21:36 | CP.PCM.PN ---
Subjective - Date & Time of Evaluation Date of Evaluation: 01/27/18 Time of Evaluation: 19:35 - Subjective Subjective: Receiving PRBC transfusion Objective - Vital Signs/Intake and Output Vital Signs (last 24 hours): Temp Pulse Resp BP Pulse Ox 100.5 F H 82 20 130/74 99 01/27/18 21:10 01/27/18 21:10 01/27/18 21:10 01/27/18 21:10 01/27/18 15:00 Intake and Output: 01/27/18 01/28/18 18:59 06:59 Intake Total 1369 0 Output Total 2040 Balance -671 0 - Medications Medications: Current Medications Docusate Sodium (Colace) 100 mg PO TID [facility] Last Admin: 01/27/18 17:32 Dose: 100 mg Fentanyl (Duragesic) 1 patch TD Q72H [facility] Last Admin: 01/25/18 03:17 Dose: 1 patch Ferric Sodium Gluconate Complex (Ferrlecit) 125 mg IVPB DAILY [facility] Stop: 01/30/18 14:16 Last Admin: 01/27/18 11:11 Dose: 125 mg Flutamide (Eulexin) 125 mg PO Q8H [facility] Last Admin: 01/27/18 17:32 Dose: 125 mg Hydromorphone HCl (Dilaudid) 0.5 mg IVP Q4H PRN PRN Reason: breakthrough pain Last Admin: 01/27/18 20:35 Dose: 0.5 mg Piperacillin Sod/Tazobactam (Sod 3.375 gm/ Sodium Chloride) 100 mls @ 200 mls/ hr IVPB Q6H [facility] PRN Reason: Protocol Last Admin: 01/27/18 21:12 Dose: 200 mls/hr Lidocaine (Lidoderm) 1 ea TD DAILY [facility] Last Admin: 01/27/18 10:32 Dose: 1 ea Methimazole (Tapazole) 5 mg PO DAILY [facility] Last Admin: 01/27/18 10:33 Dose: 5 mg Ondansetron HCl (Zofran Inj) 4 mg IVP Q6 PRN PRN Reason: Nausea/Vomiting Last Admin: 01/27/18 07:58 Dose: 4 mg Pantoprazole Sodium (Protonix Ec Tab) 40 mg PO DAILY [facility] Last Admin: 01/27/18 10:33 Dose: 40 mg Tamsulosin HCl (Flomax) 0.4 mg PO DAILY [facility] Last Admin: 01/27/18 10:33 Dose: 0.4 mg - Labs Labs: 01/27/18 08:24 01/27/18 08:24 PT 14.1 SECONDS (9.7-12.2) H 01/27/18 08:24 INR 1.2 01/27/18 08:24 APTT 36 SECONDS (21-34) H 01/27/18 08:24 - Head Exam Head Exam: ATRAUMATIC - Eye Exam Eye Exam: Normal appearance - ENT Exam ENT Exam: Mucous Membranes Dry - Respiratory Exam Respiratory Exam: NORMAL BREATHING PATTERN - Cardiovascular Exam Cardiovascular Exam: +S1, +S2 - GI/Abdominal Exam GI & Abdominal Exam: Normal Bowel Sounds Assessment and Plan (1) Anemia Assessment & Plan: chronic disease, bone mets, renal disease, hematuria for 2u PRBC today Status: Acute (2) Prostate cancer Assessment & Plan: stage IV progressive on total androgen deprivation will add Zytiga as outpatient Status: Acute
--- NOTE | 2018-01-27 22:57 | CARD ---
APPROVED REPORT EKG Measurement Heart [id number] <Conclusion> Normal sinus rhythm Normal ECG
[2018-01-27] MEDS ORDERED: Vancomycin 1 gm/NS 200 ml 1 GM/200 ML BAG IVPB ONE (23:00)
[2018-01-27 23:21] LABS: URINE BILIRUBIN NEGATIVE (NEGATIVE); URINE BLOOD 3+ (NEGATIVE); URINE CALCIUM OXALATE CRYSTALS FEW /hpf (<OCC); URINE CLARITY Clear (Clear); URINE COLOR Red (YELLOW); URINE GLUCOSE (UA) NORMAL (Normal); URINE LEUKOCYTE ESTERASE TRACE Leu/uL (Negative); URINE PROTEIN 1+ mg/dL (NEGATIVE); URINE UROBILINOGEN NORMAL mg/dL (0.2-1.0)
--- NOTE | 2018-01-27 23:36 | CP.PCM.PN ---
Subjective - Date & Time of Evaluation Date of Evaluation: 01/27/18 Time of Evaluation: 18:00 - Subjective Subjective: Pt is having fever, on HD, urine cultures are pending Objective - Vital Signs/Intake and Output Vital Signs (last 24 hours): Temp Pulse Resp BP Pulse Ox 101.4 F H 87 21 142/73 99 01/27/18 21:40 01/27/18 21:40 01/27/18 21:40 01/27/18 21:40 01/27/18 15:00 Intake and Output: 01/27/18 01/28/18 18:59 06:59 Intake Total 1369 0 Output Total 2040 1300 Balance -671 -1300 - Medications Medications: Current Medications Docusate Sodium (Colace) 100 mg PO TID [facility] Last Admin: 01/27/18 17:32 Dose: 100 mg Fentanyl (Duragesic) 1 patch TD Q72H [facility] Last Admin: 01/25/18 03:17 Dose: 1 patch Ferric Sodium Gluconate Complex (Ferrlecit) 125 mg IVPB DAILY [facility] Stop: 01/30/18 14:16 Last Admin: 01/27/18 11:11 Dose: 125 mg Flutamide (Eulexin) 125 mg PO Q8H [facility] Last Admin: 01/27/18 17:32 Dose: 125 mg Hydromorphone HCl (Dilaudid) 0.5 mg IVP Q4H PRN PRN Reason: breakthrough pain Last Admin: 01/27/18 20:35 Dose: 0.5 mg Piperacillin Sod/Tazobactam (Sod 3.375 gm/ Sodium Chloride) 100 mls @ 200 mls/ hr IVPB Q6H [facility] PRN Reason: Protocol Last Admin: 01/27/18 21:12 Dose: 200 mls/hr Vancomycin/Sodium Chloride (Vancomycin 1 Gm/Ns 200 Ml) 1 gm in 200 mls @ 133 mls/hr IVPB ONCE ONE Stop: 01/28/18 00:30 Lidocaine (Lidoderm) 1 ea TD DAILY [facility] Last Admin: 01/27/18 10:32 Dose: 1 ea Methimazole (Tapazole) 5 mg PO DAILY [facility] Last Admin: 01/27/18 10:33 Dose: 5 mg Ondansetron HCl (Zofran Inj) 4 mg IVP Q6 PRN PRN Reason: Nausea/Vomiting Last Admin: 01/27/18 07:58 Dose: 4 mg Pantoprazole Sodium (Protonix Ec Tab) 40 mg PO DAILY [facility] Last Admin: 01/27/18 10:33 Dose: 40 mg Tamsulosin HCl (Flomax) 0.4 mg PO DAILY [facility] Last Admin: 01/27/18 10:33 Dose: 0.4 mg - Labs Labs: 01/27/18 08:24 01/27/18 08:24 PT 14.1 SECONDS (9.7-12.2) H 01/27/18 08:24 INR 1.2 01/27/18 08:24 APTT 36 SECONDS (21-34) H 01/27/18 08:24 - Constitutional Appears: No Acute Distress - Head Exam Head Exam: ATRAUMATIC, NORMAL INSPECTION, NORMOCEPHALIC - Eye Exam Eye Exam: EOMI, Normal appearance, PERRL Pupil Exam: NORMAL ACCOMODATION, PERRL - Respiratory Exam Respiratory Exam: Clear to Ausculation Bilateral, NORMAL BREATHING PATTERN - Cardiovascular Exam Cardiovascular Exam: REGULAR RHYTHM, +S1, +S2. absent: Murmur - GI/Abdominal Exam GI & Abdominal Exam: Soft, Normal Bowel Sounds. absent: Tenderness - Rectal Exam Rectal Exam: Deferred - Skin Additional comments: abscess on right forearm Assessment and Plan (1) Septicemia Assessment & Plan: pancultures zosyn / vanco mycin Status: Suspected (2) Obstructive uropathy Status: Acute (3) Renal insufficiency Status: Acute
[2018-01-28] MEDS: HYDROmorphone 0.5 mg/0.5 ml ISec IVP PRN ×3 (00:48→09:01)
[2018-01-28] MEDS: Piperacillin/Tazobact 3.375 GM in Sodium Chloride 0.9% 100 ML IVPB SCH ×2 (03:40→09:20)
[2018-01-28 06:13] LABS: BASO % 0.5 % (0.0-2.0); EOS % 0.4 % (0.0-4.0); HEMOGLOBIN 8.4 g/dL (12.0-18.0); LYMPH % 9.7 % (20.0-40.0); MEAN CORPUSCULAR HEMOGLOBIN 24.5 pg (27.0-31.0); MONO # 1.1 K/uL (0.0-0.8); NEUT # 7.8 K/uL (1.8-7.0); NEUT % 78.4 % (50.0-75.0); PLATELET COUNT 441 K/uL (130-400); RBC 3.43 Mil/uL (4.40-5.90); RED CELL DISTRIBUTION WIDTH 20.1 % (11.5-14.5); WHITE BLOOD COUNT 9.9 K/uL (4.8-10.8)
[2018-01-28 06:32] LABS: ALB/GLOB RATIO 0.9 (1.0-2.1); ALBUMIN 3.5 g/dL (3.5-5.0); ALT/SGPT 26 U/L (21-72); AST/SGOT 52 U/L (17-59); BLOOD UREA NITROGEN 22 mg/dL (9-20); CALCIUM 8.9 mg/dl (8.6-10.4); GFR AFRICAN-AMERICAN 27; GFR NON-AFRICAN AMERICAN 23
[2018-01-28 06:41] LABS: CK-MB < 0.22 ng/mL (0.0-3.38)
[2018-01-28 08:41] LABS: BASOPHIL 1 % (0-2); LYMPHOCYTE 9 % (20-40); MYELOCYTE 1 % (0-0); TOTAL CELLS COUNTED 100
[2018-01-28 08:42] LABS: MONOCYTE 10 % (0-10); NEUTROPHIL 79 % (50-75); PLATELET ESTIMATE SLIGHTLY INCREASED (NORMAL)
[2018-01-28 08:43] LABS: ANISOCYTOSIS SLIGHT; GIANT PLATELETS PRESENT; HYPOCHROMIC SLIGHT; LARGE PLATELETS PRESENT; POIKILOCYTOSIS SLIGHT; TOXIC GRANULATION PRESENT
[2018-01-28 08:44] LABS: TARGET CELLS SLIGHT
[2018-01-28] MEDS: methIMAzole 5 MG TAB PO SCH (09:12)
[2018-01-28] MEDS: Pantoprazole 40 mg EC Tab PO SCH (09:13)
[2018-01-28] MEDS: Lidocaine 5% Patch TD SCH (09:13)
--- NOTE | 2018-01-28 10:31 | CP.PCM.PN ---
Subjective - Date & Time of Evaluation Date of Evaluation: 01/28/18 Time of Evaluation: 10:29 - Subjective Subjective: seen and examined good uop pcn labs noted pt is a poor historian. c/o back pain, wants pain meds. also requesting to empty pcn bag. refusing to answer further questions. Objective - Vital Signs/Intake and Output Vital Signs (last 24 hours): Temp Pulse Resp BP Pulse Ox 98.9 F 71 20 139/69 98 01/28/18 09:23 01/28/18 09:23 01/28/18 09:23 01/28/18 09:23 01/28/18 08:04 Intake and Output: 01/28/18 01/28/18 06:59 18:59 Intake Total 2680 325 Output Total 2250 Balance 430 325 - Medications Medications: Current Medications Docusate Sodium (Colace) 100 mg PO TID [facility] Last Admin: 01/28/18 09:12 Dose: 100 mg Fentanyl (Duragesic) 1 patch TD Q72H [facility] Last Admin: 01/28/18 03:44 Dose: Not Given Ferric Sodium Gluconate Complex (Ferrlecit) 125 mg IVPB DAILY [facility] Stop: 01/30/18 14:16 Last Admin: 01/27/18 11:11 Dose: 125 mg Flutamide (Eulexin) 125 mg PO Q8H [facility] Last Admin: 01/28/18 09:12 Dose: 125 mg Hydromorphone HCl (Dilaudid) 0.5 mg IVP Q4H PRN PRN Reason: breakthrough pain Last Admin: 01/28/18 09:01 Dose: 0.5 mg Piperacillin Sod/Tazobactam (Sod 3.375 gm/ Sodium Chloride) 100 mls @ 200 mls/ hr IVPB Q6H [facility] PRN Reason: Protocol Last Admin: 01/28/18 09:20 Dose: 200 mls/hr Lidocaine (Lidoderm) 1 ea TD DAILY [facility] Last Admin: 01/28/18 09:13 Dose: 1 ea Methimazole (Tapazole) 5 mg PO DAILY [facility] Last Admin: 01/28/18 09:12 Dose: 5 mg Ondansetron HCl (Zofran Inj) 4 mg IVP Q6 PRN PRN Reason: Nausea/Vomiting Last Admin: 01/28/18 08:12 Dose: 4 mg Pantoprazole Sodium (Protonix Ec Tab) 40 mg PO DAILY [facility] Last Admin: 01/28/18 09:13 Dose: 40 mg Tamsulosin HCl (Flomax) 0.4 mg PO DAILY [facility] Last Admin: 01/28/18 09:13 Dose: 0.4 mg - Labs Labs: 01/28/18 06:05 01/28/18 06:05 PT 14.1 SECONDS (9.7-12.2) H 01/27/18 08:24 INR 1.2 01/27/18 08:24 APTT 36 SECONDS (21-34) H 01/27/18 08:24 - Constitutional Appears: No Acute Distress, Unkempt, Cachectic, Chronically Ill - Head Exam Head Exam: NORMAL INSPECTION, NORMOCEPHALIC - Eye Exam Eye Exam: Normal appearance Pupil Exam: PERRL - ENT Exam ENT Exam: Mucous Membranes Moist, Normal Exam - Neck Exam Neck Exam: Normal Inspection (rt chest catheter) - Respiratory Exam Respiratory Exam: Clear to Ausculation Bilateral, NORMAL BREATHING PATTERN - Cardiovascular Exam Cardiovascular Exam: REGULAR RHYTHM, RRR - GI/Abdominal Exam GI & Abdominal Exam: Distended, Soft, Normal Bowel Sounds - Exam Additional comments: b/l perc nephrostomy tubes - Neurological Exam Neurological Exam: Alert, Awake - Psychiatric Exam Psychiatric exam: Anxious - Skin Skin Exam: Dry, Warm Assessment and Plan (1) EMMETT (acute kidney injury) Status: Acute (2) Anemia Status: Acute (3) Obstructive uropathy Status: Acute (4) Prostate cancer metastatic to bone Status: Acute - Assessment and Plan (Free Text) Assessment: improving renal function, hold off hd dc hd catheter, recommend blood cultures to r/o line sepsis (febrile) s/p blood transfusion, monitor hgb des if okay w/ oncology
[2018-01-28] MEDS ORDERED: HYDROmorphone 0.5 mg/0.5 ml ISec IVP STA (10:51)
[2018-01-28] MEDS: Ferric Sodium Gluconat Complex 62.5 mg/5 ml Vial IVPB SCH (11:13)
[2018-01-28] MEDS ORDERED: Ferric Sodium Gluconat Complex 125 MG in Sodium Chloride 0.9% 100 ML IVPB ONE (12:00)
[2018-01-28] MEDS: oxyCODONE 10 mg ER Tab (oxyCONTIN) PO SCH ×2 (12:04→20:59)
[2018-01-28] MEDS: Sodium Chloride 0.9% 1,000 ML IV SCH ×2 (12:10→20:30)
--- NOTE | 2018-01-28 12:59 | SPECPROC ---
PROCEDURE: < Date of procedure: 01/24/2018 Procedure: 1. Right and left percutaneous nephrostogram, CPT 77186 2. Right and left percutaneous nephrostomy tube placement, CPT 54394 Medications: The patient sedated by the anesthesiologist. Contrast: 15 ml Visipaque Fluoro time: 1.2 min, Dose: 37 mGy HISTORY: Ureteral obstruction, hydronephrosis, renal failure TECHNIQUE: Following informed consent and procedure time-out, the patient was placed prone on the interventional table and the skin was marked. The lower back was prepped and draped in the usual sterile fashion. Ultrasound confirmed the presence of moderate to severe right hydronephrosis and moderate left hydronephrosis. After the patient was sedated by the anesthesiologist and the lower back was anesthetized with 5 cc 1% lidocaine, a 22 gauge Chiba needle was advanced percutaneously under direct ultrasound guidance into a dilated posterior lower pole calyx. Upon return of urine, contrast was injected through the needle which filled a markedly dilated renal collecting system. A guidewire was advanced through the needle into the ureter. Needle was exchanged for an Accustick coaxial dilator. The dilator was exchanged over the 035 wire for a 8 Maldivian Neprostomy tube which was formed in the renal pelvis. Position of the tube was confirmed with contrast injection. The tube was secured to patient's skin. Nephrostogram showed moderate to severe hydronephrosis. There is no flow of contrast seen into the ureter. The nephrostomy tube was attached to drainage bag. Ultrasound showed moderate left hydonephrosis. The left lower back was anesthetized with 5 cc 1% lidocaine. A 22 gauge Chiba needle was advanced percutaneously under direct ultrasound guidance into a dilated posterior lower pole calyx. Upon return of urine, contrast was injected through the needle which filled a markedly dilated renal collecting system. A guidewire was advanced through the needle into the renal pelvis. The eedle was exchanged for an Accustick coaxial dilator. The dilator was exchanged over the 035 wire for a 8 Maldivian Neprostomy tube which was formed in the renal pelvis. Position of the tube was confirmed with contrast injection. The tube was secured to patient's skin. Nephrostogram showed filling of the proximal left ureter. IMPRESSION: Nephrostogram showed moderate left hydronephrosis and severe right hydronephrosis. Placement of an 8 Maldivian Right percutaneous nephrostomy tube followed by placement of an 8 Maldivian Left percutaneous nephrostomy tube.
[2018-01-28] MEDS: Piperacill/Tazo 2.25gm in Dex 2.25 GM/50 ML BAG IVPB SCH ×2 (16:19→22:49)
--- NOTE | 2018-01-28 19:16 | CP.PCM.CON ---
History of Present Illness - History of Present Illness History of Present Illness: INFECTIOUS DISEASE CONSULT; HPI; 57 year old male with a history of stage IV prostate cancer (tk 10) initiated on total androgen deprivation admitted with diffuse body pain and hematuria. The patient was diagnosed with prostate cancer while in assisted 1 year ago. His initial PSA was about 400 and he had evidence of retroperitoneal and bone metastasis. He was started on Lupron 30mg and Casodex on 04/25/17. His last Lupron injection was last month in the office of DR CURRY ,earlier this month. Since then he has been having on and off hematuria and notes to diffuse body aches. HOSPITAL COURSE; 01/24/18 BILATERAL NEPHROSTOMY TUBES PLACED BY MEL NICOLE SECONDARY TO SEVERE BILATERAL HYDRONEPHROSIS NOTED ON RENAL ULTRASOUND 01/22/18. 01/24/18 RIGHT ij CATHETER PLACEMENT FOR HEMODIALYSIS. dc'D TODAY 01/28/[address] LOCO. CHEST X-RAY 01/24/18 MILD PERIPHERAL VASCULAR CONGESTION, PATCHY RIGHT BASILAR AIRSPACE DISEASE WITH LEFT PERIHILAR MEDIAL BASILAR ATELECTASIS/OR INFILTRATE. RENAL ULTRASOUND; POLYPOID MASS BLADDER ? BLOOD CLOT. PATIENT HAS RECENTLY BEEN SPIKING FEVERS TO 101.3 DAILY.PATIENT WAS STARTED ON iv zOSYN 2.25 iv EVERY 6 HOURLY ON 01/27/18 AND ONE DOSE OF VANCOMYCIN 1 G WAS GIVEN ON 01/27/18. Ct THORACIC SPINE/LUMBOSACRAL SPINE- NOTED MULTIPLE METASTASIS IN RIBS/? SPINE NOTED ( see full report )NEEDS mri TO RULE OUT METASTATIC DISEASE LUMBAR SPINEAS PER NEUROSURGERY INFECTIOUS DISEASE CONSULT REQUESTED BY PMD FOR HYPERPYREXIA. Past medical history: HTN, prostate cancer, hyperthyroidism Past surgical history: Denies Family history: Denies hematologic and oncologic problems; no known CKD Social history: Heroin abuse; former heavy smoker Allergies: NKA Review of Systems - Constitutional Constitutional: Chills, Fever - EENT Eyes: absent: Change in Vision, Floaters Nose/Mouth/Throat: absent: Mouth Lesions - Cardiovascular Cardiovascular: absent: Chest Pain, Dyspnea - Respiratory Respiratory: Pain with Coughing. absent: Cough - Gastrointestinal Gastrointestinal: absent: Abdominal Pain, Constipation, Diarrhea - Genitourinary Genitourinary: Change in Urinary Stream, Hematuria Additional comments: patient has bilateral nephrostomy tubes right and left .Patient also has a Osorio catheter in place with Guido hematuria - Integumentary Integumentary: Rash (chronic eczema with history of pruritus.) - Neurological Neurological: absent: Headaches - Hematologic/Lymphatic Hematologic: As Per HPI, Easy Bleeding Past Patient History - Past Medical History & Family History Past Medical History?: Yes - Past Social History Smoking Status: Former Smoker Chewing Tobacco Use: No Cigar Use: No Alcohol: Occasional Drugs: Opiates - CARDIAC Hx Cardiac Disorders: No - PULMONARY Hx Respiratory Disorders: Yes Hx Asthma: Yes - NEUROLOGICAL Hx Neurological Disorder: No - HEENT Hx HEENT Problems: No - RENAL Hx Chronic Kidney Disease: No - ENDOCRINE/METABOLIC Hx Endocrine Disorders: Yes Hx Hyperthyroidism: Yes - HEMATOLOGICAL/ONCOLOGICAL Hx Blood Disorders: Yes Hx Anemia: Yes Hx Cancer: Yes (PROSTATE with BONE METS) - INTEGUMENTARY Hx Dermatological Problems: Yes Hx Eczema: Yes - MUSCULOSKELETAL/RHEUMATOLOGICAL Hx Musculoskeletal Disorders: Yes Hx Back Pain: Yes Hx Falls: No - GASTROINTESTINAL Hx Gastrointestinal Disorders: No - GENITOURINARY/GYNECOLOGICAL Hx Genitourinary Disorders: Yes Hx Prostate Cancer: Yes - PSYCHIATRIC Hx Psychophysiologic Disorder: Yes Hx Substance Use: Yes - SURGICAL HISTORY Hx Surgeries: Yes Other/Comment: BONE BIOPSY - ANESTHESIA Hx Anesthesia: Yes Hx Anesthesia Reactions: No Hx Malignant Hyperthermia: No Meds Allergies/Adverse Reactions: Allergies Allergy/AdvReac Type Severity Reaction Status Date / Time honey Allergy Verified 01/18/18 18:53 - Medications Medications: Current Medications Acetaminophen (Tylenol 325mg Tab) 650 mg PO Q6 PRN PRN Reason: Fever >100.4 F Last Admin: 01/28/18 16:19 Dose: 650 mg Docusate Sodium (Colace) 100 mg PO TID [facility] Last Admin: 01/28/18 18:50 Dose: 100 mg Fentanyl (Duragesic) 1 patch TD Q72H [facility] Last Admin: 01/28/18 12:05 Dose: 1 patch Ferric Sodium Gluconate Complex (Ferrlecit) 125 mg IVPB DAILY [facility] Stop: 01/30/18 14:16 Last Admin: 01/28/18 11:13 Dose: Not Given Flutamide (Eulexin) 125 mg PO Q8H [facility] Last Admin: 01/28/18 18:49 Dose: 125 mg Hydromorphone HCl (Dilaudid) 1 mg IVP Q4H PRN PRN Reason: breakthrough pain Last Admin: 01/28/18 18:54 Dose: 1 mg Piperacillin Sod/Tazobactam Sod (Zosyn 2.25 Gm Iv Premix) 2.25 gm in 50 mls @ 100 mls/hr IVPB Q6H [facility] PRN Reason: Protocol Last Admin: 01/28/18 16:19 Dose: 100 mls/hr Lidocaine (Lidoderm) 1 ea TD DAILY [facility] Last Admin: 01/28/18 09:13 Dose: 1 ea Methimazole (Tapazole) 5 mg PO DAILY [facility] Last Admin: 01/28/18 09:12 Dose: 5 mg Ondansetron HCl (Zofran Inj) 4 mg IVP Q6 PRN PRN Reason: Nausea/Vomiting Last Admin: 01/28/18 08:12 Dose: 4 mg Oxycodone HCl (Oxycontin Extended Release Tab) 10 mg PO Q12 [facility] Stop: 01/31/18 11:16 Last Admin: 01/28/18 12:04 Dose: 10 mg Pantoprazole Sodium (Protonix Ec Tab) 40 mg PO DAILY [facility] Last Admin: 01/28/18 09:13 Dose: 40 mg Propranolol HCl (Inderal) 10 mg PO BID [facility] Last Admin: 01/28/18 18:52 Dose: 10 mg Tamsulosin HCl (Flomax) 0.4 mg PO DAILY [facility] Last Admin: 01/28/18 09:13 Dose: 0.4 mg Physical Exam - Constitutional Appears: No Acute Distress, Chronically Ill - Head Exam Head Exam: NORMAL INSPECTION - Eye Exam Eye Exam: EOMI, PERRL - ENT Exam ENT Exam: Normal Oropharynx - Neck Exam Neck exam: Positive for: Normal Inspection - Respiratory Exam Respiratory Exam: Decreased Breath Sounds (at the bases.). absent: Wheezes - Cardiovascular Exam Cardiovascular Exam: REGULAR RHYTHM, +S1, +S2 - GI/Abdominal Exam GI & Abdominal Exam: Normal Bowel Sounds, Soft - Extremities Exam Extremities exam: Positive for: normal capillary refill, pedal pulses present. Negative for: calf tenderness, pedal edema - Neurological Exam Neurological exam: Alert, CN II-XII Intact, Oriented x3 - Psychiatric Exam Psychiatric exam: Normal Mood - Skin Skin Exam: Normal Color, Warm Results - Vital Signs Recent Vital Signs: Last Vital Signs Temp 98.5 F 01/28/18 17:19 Pulse 85 01/28/18 16:00 Resp 20 01/28/18 15:11 BP 130/65 01/28/18 15:11 Pulse Ox 95 01/28/18 15:11 - Labs Result Diagrams: 01/28/18 06:05 01/28/18 06:05 Labs: Laboratory Results - last 24 hr 01/26/18 01/27/18 01/28/18 07:37 23:01 06:05 WBC RBC Hgb Hct MCV MCH MCHC RDW Plt Count MPV Neut % (Auto) Lymph % (Auto) Rhea % (Auto) Eos % (Auto) Baso % (Auto) Neut # (Auto) Lymph # (Auto) Rhea # (Auto) Eos # (Auto) Baso # (Auto) Neutrophils % (Manual) Lymphocytes % (Manual) Monocytes % (Manual) Basophils % (Manual) Myelocytes % Toxic Granulation Platelet Estimate Large Platelets Giant Platelets Hypochromasia (manual) Poikilocytosis (manual Anisocytosis (manual) Target Cells Sodium 140 Potassium 4.1 Chloride 101 Carbon Dioxide 25 Anion Gap 18 BUN 22 H Creatinine 2.9 H Est GFR ( Amer) 27 Est GFR (Non-Af Amer) 23 Random Glucose 111 H Calcium 8.9 Phosphorus 4.9 H Magnesium 1.1 L Total Bilirubin 0.7 AST 52 ALT 26 Alkaline Phosphatase 131 H Total Creatine Kinase 159 CK-MB (Mass) < 0.22 Troponin I < 0.0120 Total Protein 7.6 Albumin 3.5 Globulin 4.1 H Albumin/Globulin Ratio 0.9 L Urine Color Red Urine Clarity Clear Urine pH 8.0 Ur Specific [place] 1.009 Urine Protein 1+ H Urine Glucose (UA) Normal Urine Ketones Negative Urine Blood 3+ H Urine Nitrate Negative Urine Bilirubin Negative Urine Urobilinogen Normal Ur Leukocyte Esterase Trace Urine WBC (Auto) 4 Urine RBC (Auto) 862 H Calcium Oxalate Crystal Few H Blood Type B POSITIVE Antibody Screen Negative 01/28/18 06:05 WBC 9.9 RBC 3.43 L Hgb 8.4 L Hct 24.7 L MCV 72.0 L MCH 24.5 L MCHC 34.0 RDW 20.1 H Plt Count 441 H MPV 8.0 Neut % (Auto) 78.4 H Lymph % (Auto) 9.7 L Rhea % (Auto) 11.0 H Eos % (Auto) 0.4 Baso % (Auto) 0.5 Neut # (Auto) 7.8 H Lymph # (Auto) 1.0 Rhea # (Auto) 1.1 H Eos # (Auto) 0.0 Baso # (Auto) 0.0 Neutrophils % (Manual) 79 H Lymphocytes % (Manual) 9 L Monocytes % (Manual) 10 Basophils % (Manual) 1 Myelocytes % 1 H Toxic Granulation Present Platelet Estimate Slightly increased H Large Platelets Present Giant Platelets Present Hypochromasia (manual) Slight Poikilocytosis (manual Slight Anisocytosis (manual) Slight Target Cells Slight Sodium Potassium Chloride Carbon Dioxide Anion Gap BUN Creatinine Est GFR ( Amer) Est GFR (Non-Af Amer) Random Glucose Calcium Phosphorus Magnesium Total Bilirubin AST ALT Alkaline Phosphatase Total Creatine Kinase CK-MB (Mass) Troponin I Total Protein Albumin Globulin Albumin/Globulin Ratio Urine Color Urine Clarity Urine pH Ur Specific [place] Urine Protein Urine Glucose (UA) Urine Ketones Urine Blood Urine Nitrate Urine Bilirubin Urine Urobilinogen Ur Leukocyte Esterase Urine WBC (Auto) Urine RBC (Auto) Calcium Oxalate Crystal Blood Type Antibody Screen - Imaging and Cardiology Chest x-ray Status: Report reviewed by me Assessment & Plan (1) Fever Assessment and Plan: source of fever not clear ? catheter related sepsis vs -sepsis Multiple lines., Bilateral nephrostomy tubes for hydronephrosis 01/24/18. Osorio CATHETER WITH GUIDO HEMATURIA. PANCULTURES ,UA,URINE CULTURES Agree with DC right IJ catheter for hemodialysis today as per renal. Continue IV Zosyn 2.25 GRAMS iv PIGGYBACK EVERY 6 HOURLY 01/27/18/ PATIENT GOT 1 DOSE OF VANCOMYCIN 1 G ON 01/27/18. fOLLOW-UP vANCO RANDOM LEVEL IN A.M. fOLLOW-UP CULTURES TO ADJUST ANTIBIOTICS. REPEAT CHEST X-RAY PORTABLE TO RULE OUT PNEUMONITIS/ OR PARAPNEUMONIC EFFUSION. Status: Acute (2) Obstructive uropathy Assessment and Plan: PATIENT HAS BILATERAL NEPHROSTOMY TUBES PLACED 01/24/18 BY IR . Status: Acute (3) Prostate cancer metastatic to bone Status: Acute (4) Hydronephrosis Status: Acute (5) Anemia Status: Acute (6) Polysubstance abuse Status: Acute (7) EMMETT (acute kidney injury) Assessment and Plan: pATIENT WAS ON HEMODIALYSIS. LAST HD 01/24/18 PER NOTES.. HD RIGHT IJ CATHETER REMOVED 01/28/18 Status: Acute
--- NOTE | 2018-01-28 23:02 | CP.PCM.PN ---
Subjective - Date & Time of Evaluation Date of Evaluation: 01/28/18 Time of Evaluation: 19:45 - Subjective Subjective: Feeling better after transfusion Objective - Vital Signs/Intake and Output Vital Signs (last 24 hours): Temp Pulse Resp BP Pulse Ox 98.5 F 85 20 130/65 95 01/28/18 17:19 01/28/18 16:00 01/28/18 15:11 01/28/18 15:11 01/28/18 15:11 Intake and Output: 01/28/18 01/29/18 18:59 06:59 Intake Total 1615 Output Total 1970 Balance -355 - Medications Medications: Current Medications Acetaminophen (Tylenol 325mg Tab) 650 mg PO Q6 PRN PRN Reason: Fever >100.4 F Last Admin: 01/28/18 16:19 Dose: 650 mg Docusate Sodium (Colace) 100 mg PO TID [facility] Last Admin: 01/28/18 18:50 Dose: 100 mg Fentanyl (Duragesic) 1 patch TD Q72H [facility] Last Admin: 01/28/18 12:05 Dose: 1 patch Ferric Sodium Gluconate Complex (Ferrlecit) 125 mg IVPB DAILY [facility] Stop: 01/30/18 14:16 Last Admin: 01/28/18 11:13 Dose: Not Given Flutamide (Eulexin) 125 mg PO Q8H [facility] Last Admin: 01/28/18 18:49 Dose: 125 mg Hydromorphone HCl (Dilaudid) 1 mg IVP Q4H PRN PRN Reason: breakthrough pain Last Admin: 01/28/18 22:50 Dose: 1 mg Piperacillin Sod/Tazobactam Sod (Zosyn 2.25 Gm Iv Premix) 2.25 gm in 50 mls @ 100 mls/hr IVPB Q6H [facility] PRN Reason: Protocol Last Admin: 01/28/18 22:49 Dose: 100 mls/hr Sodium Chloride (Sodium Chloride 0.9%) 1,000 mls @ 80 mls/hr IV .[id number] [facility] Last Admin: 01/28/18 20:30 Dose: Not Given Lidocaine (Lidoderm) 1 ea TD DAILY [facility] Last Admin: 01/28/18 09:13 Dose: 1 ea Methimazole (Tapazole) 5 mg PO DAILY [facility] Last Admin: 01/28/18 09:12 Dose: 5 mg Ondansetron HCl (Zofran Inj) 4 mg IVP Q6 PRN PRN Reason: Nausea/Vomiting Last Admin: 01/28/18 08:12 Dose: 4 mg Oxycodone HCl (Oxycontin Extended Release Tab) 10 mg PO Q12 [facility] Stop: 01/31/18 11:16 Last Admin: 01/28/18 20:59 Dose: 10 mg Pantoprazole Sodium (Protonix Ec Tab) 40 mg PO DAILY [facility] Last Admin: 01/28/18 09:13 Dose: 40 mg Propranolol HCl (Inderal) 10 mg PO BID [facility] Last Admin: 01/28/18 18:52 Dose: 10 mg Tamsulosin HCl (Flomax) 0.4 mg PO DAILY [facility] Last Admin: 01/28/18 09:13 Dose: 0.4 mg - Labs Labs: 01/28/18 06:05 01/28/18 06:05 PT 14.1 SECONDS (9.7-12.2) H 01/27/18 08:24 INR 1.2 01/27/18 08:24 APTT 36 SECONDS (21-34) H 01/27/18 08:24 - Head Exam Head Exam: ATRAUMATIC - Eye Exam Eye Exam: Normal appearance - ENT Exam ENT Exam: Mucous Membranes Dry - Respiratory Exam Respiratory Exam: NORMAL BREATHING PATTERN - Cardiovascular Exam Cardiovascular Exam: +S1, +S2 - GI/Abdominal Exam GI & Abdominal Exam: Normal Bowel Sounds Assessment and Plan (1) Anemia Assessment & Plan: chronic disease, bone mets, hematuria s/p transfusion support Status: Acute (2) Prostate cancer Assessment & Plan: stage IV on total androgen deprivation bone metastasis outpatient palliative radiation to tspine if cont. to have pain likely progressive disease given rising PSA will need outpatient Zytiga Status: Acute
--- NOTE | 2018-01-28 23:31 | CP.PCM.PN ---
Subjective - Date & Time of Evaluation Date of Evaluation: 01/28/18 Time of Evaluation: 19:10 - Subjective Subjective: PT SEEN AND EXAMINED AT BEDSIDE Objective - Vital Signs/Intake and Output Vital Signs (last 24 hours): Temp Pulse Resp BP Pulse Ox 98.5 F 85 20 130/65 95 01/28/18 17:19 01/28/18 16:00 01/28/18 15:11 01/28/18 15:11 01/28/18 15:11 Intake and Output: 01/28/18 01/29/18 18:59 06:59 Intake Total 1615 980 Output Total 3074 1150 Balance -355 -170 - Medications Medications: Current Medications Acetaminophen (Tylenol 325mg Tab) 650 mg PO Q6 PRN PRN Reason: Fever >100.4 F Last Admin: 01/28/18 16:19 Dose: 650 mg Docusate Sodium (Colace) 100 mg PO TID [facility] Last Admin: 01/28/18 18:50 Dose: 100 mg Fentanyl (Duragesic) 1 patch TD Q72H [facility] Last Admin: 01/28/18 12:05 Dose: 1 patch Ferric Sodium Gluconate Complex (Ferrlecit) 125 mg IVPB DAILY [facility] Stop: 01/30/18 14:16 Last Admin: 01/28/18 11:13 Dose: Not Given Flutamide (Eulexin) 125 mg PO Q8H [facility] Last Admin: 01/28/18 18:49 Dose: 125 mg Hydromorphone HCl (Dilaudid) 1 mg IVP Q4H PRN PRN Reason: breakthrough pain Last Admin: 01/28/18 22:50 Dose: 1 mg Piperacillin Sod/Tazobactam Sod (Zosyn 2.25 Gm Iv Premix) 2.25 gm in 50 mls @ 100 mls/hr IVPB Q6H [facility] PRN Reason: Protocol Last Admin: 01/28/18 22:49 Dose: 100 mls/hr Sodium Chloride (Sodium Chloride 0.9%) 1,000 mls @ 80 mls/hr IV .[id number] [facility] Last Admin: 01/28/18 20:30 Dose: Not Given Lidocaine (Lidoderm) 1 ea TD DAILY [facility] Last Admin: 01/28/18 09:13 Dose: 1 ea Methimazole (Tapazole) 5 mg PO DAILY [facility] Last Admin: 01/28/18 09:12 Dose: 5 mg Ondansetron HCl (Zofran Inj) 4 mg IVP Q6 PRN PRN Reason: Nausea/Vomiting Last Admin: 01/28/18 08:12 Dose: 4 mg Oxycodone HCl (Oxycontin Extended Release Tab) 10 mg PO Q12 [facility] Stop: 01/31/18 11:16 Last Admin: 01/28/18 20:59 Dose: 10 mg Pantoprazole Sodium (Protonix Ec Tab) 40 mg PO DAILY [facility] Last Admin: 01/28/18 09:13 Dose: 40 mg Propranolol HCl (Inderal) 10 mg PO BID [facility] Last Admin: 01/28/18 18:52 Dose: 10 mg Tamsulosin HCl (Flomax) 0.4 mg PO DAILY [facility] Last Admin: 01/28/18 09:13 Dose: 0.4 mg - Labs Labs: 01/28/18 06:05 01/28/18 06:05 PT 14.1 SECONDS (9.7-12.2) H 01/27/18 08:24 INR 1.2 01/27/18 08:24 APTT 36 SECONDS (21-34) H 01/27/18 08:24 Assessment and Plan (1) Septicemia Status: Suspected (2) Obstructive uropathy Status: Acute (3) Renal insufficiency Status: Acute
[2018-01-29] MEDS: Sodium Chloride 0.9% 1,000 ML IV SCH ×3 (04:05→21:00)
[2018-01-29] MEDS: Piperacill/Tazo 2.25gm in Dex 2.25 GM/50 ML BAG IVPB SCH ×4 (05:01→22:04)
--- NOTE | 2018-01-29 06:16 | CON ---
DATE: REASON FOR CONSULTATION: Rapid atrial fibrillation with aberrancy. HISTORY OF PRESENT ILLNESS: This is a 57 years old male, who was admitted on 01/18 because of hematuria. The patient is known to have metastatic prostatic carcinoma and was treated with monotherapy as an outpatient. The patient also has history of hyperthyroidism and was supposed to be on Tapazole 5 mg twice a day. The patient was found to be in acute renal insufficiency. The patient also has history of recent cocaine abuse. He cocaine on 12/30. The patient required a hemodialysis and then bilateral nephrostomy and indwelling Osorio catheter. The patient was noted to have a short run of rapid atrial fibrillation with aberrancy which mimicked ventricular tachycardia. However, the . It fits more with run of atrial fibrillation, especially, in the scenario of hyperthyroidism. SOCIAL HISTORY: The patient is a smoker and drinker. MEDICATIONS: Dilaudid 1 mg intravenously q.4 hours p.r.n., Eulexin 125 mg p.o. q.8 hours, , Flomax 0.4 mg once a day, oxycodone 10 mg p.o. twice a day, Tapazole 5 mg once a day, Zosyn 2.25 gm intravenously q.12 hours. REVIEW OF SYSTEMS: The patient does report episodes of palpitation, but denies any syncope. The patient is experiencing generalized body aches. PHYSICAL EXAMINATION: GENERAL: The patient is a middle-aged male, who does not appear to be in any acute distress. VITAL SIGNS: Blood pressure 130/65, heart rate 85, temperature 101.2, respirations 20. HEENT: Pale conjunctiva. CHEST: Minimal rhonchi. HEART: S1 and S2 regular. EXTREMITIES: 1+ pitting edema. LABORATORY DATA: Hemoglobin and hematocrit 8.4 and 24.7, white count 9.9. platelet count 441,000. Most recent SMA-7 today, sodium 140, potassium 4.1, chloride 101, CO2 of 25, glucose 111, BUN 22, creatinine 2.9. Yesterday's INR is 1.2 and PTT is 36. TSH level is 1.37. Admitting EKG to be normal sinus rhythm at the rate of 63. Today's EKG reveals sinus rhythm at the rate of 77, possible left atrial enlargement. Lumbar spine CT scan suspect that he is on displaced fracture of the posterior superior L5 vertebral body without retropulsion, associated focal increased intensity in the posterior superior vertebral body could related to compression. However, metastatic lesion cannot be entirely excluded, and apparently radiolucent area in S1 vertebral body could be related to mineralization. However, metastatic lesion cannot be entirely excluded. CT scan of the thoracic spine, no acute fracture. No destructive bone lesion. Multifocal metastatic lesion in the ribs. Multiple bilateral plural effusion sand focal configuration of the left lower lobe and large multinodular thyroid gland. ASSESSMENT: 1. Metastatic prostatic cancer. 2. Hyperthyroidism with multinodular goiter. 3. Paroxysmal atrial fibrillation. 4. Acute renal failure, secondary to obstructive uropathy, status post bilateral nephrostomy tube placement. RECOMMENDATIONS: Continue current Tapazole 5 mg daily, start Inderal 10 mg orally twice a day, anticoagulation is preferred. However, given the overall clinical scenario, the patient is not a suitable candidate for it and PET CT scan has to be performed to rule out cerebral metastasis prior to considering long-term anticoagulation. Larry Islas MD [facility]
[2018-01-29 07:50] LABS: CALCIUM 8.8 mg/dl (8.6-10.4)
--- NOTE | 2018-01-29 09:02 | RAD ---
HISTORY: PNEUMONIA COMPARISON: 01/24/2018 FINDINGS: LUNGS: Increased opacity of the mid aspect of both lungs likely due to pectoralis muscle. No infiltrate identified. Linear scar/atelectasis at right base. PLEURA: No significant pleural effusion identified, no pneumothorax apparent. CARDIOVASCULAR: Normal. OSSEOUS STRUCTURES: No significant abnormalities. VISUALIZED UPPER ABDOMEN: Normal. OTHER FINDINGS: None. IMPRESSION: No active disease.
[2018-01-29 09:13] LABS: BASO # 0.1 K/uL (0.0-0.2); BASO % 0.9 % (0.0-2.0); EOS # 0.2 K/uL (0.0-0.7); EOS % 1.2 % (0.0-4.0); HEMOGLOBIN 8.4 g/dL (12.0-18.0); LYMPH # 1.6 K/uL (1.0-4.3); LYMPH % 10.9 % (20.0-40.0); MEAN CELL VOLUME 73.8 fL (80.0-94.0); MEAN CORPUSCULAR HEMOGLOBIN 25.1 pg (27.0-31.0); MEAN PLATELET VOLUME 8.5 fL (7.2-11.7); MONO # 1.7 K/uL (0.0-0.8); MONO % 11.8 % (0.0-10.0); NEUT % 75.2 % (50.0-75.0); RBC 3.34 Mil/uL (4.40-5.90); RED CELL DISTRIBUTION WIDTH 19.6 % (11.5-14.5); WHITE BLOOD COUNT 14.6 K/uL (4.8-10.8)
[2018-01-29] MEDS ORDERED: Magnesium Sulfate 1 gm in D5W 1 GM/100 ML BAG IVPB SCH (09:45)
[2018-01-29] MEDS: Lidocaine 5% Patch TD SCH (10:17)
[2018-01-29] MEDS: Magnesium Sulfate 1 gm in D5W 1 GM/100 ML BAG IVPB SCH ×2 (10:18→10:53)
[2018-01-29] MEDS: Pantoprazole 40 mg EC Tab PO SCH (10:19)
[2018-01-29] MEDS: methIMAzole 5 MG TAB PO SCH (10:19)
[2018-01-29] MEDS: oxyCODONE 10 mg ER Tab (oxyCONTIN) PO SCH ×2 (10:19→21:47)
[2018-01-29] MEDS: Ferric Sodium Gluconat Complex 62.5 mg/5 ml Vial IVPB SCH (10:58)
--- NOTE | 2018-01-29 13:59 | CARD ---
APPROVED REPORT EXAM: Two-dimensional and M-mode echocardiogram with Doppler and color Doppler. Other Information Quality : GoodRhythm : INDICATION Atrial Fibrillation Infection:Rule out subacute bacterial endocarditis Chest Pain FEVER,HEROINE ABUSE,CA OF PROSTATE 2D DIMENSIONS IVSd0.9 (0.7-1.1cm)LVDd4.8 (3.9-5.9cm) PWd1.2 (0.7-1.1cm)LVDs3.6 (2.5-4.0cm) FS (%) 24.4 %PWs2.4 (0.8-1.2cm) LVEF (%)58.0 (>50%) M-Mode DIMENSIONS RVDd1.97 (2.1-3.2cm)Left Atrium (MM)3.19 (2.5-4.0cm) IVSd1.11 (0.7-1.1cm)Aortic Root3.69 (2.2-3.7cm) LVDd5.86 (4.0-5.6cm)Aortic Cusp Exc.2.70 (1.5-2.0cm) PWd1.00 (0.7-1.1cm)FS (%) 40 % LVDs3.51 (2.0-3.8cm)LVEF (%)70 (>50%) Mitral Valve MV E Xuihkzqr376.7cm/sMV A Avjjmwid17.0cm/sE/A ratio1.3 TDI E/Lateral E'0.0E/Medial E'0.0 Tricuspid Valve TR Peak Soszusmm124gl/sTR Peak Gr.50grKrFNJV12dwQb LEFT VENTRICLE The left ventricle is normal size. There is normal left ventricular wall thickness. Left ventricle systolic function is normal. The Ejection Fraction is 55-60%. There is normal LV segmental wall motion. The left ventricular diastolic function is normal. RIGHT VENTRICLE The right ventricle is normal size. There is normal right ventricular wall thickness. The right ventricular systolic function is normal. ATRIA The left atrium size is normal. The right atrium size is normal. The interatrial septum is intact with no evidence for an atrial septal defect. AORTIC VALVE The aortic valve is normal in structure. No aortic regurgitation is present. There is no aortic valvular stenosis. There is no aortic valvular vegetation. MITRAL VALVE The mitral valve is normal in structure. There is no evidence of mitral valve prolapse. There is no mitral valve stenosis. Mitral regurgitation is mild. TRICUSPID VALVE The tricuspid valve is normal in structure. There is mild tricuspid regurgitation. Right ventricular systolic pressure is estimated at 50-60 mmHg. There is moderate-severe pulmonary hypertension. PULMONIC VALVE The pulmonic valve is not well visualized. There is mild pulmonic valvular regurgitation. GREAT VESSELS The aortic root is normal in size. PERICARDIAL EFFUSION There is no significant pericardial effusion. <Conclusion> Left ventricle systolic function is normal. The Ejection Fraction is 55-60%. No aortic regurgitation is present. Mitral regurgitation is mild. There is mild tricuspid regurgitation. There is moderate-severe pulmonary hypertension. There is mild pulmonic valvular regurgitation.
--- NOTE | 2018-01-29 15:20 | CP.PCM.PN ---
Subjective - Date & Time of Evaluation Date of Evaluation: 01/29/18 Time of Evaluation: 12:00 - Subjective Subjective: No complaints. Objective - Vital Signs/Intake and Output Vital Signs (last 24 hours): Temp Pulse Resp BP Pulse Ox 99.3 F 90 20 128/76 97 01/29/18 07:00 01/29/18 07:00 01/29/18 07:00 01/29/18 07:00 01/29/18 07:00 Intake and Output: 01/29/18 01/29/18 06:59 18:59 Intake Total 1989 1019 Output Total 1859 700 Balance 130 320 - Medications Medications: Current Medications Acetaminophen (Tylenol 325mg Tab) 650 mg PO Q6 PRN PRN Reason: Fever >100.4 F Last Admin: 01/28/18 16:19 Dose: 650 mg Docusate Sodium (Colace) 100 mg PO TID [facility] Last Admin: 01/29/18 13:57 Dose: 100 mg Fentanyl (Duragesic) 1 patch TD Q72H [facility] Last Admin: 01/28/18 12:05 Dose: 1 patch Ferric Sodium Gluconate Complex (Ferrlecit) 125 mg IVPB DAILY [facility] Stop: 01/30/18 14:16 Last Admin: 01/29/18 10:58 Dose: 125 mg Flutamide (Eulexin) 125 mg PO Q8H [facility] Last Admin: 01/29/18 10:19 Dose: 125 mg Hydromorphone HCl (Dilaudid) 1 mg IVP Q4H PRN PRN Reason: breakthrough pain Last Admin: 01/29/18 13:56 Dose: 1 mg Piperacillin Sod/Tazobactam Sod (Zosyn 2.25 Gm Iv Premix) 2.25 gm in 50 mls @ 100 mls/hr IVPB Q6H [facility] PRN Reason: Protocol Last Admin: 01/29/18 10:54 Dose: 100 mls/hr Sodium Chloride (Sodium Chloride 0.9%) 1,000 mls @ 80 mls/hr IV .[id number] [facility] Last Admin: 01/29/18 10:21 Dose: Not Given Lidocaine (Lidoderm) 1 ea TD DAILY [facility] Last Admin: 01/29/18 10:17 Dose: 1 ea Magnesium Oxide (Mag-Ox) 400 mg PO DAILY [facility] Stop: 02/01/18 10:01 Methimazole (Tapazole) 5 mg PO DAILY [facility] Last Admin: 01/29/18 10:19 Dose: 5 mg Ondansetron HCl (Zofran Inj) 4 mg IVP Q6 PRN PRN Reason: Nausea/Vomiting Last Admin: 01/28/18 08:12 Dose: 4 mg Oxycodone HCl (Oxycontin Extended Release Tab) 10 mg PO Q12 [facility] Stop: 01/31/18 11:16 Last Admin: 01/29/18 10:19 Dose: 10 mg Pantoprazole Sodium (Protonix Ec Tab) 40 mg PO DAILY [facility] Last Admin: 01/29/18 10:19 Dose: 40 mg Propranolol HCl (Inderal) 10 mg PO BID [facility] Last Admin: 01/29/18 10:19 Dose: 10 mg Tamsulosin HCl (Flomax) 0.4 mg PO DAILY [facility] Last Admin: 01/29/18 10:19 Dose: 0.4 mg - Labs Labs: 01/29/18 09:05 01/29/18 07:17 PT 14.1 SECONDS (9.7-12.2) H 01/27/18 08:24 INR 1.2 01/27/18 08:24 APTT 36 SECONDS (21-34) H 01/27/18 08:24 - Head Exam Head Exam: ATRAUMATIC - Eye Exam Eye Exam: Normal appearance - ENT Exam ENT Exam: Mucous Membranes Dry - Respiratory Exam Respiratory Exam: NORMAL BREATHING PATTERN - Cardiovascular Exam Cardiovascular Exam: +S1, +S2 - GI/Abdominal Exam GI & Abdominal Exam: Normal Bowel Sounds Assessment and Plan (1) Anemia Assessment & Plan: chronic disease, bone mets, intermittent hematuria s/p transfusion support Status: Acute (2) Prostate cancer Assessment & Plan: on total androgen deprivation with rising PSA outpatient palliative radiotherapy to painful bone lesions will need to ad Zytiga to hormonal therapy as outpatient Status: Acute
--- NOTE | 2018-01-29 16:04 | CT ---
PROCEDURE: CT HEAD WITHOUT CONTRAST. HISTORY: r/o mets COMPARISON: None available. TECHNIQUE: Axial computed tomography images were obtained through the head/brain without intravenous contrast. Radiation dose: Total exam DLP = 937.93 mGy-cm. This CT exam was performed using one or more of the following dose reduction techniques: Automated exposure control, adjustment of the mA and/or kV according to patient size, and/or use of iterative reconstruction technique. FINDINGS: HEMORRHAGE: No intracranial hemorrhage. BRAIN: Multifocal subcortical white matter lucency may reflect advanced chronic microangiopathy though other etiologies including vasculitis,, hypertension, migraine headaches in even Lyme disease and others are not excluded given the age of this patient. No prior comparisons available. The castillo matter is unremarkable with no focal edema appreciated. Follow-up MRI may be useful for further characterization. There is no mass effect or suspicious extra-axial fluid collection identified at the posterior fossa contents appear unremarkable including the brainstem. VENTRICLES: Unremarkable. No hydrocephalus. CALVARIUM: Unremarkable. PARANASAL SINUSES: Unremarkable as visualized. No significant inflammatory changes. MASTOID AIR CELLS: Unremarkable as visualized. No inflammatory changes. OTHER FINDINGS: Bilateral exopthalmos suspected. IMPRESSION: Probable advanced chronic microangiopathy for the patient's age, particularly this patient is diabetic. If not, follow-up MRI is advised to evaluate white matter abnormality further in this patient. Likely bilateral exophthalmos. Clinically correlate.
--- NOTE | 2018-01-29 20:16 | PN ---
DATE: SUBJECTIVE: The patient is experiencing generalized body pain. PHYSICAL EXAMINATION: VITAL SIGNS: Blood pressure 128/76, heart rate 90, temperature 99.3, respirations 20. HEENT: Pale conjunctiva. CHEST: Bilateral rhonchi. HEART: S1 and S2, regular. EXTREMITIES: 1+ pitting edema. LABORATORY DATA: Today's BUN and creatinine are 31 and 3.4 respectively. Today's SMA-7 is within normal limit. Today's hemoglobin and hematocrit 8.4 and 27.4, white count and platelet count 14.6 and 422. ASSESSMENT: 1. Metastatic prostatic cancer. 2. Obstructive uropathy, status post bilateral nephrostomy tube placement. 3. Anemia. 4. Hyperthyroidism. 5. Paroxysmal atrial fibrillation. RECOMMENDATIONS: Continue current IV Dilaudid p.r.n. Continue Flomax, Inderal, Tapazole, and IV Zosyn. Obtain a CT scan without contrast. Larry Islas MD
--- NOTE | 2018-01-29 22:49 | CP.PCM.PN ---
Subjective - Date & Time of Evaluation Date of Evaluation: 01/29/18 Time of Evaluation: 17:40 - Subjective Subjective: Pt seen & examined at bedside Objective - Vital Signs/Intake and Output Vital Signs (last 24 hours): Temp Pulse Resp BP Pulse Ox 101.8 F H 84 20 113/62 94 L 01/29/18 16:00 01/29/18 18:03 01/29/18 16:00 01/29/18 18:03 01/29/18 16:00 Intake and Output: 01/29/18 01/30/18 18:59 06:59 Intake Total 1020 Output Total 1510 Balance -490 - Medications Medications: Current Medications Acetaminophen (Tylenol 325mg Tab) 650 mg PO Q6 PRN PRN Reason: Fever >100.4 F Last Admin: 01/28/18 16:19 Dose: 650 mg Docusate Sodium (Colace) 100 mg PO TID [facility] Last Admin: 01/29/18 17:47 Dose: 100 mg Fentanyl (Duragesic) 1 patch TD Q72H [facility] Last Admin: 01/28/18 12:05 Dose: 1 patch Ferric Sodium Gluconate Complex (Ferrlecit) 125 mg IVPB DAILY [facility] Stop: 01/30/18 14:16 Last Admin: 01/29/18 10:58 Dose: 125 mg Flutamide (Eulexin) 125 mg PO Q8H [facility] Last Admin: 01/29/18 17:47 Dose: 125 mg Hydromorphone HCl (Dilaudid) 1 mg IVP Q4H PRN PRN Reason: breakthrough pain Last Admin: 01/29/18 22:04 Dose: 1 mg Piperacillin Sod/Tazobactam Sod (Zosyn 2.25 Gm Iv Premix) 2.25 gm in 50 mls @ 100 mls/hr IVPB Q6H [facility] PRN Reason: Protocol Last Admin: 01/29/18 22:04 Dose: 100 mls/hr Sodium Chloride (Sodium Chloride 0.9%) 1,000 mls @ 80 mls/hr IV .[id number] [facility] Last Admin: 01/29/18 21:00 Dose: Not Given Lidocaine (Lidoderm) 1 ea TD DAILY [facility] Last Admin: 01/29/18 10:17 Dose: 1 ea Magnesium Oxide (Mag-Ox) 400 mg PO DAILY [facility] Stop: 02/01/18 10:01 Methimazole (Tapazole) 5 mg PO DAILY [facility] Last Admin: 01/29/18 10:19 Dose: 5 mg Ondansetron HCl (Zofran Inj) 4 mg IVP Q6 PRN PRN Reason: Nausea/Vomiting Last Admin: 01/28/18 08:12 Dose: 4 mg Oxycodone HCl (Oxycontin Extended Release Tab) 10 mg PO Q12 [facility] Stop: 01/31/18 11:16 Last Admin: 01/29/18 21:47 Dose: 10 mg Pantoprazole Sodium (Protonix Ec Tab) 40 mg PO DAILY [facility] Last Admin: 01/29/18 10:19 Dose: 40 mg Propranolol HCl (Inderal) 10 mg PO BID [facility] Last Admin: 01/29/18 17:47 Dose: 10 mg Tamsulosin HCl (Flomax) 0.4 mg PO DAILY [facility] Last Admin: 01/29/18 10:19 Dose: 0.4 mg - Labs Labs: 01/29/18 09:05 01/29/18 07:17 PT 14.1 SECONDS (9.7-12.2) H 01/27/18 08:24 INR 1.2 01/27/18 08:24 APTT 36 SECONDS (21-34) H 01/27/18 08:24 Assessment and Plan (1) Septicemia Status: Suspected (2) Obstructive uropathy Status: Acute (3) Renal insufficiency Status: Acute
[2018-01-29] MEDS ORDERED: DAPTOmycin 500 mg Inj (Cubicin) IV SCH (23:45)
[2018-01-29] MEDS ORDERED: DAPTOmycin 500 MG in Sodium Chloride 0.9% 100 ML IV SCH (23:45)
[2018-01-30] MEDS: Sodium Chloride 0.9% 1,000 ML IV SCH ×3 (00:14→21:44)
[2018-01-30] MEDS: Piperacill/Tazo 2.25gm in Dex 2.25 GM/50 ML BAG IVPB SCH ×4 (05:43→22:22)
[2018-01-30] MEDS: oxyCODONE 10 mg ER Tab (oxyCONTIN) PO SCH ×2 (10:24→21:37)
[2018-01-30] MEDS: methIMAzole 5 MG TAB PO SCH (10:26)
[2018-01-30] MEDS: Magnesium Oxide 400 mg Tab UD PO SCH (10:26)
[2018-01-30] MEDS: Pantoprazole 40 mg EC Tab PO SCH (10:26)
[2018-01-30] MEDS: Lidocaine 5% Patch TD SCH (10:30)
[2018-01-30] MEDS: Ferric Sodium Gluconat Complex 62.5 mg/5 ml Vial IVPB SCH (11:37)
[2018-01-30 12:24] LABS: CALCIUM 8.7 mg/dl (8.6-10.4)
--- NOTE | 2018-01-30 12:36 | CP.PCM.PN ---
Subjective - Date & Time of Evaluation Date of Evaluation: 01/30/18 Time of Evaluation: 12:32 - Subjective Subjective: pt seen and examined moaning in pain says hurts all over no other complaints ROS - as per HPI, other than that 10 point ROS negative Objective - Vital Signs/Intake and Output Vital Signs (last 24 hours): Temp Pulse Resp BP Pulse Ox 99.3 F 79 20 125/62 97 01/30/18 09:35 01/30/18 09:35 01/30/18 09:35 01/30/18 09:35 01/30/18 09:35 Intake and Output: 01/30/18 01/30/18 06:59 18:59 Intake Total 2280 Output Total 2385 Balance -105 - Medications Medications: Current Medications Acetaminophen (Tylenol 325mg Tab) 650 mg PO Q6 PRN PRN Reason: Fever >100.4 F Last Admin: 01/30/18 00:20 Dose: 650 mg Docusate Sodium (Colace) 100 mg PO TID [facility] Last Admin: 01/30/18 10:24 Dose: 100 mg Fentanyl (Duragesic) 1 patch TD Q72H [facility] Last Admin: 01/28/18 12:05 Dose: 1 patch Ferric Sodium Gluconate Complex (Ferrlecit) 125 mg IVPB DAILY [facility] Stop: 01/30/18 14:16 Last Admin: 01/30/18 11:37 Dose: 125 mg Flutamide (Eulexin) 125 mg PO Q8H [facility] Last Admin: 01/30/18 10:26 Dose: 125 mg Hydromorphone HCl (Dilaudid) 1 mg IVP Q4H PRN PRN Reason: breakthrough pain Last Admin: 01/30/18 10:22 Dose: 1 mg Piperacillin Sod/Tazobactam Sod (Zosyn 2.25 Gm Iv Premix) 2.25 gm in 50 mls @ 100 mls/hr IVPB Q6H [facility] PRN Reason: Protocol Last Admin: 01/30/18 12:00 Dose: 100 mls/hr Sodium Chloride (Sodium Chloride 0.9%) 1,000 mls @ 80 mls/hr IV .[id number] [facility] Last Admin: 01/30/18 12:13 Dose: Not Given Daptomycin 500 mg/ Sodium (Chloride) 100 mls @ 100 mls/hr IV Q49H [facility] Stop: 02/03/18 23:46 Last Admin: 01/30/18 00:37 Dose: 100 mls/hr Lidocaine (Lidoderm) 1 ea TD DAILY [facility] Last Admin: 01/30/18 10:30 Dose: 1 ea Magnesium Oxide (Mag-Ox) 400 mg PO DAILY [facility] Stop: 02/01/18 10:01 Last Admin: 01/30/18 10:26 Dose: 400 mg Methimazole (Tapazole) 5 mg PO DAILY [facility] Last Admin: 01/30/18 10:26 Dose: 5 mg Ondansetron HCl (Zofran Inj) 4 mg IVP Q6 PRN PRN Reason: Nausea/Vomiting Last Admin: 01/30/18 08:28 Dose: 4 mg Oxycodone HCl (Oxycontin Extended Release Tab) 10 mg PO Q12 [facility] Stop: 01/31/18 11:16 Last Admin: 01/30/18 10:24 Dose: 10 mg Pantoprazole Sodium (Protonix Ec Tab) 40 mg PO DAILY [facility] Last Admin: 01/30/18 10:26 Dose: 40 mg Propranolol HCl (Inderal) 10 mg PO BID [facility] Last Admin: 01/30/18 10:31 Dose: 10 mg Tamsulosin HCl (Flomax) 0.4 mg PO DAILY [facility] Last Admin: 01/30/18 10:24 Dose: 0.4 mg - Labs Labs: 01/29/18 09:05 01/30/18 11:55 PT 14.1 SECONDS (9.7-12.2) H 01/27/18 08:24 INR 1.2 01/27/18 08:24 APTT 36 SECONDS (21-34) H 01/27/18 08:24 - Constitutional Appears: Non-toxic, No Acute Distress - Head Exam Head Exam: ATRAUMATIC, NORMOCEPHALIC - Eye Exam Eye Exam: EOMI, PERRL - ENT Exam ENT Exam: Mucous Membranes Moist - Neck Exam Neck Exam: absent: Lymphadenopathy - Respiratory Exam Respiratory Exam: Clear to Ausculation Bilateral. absent: Rhonchi, Wheezes - Cardiovascular Exam Cardiovascular Exam: REGULAR RHYTHM, +S1, +S2 - GI/Abdominal Exam GI & Abdominal Exam: Soft. absent: Tenderness - Extremities Exam Extremities Exam: absent: Joint Swelling, Pedal Edema - Neurological Exam Neurological Exam: Alert, Awake, Oriented x3 - Psychiatric Exam Psychiatric exam: Agitated - Skin Skin Exam: Dry, Intact Assessment and Plan (1) EMMETT (acute kidney injury) Status: Acute (2) Anemia Status: Acute (3) Diffuse pain Status: Acute (4) Obstructive uropathy Status: Acute (5) Polysubstance abuse Status: Acute (6) Prostate cancer metastatic to bone Status: Acute - Assessment and Plan (Free Text) Plan: EMMETT resolving off dialysis permacath removed pain controll daily labs good UOP, Cr stable
[2018-01-30] MEDS ORDERED: DAPTOmycin 500 MG in Sodium Chloride 0.9% 100 ML IV SCH (16:15)
--- NOTE | 2018-01-30 16:43 | CARD ---
APPROVED REPORT EKG Measurement Heart [id number] ND [id number] <Conclusion> Normal sinus rhythm Possible Left atrial enlargement Left ventricular hypertrophy Abnormal ECG
--- NOTE | 2018-01-30 17:06 | CP.PCM.PN ---
Subjective - Date & Time of Evaluation Date of Evaluation: 01/30/18 Time of Evaluation: 15:45 - Subjective Subjective: Seen sleeping but arousable, has some knee pains Objective - Vital Signs/Intake and Output Vital Signs (last 24 hours): Temp Pulse Resp BP Pulse Ox 99.4 F 73 18 119/66 94 L 01/30/18 15:48 01/30/18 15:48 01/30/18 15:48 01/30/18 15:48 01/30/18 15:48 Intake and Output: 01/30/18 01/30/18 06:59 18:59 Intake Total 2280 1250 Output Total 2385 3100 Balance -105 -1850 - Medications Medications: Current Medications Acetaminophen (Tylenol 325mg Tab) 650 mg PO Q6 PRN PRN Reason: Fever >100.4 F Last Admin: 01/30/18 00:20 Dose: 650 mg Docusate Sodium (Colace) 100 mg PO TID [facility] Last Admin: 01/30/18 14:37 Dose: 100 mg Fentanyl (Duragesic) 1 patch TD Q72H [facility] Last Admin: 01/28/18 12:05 Dose: 1 patch Flutamide (Eulexin) 125 mg PO Q8H [facility] Last Admin: 01/30/18 10:26 Dose: 125 mg Heparin Sodium (Porcine) (Heparin) 5,000 units SC BID [facility] Hydromorphone HCl (Dilaudid) 1 mg IVP Q4H PRN PRN Reason: breakthrough pain Last Admin: 01/30/18 14:37 Dose: 1 mg Piperacillin Sod/Tazobactam Sod (Zosyn 2.25 Gm Iv Premix) 2.25 gm in 50 mls @ 100 mls/hr IVPB Q6H [facility] PRN Reason: Protocol Last Admin: 01/30/18 12:00 Dose: 100 mls/hr Sodium Chloride (Sodium Chloride 0.9%) 1,000 mls @ 80 mls/hr IV .[id number] [facility] Last Admin: 01/30/18 12:13 Dose: Not Given Daptomycin 500 mg/ Sodium (Chloride) 100 mls @ 100 mls/hr IV Q48H [facility] Stop: 02/06/18 00:01 Lidocaine (Lidoderm) 1 ea TD DAILY [facility] Last Admin: 01/30/18 10:30 Dose: 1 ea Magnesium Oxide (Mag-Ox) 400 mg PO DAILY [facility] Stop: 02/01/18 10:01 Last Admin: 01/30/18 10:26 Dose: 400 mg Methimazole (Tapazole) 5 mg PO DAILY [facility] Last Admin: 01/30/18 10:26 Dose: 5 mg Ondansetron HCl (Zofran Inj) 4 mg IVP Q6 PRN PRN Reason: Nausea/Vomiting Last Admin: 01/30/18 08:28 Dose: 4 mg Oxycodone HCl (Oxycontin Extended Release Tab) 10 mg PO Q12 [facility] Stop: 01/31/18 11:16 Last Admin: 01/30/18 10:24 Dose: 10 mg Pantoprazole Sodium (Protonix Ec Tab) 40 mg PO DAILY [facility] Last Admin: 01/30/18 10:26 Dose: 40 mg Propranolol HCl (Inderal) 10 mg PO BID [facility] Last Admin: 01/30/18 10:31 Dose: 10 mg Tamsulosin HCl (Flomax) 0.4 mg PO DAILY [facility] Last Admin: 01/30/18 10:24 Dose: 0.4 mg - Labs Labs: 01/29/18 09:05 01/30/18 11:55 PT 14.1 SECONDS (9.7-12.2) H 01/27/18 08:24 INR 1.2 01/27/18 08:24 APTT 36 SECONDS (21-34) H 01/27/18 08:24 - Head Exam Head Exam: ATRAUMATIC - Eye Exam Eye Exam: Normal appearance - ENT Exam ENT Exam: Mucous Membranes Dry - Respiratory Exam Respiratory Exam: NORMAL BREATHING PATTERN - Cardiovascular Exam Cardiovascular Exam: +S1, +S2 - GI/Abdominal Exam GI & Abdominal Exam: Normal Bowel Sounds - Extremities Exam Extremities Exam: Normal Inspection Assessment and Plan (1) Anemia Assessment & Plan: chronic disease, bone mets, renal disease, intermittent hematuria transfusion support PRN Status: Acute (2) Prostate cancer Assessment & Plan: stage IV on total androgen deprivation with rising PSA likely progressing and will require addition of Zytiga as outpatient Status: Acute
--- NOTE | 2018-01-30 19:57 | PCM.URO ---
Urology Progress Note - Objective Lab Studies: Reviewed (from gu standpoint pt ok for discharge and needs gu follow up for treatment of cancer or prostate and follow up with oncology as well/) Lab Results Last 24 Hours: Laboratory Results - last 24 hr 01/30/18 11:55 Sodium 138 Potassium 3.9 Chloride 101 Carbon Dioxide 25 Anion Gap 15 BUN 38 H Creatinine 3.2 H Est GFR ( Amer) 25 Est GFR (Non-Af Amer) 20 Random Glucose 139 H Calcium 8.7 Intake & Output: Intake & Output 01/30/18 01/30/18 01/31/18 06:59 18:59 06:59 Intake Total 2280 1250 Output Total 2385 3100 Balance -105 -1850 Intake: Intake, IV Amount 1320 650 Right Wrist 1320 650 Oral 960 600 Output: Drainage 2375 3000 Left Back 700 600 Right Back 1675 2400 Urine 10 100 Urethral (Osorio) 10 100 Other: # Bowel Movements 1 1 Vital Signs: Vital Signs - 24 hr 01/29/18 01/30/18 01/30/18 23:00 00:20 00:52 Temperature 101.2 F H 101.2 F H Pulse Rate 81 92 H Respiratory 20 Rate Blood Pressure 120/62 O2 Sat by Pulse 94 L Oximetry 01/30/18 01/30/18 01/30/18 01:20 04:07 09:35 Temperature 99.7 F H 99.3 F Pulse Rate 73 79 Respiratory 20 Rate Blood Pressure 125/62 O2 Sat by Pulse 97 Oximetry 01/30/18 01/30/18 15:48 16:00 Temperature 99.4 F Pulse Rate 73 86 Respiratory 18 Rate Blood Pressure 119/66 O2 Sat by Pulse 94 L Oximetry
--- NOTE | 2018-01-30 20:39 | PN ---
DATE: SUBJECTIVE: The patient currently in less pain as he just received his pain medicine. He denies any shortness of breath. PHYSICAL EXAMINATION: VITAL SIGNS: Blood pressure 119/66, heart rate 73, temperature 99.4, respirations 18. HEENT: Pale conjunctivae. CHEST: Clear. HEART: S1 and S2 regular. EXTREMITIES: No edema. LABORATORY DATA: Today's BUN and creatinine are 38 and 3.2, glucose 139. Today's SMA-7 is within normal limit. ASSESSMENT: 1. Metastatic prostatic cancer. 2. Anemia. 3. Acute renal insufficiency. 4. Status post bilateral nephrostomy. 5. Paroxysmal atrial fibrillation. 6. Thyrotoxicosis. CONDITIONS: Continue current Inderal 10 mg twice a day, Tapazole 5 mg once a day, Zosyn 2.25 gm intravenously q.6 hours, and p.r.n. IV Dilaudid. CT scan of head was negative for metastasis. Still, the patient is not considered a suitable candidate for long-term anticoagulation and conservative supportive measures are justified. In the meantime, the patient will be placed on subcutaneous heparin 5000 units twice a day while in the inpatient. Larry Islas MD
--- NOTE | 2018-01-30 20:42 | CP.PCM.PN ---
Subjective - Date & Time of Evaluation Date of Evaluation: 01/30/18 Time of Evaluation: 20:42 - Subjective Subjective: patient seen and examined at bedside. No acute events Anxious to know when the stents can be removed. Temperature 99.4, tmax 101.8. Denies cough or shortness of breath. LABS REVIEWED; CXR 01/28/18 NAD. wbc 14.6 LFTS N cREATININE 3.2/bun 38. bLOOD CULTURES-VE DATE. URINE CULTURES NEGATIVE TO DATE. CATHETER TIP-NO GROWTH. CT HEAD ADVANCED CHRONIC MICROANGIOPATHY. Objective - Vital Signs/Intake and Output Vital Signs (last 24 hours): Temp Pulse Resp BP Pulse Ox 99.4 F 86 18 119/66 94 L 01/30/18 15:48 01/30/18 16:00 01/30/18 15:48 01/30/18 15:48 01/30/18 15:48 Intake and Output: 01/30/18 01/31/18 18:59 06:59 Intake Total 1250 Output Total 3100 Balance -1850 - Medications Medications: Current Medications Acetaminophen (Tylenol 325mg Tab) 650 mg PO Q6 PRN PRN Reason: Fever >100.4 F Last Admin: 01/30/18 00:20 Dose: 650 mg Docusate Sodium (Colace) 100 mg PO TID [facility] Last Admin: 01/30/18 18:47 Dose: 100 mg Fentanyl (Duragesic) 1 patch TD Q72H [facility] Last Admin: 01/28/18 12:05 Dose: 1 patch Flutamide (Eulexin) 125 mg PO Q8H [facility] Last Admin: 01/30/18 18:47 Dose: 125 mg Heparin Sodium (Porcine) (Heparin) 5,000 units SC BID [facility] Last Admin: 01/30/18 18:47 Dose: 5,000 units Hydromorphone HCl (Dilaudid) 1 mg IVP Q4H PRN PRN Reason: breakthrough pain Last Admin: 01/30/18 18:48 Dose: 1 mg Piperacillin Sod/Tazobactam Sod (Zosyn 2.25 Gm Iv Premix) 2.25 gm in 50 mls @ 100 mls/hr IVPB Q6H [facility] PRN Reason: Protocol Last Admin: 01/30/18 17:45 Dose: 100 mls/hr Sodium Chloride (Sodium Chloride 0.9%) 1,000 mls @ 80 mls/hr IV .[id number] [facility] Last Admin: 01/30/18 12:13 Dose: Not Given Daptomycin 500 mg/ Sodium (Chloride) 100 mls @ 100 mls/hr IV Q48H [facility] Stop: 02/06/18 00:01 Lidocaine (Lidoderm) 1 ea TD DAILY [facility] Last Admin: 01/30/18 10:30 Dose: 1 ea Magnesium Oxide (Mag-Ox) 400 mg PO DAILY [facility] Stop: 02/01/18 10:01 Last Admin: 01/30/18 10:26 Dose: 400 mg Methimazole (Tapazole) 5 mg PO DAILY [facility] Last Admin: 01/30/18 10:26 Dose: 5 mg Ondansetron HCl (Zofran Inj) 4 mg IVP Q6 PRN PRN Reason: Nausea/Vomiting Last Admin: 01/30/18 08:28 Dose: 4 mg Oxycodone HCl (Oxycontin Extended Release Tab) 10 mg PO Q12 [facility] Stop: 01/31/18 11:16 Last Admin: 01/30/18 10:24 Dose: 10 mg Pantoprazole Sodium (Protonix Ec Tab) 40 mg PO DAILY [facility] Last Admin: 01/30/18 10:26 Dose: 40 mg Propranolol HCl (Inderal) 10 mg PO BID [facility] Last Admin: 01/30/18 18:47 Dose: 10 mg Tamsulosin HCl (Flomax) 0.4 mg PO DAILY [facility] Last Admin: 01/30/18 10:24 Dose: 0.4 mg - Labs Labs: 01/29/18 09:05 01/30/18 11:55 PT 14.1 SECONDS (9.7-12.2) H 01/27/18 08:24 INR 1.2 01/27/18 08:24 APTT 36 SECONDS (21-34) H 01/27/18 08:24 - Constitutional Appears: No Acute Distress, Chronically Ill - Head Exam Head Exam: NORMAL INSPECTION - Eye Exam Eye Exam: EOMI, PERRL. absent: Scleral icterus - ENT Exam ENT Exam: Normal Oropharynx - Neck Exam Neck Exam: Normal Inspection - Respiratory Exam Respiratory Exam: Clear to Ausculation Bilateral - Cardiovascular Exam Cardiovascular Exam: REGULAR RHYTHM, +S1, +S2 - GI/Abdominal Exam GI & Abdominal Exam: Soft, Normal Bowel Sounds - Extremities Exam Extremities Exam: Normal Capillary Refill. absent: Calf Tenderness, Pedal Edema - Neurological Exam Neurological Exam: Awake, CN II-XII Intact, Oriented x3 - Psychiatric Exam Psychiatric exam: Normal Mood - Skin Skin Exam: Pallor, Rash (CHRONIC PRURITIC RASH GENERALIZED- STATES FOR MANY YEARS / ECZEMA SPECIFIED BY THE PATIENT.), Warm Assessment and Plan (1) Fever Assessment & Plan: SOURCE OF FEVER NOT VERY CLEAR ? CATHETER SEPSIS CONTINUE iv zOSYN 2.25 EVERY 6 HOURLY. DAPTOMYCIN 500 MG IN 48 HOURLY ADDED FOR GRAM-POSITIVE COVERAGE 01/29/18. FOLLOW FEVER CURVE FOR NOW. IF PATIENT SPIKES FEVER ,REPEAT BLOOD CULTURES 2 SETS. CASE DISCUSSED WITH THE STAFF. Status: Acute (2) Obstructive uropathy Status: Acute (3) Prostate cancer metastatic to bone Status: Acute (4) Hydronephrosis Status: Acute (5) Anemia Status: Acute (6) Polysubstance abuse Status: Acute (7) EMMETT (acute kidney injury) Assessment & Plan: PATIENT'S RENAL FUNCTIONS ARE DETERIORATING .CREAT 3.2/bun 38. MAY NEED HEMODIALYSIS PER RENAL. Status: Acute
--- NOTE | 2018-01-30 23:35 | CP.PCM.PN ---
Subjective - Date & Time of Evaluation Date of Evaluation: 01/30/18 Time of Evaluation: 18:00 - Subjective Subjective: PT SEEN AND EXAMINED, remains febrile 101.8 ID is on board he is on pain medications, pending cultures to rule out sepsisi, CXR is bening Objective - Vital Signs/Intake and Output Vital Signs (last 24 hours): Temp Pulse Resp BP Pulse Ox 99.4 F 86 18 119/66 94 L 01/30/18 15:48 01/30/18 16:00 01/30/18 15:48 01/30/18 15:48 01/30/18 15:48 Intake and Output: 01/30/18 01/31/18 18:59 06:59 Intake Total 1250 1010 Output Total 3100 800 Balance -1850 210 - Medications Medications: Current Medications Acetaminophen (Tylenol 325mg Tab) 650 mg PO Q6 PRN PRN Reason: Fever >100.4 F Last Admin: 01/30/18 00:20 Dose: 650 mg Docusate Sodium (Colace) 100 mg PO TID [facility] Last Admin: 01/30/18 18:47 Dose: 100 mg Fentanyl (Duragesic) 1 patch TD Q72H [facility] Last Admin: 01/28/18 12:05 Dose: 1 patch Flutamide (Eulexin) 125 mg PO Q8H [facility] Last Admin: 01/30/18 18:47 Dose: 125 mg Heparin Sodium (Porcine) (Heparin) 5,000 units SC BID [facility] Last Admin: 01/30/18 18:47 Dose: 5,000 units Hydromorphone HCl (Dilaudid) 1 mg IVP Q4H PRN PRN Reason: breakthrough pain Last Admin: 01/30/18 22:21 Dose: 1 mg Piperacillin Sod/Tazobactam Sod (Zosyn 2.25 Gm Iv Premix) 2.25 gm in 50 mls @ 100 mls/hr IVPB Q6H [facility] PRN Reason: Protocol Last Admin: 01/30/18 22:22 Dose: 100 mls/hr Sodium Chloride (Sodium Chloride 0.9%) 1,000 mls @ 80 mls/hr IV .[id number] [facility] Last Admin: 01/30/18 21:44 Dose: Not Given Daptomycin 500 mg/ Sodium (Chloride) 100 mls @ 100 mls/hr IV Q48H [facility] Stop: 02/06/18 00:01 Lidocaine (Lidoderm) 1 ea TD DAILY [facility] Last Admin: 01/30/18 10:30 Dose: 1 ea Magnesium Oxide (Mag-Ox) 400 mg PO DAILY [facility] Stop: 02/01/18 10:01 Last Admin: 01/30/18 10:26 Dose: 400 mg Methimazole (Tapazole) 5 mg PO DAILY [facility] Last Admin: 01/30/18 10:26 Dose: 5 mg Ondansetron HCl (Zofran Inj) 4 mg IVP Q6 PRN PRN Reason: Nausea/Vomiting Last Admin: 01/30/18 08:28 Dose: 4 mg Oxycodone HCl (Oxycontin Extended Release Tab) 10 mg PO Q12 [facility] Stop: 01/31/18 11:16 Last Admin: 01/30/18 21:37 Dose: 10 mg Pantoprazole Sodium (Protonix Ec Tab) 40 mg PO DAILY [facility] Last Admin: 01/30/18 10:26 Dose: 40 mg Propranolol HCl (Inderal) 10 mg PO BID [facility] Last Admin: 01/30/18 18:47 Dose: 10 mg Tamsulosin HCl (Flomax) 0.4 mg PO DAILY [facility] Last Admin: 01/30/18 10:24 Dose: 0.4 mg - Labs Labs: 01/29/18 09:05 01/30/18 11:55 PT 14.1 SECONDS (9.7-12.2) H 01/27/18 08:24 INR 1.2 01/27/18 08:24 APTT 36 SECONDS (21-34) H 01/27/18 08:24 Assessment and Plan (1) Septicemia Status: Suspected (2) Obstructive uropathy Status: Acute (3) Renal insufficiency Status: Acute
[2018-01-31] MEDS: Sodium Chloride 0.9% 1,000 ML IV SCH ×3 (00:30→17:50)
[2018-01-31] MEDS: Piperacill/Tazo 2.25gm in Dex 2.25 GM/50 ML BAG IVPB SCH ×4 (05:40→22:01)
[2018-01-31 07:42] LABS: CALCIUM 8.8 mg/dl (8.6-10.4)
[2018-01-31] MEDS: Lidocaine 5% Patch TD SCH (09:39)
[2018-01-31] MEDS: oxyCODONE 10 mg ER Tab (oxyCONTIN) PO SCH (09:40)
[2018-01-31] MEDS: Pantoprazole 40 mg EC Tab PO SCH ×3 (09:41→17:41)
[2018-01-31] MEDS: Magnesium Oxide 400 mg Tab UD PO SCH (09:41)
[2018-01-31] MEDS: methIMAzole 5 MG TAB PO SCH (09:41)
--- NOTE | 2018-01-31 11:51 | CP.PCM.PN ---
Subjective - Date & Time of Evaluation Date of Evaluation: 01/31/18 Time of Evaluation: 11:30 - Subjective Subjective: No complaints Osorio removed nephrostomy tubes draining Objective - Vital Signs/Intake and Output Vital Signs (last 24 hours): Temp Pulse Resp BP Pulse Ox 97.8 F 88 18 145/91 H 98 01/31/18 07:00 01/31/18 07:00 01/31/18 07:00 01/31/18 07:00 01/31/18 07:00 Intake and Output: 01/31/18 01/31/18 06:59 18:59 Intake Total 1610 Output Total 3070 Balance -1460 - Medications Medications: Current Medications Acetaminophen (Tylenol 325mg Tab) 650 mg PO Q6 PRN PRN Reason: Fever >100.4 F Last Admin: 01/30/18 00:20 Dose: 650 mg Docusate Sodium (Colace) 100 mg PO TID [facility] Last Admin: 01/31/18 09:40 Dose: 100 mg Fentanyl (Duragesic) 1 patch TD Q72H [facility] Last Admin: 01/31/18 10:39 Dose: 1 patch Flutamide (Eulexin) 125 mg PO Q8H [facility] Last Admin: 01/31/18 09:40 Dose: 125 mg Heparin Sodium (Porcine) (Heparin) 5,000 units SC BID [facility] Last Admin: 01/31/18 09:39 Dose: 5,000 units Hydromorphone HCl (Dilaudid) 1 mg IVP Q4H PRN PRN Reason: breakthrough pain Last Admin: 01/31/18 10:40 Dose: 1 mg Piperacillin Sod/Tazobactam Sod (Zosyn 2.25 Gm Iv Premix) 2.25 gm in 50 mls @ 100 mls/hr IVPB Q6H [facility] PRN Reason: Protocol Last Admin: 01/31/18 10:40 Dose: 100 mls/hr Sodium Chloride (Sodium Chloride 0.9%) 1,000 mls @ 80 mls/hr IV .[id number] [facility] Last Admin: 01/31/18 11:05 Dose: Not Given Daptomycin 500 mg/ Sodium (Chloride) 100 mls @ 100 mls/hr IV Q48H [facility] Stop: 02/06/18 00:01 Lidocaine (Lidoderm) 1 ea TD DAILY [facility] Last Admin: 01/31/18 09:39 Dose: 1 ea Magnesium Oxide (Mag-Ox) 400 mg PO DAILY [facility] Stop: 02/01/18 10:01 Last Admin: 01/31/18 09:41 Dose: 400 mg Methimazole (Tapazole) 5 mg PO DAILY [facility] Last Admin: 01/31/18 09:41 Dose: 5 mg Ondansetron HCl (Zofran Inj) 4 mg IVP Q6 PRN PRN Reason: Nausea/Vomiting Last Admin: 01/30/18 08:28 Dose: 4 mg Pantoprazole Sodium (Protonix Ec Tab) 40 mg PO DAILY [facility] Last Admin: 01/31/18 09:41 Dose: 40 mg Propranolol HCl (Inderal) 10 mg PO BID [facility] Last Admin: 01/31/18 09:41 Dose: 10 mg Tamsulosin HCl (Flomax) 0.4 mg PO DAILY [facility] Last Admin: 01/31/18 09:41 Dose: 0.4 mg - Labs Labs: 01/29/18 09:05 01/31/18 07:17 PT 14.1 SECONDS (9.7-12.2) H 01/27/18 08:24 INR 1.2 01/27/18 08:24 APTT 36 SECONDS (21-34) H 01/27/18 08:24 - Head Exam Head Exam: ATRAUMATIC - Eye Exam Eye Exam: Normal appearance - ENT Exam ENT Exam: Mucous Membranes Dry - Respiratory Exam Respiratory Exam: NORMAL BREATHING PATTERN - Cardiovascular Exam Cardiovascular Exam: +S1, +S2 - GI/Abdominal Exam GI & Abdominal Exam: Normal Bowel Sounds Assessment and Plan (1) Anemia Assessment & Plan: chronic disease, bone mets, intermittent hematuria, renal disease s/p transfusion support Status: Acute (2) Prostate cancer Assessment & Plan: stage IV on total androgen deprivation rising psa, progressing will need addition of outpatient Zytiga Status: Acute
--- NOTE | 2018-01-31 13:57 | CP.PCM.PN ---
Subjective - Date & Time of Evaluation Date of Evaluation: 01/31/18 Time of Evaluation: 13:55 - Subjective Subjective: More alert; good UO from nephrostomiies- mostly right side creat down to 2.8 BP controlled would need PNTs in place unless stents can be placed Objective - Vital Signs/Intake and Output Vital Signs (last 24 hours): Temp Pulse Resp BP Pulse Ox 97.8 F 88 18 145/91 H 98 01/31/18 07:00 01/31/18 07:00 01/31/18 07:00 01/31/18 07:00 01/31/18 07:00 Intake and Output: 01/31/18 01/31/18 06:59 18:59 Intake Total 1610 Output Total 3070 Balance -1460 - Medications Medications: Current Medications Acetaminophen (Tylenol 325mg Tab) 650 mg PO Q6 PRN PRN Reason: Fever >100.4 F Last Admin: 01/30/18 00:20 Dose: 650 mg Docusate Sodium (Colace) [address] [facility] Last Admin: 01/31/18 09:40 Dose: 100 mg Fentanyl (Duragesic) [address] [facility] Last Admin: 01/31/18 10:39 Dose: 1 patch Flutamide (Eulexin) [address] [facility] Last Admin: 01/31/18 09:40 Dose: 125 mg Heparin Sodium (Porcine) (Heparin) 5,[address] [facility] Last Admin: 01/31/18 09:39 Dose: 5,000 units Hydromorphone HCl (Dilaudid) 1 mg IVP Q4H PRN PRN Reason: breakthrough pain Last Admin: 01/31/18 10:40 Dose: 1 mg Piperacillin Sod/Tazobactam Sod (Zosyn 2.25 Gm Iv Premix) 2.25 gm in 50 mls @ 100 mls/hr IVPB Q6H [facility] PRN Reason: Protocol Last Admin: 01/31/18 10:40 Dose: 100 mls/hr Sodium Chloride (Sodium Chloride 0.9%) 1,000 mls @ 80 mls/hr IV .[id number] [facility] Last Admin: 01/31/18 11:05 Dose: Not Given Daptomycin 500 mg/ Sodium (Chloride) 100 mls @ 100 mls/hr IV Q48H [facility] Stop: 02/06/18 00:01 Lidocaine (Lidoderm) [address] [facility] Last Admin: 01/31/18 09:39 Dose: 1 ea Magnesium Oxide (Mag-Ox) [address] [facility] Stop: 02/01/18 10:01 Last Admin: 01/31/18 09:41 Dose: 400 mg Methimazole (Tapazole) [address] [facility] Last Admin: 01/31/18 09:41 Dose: 5 mg Ondansetron HCl (Zofran Inj) 4 mg IVP Q6 PRN PRN Reason: Nausea/Vomiting Last Admin: 01/30/18 08:28 Dose: 4 mg Pantoprazole Sodium (Protonix Ec Tab) [address] [facility] Last Admin: 01/31/18 09:41 Dose: 40 mg Propranolol HCl (Inderal) [address] [facility] Last Admin: 01/31/18 09:41 Dose: 10 mg Tamsulosin HCl (Flomax) 0.[address] [facility] Last Admin: 01/31/18 09:41 Dose: 0.4 mg - Labs Labs: 01/29/18 09:05 01/31/18 07:17 PT 14.1 SECONDS (9.7-12.2) H 01/27/18 08:24 INR 1.2 01/27/18 08:24 APTT 36 SECONDS (21-34) H 01/27/18 08:24 - Constitutional Appears: No Acute Distress, Chronically Ill - Head Exam Head Exam: ATRAUMATIC, NORMAL INSPECTION - Eye Exam Eye Exam: EOMI, Normal appearance - Neck Exam Neck Exam: Normal Inspection. absent: Tenderness - Respiratory Exam Respiratory Exam: Clear to Ausculation Bilateral, NORMAL BREATHING PATTERN - Cardiovascular Exam Cardiovascular Exam: REGULAR RHYTHM, +S1 - GI/Abdominal Exam GI & Abdominal Exam: Soft. absent: Tenderness - Extremities Exam Extremities Exam: Normal Inspection. absent: Tenderness - Neurological Exam Neurological Exam: Awake, CN II-XII Intact - Skin Skin Exam: Dry, Warm Assessment and Plan (1) Obstructive uropathy Status: Acute (2) Prostate cancer metastatic to bone Status: Acute (3) Substance abuse Status: Acute (4) EMMETT (acute kidney injury) Status: Acute (5) Uremia Status: Acute - Assessment and Plan (Free Text) Plan: replete mag further f/u lytes keep PNTs in place- follow up
--- NOTE | 2018-01-31 22:08 | PN ---
DATE: SUBJECTIVE: The patient denied any chest pain. Osorio catheter was removed. He still has bilateral nephrostomy tubes. No hematuria. PHYSICAL EXAMINATION: VITAL SIGNS: Blood pressure 116/66, heart rate 82, temperature 98.7, respirations 18. HEENT: [place] conjunctivae. CHEST: Clear. HEART: S1 and S2, regular. EXTREMITIES: No edema. ASSESSMENT: 1. Metastatic prostatic cancer. 2. Paroxysmal atrial fibrillation. 3. Hypothyroidism. 4. Acute renal failure secondary to obstructive uropathy, status post bilateral nephrostomy tube placement. RECOMMENDATIONS: Continue subcutaneous heparin 5000 units twice a day, magnesium oxide 400 mg daily, Tapazole 5 mg daily, Zosyn 2.25 gm intravenously q.6 hours. Larry Islas MD
--- NOTE | 2018-01-31 23:12 | CP.PCM.PN ---
Subjective - Date & Time of Evaluation Date of Evaluation: 01/31/18 Time of Evaluation: 18:25 - Subjective Subjective: Pt seen and examined at bedside pt has b/l nephrostomy, he is afberile, he is on zosyn, ileana any naisea, vomitting, off HD BUN/creatinine is stable Objective - Vital Signs/Intake and Output Vital Signs (last 24 hours): Temp Pulse Resp BP Pulse Ox 97.7 F 83 18 116/66 95 01/31/18 15:47 01/31/18 16:00 01/31/18 15:47 01/31/18 15:47 01/31/18 15:47 Intake and Output: 01/31/18 02/01/18 18:59 06:59 Intake Total 520 1260 Output Total 2270 700 Balance -1750 560 - Medications Medications: Current Medications Acetaminophen (Tylenol 325mg Tab) 650 mg PO Q6 PRN PRN Reason: Fever >100.4 F Last Admin: 01/30/18 00:20 Dose: 650 mg Docusate Sodium (Colace) 100 mg PO TID [facility] Last Admin: 01/31/18 17:41 Dose: 100 mg Fentanyl (Duragesic) 1 patch TD Q72H [facility] Last Admin: 01/31/18 10:39 Dose: 1 patch Flutamide (Eulexin) 125 mg PO Q8H [facility] Last Admin: 01/31/18 17:41 Dose: 125 mg Heparin Sodium (Porcine) (Heparin) 5,000 units SC BID [facility] Last Admin: 01/31/18 17:41 Dose: 5,000 units Hydromorphone HCl (Dilaudid) 1 mg IVP Q4H PRN PRN Reason: breakthrough pain Last Admin: 01/31/18 22:01 Dose: 1 mg Piperacillin Sod/Tazobactam Sod (Zosyn 2.25 Gm Iv Premix) 2.25 gm in 50 mls @ 100 mls/hr IVPB Q6H [facility] PRN Reason: Protocol Last Admin: 01/31/18 22:01 Dose: 100 mls/hr Daptomycin 500 mg/ Sodium (Chloride) 100 mls @ 100 mls/hr IV Q48H [facility] Stop: 02/06/18 00:01 Lidocaine (Lidoderm) 1 ea TD DAILY [facility] Last Admin: 01/31/18 09:39 Dose: 1 ea Magnesium Oxide (Mag-Ox) 400 mg PO DAILY [facility] Stop: 02/01/18 10:01 Last Admin: 01/31/18 09:41 Dose: 400 mg Methimazole (Tapazole) 5 mg PO DAILY [facility] Last Admin: 01/31/18 09:41 Dose: 5 mg Ondansetron HCl (Zofran Inj) 4 mg IVP Q6 PRN PRN Reason: Nausea/Vomiting Last Admin: 01/30/18 08:28 Dose: 4 mg Pantoprazole Sodium (Protonix Ec Tab) 40 mg PO TID [facility] Last Admin: 01/31/18 17:41 Dose: 40 mg Propranolol HCl (Inderal) 10 mg PO BID [facility] Last Admin: 01/31/18 17:41 Dose: 10 mg Tamsulosin HCl (Flomax) 0.4 mg PO DAILY [facility] Last Admin: 01/31/18 09:41 Dose: 0.4 mg - Labs Labs: 01/29/18 09:05 01/31/18 07:17 PT 14.1 SECONDS (9.7-12.2) H 01/27/18 08:24 INR 1.2 01/27/18 08:24 APTT 36 SECONDS (21-34) H 01/27/18 08:24 - Constitutional Appears: No Acute Distress - Head Exam Head Exam: ATRAUMATIC, NORMAL INSPECTION, NORMOCEPHALIC - Respiratory Exam Respiratory Exam: Clear to Ausculation Bilateral, NORMAL BREATHING PATTERN - Cardiovascular Exam Cardiovascular Exam: REGULAR RHYTHM, +S1, +S2. absent: Murmur Assessment and Plan (1) Septicemia Status: Suspected (2) Obstructive uropathy Status: Acute (3) Renal insufficiency Status: Acute
[2018-02-01] MEDS: DAPTOmycin 500 MG in Sodium Chloride 0.9% 100 ML IV SCH (01:47)
[2018-02-01] MEDS: Piperacill/Tazo 2.25gm in Dex 2.25 GM/50 ML BAG IVPB SCH ×4 (05:13→22:39)
[2018-02-01 06:39] LABS: ALB/GLOB RATIO 0.8 (1.0-2.1); ALBUMIN 3.3 g/dL (3.5-5.0); CALCIUM 8.8 mg/dl (8.6-10.4)
--- NOTE | 2018-02-01 09:32 | CP.PCM.PN ---
Subjective - Date & Time of Evaluation Date of Evaluation: 02/01/18 Time of Evaluation: 09:30 - Subjective Subjective: in bed, feels ok complaints of generalized body pain afebrile cr down to 2.1 asking for regular food as well ROS- as per HPI, other than that 10 point ROS negative Objective - Vital Signs/Intake and Output Vital Signs (last 24 hours): Temp Pulse Resp BP Pulse Ox 98.6 F 62 20 107/58 L 96 02/01/18 07:00 02/01/18 07:00 02/01/18 07:00 02/01/18 07:00 02/01/18 07:00 Intake and Output: 02/01/18 02/01/18 06:59 18:59 Intake Total 1260 Output Total 2950 Balance -1690 - Medications Medications: Current Medications Acetaminophen (Tylenol 325mg Tab) 650 mg PO Q6 PRN PRN Reason: Fever >100.4 F Last Admin: 01/30/18 00:20 Dose: 650 mg Docusate Sodium (Colace) 100 mg PO TID [facility] Last Admin: 01/31/18 17:41 Dose: 100 mg Fentanyl (Duragesic) 1 patch TD Q72H [facility] Last Admin: 01/31/18 10:39 Dose: 1 patch Flutamide (Eulexin) 125 mg PO Q8H [facility] Last Admin: 02/01/18 02:23 Dose: 125 mg Heparin Sodium (Porcine) (Heparin) 5,000 units SC BID [facility] Last Admin: 01/31/18 17:41 Dose: 5,000 units Hydromorphone HCl (Dilaudid) 1 mg IVP Q4H PRN PRN Reason: breakthrough pain Last Admin: 02/01/18 05:38 Dose: 1 mg Piperacillin Sod/Tazobactam Sod (Zosyn 2.25 Gm Iv Premix) 2.25 gm in 50 mls @ 100 mls/hr IVPB Q6H [facility] PRN Reason: Protocol Last Admin: 02/01/18 05:13 Dose: 100 mls/hr Daptomycin 500 mg/ Sodium (Chloride) 100 mls @ 100 mls/hr IV Q48H [facility] Stop: 02/06/18 00:01 Last Admin: 02/01/18 01:47 Dose: 100 mls/hr Lidocaine (Lidoderm) 1 ea TD DAILY [facility] Last Admin: 01/31/18 09:39 Dose: 1 ea Magnesium Oxide (Mag-Ox) 400 mg PO DAILY [facility] Stop: 02/01/18 10:01 Last Admin: 01/31/18 09:41 Dose: 400 mg Methimazole (Tapazole) 5 mg PO DAILY [facility] Last Admin: 01/31/18 09:41 Dose: 5 mg Ondansetron HCl (Zofran Inj) 4 mg IVP Q6 PRN PRN Reason: Nausea/Vomiting Last Admin: 01/30/18 08:28 Dose: 4 mg Pantoprazole Sodium (Protonix Ec Tab) 40 mg PO TID [facility] Last Admin: 01/31/18 17:41 Dose: 40 mg Propranolol HCl (Inderal) 10 mg PO BID [facility] Last Admin: 01/31/18 17:41 Dose: 10 mg Tamsulosin HCl (Flomax) 0.4 mg PO DAILY [facility] Last Admin: 01/31/18 09:41 Dose: 0.4 mg - Labs Labs: 01/29/18 09:05 02/01/18 06:04 PT 14.1 SECONDS (9.7-12.2) H 01/27/18 08:24 INR 1.2 01/27/18 08:24 APTT 36 SECONDS (21-34) H 01/27/18 08:24 - Constitutional Appears: Non-toxic, Chronically Ill - Head Exam Head Exam: ATRAUMATIC, NORMOCEPHALIC - Eye Exam Eye Exam: EOMI, PERRL - ENT Exam ENT Exam: Mucous Membranes Moist - Neck Exam Neck Exam: Full ROM - Respiratory Exam Respiratory Exam: Clear to Ausculation Bilateral. absent: Rhonchi, Wheezes - Cardiovascular Exam Cardiovascular Exam: REGULAR RHYTHM, +S1, +S2 - GI/Abdominal Exam GI & Abdominal Exam: Soft. absent: Distended, Tenderness Additional comments: b.l pCN - Extremities Exam Extremities Exam: Full ROM. absent: Pedal Edema - Neurological Exam Neurological Exam: Alert, Awake, Oriented x3 - Psychiatric Exam Psychiatric exam: Depressed, Flat Affect - Skin Skin Exam: Intact, Warm Assessment and Plan (1) EMMETT (acute kidney injury) Status: Acute (2) Anemia Status: Acute (3) Diffuse pain Status: Acute (4) Obstructive uropathy Status: Acute (5) Polysubstance abuse Status: Acute (6) Prostate cancer metastatic to bone Status: Acute - Assessment and Plan (Free Text) Plan: emmett resolving del rio catheter removed pain management electrolytes acceptable
[2018-02-01] MEDS: Pantoprazole 40 mg EC Tab PO SCH ×3 (09:51→19:00)
[2018-02-01] MEDS: Magnesium Oxide 400 mg Tab UD PO SCH (09:52)
[2018-02-01] MEDS: Lidocaine 5% Patch TD SCH (09:55)
[2018-02-01] MEDS: methIMAzole 5 MG TAB PO SCH (09:56)
[2018-02-01] MEDS: oxyCODONE 10 mg ER Tab (oxyCONTIN) PO SCH ×2 (10:49→21:58)
[2018-02-01] MEDS ORDERED: HYDROmorphone 1 mg/ml ISec IVP ONE ×2 (17:35→22:00)
--- NOTE | 2018-02-01 18:56 | CP.PCM.PN ---
Subjective - Date & Time of Evaluation Date of Evaluation: 02/01/18 Time of Evaluation: 18:15 - Subjective Subjective: Having worsening lower back pain. Objective - Vital Signs/Intake and Output Vital Signs (last 24 hours): Temp Pulse Resp BP Pulse Ox 99.7 F H 80 20 126/79 98 02/01/18 16:00 02/01/18 16:00 02/01/18 16:00 02/01/18 16:00 02/01/18 16:00 Intake and Output: 02/01/18 02/01/18 06:59 18:59 Intake Total 1260 720 Output Total 2950 1710 Balance -1690 -990 - Medications Medications: Current Medications Acetaminophen (Tylenol 325mg Tab) 650 mg PO Q6 PRN PRN Reason: Fever >100.4 F Last Admin: 01/30/18 00:20 Dose: 650 mg Docusate Sodium (Colace) 100 mg PO TID [facility] Last Admin: 02/01/18 13:56 Dose: 100 mg Fentanyl (Duragesic) 1 patch TD Q72H [facility] Last Admin: 01/31/18 10:39 Dose: 1 patch Flutamide (Eulexin) 125 mg PO Q8H [facility] Last Admin: 02/01/18 09:52 Dose: 125 mg Heparin Sodium (Porcine) (Heparin) 5,000 units SC BID [facility] Last Admin: 02/01/18 09:52 Dose: 5,000 units Hydromorphone HCl (Dilaudid) 1 mg IVP Q4H PRN PRN Reason: breakthrough pain Last Admin: 02/01/18 15:56 Dose: 1 mg Piperacillin Sod/Tazobactam Sod (Zosyn 2.25 Gm Iv Premix) 2.25 gm in 50 mls @ 100 mls/hr IVPB Q6H [facility] PRN Reason: Protocol Last Admin: 02/01/18 15:59 Dose: 100 mls/hr Daptomycin 500 mg/ Sodium (Chloride) 100 mls @ 100 mls/hr IV Q48H [facility] Stop: 02/06/18 00:01 Last Admin: 02/01/18 01:47 Dose: 100 mls/hr Lidocaine (Lidoderm) 1 ea TD DAILY [facility] Last Admin: 02/01/18 09:55 Dose: 1 ea Magnesium Chloride (Slow-Mag) 128 mg PO DAILY [facility] Methimazole (Tapazole) 5 mg PO DAILY [facility] Last Admin: 02/01/18 09:56 Dose: 5 mg Ondansetron HCl (Zofran Inj) 4 mg IVP Q6 PRN PRN Reason: Nausea/Vomiting Last Admin: 01/30/18 08:28 Dose: 4 mg Oxycodone HCl (Oxycontin Extended Release Tab) 10 mg PO Q12 [facility] Stop: 02/04/18 10:01 Last Admin: 02/01/18 10:49 Dose: 10 mg Pantoprazole Sodium (Protonix Ec Tab) 40 mg PO TID [facility] Last Admin: 02/01/18 13:56 Dose: 40 mg Propranolol HCl (Inderal) 10 mg PO BID [facility] Last Admin: 02/01/18 09:55 Dose: 10 mg Tamsulosin HCl (Flomax) 0.4 mg PO DAILY [facility] Last Admin: 02/01/18 09:51 Dose: 0.4 mg - Labs Labs: 01/29/18 09:05 02/01/18 06:04 PT 14.1 SECONDS (9.7-12.2) H 01/27/18 08:24 INR 1.2 01/27/18 08:24 APTT 36 SECONDS (21-34) H 01/27/18 08:24 - Head Exam Head Exam: ATRAUMATIC - Eye Exam Eye Exam: Normal appearance - ENT Exam ENT Exam: Mucous Membranes Dry - Respiratory Exam Respiratory Exam: NORMAL BREATHING PATTERN - Cardiovascular Exam Cardiovascular Exam: +S1, +S2 - GI/Abdominal Exam GI & Abdominal Exam: Normal Bowel Sounds Assessment and Plan (1) Anemia Assessment & Plan: chronic disease and renal disease s/p PRBC transfusion Status: Acute (2) Prostate cancer Assessment & Plan: stage IV on total androgen deprivation bone mets with worsening lower back pain; will order Lspine MRI rising PSA will need addition of outpatient Zytiga Status: Acute
[2018-02-01] MEDS: Magnesium Chloride 64 mg ER Tab PO SCH (19:00)
--- NOTE | 2018-02-01 20:34 | PN ---
DATE: 02/01/2018 SUBJECTIVE: The patient denies any chest pain. PHYSICAL EXAMINATION: VITAL SIGNS: Blood pressure 107/68, heart rate 62, temperature 98.6, respirations 20. HEENT: Clear conjunctiva. CHEST: Bilateral rhonchi. HEART: S1 and S2, regular. EXTREMITIES: No edema. LABORATORY DATA: Today's BUN and creatinine are 33 and 2.1. Magnesium is 1.4. ASSESSMENT: 1. Metastatic prostatic cancer. 2. Improving renal insufficiency. 3. Obstructive uropathy, status post bilateral nephrostomy tube placement. 4. Hypomagnesemia. 5. Hyperthyroidism. 6. Paroxysmal atrial fibrillation. RECOMMENDATIONS: The patient did receive oral magnesium oxide replacement today. Continue daptomycin 500 mg intravenously every 48 hours. Continue subcutaneous heparin 5000 units twice a day, Inderal at 10 mg twice a day, Tapazole at 5 mg once a day. Start Slow-Mag at 2 tablets p.o. twice a day starting today. Larry Isals MD
--- NOTE | 2018-02-02 00:09 | PN ---
DATE: SUBJECTIVE: The patient is having flank pain. He has bilateral nephrostomies. His creatinine is coming down. He is feeling better. He is afebrile. Now, he is on antibiotics. Cultures are negative so far. PHYSICAL EXAMINATION: VITAL SIGNS: Blood pressure is 126/79, pulse 80, respiratory rate 20, temperature 99.7. LUNGS: Clear. CVS: S1, S2 regular. ABDOMEN: Soft. Bilateral nephrostomy. ASSESSMENT: 1. Obstructive uropathy, nephrolithiasis. 2. Chronic kidney disease. The patient is off hemodialysis now. 3. Anemia of chronic disease. PLAN: Antibiotics, medical management, monitor the patient. Freddie Ely MD
[2018-02-02] MEDS: Piperacill/Tazo 2.25gm in Dex 2.25 GM/50 ML BAG IVPB SCH ×4 (04:17→23:30)
[2018-02-02] MEDS: Magnesium Chloride 64 mg ER Tab PO SCH (09:00)
[2018-02-02] MEDS: Pantoprazole 40 mg EC Tab PO SCH ×3 (09:01→16:59)
[2018-02-02] MEDS: methIMAzole 5 MG TAB PO SCH (09:01)
[2018-02-02] MEDS: Lidocaine 5% Patch TD SCH (09:01)
[2018-02-02] MEDS: oxyCODONE 10 mg ER Tab (oxyCONTIN) PO SCH ×2 (09:08→22:48)
[2018-02-02 10:57] LABS: BASO # 0.1 K/uL (0.0-0.2); BASO % 1.4 % (0.0-2.0); EOS # 0.8 K/uL (0.0-0.7); EOS % 7.6 % (0.0-4.0); HEMOGLOBIN 8.3 g/dL (12.0-18.0); LYMPH # 1.2 K/uL (1.0-4.3); LYMPH % 11.3 % (20.0-40.0); MEAN CORPUSCULAR HEMOGLOBIN 24.9 pg (27.0-31.0); MEAN CORPUSCULAR HGB CONC 34.1 g/dL (33.0-37.0); MEAN PLATELET VOLUME 8.3 fL (7.2-11.7); MONO # 0.9 K/uL (0.0-0.8); MONO % 8.7 % (0.0-10.0); NEUT # 7.6 K/uL (1.8-7.0); RBC 3.32 Mil/uL (4.40-5.90); WHITE BLOOD COUNT 10.7 K/uL (4.8-10.8)
[2018-02-02 11:11] LABS: ALB/GLOB RATIO 0.8 (1.0-2.1); ALBUMIN 3.5 g/dL (3.5-5.0); CALCIUM 9.3 mg/dl (8.6-10.4)
--- NOTE | 2018-02-02 21:21 | PN ---
DATE: SUBJECTIVE: No reported hematuria from the nephrostomy tube. No chest pain. PHYSICAL EXAMINATION: VITAL SIGNS: Blood pressure 151/56, heart rate 64, temperature 98.5, respirations 20. HEENT: Pale conjunctiva. CHEST: Clear. HEART: S1 and S2, regular. EXTREMITIES: No edema. LABORATORY DATA: Hemoglobin 8.3 and hematocrit 24.2, white count 10.7, and platelet count 564,000. CBC: BUN and creatinine are 34 and 2.0 respectively. Glucose 142. Liver enzymes are still elevated. ASSESSMENT: 1. Hyperthyroidism. 2. Paroxysmal atrial fibrillation. 3. Prostatic cancer with obstructive uropathy, status post bilateral nephrostomy tube placement. RECOMMENDATIONS: Continue subcutaneous heparin 5000 units twice a day. Continue Inderal 10 mg twice a day. Continue Slow-Mag at 128 mg daily, Tapazole at 5 mg once a day, IV Zosyn 2.25 gm intravenously q.6 hours, and IV daptomycin 500 mg q.48 hours. Larry Islas MD
--- NOTE | 2018-02-02 21:29 | CP.PCM.PN ---
Subjective - Date & Time of Evaluation Date of Evaluation: 02/02/18 Time of Evaluation: 18:15 - Subjective Subjective: Has lower back pain. Objective - Vital Signs/Intake and Output Vital Signs (last 24 hours): Temp Pulse Resp BP Pulse Ox 98.5 F 64 20 113/56 L 99 02/02/18 15:18 02/02/18 15:18 02/02/18 15:18 02/02/18 15:18 02/02/18 15:18 Intake and Output: 02/02/18 02/03/18 18:59 06:59 Intake Total 720 Output Total 1400 350 Balance -680 -350 - Medications Medications: Current Medications Acetaminophen (Tylenol 325mg Tab) 650 mg PO Q6 PRN PRN Reason: Fever >100.4 F Last Admin: 01/30/18 00:20 Dose: 650 mg Docusate Sodium (Colace) 100 mg PO TID [facility] Last Admin: 02/02/18 18:00 Dose: Not Given Fentanyl (Duragesic) 1 patch TD Q72H [facility] Last Admin: 01/31/18 10:39 Dose: 1 patch Flutamide (Eulexin) 125 mg PO Q8H [facility] Last Admin: 02/02/18 16:59 Dose: 125 mg Hydromorphone HCl (Dilaudid) 1 mg IVP Q4H PRN PRN Reason: breakthrough pain Last Admin: 02/02/18 20:54 Dose: 1 mg Daptomycin 500 mg/ Sodium (Chloride) 100 mls @ 100 mls/hr IV Q48H [facility] Stop: 02/06/18 00:01 Last Admin: 02/01/18 01:47 Dose: 100 mls/hr Lidocaine (Lidoderm) 1 ea TD DAILY [facility] Last Admin: 02/02/18 09:01 Dose: 1 ea Magnesium Chloride (Slow-Mag) 128 mg PO DAILY [facility] Last Admin: 02/02/18 09:00 Dose: 128 mg Methimazole (Tapazole) 5 mg PO DAILY [facility] Last Admin: 02/02/18 09:01 Dose: 5 mg Ondansetron HCl (Zofran Inj) 4 mg IVP Q6 PRN PRN Reason: Nausea/Vomiting Last Admin: 01/30/18 08:28 Dose: 4 mg Oxycodone HCl (Oxycontin Extended Release Tab) 10 mg PO Q12 [facility] Stop: 02/04/18 10:01 Last Admin: 02/02/18 09:08 Dose: 10 mg Pantoprazole Sodium (Protonix Ec Tab) 40 mg PO TID [facility] Last Admin: 02/02/18 16:59 Dose: 40 mg Propranolol HCl (Inderal) 10 mg PO BID [facility] Last Admin: 02/02/18 16:59 Dose: 10 mg Tamsulosin HCl (Flomax) 0.4 mg PO DAILY [facility] Last Admin: 02/02/18 09:01 Dose: 0.4 mg - Labs Labs: 02/02/18 10:49 02/02/18 10:49 PT 14.1 SECONDS (9.7-12.2) H 01/27/18 08:24 INR 1.2 01/27/18 08:24 APTT 36 SECONDS (21-34) H 01/27/18 08:24 - Head Exam Head Exam: ATRAUMATIC - Eye Exam Eye Exam: Normal appearance - ENT Exam ENT Exam: Mucous Membranes Dry - Respiratory Exam Respiratory Exam: NORMAL BREATHING PATTERN - Cardiovascular Exam Cardiovascular Exam: +S1, +S2 - GI/Abdominal Exam GI & Abdominal Exam: Normal Bowel Sounds - Extremities Exam Extremities Exam: Normal Inspection Assessment and Plan (1) Anemia Assessment & Plan: chronic disease, renal disease, hematuria, bone mets transfusion support PRN Status: Acute (2) Prostate cancer Assessment & Plan: stage IV obstructive uropathy, bone mets on total androgen deprivation with rising PSA will need outpatient addition of Zytiga Status: Acute
--- NOTE | 2018-02-02 22:30 | CP.PCM.PN ---
Subjective - Date & Time of Evaluation Date of Evaluation: 02/02/18 Time of Evaluation: 18:00 - Subjective Subjective: Pt is seen and evaluated during routine follow up rounds today Objective - Vital Signs/Intake and Output Vital Signs (last 24 hours): Temp Pulse Resp BP Pulse Ox 98.5 F 64 20 113/56 L 99 02/02/18 15:18 02/02/18 15:18 02/02/18 15:18 02/02/18 15:18 02/02/18 15:18 Intake and Output: 02/02/18 02/03/18 18:59 06:59 Intake Total 720 370 Output Total 1400 1800 Balance -680 -1430 - Medications Medications: Current Medications Acetaminophen (Tylenol 325mg Tab) 650 mg PO Q6 PRN PRN Reason: Fever >100.4 F Last Admin: 01/30/18 00:20 Dose: 650 mg Docusate Sodium (Colace) 100 mg PO TID [facility] Last Admin: 02/02/18 18:00 Dose: Not Given Fentanyl (Duragesic) 1 patch TD Q72H [facility] Last Admin: 01/31/18 10:39 Dose: 1 patch Flutamide (Eulexin) 125 mg PO Q8H [facility] Last Admin: 02/02/18 16:59 Dose: 125 mg Hydromorphone HCl (Dilaudid) 1 mg IVP Q4H PRN PRN Reason: breakthrough pain Last Admin: 02/02/18 20:54 Dose: 1 mg Daptomycin 500 mg/ Sodium (Chloride) 100 mls @ 100 mls/hr IV Q48H [facility] Stop: 02/06/18 00:01 Last Admin: 02/01/18 01:47 Dose: 100 mls/hr Lidocaine (Lidoderm) 1 ea TD DAILY [facility] Last Admin: 02/02/18 09:01 Dose: 1 ea Magnesium Chloride (Slow-Mag) 128 mg PO DAILY [facility] Last Admin: 02/02/18 09:00 Dose: 128 mg Methimazole (Tapazole) 5 mg PO DAILY [facility] Last Admin: 02/02/18 09:01 Dose: 5 mg Ondansetron HCl (Zofran Inj) 4 mg IVP Q6 PRN PRN Reason: Nausea/Vomiting Last Admin: 01/30/18 08:28 Dose: 4 mg Oxycodone HCl (Oxycontin Extended Release Tab) 10 mg PO Q12 [facility] Stop: 02/04/18 10:01 Last Admin: 02/02/18 09:08 Dose: 10 mg Pantoprazole Sodium (Protonix Ec Tab) 40 mg PO TID [facility] Last Admin: 02/02/18 16:59 Dose: 40 mg Propranolol HCl (Inderal) 10 mg PO BID [facility] Last Admin: 02/02/18 16:59 Dose: 10 mg Tamsulosin HCl (Flomax) 0.4 mg PO DAILY [facility] Last Admin: 02/02/18 09:01 Dose: 0.4 mg - Labs Labs: 02/02/18 10:49 02/02/18 10:49 PT 14.1 SECONDS (9.7-12.2) H 01/27/18 08:24 INR 1.2 01/27/18 08:24 APTT 36 SECONDS (21-34) H 01/27/18 08:24 Assessment and Plan (1) Septicemia Status: Suspected (2) Obstructive uropathy Status: Acute (3) Renal insufficiency Status: Acute
--- NOTE | 2018-02-02 23:53 | CP.PCM.PN ---
Subjective - Date & Time of Evaluation Date of Evaluation: 02/02/18 Time of Evaluation: 23:53 - Subjective Subjective: AFEBRILE. C/O GENERALIZED PAIN ESPECIALLY LOWER BACK NEPHROLOGY NOTED. Cano REMOVED. cREATININE 2.0 IMPROVING LABS rEVIEWED; bLOOD CULTURES2:2 SETS -VE GROWTH ON iv DAPTOMYCIN 500 EVERY 48 HOURLY aND iv zOSYN 2.25 EVERY 8 HOURLY. Objective - Vital Signs/Intake and Output Vital Signs (last 24 hours): Temp Pulse Resp BP Pulse Ox 98.5 F 64 20 113/56 L 99 02/02/18 15:18 02/02/18 15:18 02/02/18 15:18 02/02/18 15:18 02/02/18 15:18 Intake and Output: 02/02/18 02/03/18 18:59 06:59 Intake Total 720 370 Output Total 1400 1800 Balance -680 -1430 - Medications Medications: Current Medications Acetaminophen (Tylenol 325mg Tab) 650 mg PO Q6 PRN PRN Reason: Fever >100.4 F Last Admin: 01/30/18 00:20 Dose: 650 mg Docusate Sodium (Colace) 100 mg PO TID [facility] Last Admin: 02/02/18 18:00 Dose: Not Given Fentanyl (Duragesic) 1 patch TD Q72H [facility] Last Admin: 01/31/18 10:39 Dose: 1 patch Flutamide (Eulexin) 125 mg PO Q8H [facility] Last Admin: 02/02/18 16:59 Dose: 125 mg Hydromorphone HCl (Dilaudid) 1 mg IVP Q4H PRN PRN Reason: breakthrough pain Last Admin: 02/02/18 20:54 Dose: 1 mg Daptomycin 500 mg/ Sodium (Chloride) 100 mls @ 100 mls/hr IV Q48H [facility] Stop: 02/06/18 00:01 Last Admin: 02/01/18 01:47 Dose: 100 mls/hr Lidocaine (Lidoderm) 1 ea TD DAILY [facility] Last Admin: 02/02/18 09:01 Dose: 1 ea Magnesium Chloride (Slow-Mag) 128 mg PO DAILY [facility] Last Admin: 02/02/18 09:00 Dose: 128 mg Methimazole (Tapazole) 5 mg PO DAILY [facility] Last Admin: 02/02/18 09:01 Dose: 5 mg Ondansetron HCl (Zofran Inj) 4 mg IVP Q6 PRN PRN Reason: Nausea/Vomiting Last Admin: 01/30/18 08:28 Dose: 4 mg Oxycodone HCl (Oxycontin Extended Release Tab) 10 mg PO Q12 [facility] Stop: 02/04/18 10:01 Last Admin: 02/02/18 22:48 Dose: 10 mg Pantoprazole Sodium (Protonix Ec Tab) 40 mg PO TID [facility] Last Admin: 02/02/18 16:59 Dose: 40 mg Propranolol HCl (Inderal) 10 mg PO BID [facility] Last Admin: 02/02/18 16:59 Dose: 10 mg Tamsulosin HCl (Flomax) 0.4 mg PO DAILY [facility] Last Admin: 02/02/18 09:01 Dose: 0.4 mg - Labs Labs: 02/02/18 10:49 02/02/18 10:49 PT 14.1 SECONDS (9.7-12.2) H 01/27/18 08:24 INR 1.2 01/27/18 08:24 APTT 36 SECONDS (21-34) H 01/27/18 08:24 - Constitutional Appears: No Acute Distress, Cachectic, Chronically Ill - Head Exam Head Exam: NORMAL INSPECTION - Eye Exam Eye Exam: PERRL - ENT Exam ENT Exam: Normal Oropharynx - Neck Exam Neck Exam: Normal Inspection - Respiratory Exam Respiratory Exam: Clear to Ausculation Bilateral - Cardiovascular Exam Cardiovascular Exam: REGULAR RHYTHM, +S1, +S2 - GI/Abdominal Exam GI & Abdominal Exam: Soft, Hypoactive Bowel Sounds (B/L STENTS IN PLACE.) - Extremities Exam Extremities Exam: absent: Calf Tenderness, Pedal Edema - Neurological Exam Neurological Exam: Alert, Awake, CN II-XII Intact - Psychiatric Exam Psychiatric exam: Normal Mood - Skin Skin Exam: Rash (CHRONIC PRURITIC RASH GENERALIZED /?ECZEMA), Warm Assessment and Plan (1) Fever Assessment & Plan: SOURCE OF FEVER NOT VERY CLEAR ? CATHETER SEPSIS/ UTIX. ? B/L HYDRNEPHROSIS S/P B/L STENT PLACEMENT. CONTINUE iv zOSYN 2.25 EVERY 6 HOURLY. DAPTOMYCIN 500 MG IN 48 HOURLY ADDED FOR GRAM-POSITIVE COVERAGE 01/29/18. FOLLOW FEVER CURVE FOR NOW. PRESENTLY PATIENT HAS RESOLVING LEUKOCYTOSIS. CONTINUE iv ANTIBIOTICS. Status: Acute (2) Obstructive uropathy Status: Acute (3) Prostate cancer metastatic to bone Status: Acute (4) Hydronephrosis Status: Acute (5) Anemia Status: Acute (6) Polysubstance abuse Status: Acute (7) EMMETT (acute kidney injury) Status: Acute
[2018-02-03] MEDS: DAPTOmycin 500 MG in Sodium Chloride 0.9% 100 ML IV SCH (00:50)
[2018-02-03] MEDS: Piperacill/Tazo 2.25gm in Dex 2.25 GM/50 ML BAG IVPB SCH ×2 (08:56→17:25)
[2018-02-03] MEDS: methIMAzole 5 MG TAB PO SCH (10:20)
[2018-02-03] MEDS: oxyCODONE 10 mg ER Tab (oxyCONTIN) PO SCH ×2 (10:20→21:22)
[2018-02-03] MEDS: Magnesium Chloride 64 mg ER Tab PO SCH (10:20)
[2018-02-03] MEDS: Pantoprazole 40 mg EC Tab PO SCH ×3 (10:20→17:24)
[2018-02-03] MEDS: Lidocaine 5% Patch TD SCH (10:22)
[2018-02-03] MEDS: HYDROmorphone 1 mg/ml ISec IVP PRN ×2 (12:57→17:25)
--- NOTE | 2018-02-03 13:42 | CP.PCM.PN ---
Subjective - Date & Time of Evaluation Date of Evaluation: 02/03/18 Time of Evaluation: 13:40 - Subjective Subjective: Feels better creat down to 2 mag low- needs increased repletion Objective - Vital Signs/Intake and Output Vital Signs (last 24 hours): Temp Pulse Resp BP Pulse Ox 98.2 F 68 20 116/70 98 02/03/18 07:00 02/03/18 07:00 02/03/18 07:00 02/03/18 07:00 02/03/18 07:00 Intake and Output: 02/03/18 02/03/18 06:59 18:59 Intake Total 370 Output Total 3200 Balance -2830 - Medications Medications: Current Medications Acetaminophen (Tylenol 325mg Tab) 650 mg PO Q6 PRN PRN Reason: Fever >100.4 F Last Admin: 01/30/18 00:20 Dose: 650 mg Docusate Sodium (Colace) 100 mg PO TID [facility] Last Admin: 02/03/18 13:07 Dose: 100 mg Fentanyl (Duragesic) 1 patch TD Q72H [facility] Last Admin: 02/03/18 12:15 Dose: 1 patch Flutamide (Eulexin) 125 mg PO Q8H [facility] Last Admin: 02/03/18 10:20 Dose: 125 mg Hydromorphone HCl (Dilaudid) 1 mg IVP Q4H PRN PRN Reason: breakthrough pain Last Admin: 02/03/18 12:57 Dose: 1 mg Daptomycin 500 mg/ Sodium (Chloride) 100 mls @ 100 mls/hr IV Q48H [facility] Stop: 02/06/18 00:01 Last Admin: 02/03/18 00:50 Dose: 100 mls/hr Piperacillin Sod/Tazobactam Sod (Zosyn 2.25 Gm Iv Premix) 2.25 gm in 50 mls @ 100 mls/hr IVPB Q8H [facility] PRN Reason: Protocol Last Admin: 02/03/18 08:56 Dose: 100 mls/hr Lidocaine (Lidoderm) 1 ea TD DAILY [facility] Last Admin: 02/03/18 10:22 Dose: 1 ea Magnesium Oxide (Mag-Ox) 400 mg PO BID [facility] Methimazole (Tapazole) 5 mg PO DAILY [facility] Last Admin: 02/03/18 10:20 Dose: 5 mg Ondansetron HCl (Zofran Inj) 4 mg IVP Q6 PRN PRN Reason: Nausea/Vomiting Last Admin: 01/30/18 08:28 Dose: 4 mg Oxycodone HCl (Oxycontin Extended Release Tab) 10 mg PO Q12 [facility] Stop: 02/04/18 10:01 Last Admin: 02/03/18 10:20 Dose: 10 mg Pantoprazole Sodium (Protonix Ec Tab) 40 mg PO TID [facility] Last Admin: 02/03/18 13:07 Dose: 40 mg Propranolol HCl (Inderal) 10 mg PO BID [facility] Last Admin: 02/03/18 10:20 Dose: 10 mg Tamsulosin HCl (Flomax) 0.4 mg PO DAILY [facility] Last Admin: 02/03/18 10:20 Dose: 0.4 mg - Labs Labs: 02/02/18 10:49 02/02/18 10:49 PT 14.1 SECONDS (9.7-12.2) H 01/27/18 08:24 INR 1.2 01/27/18 08:24 APTT 36 SECONDS (21-34) H 01/27/18 08:24 - Constitutional Appears: No Acute Distress, Chronically Ill - Head Exam Head Exam: ATRAUMATIC, NORMAL INSPECTION - Eye Exam Eye Exam: EOMI, Normal appearance - Neck Exam Neck Exam: Normal Inspection. absent: Tenderness - Respiratory Exam Respiratory Exam: Clear to Ausculation Bilateral, NORMAL BREATHING PATTERN - Cardiovascular Exam Cardiovascular Exam: REGULAR RHYTHM, +S1 - GI/Abdominal Exam GI & Abdominal Exam: Soft. absent: Tenderness - Extremities Exam Extremities Exam: Normal Inspection. absent: Tenderness - Neurological Exam Neurological Exam: Awake, CN II-XII Intact - Skin Skin Exam: Dry, Warm Assessment and Plan (1) Obstructive uropathy Status: Acute (2) Prostate cancer metastatic to bone Status: Acute (3) Substance abuse Status: Acute (4) EMMETT (acute kidney injury) Status: Acute (5) Uremia Status: Acute - Assessment and Plan (Free Text) Plan: increase mag repletion f/u lytes
[2018-02-03] MEDS ORDERED: HYDROmorphone 1 mg/ml ISec IVP STA (15:21)
--- NOTE | 2018-02-03 16:14 | PCM.URO ---
Urology Progress Note - Objective Lab Studies: Reviewed (bleeding options discussed : spt, open prostate -- even with prostate cancer - to control bleeding radiation -- to stop bleeding need to discuss options) Intake & Output: Intake & Output 02/02/18 02/03/18 02/03/18 18:59 06:59 18:59 Intake Total 175 223 5163 Output Total 1400 3200 1800 Balance -712 -7261 -481 Intake: Intake, IV Amount 50 50 Right Wrist 50 50 Oral [phone] Output: Drainage 1400 3200 1800 Left Back 200 450 300 Right Back 1200 2750 1500 Other: # Voids Urine, Voided 2 1 # Bowel Movements 1 Vital Signs: Vital Signs - 24 hr 02/02/18 02/03/18 23:05 07:00 Temperature 98.5 F 98.2 F Pulse Rate 70 68 Respiratory 20 20 Rate Blood Pressure 117/72 116/70 O2 Sat by Pulse 98 98 Oximetry
[2018-02-03] MEDS: Magnesium Oxide 400 mg Tab UD PO SCH (17:24)
[2018-02-03] MEDS ORDERED: HYDROmorphone 1 mg/ml ISec IVP ONE (19:00)
--- NOTE | 2018-02-03 19:17 | PN ---
DATE: SUBJECTIVE: The patient denies any dizziness, palpitation, or chest pain. No reported hematuria from the nephrostomy tube. PHYSICAL EXAMINATION: VITAL SIGNS: Blood pressure 116/70, heart rate 68, temperature 98.2, respirations 20. HEENT: Pale conjunctiva. CHEST: Minimal rhonchi. HEART: S1 and S2, regular. EXTREMITIES: No pedal edema. ASSESSMENT: 1. Paroxysmal atrial fibrillation. 2. Hyperthyroidism and multinodular goiter. 3. Metastatic prostatic cancer. 4. Obstructive uropathy, status post bilateral nephrostomy tube placement. 5. Anemia. RECOMMENDATIONS: Continue current daptomycin 500 mg intravenously q.48 hours. Continue Dilaudid 4 mg intravenously q.4 hours. Continue Inderal 10 mg twice a day, magnesium oxide 400 mg twice a day, Protonix 40 mg p.o. t.i.d., Tapazole 5 mg once a day, Zosyn 2.25 gm intravenously q.8 hours. Larry Islas MD
--- NOTE | 2018-02-03 21:29 | CP.PCM.PN ---
Subjective - Date & Time of Evaluation Date of Evaluation: 02/03/18 Time of Evaluation: 19:45 - Subjective Subjective: Having hematuria Objective - Vital Signs/Intake and Output Vital Signs (last 24 hours): Temp Pulse Resp BP Pulse Ox 98.1 F 91 H 18 105/62 96 02/03/18 15:00 02/03/18 15:00 02/03/18 15:00 02/03/18 15:00 02/03/18 15:00 Intake and Output: 02/03/18 02/04/18 18:59 06:59 Intake Total 1250 Output Total 1800 Balance -550 - Medications Medications: Current Medications Acetaminophen (Tylenol 325mg Tab) 650 mg PO Q6 PRN PRN Reason: Fever >100.4 F Last Admin: 01/30/18 00:20 Dose: 650 mg Docusate Sodium (Colace) 100 mg PO TID [facility] Last Admin: 02/03/18 17:31 Dose: Not Given Fentanyl (Duragesic) 1 patch TD Q72H [facility] Last Admin: 02/03/18 12:15 Dose: 1 patch Flutamide (Eulexin) 125 mg PO Q8H [facility] Last Admin: 02/03/18 17:24 Dose: 125 mg Hydromorphone HCl (Dilaudid) 1 mg IVP Q4H PRN PRN Reason: breakthrough pain Daptomycin 500 mg/ Sodium (Chloride) 100 mls @ 100 mls/hr IV Q48H [facility] Stop: 02/06/18 00:01 Last Admin: 02/03/18 00:50 Dose: 100 mls/hr Piperacillin Sod/Tazobactam Sod (Zosyn 2.25 Gm Iv Premix) 2.25 gm in 50 mls @ 100 mls/hr IVPB Q8H [facility] PRN Reason: Protocol Last Admin: 02/03/18 17:25 Dose: 100 mls/hr Lidocaine (Lidoderm) 1 ea TD DAILY [facility] Last Admin: 02/03/18 10:22 Dose: 1 ea Magnesium Oxide (Mag-Ox) 400 mg PO BID [facility] Last Admin: 02/03/18 17:24 Dose: 400 mg Methimazole (Tapazole) 5 mg PO DAILY [facility] Last Admin: 02/03/18 10:20 Dose: 5 mg Ondansetron HCl (Zofran Inj) 4 mg IVP Q6 PRN PRN Reason: Nausea/Vomiting Last Admin: 01/30/18 08:28 Dose: 4 mg Oxycodone HCl (Oxycontin Extended Release Tab) 10 mg PO Q12 [facility] Stop: 02/04/18 10:01 Last Admin: 02/03/18 21:22 Dose: 10 mg Pantoprazole Sodium (Protonix Ec Tab) 40 mg PO TID [facility] Last Admin: 02/03/18 17:24 Dose: 40 mg Propranolol HCl (Inderal) 10 mg PO BID [facility] Last Admin: 02/03/18 17:24 Dose: 10 mg Tamsulosin HCl (Flomax) 0.4 mg PO DAILY [facility] Last Admin: 02/03/18 10:20 Dose: 0.4 mg - Labs Labs: 02/02/18 10:49 02/02/18 10:49 PT 14.1 SECONDS (9.7-12.2) H 01/27/18 08:24 INR 1.2 01/27/18 08:24 APTT 36 SECONDS (21-34) H 01/27/18 08:24 - Head Exam Head Exam: ATRAUMATIC - Eye Exam Eye Exam: Normal appearance - ENT Exam ENT Exam: Mucous Membranes Dry - Respiratory Exam Respiratory Exam: NORMAL BREATHING PATTERN - Cardiovascular Exam Cardiovascular Exam: +S1, +S2 - GI/Abdominal Exam GI & Abdominal Exam: Normal Bowel Sounds Assessment and Plan (1) Anemia Assessment & Plan: chronic disease, hematuria, renal disease, bone mets transfusion support PRN Status: Acute (2) Prostate cancer Assessment & Plan: stage IV on total androgen deprivation rising PSA consistent with progressive disease given continued hematuria, being evaluated for possible palliative surgery by urology Status: Acute
--- NOTE | 2018-02-03 22:54 | CP.PCM.PN ---
Subjective - Date & Time of Evaluation Date of Evaluation: 02/03/18 Time of Evaluation: 17:00 - Subjective Subjective: pt seen and examined today S/P HD, Feels better creat down to 2 mag low- needs increased repletion Objective - Vital Signs/Intake and Output Vital Signs (last 24 hours): Temp Pulse Resp BP Pulse Ox 98.1 F 91 H 18 105/62 96 02/03/18 15:00 02/03/18 15:00 02/03/18 15:00 02/03/18 15:00 02/03/18 15:00 Intake and Output: 02/03/18 02/04/18 18:59 06:59 Intake Total 1250 370 Output Total 1800 1050 Balance -550 -680 - Medications Medications: Current Medications Acetaminophen (Tylenol 325mg Tab) 650 mg PO Q6 PRN PRN Reason: Fever >100.4 F Last Admin: 01/30/18 00:20 Dose: 650 mg Docusate Sodium (Colace) 100 mg PO TID [facility] Last Admin: 02/03/18 17:31 Dose: Not Given Fentanyl (Duragesic) 1 patch TD Q72H [facility] Last Admin: 02/03/18 12:15 Dose: 1 patch Flutamide (Eulexin) 125 mg PO Q8H [facility] Last Admin: 02/03/18 17:24 Dose: 125 mg Hydromorphone HCl (Dilaudid) 1 mg IVP Q4H PRN PRN Reason: breakthrough pain Last Admin: 02/03/18 22:07 Dose: 1 mg Daptomycin 500 mg/ Sodium (Chloride) 100 mls @ 100 mls/hr IV Q48H [facility] Stop: 02/06/18 00:01 Last Admin: 02/03/18 00:50 Dose: 100 mls/hr Piperacillin Sod/Tazobactam Sod (Zosyn 2.25 Gm Iv Premix) 2.25 gm in 50 mls @ 100 mls/hr IVPB Q8H [facility] PRN Reason: Protocol Last Admin: 02/03/18 17:25 Dose: 100 mls/hr Lidocaine (Lidoderm) 1 ea TD DAILY [facility] Last Admin: 02/03/18 10:22 Dose: 1 ea Magnesium Oxide (Mag-Ox) 400 mg PO BID [facility] Last Admin: 02/03/18 17:24 Dose: 400 mg Methimazole (Tapazole) 5 mg PO DAILY [facility] Last Admin: 02/03/18 10:20 Dose: 5 mg Ondansetron HCl (Zofran Inj) 4 mg IVP Q6 PRN PRN Reason: Nausea/Vomiting Last Admin: 01/30/18 08:28 Dose: 4 mg Oxycodone HCl (Oxycontin Extended Release Tab) 10 mg PO Q12 [facility] Stop: 02/04/18 10:01 Last Admin: 02/03/18 21:22 Dose: 10 mg Pantoprazole Sodium (Protonix Ec Tab) 40 mg PO TID [facility] Last Admin: 02/03/18 17:24 Dose: 40 mg Propranolol HCl (Inderal) 10 mg PO BID [facility] Last Admin: 02/03/18 17:24 Dose: 10 mg Tamsulosin HCl (Flomax) 0.4 mg PO DAILY [facility] Last Admin: 02/03/18 10:20 Dose: 0.4 mg - Labs Labs: 02/02/18 10:49 02/02/18 10:49 PT 14.1 SECONDS (9.7-12.2) H 01/27/18 08:24 INR 1.2 01/27/18 08:24 APTT 36 SECONDS (21-34) H 01/27/18 08:24 - Constitutional Appears: No Acute Distress - Head Exam Head Exam: ATRAUMATIC, NORMAL INSPECTION, NORMOCEPHALIC - Eye Exam Eye Exam: EOMI, Normal appearance, PERRL Pupil Exam: NORMAL ACCOMODATION, PERRL - Respiratory Exam Respiratory Exam: Clear to Ausculation Bilateral, NORMAL BREATHING PATTERN - Cardiovascular Exam Cardiovascular Exam: REGULAR RHYTHM, +S1, +S2. absent: Murmur - GI/Abdominal Exam GI & Abdominal Exam: Soft, Normal Bowel Sounds. absent: Tenderness Assessment and Plan (1) Septicemia Status: Suspected (2) Obstructive uropathy Status: Acute (3) Renal insufficiency Status: Acute
[2018-02-04] MEDS: Piperacill/Tazo 2.25gm in Dex 2.25 GM/50 ML BAG IVPB SCH ×4 (00:45→23:52)
[2018-02-04 08:16] LABS: ALB/GLOB RATIO 0.8 (1.0-2.1); ALBUMIN 3.7 g/dL (3.5-5.0); CALCIUM 8.9 mg/dl (8.6-10.4)
[2018-02-04] MEDS: Magnesium Oxide 400 mg Tab UD PO SCH ×2 (10:36→18:34)
[2018-02-04] MEDS: oxyCODONE 10 mg ER Tab (oxyCONTIN) PO SCH (10:36)
[2018-02-04] MEDS: methIMAzole 5 MG TAB PO SCH (10:36)
[2018-02-04] MEDS: Pantoprazole 40 mg EC Tab PO SCH ×3 (10:37→18:34)
[2018-02-04] MEDS: Lidocaine 5% Patch TD SCH (10:38)
--- NOTE | 2018-02-04 13:24 | CP.PCM.PN ---
Subjective - Date & Time of Evaluation Date of Evaluation: 02/04/18 Time of Evaluation: 13:19 - Subjective Subjective: ongoing hematuria, drops of blood pt upset about it also w/ pain no n/v/d/sob/cp Objective - Vital Signs/Intake and Output Vital Signs (last 24 hours): Temp Pulse Resp BP Pulse Ox 98 F 71 20 105/66 96 02/04/18 07:00 02/04/18 07:00 02/04/18 07:00 02/04/18 07:00 02/04/18 07:00 Intake and Output: 02/04/18 02/04/18 06:59 18:59 Intake Total 370 Output Total 1050 200 Balance -680 -200 - Medications Medications: Current Medications Acetaminophen (Tylenol 325mg Tab) 650 mg PO Q6 PRN PRN Reason: Fever >100.4 F Last Admin: 01/30/18 00:20 Dose: 650 mg Docusate Sodium (Colace) 100 mg PO TID [facility] Last Admin: 02/04/18 10:36 Dose: Not Given Fentanyl (Duragesic) 1 patch TD Q72H [facility] Last Admin: 02/03/18 12:15 Dose: 1 patch Flutamide (Eulexin) 125 mg PO Q8H [facility] Last Admin: 02/04/18 10:36 Dose: 125 mg Hydromorphone HCl (Dilaudid) 1 mg IVP Q4H PRN PRN Reason: breakthrough pain Daptomycin 500 mg/ Sodium (Chloride) 100 mls @ 100 mls/hr IV Q48H [facility] Stop: 02/06/18 00:01 Last Admin: 02/03/18 00:50 Dose: 100 mls/hr Piperacillin Sod/Tazobactam Sod (Zosyn 2.25 Gm Iv Premix) 2.25 gm in 50 mls @ 100 mls/hr IVPB Q8H [facility] PRN Reason: Protocol Last Admin: 02/04/18 10:39 Dose: 100 mls/hr Lidocaine (Lidoderm) 1 ea TD DAILY [facility] Last Admin: 02/04/18 10:38 Dose: 1 ea Magnesium Oxide (Mag-Ox) 400 mg PO BID [facility] Last Admin: 02/04/18 10:36 Dose: 400 mg Methimazole (Tapazole) 5 mg PO DAILY [facility] Last Admin: 02/04/18 10:36 Dose: 5 mg Ondansetron HCl (Zofran Inj) 4 mg IVP Q6 PRN PRN Reason: Nausea/Vomiting Last Admin: 01/30/18 08:28 Dose: 4 mg Pantoprazole Sodium (Protonix Ec Tab) 40 mg PO TID [facility] Last Admin: 02/04/18 10:37 Dose: 40 mg Propranolol HCl (Inderal) 10 mg PO BID [facility] Last Admin: 02/04/18 10:35 Dose: 10 mg Tamsulosin HCl (Flomax) 0.4 mg PO DAILY [facility] Last Admin: 02/04/18 10:37 Dose: 0.4 mg - Labs Labs: 02/02/18 10:49 02/04/18 07:09 PT 14.1 SECONDS (9.7-12.2) H 01/27/18 08:24 INR 1.2 01/27/18 08:24 APTT 36 SECONDS (21-34) H 01/27/18 08:24 - Constitutional Appears: No Acute Distress, Older Than Stated Age, Agitated - Head Exam Head Exam: NORMAL INSPECTION, NORMOCEPHALIC - Eye Exam Eye Exam: Normal appearance, PERRL - ENT Exam ENT Exam: Mucous Membranes Moist, Normal Exam - Respiratory Exam Respiratory Exam: Clear to Ausculation Bilateral, NORMAL BREATHING PATTERN - Cardiovascular Exam Cardiovascular Exam: REGULAR RHYTHM, RRR - GI/Abdominal Exam GI & Abdominal Exam: Distended, Soft Additional comments: b/l nephrostomy - Extremities Exam Extremities Exam: Full ROM, Normal Inspection - Neurological Exam Neurological Exam: Alert, Awake, Oriented x3 - Psychiatric Exam Psychiatric exam: Normal Affect, Normal Mood - Skin Skin Exam: Dry, Normal Color, Warm Assessment and Plan (1) EMMETT (acute kidney injury) Status: Acute (2) Anemia Status: Acute (3) Obstructive uropathy Status: Acute (4) Prostate cancer metastatic to bone Status: Acute - Assessment and Plan (Free Text) Assessment: rising creatinine noted iv fluids ordered may need traffic signal technician if no improvement urology management for hematuria
[2018-02-04] MEDS: Sodium Chloride 0.45% 1,000 ML IV SCH (13:59)
[2018-02-04] MEDS: HYDROmorphone 1 mg/ml ISec IVP PRN ×3 (14:48→22:12)
--- NOTE | 2018-02-04 18:15 | CP.PCM.PN ---
Subjective - Date & Time of Evaluation Date of Evaluation: 02/04/18 Time of Evaluation: 16:45 - Subjective Subjective: Having hematuria and passing clots agreeable to surgical urologic intervention Objective - Vital Signs/Intake and Output Vital Signs (last 24 hours): Temp Pulse Resp BP Pulse Ox 98.2 F 62 20 104/63 98 02/04/18 16:08 02/04/18 16:08 02/04/18 16:08 02/04/18 16:08 02/04/18 16:08 Intake and Output: 02/04/18 02/04/18 06:59 18:59 Intake Total 370 830 Output Total 1050 1400 Balance -680 -570 - Medications Medications: Current Medications Acetaminophen (Tylenol 325mg Tab) 650 mg PO Q6 PRN PRN Reason: Fever >100.4 F Last Admin: 01/30/18 00:20 Dose: 650 mg Docusate Sodium (Colace) 100 mg PO TID [facility] Last Admin: 02/04/18 13:31 Dose: Not Given Fentanyl (Duragesic) 1 patch TD Q72H [facility] Last Admin: 02/03/18 12:15 Dose: 1 patch Flutamide (Eulexin) 125 mg PO Q8H [facility] Last Admin: 02/04/18 10:36 Dose: 125 mg Hydromorphone HCl (Dilaudid) 1 mg IVP Q4H PRN PRN Reason: breakthrough pain Last Admin: 02/04/18 14:48 Dose: 1 mg Daptomycin 500 mg/ Sodium (Chloride) 100 mls @ 100 mls/hr IV Q48H [facility] Stop: 02/06/18 00:01 Last Admin: 02/03/18 00:50 Dose: 100 mls/hr Piperacillin Sod/Tazobactam Sod (Zosyn 2.25 Gm Iv Premix) 2.25 gm in 50 mls @ 100 mls/hr IVPB Q8H [facility] PRN Reason: Protocol Last Admin: 02/04/18 16:14 Dose: 100 mls/hr Sodium Chloride (Sodium Chloride 0.45%) 1,000 mls @ 60 mls/hr IV .[id number] [facility] Last Admin: 02/04/18 13:59 Dose: 60 mls/hr Lidocaine (Lidoderm) 1 ea TD DAILY [facility] Last Admin: 02/04/18 10:38 Dose: 1 ea Magnesium Oxide (Mag-Ox) 400 mg PO BID [facility] Last Admin: 02/04/18 10:36 Dose: 400 mg Methimazole (Tapazole) 5 mg PO DAILY [facility] Last Admin: 02/04/18 10:36 Dose: 5 mg Ondansetron HCl (Zofran Inj) 4 mg IVP Q6 PRN PRN Reason: Nausea/Vomiting Last Admin: 01/30/18 08:28 Dose: 4 mg Pantoprazole Sodium (Protonix Ec Tab) 40 mg PO TID [facility] Last Admin: 02/04/18 13:52 Dose: 40 mg Propranolol HCl (Inderal) 10 mg PO BID [facility] Last Admin: 02/04/18 10:35 Dose: 10 mg Tamsulosin HCl (Flomax) 0.4 mg PO DAILY [facility] Last Admin: 02/04/18 10:37 Dose: 0.4 mg - Labs Labs: 02/02/18 10:49 02/04/18 07:09 PT 14.1 SECONDS (9.7-12.2) H 01/27/18 08:24 INR 1.2 01/27/18 08:24 APTT 36 SECONDS (21-34) H 01/27/18 08:24 - Head Exam Head Exam: ATRAUMATIC - Eye Exam Eye Exam: Normal appearance - ENT Exam ENT Exam: Mucous Membranes Dry - Respiratory Exam Respiratory Exam: NORMAL BREATHING PATTERN - Cardiovascular Exam Cardiovascular Exam: +S1, +S2 - GI/Abdominal Exam GI & Abdominal Exam: Normal Bowel Sounds Assessment and Plan (1) Anemia Assessment & Plan: chronic disease, renal diseas,e hematuria, bone mets transfusion support Status: Acute (2) Prostate cancer Assessment & Plan: stage IV rising PSA despite total androgen deprivation possible palliative urologic surgery outpatient [facility] Status: Acute
--- NOTE | 2018-02-04 20:47 | PN ---
DATE: 02/04/2018 SUBJECTIVE: The patient is experiencing hematuria via the left nephrostomy tube. PHYSICAL EXAMINATION: VITAL SIGNS: Blood pressure 107/66, heart rate 71, temperature 98, respirations 20. Urology evaluation was reviewed. According to the objectives, bleeding options discussed. Open prostate even with prostate cancer to control bleeding, radiation to control bleeding. Radiation to stop bleeding. Need to discuss options. ASSESSMENT: 1. Hypothyroidism. 2. Paroxysmal atrial fibrillation. 3. Metastatic prostatic cancer. 4. Hematuria. 5. Acute renal failure requiring hemodialysis. 6. Anemia. RECOMMENDATIONS: Continue current Flomax, Inderal, magnesium oxide, half normal saline 60 mL an hour, Tapazole 5 mg daily, Zosyn 2.25 gm intravenously q.8 hours. Discontinue subcutaneous heparin. Larry Islas MD
--- NOTE | 2018-02-04 22:42 | CP.PCM.PN ---
Subjective - Date & Time of Evaluation Date of Evaluation: 02/04/18 Time of Evaluation: 22:42 - Subjective Subjective: c/o hematuria PASSING CLOTS. PRESENTLY NO FOLY. CASE DISCUSSED W DR CURRY(ONCOLOGIST ) PT AGREEABLE FOR UROLOGICAL PROCEDURE. CONTINUE IV DAPTOMYCIN 500MG Q 48HRLY AND IV ZOSYN 2.25MG Q8HRLY. Objective - Vital Signs/Intake and Output Vital Signs (last 24 hours): Temp Pulse Resp BP Pulse Ox 98.2 F 62 20 104/63 98 02/04/18 16:08 02/04/18 16:08 02/04/18 16:08 02/04/18 16:08 02/04/18 16:08 Intake and Output: 02/04/18 02/05/18 18:59 06:59 Intake Total 830 Output Total 1400 Balance -570 - Medications Medications: Current Medications Acetaminophen (Tylenol 325mg Tab) 650 mg PO Q6 PRN PRN Reason: Fever >100.4 F Last Admin: 01/30/18 00:20 Dose: 650 mg Docusate Sodium (Colace) 100 mg PO TID [facility] Last Admin: 02/04/18 18:34 Dose: 100 mg Fentanyl (Duragesic) 1 patch TD Q72H [facility] Last Admin: 02/03/18 12:15 Dose: 1 patch Flutamide (Eulexin) 125 mg PO Q8H [facility] Last Admin: 02/04/18 18:33 Dose: 125 mg Hydromorphone HCl (Dilaudid) 1 mg IVP Q4H PRN PRN Reason: breakthrough pain Last Admin: 02/04/18 22:12 Dose: 1 mg Daptomycin 500 mg/ Sodium (Chloride) 100 mls @ 100 mls/hr IV Q48H [facility] Stop: 02/06/18 00:01 Last Admin: 02/03/18 00:50 Dose: 100 mls/hr Piperacillin Sod/Tazobactam Sod (Zosyn 2.25 Gm Iv Premix) 2.25 gm in 50 mls @ 100 mls/hr IVPB Q8H [facility] PRN Reason: Protocol Last Admin: 02/04/18 16:14 Dose: 100 mls/hr Sodium Chloride (Sodium Chloride 0.45%) 1,000 mls @ 60 mls/hr IV .[id number] [facility] Last Admin: 02/04/18 13:59 Dose: 60 mls/hr Lidocaine (Lidoderm) 1 ea TD DAILY [facility] Last Admin: 02/04/18 10:38 Dose: 1 ea Magnesium Oxide (Mag-Ox) 400 mg PO BID [facility] Last Admin: 02/04/18 18:34 Dose: 400 mg Methimazole (Tapazole) 5 mg PO DAILY [facility] Last Admin: 02/04/18 10:36 Dose: 5 mg Ondansetron HCl (Zofran Inj) 4 mg IVP Q6 PRN PRN Reason: Nausea/Vomiting Last Admin: 01/30/18 08:28 Dose: 4 mg Pantoprazole Sodium (Protonix Ec Tab) 40 mg PO TID [facility] Last Admin: 02/04/18 18:34 Dose: 40 mg Propranolol HCl (Inderal) 10 mg PO BID [facility] Last Admin: 02/04/18 18:34 Dose: 10 mg Tamsulosin HCl (Flomax) 0.4 mg PO DAILY [facility] Last Admin: 02/04/18 10:37 Dose: 0.4 mg - Labs Labs: 02/02/18 10:49 02/04/18 07:09 PT 14.1 SECONDS (9.7-12.2) H 01/27/18 08:24 INR 1.2 01/27/18 08:24 APTT 36 SECONDS (21-34) H 01/27/18 08:24 - Constitutional Appears: No Acute Distress - Head Exam Head Exam: NORMAL INSPECTION - Eye Exam Eye Exam: EOMI, PERRL - ENT Exam ENT Exam: Normal Oropharynx - Neck Exam Neck Exam: Normal Inspection - Respiratory Exam Respiratory Exam: Decreased Breath Sounds - Cardiovascular Exam Cardiovascular Exam: REGULAR RHYTHM, +S1, +S2 - GI/Abdominal Exam GI & Abdominal Exam: Soft, Normal Bowel Sounds (b/l nephrostomy) - Neurological Exam Neurological Exam: Alert, Awake, CN II-XII Intact, Oriented x3 - Psychiatric Exam Psychiatric exam: Normal Mood - Skin Skin Exam: Normal Color, Warm Assessment and Plan (1) Fever Assessment & Plan: ALL CULTURES -VE. ON IV ABX. Status: Acute (2) Obstructive uropathy Assessment & Plan: b/l nephrostomy. HEMATURIA+VE. PT FOR PROBABLE PROCEDURE FOR PROSTATE CA/AND HEMATURIA. Status: Acute (3) Prostate cancer metastatic to bone Status: Acute (4) Hydronephrosis Status: Acute (5) Anemia Status: Acute (6) Polysubstance abuse Status: Acute (7) EMMETT (acute kidney injury) Status: Acute
[2018-02-04] MEDS: DAPTOmycin 500 MG in Sodium Chloride 0.9% 100 ML IV SCH (23:53)
--- NOTE | 2018-02-04 23:55 | CP.PCM.PN ---
Subjective - Date & Time of Evaluation Date of Evaluation: 02/04/18 Time of Evaluation: 17:35 - Subjective Subjective: pt seen and evaluated. c/o increasingly flank pain, BUN/ creatinine increasing , urology has been consulted Objective - Vital Signs/Intake and Output Vital Signs (last 24 hours): Temp Pulse Resp BP Pulse Ox 98.2 F 62 20 104/63 98 02/04/18 16:08 02/04/18 16:08 02/04/18 16:08 02/04/18 16:08 02/04/18 16:08 Intake and Output: 02/04/18 02/05/18 18:59 06:59 Intake Total 830 1070 Output Total 1400 1000 Balance -570 70 - Medications Medications: Current Medications Acetaminophen (Tylenol 325mg Tab) 650 mg PO Q6 PRN PRN Reason: Fever >100.4 F Last Admin: 01/30/18 00:20 Dose: 650 mg Docusate Sodium (Colace) 100 mg PO TID [facility] Last Admin: 02/04/18 18:34 Dose: 100 mg Fentanyl (Duragesic) 1 patch TD Q72H [facility] Last Admin: 02/03/18 12:15 Dose: 1 patch Flutamide (Eulexin) 125 mg PO Q8H [facility] Last Admin: 02/04/18 18:33 Dose: 125 mg Hydromorphone HCl (Dilaudid) 1 mg IVP Q4H PRN PRN Reason: breakthrough pain Last Admin: 02/04/18 22:12 Dose: 1 mg Daptomycin 500 mg/ Sodium (Chloride) 100 mls @ 100 mls/hr IV Q48H [facility] Stop: 02/06/18 00:01 Last Admin: 02/04/18 23:53 Dose: 100 mls/hr Piperacillin Sod/Tazobactam Sod (Zosyn 2.25 Gm Iv Premix) 2.25 gm in 50 mls @ 100 mls/hr IVPB Q8H [facility] PRN Reason: Protocol Last Admin: 02/04/18 23:52 Dose: 100 mls/hr Sodium Chloride (Sodium Chloride 0.45%) 1,000 mls @ 60 mls/hr IV .[id number] [facility] Last Admin: 02/04/18 13:59 Dose: 60 mls/hr Lidocaine (Lidoderm) 1 ea TD DAILY [facility] Last Admin: 02/04/18 10:38 Dose: 1 ea Magnesium Oxide (Mag-Ox) 400 mg PO BID [facility] Last Admin: 02/04/18 18:34 Dose: 400 mg Methimazole (Tapazole) 5 mg PO DAILY [facility] Last Admin: 02/04/18 10:36 Dose: 5 mg Ondansetron HCl (Zofran Inj) 4 mg IVP Q6 PRN PRN Reason: Nausea/Vomiting Last Admin: 01/30/18 08:28 Dose: 4 mg Pantoprazole Sodium (Protonix Ec Tab) 40 mg PO TID [facility] Last Admin: 02/04/18 18:34 Dose: 40 mg Propranolol HCl (Inderal) 10 mg PO BID [facility] Last Admin: 02/04/18 18:34 Dose: 10 mg Tamsulosin HCl (Flomax) 0.4 mg PO DAILY [facility] Last Admin: 02/04/18 10:37 Dose: 0.4 mg - Labs Labs: 02/02/18 10:49 02/04/18 07:09 PT 14.1 SECONDS (9.7-12.2) H 01/27/18 08:24 INR 1.2 01/27/18 08:24 APTT 36 SECONDS (21-34) H 01/27/18 08:24 - Constitutional Appears: In Acute Distress - Head Exam Head Exam: ATRAUMATIC, NORMAL INSPECTION, NORMOCEPHALIC - Eye Exam Eye Exam: EOMI, Normal appearance, PERRL Pupil Exam: NORMAL ACCOMODATION, PERRL - Respiratory Exam Respiratory Exam: Clear to Ausculation Bilateral, NORMAL BREATHING PATTERN - Cardiovascular Exam Cardiovascular Exam: REGULAR RHYTHM, +S1, +S2. absent: Murmur - GI/Abdominal Exam GI & Abdominal Exam: Soft, Normal Bowel Sounds. absent: Tenderness Assessment and Plan (1) Septicemia Status: Suspected (2) Obstructive uropathy Status: Acute (3) Renal insufficiency Status: Acute
[2018-02-05] MEDS: HYDROmorphone 1 mg/ml ISec IVP PRN (01:59)
[2018-02-05] MEDS: Sodium Chloride 0.45% 1,000 ML IV SCH ×2 (06:00→23:30)
[2018-02-05 07:28] LABS: BASO # 0.2 K/uL (0.0-0.2); BASO % 1.8 % (0.0-2.0); EOS # 0.8 K/uL (0.0-0.7); EOS % 6.7 % (0.0-4.0); HEMOGLOBIN 7.8 g/dL (12.0-18.0); LYMPH # 1.8 K/uL (1.0-4.3); LYMPH % 15.2 % (20.0-40.0); MEAN CELL VOLUME 74.2 fL (80.0-94.0); MEAN CORPUSCULAR HEMOGLOBIN 24.4 pg (27.0-31.0); MEAN CORPUSCULAR HGB CONC 32.9 g/dL (33.0-37.0); MEAN PLATELET VOLUME 7.9 fL (7.2-11.7); MONO % 8.3 % (0.0-10.0); NEUT # 7.8 K/uL (1.8-7.0); RBC 3.18 Mil/uL (4.40-5.90); RED CELL DISTRIBUTION WIDTH 19.7 % (11.5-14.5); WHITE BLOOD COUNT 11.5 K/uL (4.8-10.8)
[2018-02-05 07:38] LABS: ALB/GLOB RATIO 0.8 (1.0-2.1); ALBUMIN 3.6 g/dL (3.5-5.0); CALCIUM 9.1 mg/dl (8.6-10.4)
[2018-02-05] MEDS: Piperacill/Tazo 2.25gm in Dex 2.25 GM/50 ML BAG IVPB SCH ×3 (08:20→23:41)
[2018-02-05] MEDS: Magnesium Oxide 400 mg Tab UD PO SCH ×2 (09:58→18:37)
[2018-02-05] MEDS: Pantoprazole 40 mg EC Tab PO SCH ×2 (09:58→18:37)
[2018-02-05] MEDS: Lidocaine 5% Patch TD SCH (09:59)
[2018-02-05] MEDS: methIMAzole 5 MG TAB PO SCH (10:21)
--- NOTE | 2018-02-05 12:42 | CP.PCM.PN ---
Subjective - Date & Time of Evaluation Date of Evaluation: 02/05/18 Time of Evaluation: 11:00 - Subjective Subjective: Patient seen today denies any chest pain, c/o generalized pain , and heamturia noted hgb- 7.6 Objective - Vital Signs/Intake and Output Vital Signs (last 24 hours): Temp Pulse Resp BP Pulse Ox 98.2 F 63 20 99/60 L 94 L 02/05/18 07:00 02/05/18 07:00 02/05/18 07:00 02/05/18 07:00 02/05/18 07:00 Intake and Output: 02/05/18 02/05/18 06:59 18:59 Intake Total 1900 Output Total 2100 Balance -200 - Medications Medications: Current Medications Acetaminophen (Tylenol 325mg Tab) 650 mg PO Q6 PRN PRN Reason: Fever >100.4 F Last Admin: 01/30/18 00:20 Dose: 650 mg Docusate Sodium (Colace) 100 mg PO TID [facility] Last Admin: 02/05/18 11:09 Dose: Not Given Fentanyl (Duragesic) 1 patch TD Q72H [facility] Last Admin: 02/03/18 12:15 Dose: 1 patch Flutamide (Eulexin) 125 mg PO Q8H [facility] Last Admin: 02/05/18 10:21 Dose: 125 mg Hydromorphone HCl (Dilaudid) 1 mg IVP Q4H PRN PRN Reason: breakthrough pain Last Admin: 02/05/18 10:19 Dose: 1 mg Daptomycin 500 mg/ Sodium (Chloride) 100 mls @ 100 mls/hr IV Q48H [facility] Stop: 02/06/18 00:01 Last Admin: 02/04/18 23:53 Dose: 100 mls/hr Piperacillin Sod/Tazobactam Sod (Zosyn 2.25 Gm Iv Premix) 2.25 gm in 50 mls @ 100 mls/hr IVPB Q8H YARELIS PRN Reason: Protocol Last Admin: 02/05/18 08:20 Dose: 100 mls/hr Sodium Chloride (Sodium Chloride 0.45%) 1,000 mls @ 60 mls/hr IV .[id number] [facility] Last Admin: 02/05/18 06:00 Dose: Not Given Lidocaine (Lidoderm) 1 ea TD DAILY [facility] Last Admin: 02/05/18 09:59 Dose: 1 ea Magnesium Oxide (Mag-Ox) 400 mg PO BID [facility] Last Admin: 02/05/18 09:58 Dose: 400 mg Methimazole (Tapazole) 5 mg PO DAILY [facility] Last Admin: 02/05/18 10:21 Dose: 5 mg Ondansetron HCl (Zofran Inj) 4 mg IVP Q6 PRN PRN Reason: Nausea/Vomiting Last Admin: 01/30/18 08:28 Dose: 4 mg Pantoprazole Sodium (Protonix Ec Tab) 40 mg PO TID [facility] Last Admin: 02/05/18 09:58 Dose: 40 mg Propranolol HCl (Inderal) 10 mg PO BID [facility] Last Admin: 02/05/18 10:21 Dose: 10 mg Tamsulosin HCl (Flomax) 0.4 mg PO DAILY [facility] Last Admin: 02/05/18 09:58 Dose: 0.4 mg - Labs Labs: 02/05/18 07:12 02/05/18 07:12 PT 14.1 SECONDS (9.7-12.2) H 01/27/18 08:24 INR 1.2 01/27/18 08:24 APTT 36 SECONDS (21-34) H 01/27/18 08:24 Assessment and Plan - Assessment and Plan (Free Text) Assessment: A/P D/W Dr. palacios patient schedule for TURP in am will transfuse 2 unit of PRBC and repeat labs in am D/W Dr. Ely, patient medically cleared for TURP
--- NOTE | 2018-02-05 13:59 | CP.PCM.PN ---
Subjective - Date & Time of Evaluation Date of Evaluation: 02/05/18 Time of Evaluation: 13:56 - Subjective Subjective: c/o flank pain good UO via right nephrpstomy creat stable at 2.2 no other complaint Objective - Vital Signs/Intake and Output Vital Signs (last 24 hours): Temp Pulse Resp BP Pulse Ox 98.2 F 63 20 99/60 L 94 L 02/05/18 07:00 02/05/18 07:00 02/05/18 07:00 02/05/18 07:00 02/05/18 07:00 Intake and Output: 02/05/18 02/05/18 06:59 18:59 Intake Total 1900 Output Total 2100 Balance -200 - Medications Medications: Current Medications Acetaminophen (Tylenol 325mg Tab) 650 mg PO Q6 PRN PRN Reason: Fever >100.4 F Last Admin: 01/30/18 00:20 Dose: 650 mg Docusate Sodium (Colace) 100 mg PO TID [facility] Last Admin: 02/05/18 11:09 Dose: Not Given Fentanyl (Duragesic) 1 patch TD Q72H [facility] Last Admin: 02/03/18 12:15 Dose: 1 patch Flutamide (Eulexin) 125 mg PO Q8H [facility] Last Admin: 02/05/18 10:21 Dose: 125 mg Hydromorphone HCl (Dilaudid) 1 mg IVP Q4H PRN PRN Reason: breakthrough pain Last Admin: 02/05/18 10:19 Dose: 1 mg Daptomycin 500 mg/ Sodium (Chloride) 100 mls @ 100 mls/hr IV Q48H [facility] Stop: 02/06/18 00:01 Last Admin: 02/04/18 23:53 Dose: 100 mls/hr Piperacillin Sod/Tazobactam Sod (Zosyn 2.25 Gm Iv Premix) 2.25 gm in 50 mls @ 100 mls/hr IVPB Q8H YARELIS PRN Reason: Protocol Last Admin: 02/05/18 08:20 Dose: 100 mls/hr Sodium Chloride (Sodium Chloride 0.45%) 1,000 mls @ 60 mls/hr IV .[id number] [facility] Last Admin: 02/05/18 06:00 Dose: Not Given Lidocaine (Lidoderm) 1 ea TD DAILY [facility] Last Admin: 02/05/18 09:59 Dose: 1 ea Magnesium Oxide (Mag-Ox) 400 mg PO BID [facility] Last Admin: 02/05/18 09:58 Dose: 400 mg Methimazole (Tapazole) 5 mg PO DAILY [facility] Last Admin: 02/05/18 10:21 Dose: 5 mg Ondansetron HCl (Zofran Inj) 4 mg IVP Q6 PRN PRN Reason: Nausea/Vomiting Last Admin: 01/30/18 08:28 Dose: 4 mg Pantoprazole Sodium (Protonix Ec Tab) 40 mg PO TID [facility] Last Admin: 02/05/18 09:58 Dose: 40 mg Propranolol HCl (Inderal) 10 mg PO BID [facility] Last Admin: 02/05/18 10:21 Dose: 10 mg Tamsulosin HCl (Flomax) 0.4 mg PO DAILY [facility] Last Admin: 02/05/18 09:58 Dose: 0.4 mg - Labs Labs: 02/05/18 07:12 02/05/18 07:12 PT 14.1 SECONDS (9.7-12.2) H 01/27/18 08:24 INR 1.2 01/27/18 08:24 APTT 36 SECONDS (21-34) H 01/27/18 08:24 - Constitutional Appears: In Acute Distress, Chronically Ill - Head Exam Head Exam: ATRAUMATIC, NORMAL INSPECTION - Eye Exam Eye Exam: EOMI, Normal appearance - Neck Exam Neck Exam: Normal Inspection. absent: Tenderness - Respiratory Exam Respiratory Exam: Clear to Ausculation Bilateral, NORMAL BREATHING PATTERN - Cardiovascular Exam Cardiovascular Exam: REGULAR RHYTHM, +S1 - GI/Abdominal Exam GI & Abdominal Exam: Soft. absent: Tenderness - Extremities Exam Extremities Exam: Normal Inspection. absent: Tenderness - Neurological Exam Neurological Exam: Alert, CN II-XII Intact - Skin Skin Exam: Dry, Warm Assessment and Plan (1) Obstructive uropathy Status: Acute (2) Prostate cancer metastatic to bone Status: Acute (3) Substance abuse Status: Acute (4) EMMETT (acute kidney injury) Status: Acute (5) Uremia Status: Acute - Assessment and Plan (Free Text) Plan: IV fluids monitor chemistries PNT care
--- NOTE | 2018-02-05 17:26 | CP.PCM.PCO ---
Physician Communication Note - Physician Communication Note Physician Communication Note: PT MEDICALLY CLEARED FOR TURP TMW
--- NOTE | 2018-02-05 18:58 | PN ---
DATE: SUBJECTIVE: The patient denies any chest pain. PHYSICAL EXAMINATION: VITAL SIGNS: Blood pressure 99/60, heart rate 63, temperature 98.2, respirations 20. HEENT: Pale conjunctivae. CHEST: Clear. HEART: Heart sounds regular. EXTREMITIES: No edema. LABORATORY DATA: Today's hemoglobin and hematocrit 7.8 and 23.6, white count 11.5, platelet count 632,000. Today's BUN and creatinine 37 and 2.2. Today's SMA-7 are within normal limits. EKG done today revealed normal sinus rhythm. ASSESSMENT: 1. Hypothyroidism. 2. Paroxysmal atrial fibrillation. 3. Advanced and metastatic prostatic carcinoma. 4. Obstructive uropathy, status post bilateral nephrostomy tube placement. RECOMMENDATIONS: Continue current IV daptomycin. Continue Flomax, Enbrel, Tapazole, and IV Zosyn. The patient refused to have property assessment monitor. The patient can undergo TURP from the cardiac point of view with postoperative telemetry monitoring unless he refuses again. Larry Islas MD
--- NOTE | 2018-02-05 23:23 | CP.PCM.PN ---
Subjective - Date & Time of Evaluation Date of Evaluation: 02/05/18 Time of Evaluation: 17:40 - Subjective Subjective: pt seen and examined at bedside. Objective - Vital Signs/Intake and Output Vital Signs (last 24 hours): Temp Pulse Resp BP Pulse Ox 98.5 F 68 18 108/64 96 02/05/18 23:13 02/05/18 23:13 02/05/18 23:13 02/05/18 23:13 02/05/18 15:10 Intake and Output: 02/05/18 02/06/18 18:59 06:59 Intake Total 960 1540 Output Total 1400 1000 Balance -440 540 - Medications Medications: Current Medications Acetaminophen (Tylenol 325mg Tab) 650 mg PO Q6 PRN PRN Reason: Fever >100.4 F Last Admin: 01/30/18 00:20 Dose: 650 mg Docusate Sodium (Colace) 100 mg PO TID [facility] Last Admin: 02/05/18 18:48 Dose: Not Given Fentanyl (Duragesic) 1 patch TD Q72H [facility] Last Admin: 02/03/18 12:15 Dose: 1 patch Flutamide (Eulexin) 125 mg PO Q8H [facility] Last Admin: 02/05/18 18:37 Dose: 125 mg Hydromorphone HCl (Dilaudid) 1 mg IVP Q4H PRN PRN Reason: breakthrough pain Last Admin: 02/05/18 22:08 Dose: 1 mg Daptomycin 500 mg/ Sodium (Chloride) 100 mls @ 100 mls/hr IV Q48H [facility] Stop: 02/06/18 00:01 Last Admin: 02/04/18 23:53 Dose: 100 mls/hr Piperacillin Sod/Tazobactam Sod (Zosyn 2.25 Gm Iv Premix) 2.25 gm in 50 mls @ 100 mls/hr IVPB Q8H YARELIS PRN Reason: Protocol Last Admin: 02/05/18 16:40 Dose: 100 mls/hr Sodium Chloride (Sodium Chloride 0.45%) 1,000 mls @ 60 mls/hr IV .[id number] [facility] Last Admin: 02/05/18 06:00 Dose: Not Given Lidocaine (Lidoderm) 1 ea TD DAILY [facility] Last Admin: 02/05/18 09:59 Dose: 1 ea Magnesium Oxide (Mag-Ox) 400 mg PO BID [facility] Last Admin: 02/05/18 18:37 Dose: 400 mg Methimazole (Tapazole) 5 mg PO DAILY [facility] Last Admin: 02/05/18 10:21 Dose: 5 mg Ondansetron HCl (Zofran Inj) 4 mg IVP Q6 PRN PRN Reason: Nausea/Vomiting Last Admin: 01/30/18 08:28 Dose: 4 mg Pantoprazole Sodium (Protonix Ec Tab) 40 mg PO TID [facility] Last Admin: 02/05/18 18:37 Dose: 40 mg Propranolol HCl (Inderal) 10 mg PO BID [facility] Last Admin: 02/05/18 18:37 Dose: 10 mg Tamsulosin HCl (Flomax) 0.4 mg PO DAILY [facility] Last Admin: 02/05/18 09:58 Dose: 0.4 mg - Labs Labs: 02/05/18 07:12 02/05/18 07:12 PT 14.1 SECONDS (9.7-12.2) H 01/27/18 08:24 INR 1.2 01/27/18 08:24 APTT 36 SECONDS (21-34) H 01/27/18 08:24 Assessment and Plan (1) Septicemia Status: Suspected (2) Obstructive uropathy Status: Acute (3) Renal insufficiency Status: Acute
--- NOTE | 2018-02-05 23:42 | CP.PCM.PN ---
Subjective - Date & Time of Evaluation Date of Evaluation: 02/05/18 Time of Evaluation: 23:41 - Subjective Subjective: AFEBRILE, C/O PAIN /DYSURIA. NO ACUTE EVENTS OVERNIGHT. NOTED PT FOR SURGERY IN AM Objective - Vital Signs/Intake and Output Vital Signs (last 24 hours): Temp Pulse Resp BP Pulse Ox 98.5 F 68 18 108/64 96 02/05/18 23:13 02/05/18 23:13 02/05/18 23:13 02/05/18 23:13 02/05/18 15:10 Intake and Output: 02/05/18 02/06/18 18:59 06:59 Intake Total 960 1540 Output Total 1400 1000 Balance -440 540 - Medications Medications: Current Medications Acetaminophen (Tylenol 325mg Tab) 650 mg PO Q6 PRN PRN Reason: Fever >100.4 F Last Admin: 01/30/18 00:20 Dose: 650 mg Docusate Sodium (Colace) 100 mg PO TID [facility] Last Admin: 02/05/18 18:48 Dose: Not Given Fentanyl (Duragesic) 1 patch TD Q72H [facility] Last Admin: 02/03/18 12:15 Dose: 1 patch Flutamide (Eulexin) 125 mg PO Q8H [facility] Last Admin: 02/05/18 18:37 Dose: 125 mg Hydromorphone HCl (Dilaudid) 1 mg IVP Q4H PRN PRN Reason: breakthrough pain Last Admin: 02/05/18 22:08 Dose: 1 mg Daptomycin 500 mg/ Sodium (Chloride) 100 mls @ 100 mls/hr IV Q48H [facility] Stop: 02/06/18 00:01 Last Admin: 02/04/18 23:53 Dose: 100 mls/hr Piperacillin Sod/Tazobactam Sod (Zosyn 2.25 Gm Iv Premix) 2.25 gm in 50 mls @ 100 mls/hr IVPB Q8H YARELIS PRN Reason: Protocol Last Admin: 02/05/18 16:40 Dose: 100 mls/hr Sodium Chloride (Sodium Chloride 0.45%) 1,000 mls @ 60 mls/hr IV .[id number] [facility] Last Admin: 02/05/18 06:00 Dose: Not Given Lidocaine (Lidoderm) 1 ea TD DAILY [facility] Last Admin: 02/05/18 09:59 Dose: 1 ea Magnesium Oxide (Mag-Ox) 400 mg PO BID [facility] Last Admin: 02/05/18 18:37 Dose: 400 mg Methimazole (Tapazole) 5 mg PO DAILY [facility] Last Admin: 02/05/18 10:21 Dose: 5 mg Ondansetron HCl (Zofran Inj) 4 mg IVP Q6 PRN PRN Reason: Nausea/Vomiting Last Admin: 01/30/18 08:28 Dose: 4 mg Pantoprazole Sodium (Protonix Ec Tab) 40 mg PO TID [facility] Last Admin: 02/05/18 18:37 Dose: 40 mg Propranolol HCl (Inderal) 10 mg PO BID [facility] Last Admin: 02/05/18 18:37 Dose: 10 mg Tamsulosin HCl (Flomax) 0.4 mg PO DAILY [facility] Last Admin: 02/05/18 09:58 Dose: 0.4 mg - Labs Labs: 02/05/18 07:12 02/05/18 07:12 PT 14.1 SECONDS (9.7-12.2) H 01/27/18 08:24 INR 1.2 01/27/18 08:24 APTT 36 SECONDS (21-34) H 01/27/18 08:24 - Constitutional Appears: No Acute Distress, Chronically Ill - Head Exam Head Exam: NORMAL INSPECTION - Eye Exam Eye Exam: EOMI, PERRL - ENT Exam ENT Exam: Normal Oropharynx - Neck Exam Neck Exam: Normal Inspection - Respiratory Exam Respiratory Exam: Clear to Ausculation Bilateral - Cardiovascular Exam Cardiovascular Exam: REGULAR RHYTHM, +S1, +S2 - GI/Abdominal Exam GI & Abdominal Exam: Soft, Tenderness (FLANK LT SIDE), Normal Bowel Sounds - Extremities Exam Extremities Exam: Normal Capillary Refill. absent: Calf Tenderness, Pedal Edema - Back Exam Back Exam: CVA tenderness (L) - Neurological Exam Neurological Exam: Alert, Awake, CN II-XII Intact, Oriented x3 - Psychiatric Exam Psychiatric exam: Normal Mood - Skin Skin Exam: Normal Color, Warm Assessment and Plan (1) Fever Assessment & Plan: ALL CULTURES -VE. ON IV ABX. Status: Acute (2) Obstructive uropathy Assessment & Plan: PATIENT WITH BILATERAL STENTS. FOR SURGERY PER . Status: Acute (3) Prostate cancer metastatic to bone Assessment & Plan: ALL CULTURES NEGATIVE TO DATE. Status: Acute (4) Hydronephrosis Status: Acute (5) Anemia Status: Acute (6) Polysubstance abuse Status: Acute (7) EMMETT (acute kidney injury) Status: Acute
[2018-02-06 08:33] LABS: BASO # 0.2 K/uL (0.0-0.2); BASO % 1.7 % (0.0-2.0); EOS % 8.5 % (0.0-4.0); LYMPH # 1.5 K/uL (1.0-4.3); LYMPH % 12.8 % (20.0-40.0); MEAN CELL VOLUME 74.9 fL (80.0-94.0); MEAN CORPUSCULAR HEMOGLOBIN 25.2 pg (27.0-31.0); MEAN CORPUSCULAR HGB CONC 33.7 g/dL (33.0-37.0); MEAN PLATELET VOLUME 7.6 fL (7.2-11.7); MONO # 0.8 K/uL (0.0-0.8); MONO % 7.2 % (0.0-10.0); NEUT % 69.8 % (50.0-75.0); RBC 3.94 Mil/uL (4.40-5.90); RED CELL DISTRIBUTION WIDTH 19.4 % (11.5-14.5); WHITE BLOOD COUNT 11.4 K/uL (4.8-10.8)
[2018-02-06 08:41] LABS: HEMOGLOBIN 9.9 g/dL (12.0-18.0)
[2018-02-06 08:48] LABS: ALB/GLOB RATIO 0.8 (1.0-2.1); ALBUMIN 3.9 g/dL (3.5-5.0); CALCIUM 9.8 mg/dl (8.6-10.4)
[2018-02-06] MEDS: Piperacill/Tazo 2.25gm in Dex 2.25 GM/50 ML BAG IVPB SCH ×3 (09:08→22:44)
[2018-02-06] MEDS: HYDROmorphone 1 mg/ml ISec IVP PRN ×3 (09:08→22:32)
--- NOTE | 2018-02-06 09:50 | CP.PCM.PN ---
Subjective - Date & Time of Evaluation Date of Evaluation: 02/06/18 Time of Evaluation: 09:48 - Subjective Subjective: upset; refusing planned TURP now s/p blood transfusion creat 1.9- stable Objective - Vital Signs/Intake and Output Vital Signs (last 24 hours): Temp Pulse Resp BP Pulse Ox 97.2 F L 68 20 113/67 99 02/06/18 08:22 02/06/18 08:22 02/06/18 08:22 02/06/18 08:22 02/06/18 08:22 Intake and Output: 02/06/18 02/06/18 06:59 18:59 Intake Total 2980 Output Total 2250 Balance 730 - Medications Medications: Current Medications Acetaminophen (Tylenol 325mg Tab) 650 mg PO Q6 PRN PRN Reason: Fever >100.4 F Last Admin: 01/30/18 00:20 Dose: 650 mg Docusate Sodium (Colace) 100 mg PO TID [facility] Last Admin: 02/05/18 18:48 Dose: Not Given Fentanyl (Duragesic) 1 patch TD Q72H [facility] Last Admin: 02/03/18 12:15 Dose: 1 patch Flutamide (Eulexin) 125 mg PO Q8H [facility] Last Admin: 02/06/18 02:05 Dose: 125 mg Hydromorphone HCl (Dilaudid) 1 mg IVP Q4H PRN PRN Reason: breakthrough pain Last Admin: 02/06/18 09:08 Dose: 1 mg Piperacillin Sod/Tazobactam Sod (Zosyn 2.25 Gm Iv Premix) 2.25 gm in 50 mls @ 100 mls/hr IVPB Q8H YARELIS PRN Reason: Protocol Last Admin: 02/06/18 09:08 Dose: 100 mls/hr Sodium Chloride (Sodium Chloride 0.45%) 1,000 mls @ 60 mls/hr IV .[id number] [facility] Last Admin: 02/05/18 23:30 Dose: Not Given Lidocaine (Lidoderm) 1 ea TD DAILY [facility] Last Admin: 02/05/18 09:59 Dose: 1 ea Magnesium Oxide (Mag-Ox) 400 mg PO BID [facility] Last Admin: 02/05/18 18:37 Dose: 400 mg Methimazole (Tapazole) 5 mg PO DAILY [facility] Last Admin: 02/05/18 10:21 Dose: 5 mg Ondansetron HCl (Zofran Inj) 4 mg IVP Q6 PRN PRN Reason: Nausea/Vomiting Last Admin: 01/30/18 08:28 Dose: 4 mg Pantoprazole Sodium (Protonix Ec Tab) 40 mg PO TID [facility] Last Admin: 02/05/18 18:37 Dose: 40 mg Propranolol HCl (Inderal) 10 mg PO BID [facility] Last Admin: 02/05/18 18:37 Dose: 10 mg Tamsulosin HCl (Flomax) 0.4 mg PO DAILY [facility] Last Admin: 02/05/18 09:58 Dose: 0.4 mg - Labs Labs: 02/06/18 08:28 02/06/18 08:28 PT 14.1 SECONDS (9.7-12.2) H 01/27/18 08:24 INR 1.2 01/27/18 08:24 APTT 36 SECONDS (21-34) H 01/27/18 08:24 - Constitutional Appears: No Acute Distress, Chronically Ill - Head Exam Head Exam: ATRAUMATIC, NORMAL INSPECTION - Eye Exam Eye Exam: EOMI, Normal appearance - Neck Exam Neck Exam: Normal Inspection. absent: Tenderness - Respiratory Exam Respiratory Exam: Clear to Ausculation Bilateral, NORMAL BREATHING PATTERN - Cardiovascular Exam Cardiovascular Exam: REGULAR RHYTHM, +S1 - GI/Abdominal Exam GI & Abdominal Exam: Soft. absent: Tenderness - Extremities Exam Extremities Exam: Normal Inspection. absent: Tenderness - Neurological Exam Neurological Exam: Alert, CN II-XII Intact - Skin Skin Exam: Dry, Warm Assessment and Plan (1) Obstructive uropathy Status: Acute (2) Prostate cancer metastatic to bone Status: Acute (3) Substance abuse Status: Acute (4) EMMETT (acute kidney injury) Status: Acute (5) Uremia Status: Acute - Assessment and Plan (Free Text) Plan: notified about surgery cancellation- will be rescheduled follow up chemistries
--- NOTE | 2018-02-06 11:00 | RAD ---
PROCEDURE: HISTORY: HEMATURIA COMPARISON: Renal urinary bladder report 12/25/2017 CT abdomen and pelvic report 12/24/2017 noted TECHNIQUE: Three images. FINDINGS: Image labeled 1. Scalp no pelvic calcifications noted incidental stool retention present Image labeled 2. Catheter device inserted tip calling towards left Image labeled 3. Contrast laden small caliber bladder with central 4 point sick by 3.0 cm filling defect -inferred inflated balloon of a Osorio catheter. The diffuse trabeculated bladder contour significance indeterminate given small caliber prior studies did not suggest bladder wall thickening versus or small caliber bladder IMPRESSION: No reflux no extravasation. Single frontal view noted
[2018-02-06] MEDS: Magnesium Oxide 400 mg Tab UD PO SCH ×2 (11:40→18:06)
[2018-02-06] MEDS: Pantoprazole 40 mg EC Tab PO SCH ×2 (11:40→18:07)
[2018-02-06] MEDS: methIMAzole 5 MG TAB PO SCH (11:41)
[2018-02-06] MEDS ORDERED: HYDROmorphone 1 mg/ml ISec IVP STA (13:25)
[2018-02-06] MEDS ORDERED: Propofol 10 mg/ml Inj (20 ML) ONE (13:39)
[2018-02-06] MEDS ORDERED: Midazolam 2 MG/2 ML VIAL ONE (13:39)
[2018-02-06] MEDS ORDERED: ceFAZolin IV 1 gm in Dextrose 1 GM/50 ML BAG IVPB ONE (13:43)
[2018-02-06] MEDS ORDERED: Ketamine 50 mg/ml Inj (10 ml) ONE (14:06)
[2018-02-06] MEDS ORDERED: Etomidate 20 mg/10ml Inj IV ONE (14:06)
[2018-02-06] MEDS ORDERED: HYDROmorphone 0.5 mg/0.5 ml ISec ONE ×2 (14:45→15:17)
[2018-02-06] MEDS ORDERED: HYDROmorphone 1 mg/ml ISec IVP ONE ×2 (14:55→15:15)
[2018-02-06] MEDS: HYDROmorphone 0.5 mg/0.5 ml ISec IVP PRN ×2 (15:27→15:39)
[2018-02-06] MEDS ORDERED: Acetaminophen IV 1,000 MG in Premixed IV 1 EA IV PRN (15:40)
[2018-02-06] MEDS ORDERED: Sodium Chloride 0.9% 1,000 ML IV ONE (16:00)
--- NOTE | 2018-02-06 16:25 | CARD ---
APPROVED REPORT EKG Measurement Heart [id number] <Conclusion> Normal sinus rhythm Normal ECG
--- NOTE | 2018-02-06 18:10 | CP.PCM.PN ---
Subjective - Date & Time of Evaluation Date of Evaluation: 02/05/18 Time of Evaluation: 14:15 - Subjective Subjective: For TURP tomorrow Objective - Vital Signs/Intake and Output Vital Signs (last 24 hours): Temp Pulse Resp BP Pulse Ox 97.1 F L 84 11 L 123/91 H 100 02/06/18 15:45 02/06/18 15:45 02/06/18 15:45 02/06/18 15:45 02/06/18 15:45 Intake and Output: 02/06/18 02/06/18 06:59 18:59 Intake Total 2980 800 Output Total 2250 Balance 730 800 - Medications Medications: Current Medications Acetaminophen (Tylenol 325mg Tab) 650 mg PO Q6 PRN PRN Reason: Fever >100.4 F Last Admin: 01/30/18 00:20 Dose: 650 mg Docusate Sodium (Colace) 100 mg PO TID [facility] Last Admin: 02/06/18 11:40 Dose: Not Given Fentanyl (Duragesic) 1 patch TD Q72H [facility] Last Admin: 02/03/18 12:15 Dose: 1 patch Flutamide (Eulexin) 125 mg PO Q8H [facility] Last Admin: 02/06/18 11:40 Dose: Not Given Hydromorphone HCl (Dilaudid) 1 mg IVP Q4H PRN PRN Reason: breakthrough pain Last Admin: 02/06/18 09:08 Dose: 1 mg Piperacillin Sod/Tazobactam Sod (Zosyn 2.25 Gm Iv Premix) 2.25 gm in 50 mls @ 100 mls/hr IVPB Q8H [facility]ELIS PRN Reason: Protocol Last Admin: 02/06/18 09:08 Dose: 100 mls/hr Sodium Chloride (Sodium Chloride 0.45%) 1,000 mls @ 60 mls/hr IV .[id number] [facility] Last Admin: 02/05/18 23:30 Dose: Not Given Lidocaine (Lidoderm) 1 ea TD DAILY [facility] Last Admin: 02/05/18 09:59 Dose: 1 ea Magnesium Oxide (Mag-Ox) 400 mg PO BID [facility] Last Admin: 02/06/18 11:40 Dose: Not Given Methimazole (Tapazole) 5 mg PO DAILY [facility] Last Admin: 02/06/18 11:41 Dose: Not Given Ondansetron HCl (Zofran Inj) 4 mg IVP Q6 PRN PRN Reason: Nausea/Vomiting Last Admin: 01/30/18 08:28 Dose: 4 mg Pantoprazole Sodium (Protonix Ec Tab) 40 mg PO TID [facility] Last Admin: 02/06/18 11:40 Dose: Not Given Propranolol HCl (Inderal) 10 mg PO BID [facility] Last Admin: 02/06/18 11:40 Dose: Not Given Tamsulosin HCl (Flomax) 0.4 mg PO DAILY [facility] Last Admin: 02/06/18 11:40 Dose: Not Given - Labs Labs: 02/06/18 08:28 02/06/18 08:28 PT 14.1 SECONDS (9.7-12.2) H 01/27/18 08:24 INR 1.2 01/27/18 08:24 APTT 36 SECONDS (21-34) H 01/27/18 08:24 - Head Exam Head Exam: ATRAUMATIC - Eye Exam Eye Exam: Normal appearance - ENT Exam ENT Exam: Mucous Membranes Dry - Respiratory Exam Respiratory Exam: NORMAL BREATHING PATTERN - Cardiovascular Exam Cardiovascular Exam: +S1, +S2 - GI/Abdominal Exam GI & Abdominal Exam: Normal Bowel Sounds Assessment and Plan (1) Anemia Assessment & Plan: chronic disease, renal disease, hematuria, bone mets transfusion support Status: Acute (2) Prostate cancer Assessment & Plan: stage IV on total androgen deprivation but likely progressing given rising PSA will need outpatient addition of Zytiga Status: Acute
--- NOTE | 2018-02-06 18:12 | CP.PCM.PN ---
Subjective - Date & Time of Evaluation Date of Evaluation: 02/06/18 Time of Evaluation: 11:00 - Subjective Subjective: For TURP today Objective - Vital Signs/Intake and Output Vital Signs (last 24 hours): Temp Pulse Resp BP Pulse Ox 97.1 F L 84 11 L 123/91 H 100 02/06/18 15:45 02/06/18 15:45 02/06/18 15:45 02/06/18 15:45 02/06/18 15:45 Intake and Output: 02/06/18 02/06/18 06:59 18:59 Intake Total 2980 800 Output Total 2250 Balance 730 800 - Medications Medications: Current Medications Acetaminophen (Tylenol 325mg Tab) 650 mg PO Q6 PRN PRN Reason: Fever >100.4 F Last Admin: 01/30/18 00:20 Dose: 650 mg Docusate Sodium (Colace) 100 mg PO TID [facility] Last Admin: 02/06/18 11:40 Dose: Not Given Fentanyl (Duragesic) 1 patch TD Q72H [facility] Last Admin: 02/03/18 12:15 Dose: 1 patch Flutamide (Eulexin) 125 mg PO Q8H [facility] Last Admin: 02/06/18 11:40 Dose: Not Given Hydromorphone HCl (Dilaudid) 1 mg IVP Q4H PRN PRN Reason: breakthrough pain Last Admin: 02/06/18 09:08 Dose: 1 mg Piperacillin Sod/Tazobactam Sod (Zosyn 2.25 Gm Iv Premix) 2.25 gm in 50 mls @ 100 mls/hr IVPB Q8H [facility] PRN Reason: Protocol Last Admin: 02/06/18 09:08 Dose: 100 mls/hr Sodium Chloride (Sodium Chloride 0.45%) 1,000 mls @ 60 mls/hr IV .[id number] [facility] Last Admin: 02/05/18 23:30 Dose: Not Given Lidocaine (Lidoderm) 1 ea TD DAILY [facility] Last Admin: 02/05/18 09:59 Dose: 1 ea Magnesium Oxide (Mag-Ox) 400 mg PO BID [facility] Last Admin: 02/06/18 11:40 Dose: Not Given Methimazole (Tapazole) 5 mg PO DAILY [facility] Last Admin: 02/06/18 11:41 Dose: Not Given Ondansetron HCl (Zofran Inj) 4 mg IVP Q6 PRN PRN Reason: Nausea/Vomiting Last Admin: 01/30/18 08:28 Dose: 4 mg Pantoprazole Sodium (Protonix Ec Tab) 40 mg PO TID [facility] Last Admin: 02/06/18 11:40 Dose: Not Given Propranolol HCl (Inderal) 10 mg PO BID [facility] Last Admin: 02/06/18 11:40 Dose: Not Given Tamsulosin HCl (Flomax) 0.4 mg PO DAILY [facility] Last Admin: 02/06/18 11:40 Dose: Not Given - Labs Labs: 02/06/18 08:28 02/06/18 08:28 PT 14.1 SECONDS (9.7-12.2) H 01/27/18 08:24 INR 1.2 01/27/18 08:24 APTT 36 SECONDS (21-34) H 01/27/18 08:24 - Head Exam Head Exam: ATRAUMATIC - Eye Exam Eye Exam: Normal appearance - ENT Exam ENT Exam: Mucous Membranes Dry - Respiratory Exam Respiratory Exam: NORMAL BREATHING PATTERN - Cardiovascular Exam Cardiovascular Exam: +S1, +S2 - GI/Abdominal Exam GI & Abdominal Exam: Normal Bowel Sounds Assessment and Plan (1) Anemia Assessment & Plan: s/p PRBC transfusion Status: Acute (2) Prostate cancer Assessment & Plan: stage IV outpatient treatment Status: Acute
[2018-02-06] MEDS ORDERED: HYDROmorphone 0.5 mg/0.5 ml ISec IVP STA (19:47)
[2018-02-06] MEDS: Lidocaine 5% Patch TD SCH (20:16)
--- NOTE | 2018-02-06 23:20 | CP.PCM.PN ---
Subjective - Date & Time of Evaluation Date of Evaluation: 02/06/18 Time of Evaluation: 23:18 - Subjective Subjective: S/P TURP TODAY. 02/06/18. SEEN POSTOPERATIVELY . PATIENT IN PAIN AND DROWSY. FOLY +VE. Objective - Vital Signs/Intake and Output Vital Signs (last 24 hours): Temp Pulse Resp BP Pulse Ox 97.1 F L 84 11 L 123/91 H 100 02/06/18 15:45 02/06/18 15:45 02/06/18 15:45 02/06/18 15:45 02/06/18 15:45 Intake and Output: 02/06/18 02/07/18 18:59 06:59 Intake Total 800 Balance 800 - Medications Medications: Current Medications Acetaminophen (Tylenol 325mg Tab) 650 mg PO Q6 PRN PRN Reason: Fever >100.4 F Last Admin: 01/30/18 00:20 Dose: 650 mg Docusate Sodium (Colace) 100 mg PO TID [facility] Last Admin: 02/06/18 18:07 Dose: 100 mg Fentanyl (Duragesic) 1 patch TD Q72H [facility] Last Admin: 02/03/18 12:15 Dose: 1 patch Flutamide (Eulexin) 125 mg PO Q8H [facility] Last Admin: 02/06/18 18:07 Dose: 125 mg Hydromorphone HCl (Dilaudid) 1 mg IVP Q4H PRN PRN Reason: breakthrough pain Last Admin: 02/06/18 22:32 Dose: 1 mg Piperacillin Sod/Tazobactam Sod (Zosyn 2.25 Gm Iv Premix) 2.25 gm in 50 mls @ 100 mls/hr IVPB Q8H [facility] PRN Reason: Protocol Last Admin: 02/06/18 22:44 Dose: 100 mls/hr Sodium Chloride (Sodium Chloride 0.45%) 1,000 mls @ 60 mls/hr IV .[id number] [facility] Last Admin: 02/05/18 23:30 Dose: Not Given Lidocaine (Lidoderm) 1 ea TD DAILY [facility] Last Admin: 02/06/18 20:16 Dose: 1 ea Magnesium Oxide (Mag-Ox) 400 mg PO BID [facility] Last Admin: 02/06/18 18:06 Dose: 400 mg Methimazole (Tapazole) 5 mg PO DAILY [facility] Last Admin: 02/06/18 11:41 Dose: Not Given Ondansetron HCl (Zofran Inj) 4 mg IVP Q6 PRN PRN Reason: Nausea/Vomiting Last Admin: 01/30/18 08:28 Dose: 4 mg Pantoprazole Sodium (Protonix Ec Tab) 40 mg PO TID [facility] Last Admin: 02/06/18 18:07 Dose: 40 mg Propranolol HCl (Inderal) 10 mg PO BID [facility] Last Admin: 02/06/18 18:07 Dose: 10 mg Tamsulosin HCl (Flomax) 0.4 mg PO DAILY [facility] Last Admin: 02/06/18 11:40 Dose: Not Given - Labs Labs: 02/06/18 08:28 02/06/18 08:28 PT 14.1 SECONDS (9.7-12.2) H 01/27/18 08:24 INR 1.2 01/27/18 08:24 APTT 36 SECONDS (21-34) H 01/27/18 08:24 - Constitutional Appears: No Acute Distress - Eye Exam Eye Exam: EOMI, PERRL - ENT Exam ENT Exam: Mucous Membranes Dry - Neck Exam Neck Exam: Normal Inspection - Respiratory Exam Respiratory Exam: Clear to Ausculation Bilateral - Cardiovascular Exam Cardiovascular Exam: REGULAR RHYTHM, +S1, +S2 - GI/Abdominal Exam GI & Abdominal Exam: Soft, Normal Bowel Sounds - Extremities Exam Extremities Exam: absent: Calf Tenderness, Pedal Edema - Neurological Exam Neurological Exam: Altered (DROWSY-. pOSTOP.) - Psychiatric Exam Psychiatric exam: Flat Affect - Skin Skin Exam: Normal Color, Warm Assessment and Plan (1) Fever Assessment & Plan: FEVER HAS RESOLVED ALL CULTURES -VE. ON IV DAPTOMYCIN 500 MG iv PIGGYBACK EVERY 48 HOURLY. ON iv ZOSYN 2.25 EVERY 8 HOURLY. CONTINUE iv ANTIBIOTICS POSTOPERATIVELY. 02/06/18. Status: Acute (2) Obstructive uropathy Assessment & Plan: PATIENT WITH BILATERAL STENTS. S/P TURP PER . 02/06/18. CONTINUE iv ANTIBIOTICS Status: Acute (3) Prostate cancer metastatic to bone Status: Acute (4) Hydronephrosis Status: Acute (5) Anemia Status: Acute (6) Polysubstance abuse Status: Acute (7) EMMETT (acute kidney injury) Status: Acute
--- NOTE | 2018-02-06 23:45 | CP.PCM.PN ---
Subjective - Date & Time of Evaluation Date of Evaluation: 02/06/18 Time of Evaluation: 09:00 - Subjective Subjective: Pt seen and examined today, pt is for OR for TURP, he is feeling flak pain and in mild distress Objective - Vital Signs/Intake and Output Vital Signs (last 24 hours): Temp Pulse Resp BP Pulse Ox 97.1 F L 84 11 L 123/91 H 100 02/06/18 15:45 02/06/18 15:45 02/06/18 15:45 02/06/18 15:45 02/06/18 15:45 Intake and Output: 02/06/18 02/07/18 18:59 06:59 Intake Total 800 9000 Output Total 8800 Balance 800 200 - Medications Medications: Current Medications Acetaminophen (Tylenol 325mg Tab) 650 mg PO Q6 PRN PRN Reason: Fever >100.4 F Last Admin: 01/30/18 00:20 Dose: 650 mg Docusate Sodium (Colace) 100 mg PO TID [facility] Last Admin: 02/06/18 18:07 Dose: 100 mg Fentanyl (Duragesic) 1 patch TD Q72H [facility] Last Admin: 02/03/18 12:15 Dose: 1 patch Flutamide (Eulexin) 125 mg PO Q8H [facility] Last Admin: 02/06/18 18:07 Dose: 125 mg Hydromorphone HCl (Dilaudid) 1 mg IVP Q4H PRN PRN Reason: breakthrough pain Last Admin: 02/06/18 22:32 Dose: 1 mg Piperacillin Sod/Tazobactam Sod (Zosyn 2.25 Gm Iv Premix) 2.25 gm in 50 mls @ 100 mls/hr IVPB Q8H [facility] PRN Reason: Protocol Last Admin: 02/06/18 22:44 Dose: 100 mls/hr Sodium Chloride (Sodium Chloride 0.45%) 1,000 mls @ 60 mls/hr IV .[id number] [facility] Last Admin: 02/05/18 23:30 Dose: Not Given Lidocaine (Lidoderm) 1 ea TD DAILY [facility] Last Admin: 02/06/18 20:16 Dose: 1 ea Magnesium Oxide (Mag-Ox) 400 mg PO BID [facility] Last Admin: 02/06/18 18:06 Dose: 400 mg Methimazole (Tapazole) 5 mg PO DAILY [facility] Last Admin: 02/06/18 11:41 Dose: Not Given Ondansetron HCl (Zofran Inj) 4 mg IVP Q6 PRN PRN Reason: Nausea/Vomiting Last Admin: 01/30/18 08:28 Dose: 4 mg Pantoprazole Sodium (Protonix Ec Tab) 40 mg PO TID [facility] Last Admin: 02/06/18 18:07 Dose: 40 mg Propranolol HCl (Inderal) 10 mg PO BID [facility] Last Admin: 02/06/18 18:07 Dose: 10 mg Tamsulosin HCl (Flomax) 0.4 mg PO DAILY [facility] Last Admin: 02/06/18 11:40 Dose: Not Given - Labs Labs: 02/06/18 08:28 02/06/18 08:28 PT 14.1 SECONDS (9.7-12.2) H 01/27/18 08:24 INR 1.2 01/27/18 08:24 APTT 36 SECONDS (21-34) H 01/27/18 08:24 - Constitutional Appears: No Acute Distress - Head Exam Head Exam: ATRAUMATIC, NORMAL INSPECTION, NORMOCEPHALIC - Eye Exam Eye Exam: EOMI, Normal appearance, PERRL Pupil Exam: NORMAL ACCOMODATION, PERRL - Respiratory Exam Respiratory Exam: Clear to Ausculation Bilateral, NORMAL BREATHING PATTERN - Cardiovascular Exam Cardiovascular Exam: REGULAR RHYTHM, +S1, +S2. absent: Murmur - GI/Abdominal Exam GI & Abdominal Exam: Soft, Normal Bowel Sounds. absent: Tenderness Assessment and Plan (1) Septicemia Status: Suspected (2) Obstructive uropathy Assessment & Plan: for turp Status: Acute (3) Renal insufficiency Status: Acute
[2018-02-07] MEDS ORDERED: HYDROmorphone 0.5 mg/0.5 ml ISec IVP STA ×2 (00:41→10:23)
[2018-02-07 01:51] VITALS: RESP 20
[2018-02-07] MEDS: HYDROmorphone 1 mg/ml ISec IVP PRN ×4 (02:56→21:00)
[2018-02-07] MEDS: Piperacill/Tazo 2.25gm in Dex 2.25 GM/50 ML BAG IVPB SCH ×3 (06:47→23:39)
[2018-02-07] MEDS ORDERED: HYDROmorphone 1 mg/ml ISec IVP STA (10:09)
[2018-02-07] MEDS: Lidocaine 5% Patch TD SCH (10:41)
[2018-02-07] MEDS: Magnesium Oxide 400 mg Tab UD PO SCH ×2 (10:42→18:16)
[2018-02-07] MEDS: methIMAzole 5 MG TAB PO SCH (10:42)
[2018-02-07] MEDS: Pantoprazole 40 mg EC Tab PO SCH ×3 (10:42→18:17)
--- NOTE | 2018-02-07 13:25 | CP.PCM.PN ---
Subjective - Date & Time of Evaluation Date of Evaluation: 02/07/18 Time of Evaluation: 13:23 - Subjective Subjective: s/p TURP 02/06; needed CBI post also s/p blood transfusions 02/[address], still with significant right sided drainage; [place] output present as well no new labs now feels better, alert no n, v, diarrhea, f, chills Objective - Vital Signs/Intake and Output Vital Signs (last 24 hours): Temp Pulse Resp BP Pulse Ox 98.2 F 74 20 121/75 99 02/07/18 07:44 02/07/18 07:44 02/07/18 07:44 02/07/18 07:44 02/07/18 07:44 Intake and Output: 02/07/18 02/07/18 06:59 18:59 Intake Total 9480 80227 Output Total 35725 34444 Balance -18107 -785 - Medications Medications: Current Medications Acetaminophen (Tylenol 325mg Tab) 650 mg PO Q6 PRN PRN Reason: Fever >100.4 F Last Admin: 01/30/18 00:20 Dose: 650 mg Clonazepam (Klonopin) 0.5 mg PO BID [facility] Last Admin: 02/07/18 11:59 Dose: 0.5 mg Docusate Sodium (Colace) 100 mg PO TID [facility] Last Admin: 02/07/18 11:55 Dose: Not Given Fentanyl (Duragesic) 1 patch TD Q72H [facility] Last Admin: 02/07/18 07:29 Dose: 1 patch Flutamide (Eulexin) 125 mg PO Q8H [facility] Last Admin: 02/07/18 10:42 Dose: 125 mg Gabapentin (Neurontin) 300 mg PO TID [facility] Hydromorphone HCl (Dilaudid) 1 mg IVP Q4H PRN PRN Reason: breakthrough pain Piperacillin Sod/Tazobactam Sod (Zosyn 2.25 Gm Iv Premix) 2.25 gm in 50 mls @ 100 mls/hr IVPB Q8H [facility] PRN Reason: Protocol Last Admin: 02/07/18 06:47 Dose: 100 mls/hr Sodium Chloride (Sodium Chloride 0.45%) 1,000 mls @ 60 mls/hr IV .[id number] [facility] Last Admin: 02/05/18 23:30 Dose: Not Given Lidocaine (Lidoderm) 1 ea TD DAILY [facility] Last Admin: 02/07/18 10:41 Dose: 1 ea Magnesium Oxide (Mag-Ox) 400 mg PO BID [facility] Last Admin: 02/07/18 10:42 Dose: 400 mg Methimazole (Tapazole) 5 mg PO DAILY [facility] Last Admin: 02/07/18 10:42 Dose: 5 mg Mirtazapine (Remeron) 15 mg PO HS [facility] Ondansetron HCl (Zofran Inj) 4 mg IVP Q6 PRN PRN Reason: Nausea/Vomiting Last Admin: 01/30/18 08:28 Dose: 4 mg Pantoprazole Sodium (Protonix Ec Tab) 40 mg PO TID [facility] Last Admin: 02/07/18 10:42 Dose: 40 mg Propranolol HCl (Inderal) 10 mg PO BID [facility] Last Admin: 02/07/18 10:42 Dose: 10 mg Tamsulosin HCl (Flomax) 0.4 mg PO DAILY [facility] Last Admin: 02/07/18 10:42 Dose: 0.4 mg - Labs Labs: 02/06/18 08:28 02/06/18 08:28 PT 14.1 SECONDS (9.7-12.2) H 01/27/18 08:24 INR 1.2 01/27/18 08:24 APTT 36 SECONDS (21-34) H 01/27/18 08:24 - Constitutional Appears: No Acute Distress, Chronically Ill - Head Exam Head Exam: ATRAUMATIC, NORMAL INSPECTION - Eye Exam Eye Exam: EOMI, Normal appearance - Neck Exam Neck Exam: Normal Inspection. absent: Tenderness - Respiratory Exam Respiratory Exam: Clear to Ausculation Bilateral, NORMAL BREATHING PATTERN - Cardiovascular Exam Cardiovascular Exam: REGULAR RHYTHM, +S1 - Extremities Exam Extremities Exam: Normal Inspection. absent: Tenderness - Neurological Exam Neurological Exam: Alert, CN II-XII Intact - Skin Skin Exam: Dry, Warm Assessment and Plan (1) Obstructive uropathy Status: Acute (2) Prostate cancer metastatic to bone Status: Acute (3) Substance abuse Status: Acute (4) EMMETT (acute kidney injury) Status: Acute (5) Uremia Status: Acute - Assessment and Plan (Free Text) Plan: repeat chemistries monitor UO decide if PNTs needed- left side could probabaly be removed IV Abs/ IV fluids
--- NOTE | 2018-02-07 13:55 | CP.PCM.PN ---
Subjective - Date & Time of Evaluation Date of Evaluation: 02/07/18 Time of Evaluation: 11:45 - Subjective Subjective: Has pelvic pain post TURP Objective - Vital Signs/Intake and Output Vital Signs (last 24 hours): Temp Pulse Resp BP Pulse Ox 98.2 F 74 20 121/75 99 02/07/18 07:44 02/07/18 07:44 02/07/18 07:44 02/07/18 07:44 02/07/18 07:44 Intake and Output: 02/07/18 02/07/18 06:59 18:59 Intake Total 9480 01007 Output Total 78499 26298 Balance -51661 -785 - Medications Medications: Current Medications Acetaminophen (Tylenol 325mg Tab) 650 mg PO Q6 PRN PRN Reason: Fever >100.4 F Last Admin: 01/30/18 00:20 Dose: 650 mg Clonazepam (Klonopin) 0.5 mg PO BID [facility] Last Admin: 02/07/18 11:59 Dose: 0.5 mg Docusate Sodium (Colace) 100 mg PO TID [facility] Last Admin: 02/07/18 11:55 Dose: Not Given Fentanyl (Duragesic) 1 patch TD Q72H [facility] Last Admin: 02/07/18 07:29 Dose: 1 patch Flutamide (Eulexin) 125 mg PO Q8H [facility] Last Admin: 02/07/18 10:42 Dose: 125 mg Gabapentin (Neurontin) 300 mg PO TID [facility] Last Admin: 02/07/18 13:29 Dose: 300 mg Hydromorphone HCl (Dilaudid) 1 mg IVP Q4H PRN PRN Reason: breakthrough pain Piperacillin Sod/Tazobactam Sod (Zosyn 2.25 Gm Iv Premix) 2.25 gm in 50 mls @ 100 mls/hr IVPB Q8H [facility] PRN Reason: Protocol Last Admin: 02/07/18 06:47 Dose: 100 mls/hr Sodium Chloride (Sodium Chloride 0.45%) 1,000 mls @ 60 mls/hr IV .[id number] [facility] Last Admin: 02/05/18 23:30 Dose: Not Given Lidocaine (Lidoderm) 1 ea TD DAILY [facility] Last Admin: 02/07/18 10:41 Dose: 1 ea Magnesium Oxide (Mag-Ox) 400 mg PO BID [facility] Last Admin: 02/07/18 10:42 Dose: 400 mg Methimazole (Tapazole) 5 mg PO DAILY [facility] Last Admin: 02/07/18 10:42 Dose: 5 mg Mirtazapine (Remeron) 15 mg PO HS [facility] Ondansetron HCl (Zofran Inj) 4 mg IVP Q6 PRN PRN Reason: Nausea/Vomiting Last Admin: 01/30/18 08:28 Dose: 4 mg Pantoprazole Sodium (Protonix Ec Tab) 40 mg PO TID [facility] Last Admin: 02/07/18 13:30 Dose: 40 mg Propranolol HCl (Inderal) 10 mg PO BID [facility] Last Admin: 02/07/18 10:42 Dose: 10 mg Tamsulosin HCl (Flomax) 0.4 mg PO DAILY [facility] Last Admin: 02/07/18 10:42 Dose: 0.4 mg - Labs Labs: 02/06/18 08:28 02/06/18 08:28 PT 14.1 SECONDS (9.7-12.2) H 01/27/18 08:24 INR 1.2 01/27/18 08:24 APTT 36 SECONDS (21-34) H 01/27/18 08:24 - Head Exam Head Exam: ATRAUMATIC - Eye Exam Eye Exam: Normal appearance - ENT Exam ENT Exam: Mucous Membranes Dry - Respiratory Exam Respiratory Exam: NORMAL BREATHING PATTERN - Cardiovascular Exam Cardiovascular Exam: +S1, +S2 - GI/Abdominal Exam GI & Abdominal Exam: Normal Bowel Sounds Assessment and Plan (1) Anemia Assessment & Plan: chronic disease, hematuria, bone mets, renal disease transfusion support PRN Status: Acute (2) Prostate cancer Assessment & Plan: stage IV progressing on total androgen deprivation will need addition of Zytiga as outpatient Status: Acute
[2018-02-07 14:14] LABS: BASO # 0.1 K/uL (0.0-0.2); BASO % 0.5 % (0.0-2.0); EOS # 0.1 K/uL (0.0-0.7); EOS % 0.4 % (0.0-4.0); HEMOGLOBIN 10.1 g/dL (12.0-18.0); LYMPH % 4.8 % (20.0-40.0); MEAN CELL VOLUME 75.8 fL (80.0-94.0); MEAN CORPUSCULAR HEMOGLOBIN 25.3 pg (27.0-31.0); MEAN CORPUSCULAR HGB CONC 33.3 g/dL (33.0-37.0); MEAN PLATELET VOLUME 7.9 fL (7.2-11.7); MONO # 1.3 K/uL (0.0-0.8); MONO % 6.5 % (0.0-10.0); NEUT # 17.5 K/uL (1.8-7.0); NEUT % 87.8 % (50.0-75.0); PLATELET COUNT 724 K/uL (130-400); RBC 3.98 Mil/uL (4.40-5.90); RED CELL DISTRIBUTION WIDTH 19.9 % (11.5-14.5)
[2018-02-07 14:26] LABS: CALCIUM 9.6 mg/dl (8.6-10.4)
[2018-02-07 14:36] LABS: EOSINOPHIL 1 % (0-4); LYMPHOCYTE 3 % (20-40); MONOCYTE 4 % (0-10); NEUTROPHIL 92 % (50-75); PLATELET ESTIMATE INCREASED (NORMAL); TOTAL CELLS COUNTED 100
[2018-02-07 14:37] LABS: ANISOCYTOSIS MODERATE; TARGET CELLS SLIGHT
--- NOTE | 2018-02-07 15:17 | PCM.PSYCH ---
Initial Psychiatric Evaluation - Initial Psychiatric Evaluation Type of Admission: Voluntary Legal Status: Capacity Chief Complaint (in patient's own words): "I'm in pain" History of Present Illness and Precipitating Events: Patient is a 57-year-old -[place] male who lives in a homeless mcc, has a history of prostate cancer with bone mets, is single, has a daughter, and collects disability for support. He has a history of cocaine and heroin abuse 20 years ago but has been clean ever since. Patient was admitted to the hospital for pain control secondary to exacerbation of prostate cancer. Psychiatry was consulted due to depression and anxiety caused by patient's ongoing pain. Patient additionally reports a decreased appetite and has not been sleeping as much. He has no prior psychiatric history and denies suicidal ideations or auditory and visual hallucinations. Medical Hx: Prostate CA, Hyperthyroid Medications: Percocet, Flomax, Methimazole, Flutamide Psych Hx: None Fam Hx: Prostate CA in father and grandfather Current Medications: Active Medications Generic Name Dose Route Start Last Admin Trade Name Freq PRN Reason Stop Dose Admin Acetaminophen 650 mg 01/28/18 16:02 01/30/18 00:20 Tylenol 325mg Tab PO 650 mg Q6 PRN Administration Fever >100.4 F Clonazepam 0.5 mg 02/07/18 11:45 02/07/18 11:59 Klonopin PO 0.5 mg BID [facility] Administration Docusate Sodium 100 mg 01/19/18 10:00 02/07/18 14:40 Colace PO Not Given TID [facility] Fentanyl 1 patch 01/28/18 11:15 02/07/18 07:29 Duragesic TD 1 patch Q72H [facility] Administration Flutamide 125 mg 01/19/18 10:00 02/07/18 10:42 Eulexin PO 125 mg Q8H [facility] Administration Gabapentin 300 mg 02/07/18 14:00 02/07/18 13:29 Neurontin PO 300 mg TID [facility] Administration Hydromorphone HCl 1 mg 02/07/18 10:45 02/07/18 15:01 Dilaudid IVP 1 mg Q4H PRN Administration breakthrough pain Piperacillin Sod/Tazobactam Sod 2.25 gm in 50 mls @ 100 mls/hr 02/02/18 23:45 02/07/18 06:47 Zosyn 2.25 Gm Iv Premix IVPB 100 mls/hr Q8H [facility] Administration Protocol Lidocaine 1 ea 01/19/18 15:15 02/07/18 10:41 Lidoderm TD 1 ea DAILY [facility] Administration Magnesium Oxide 400 mg 02/03/18 18:00 02/07/18 10:42 Mag-Ox PO 400 mg BID [facility] Administration Methimazole 5 mg 01/19/18 10:00 02/07/18 10:42 Tapazole PO 5 mg DAILY [facility] Administration Mirtazapine 15 mg 02/07/18 22:00 Remeron PO HS [facility] Ondansetron HCl 4 mg 01/21/18 16:09 01/30/18 08:28 Zofran Inj IVP 4 mg Q6 PRN Administration Nausea/Vomiting Pantoprazole Sodium 40 mg 01/31/18 14:00 02/07/18 13:30 Protonix Ec Tab PO 40 mg TID [facility] Administration Propranolol HCl 10 mg 01/28/18 18:00 02/07/18 10:42 Inderal PO 10 mg BID [facility] Administration Tamsulosin HCl 0.4 mg 01/19/18 10:00 02/07/18 10:42 Flomax PO 0.4 mg DAILY [facility] Administration Past Psychiatric History - Past Psychiatric History Pertinent Medical Hx (Current Medical&Sleep Prob, Allergies): Allergies Allergy/AdvReac Type Severity Reaction Status Date / Time honey Allergy Verified 01/18/18 18:53 Tamsulosin [Flomax] 0.4 mg PO DAILY #15 cap 10/22/17 Flutamide [Eulexin] 125 mg PO Q8 12/24/17 Methimazole [Tapazole] 5 mg PO BID 12/24/17 Oxycodone HCl/Acetaminophen [Percocet 10-325 mg Tablet] 1 each PO Q6 01/20/18 Review of Systems - Review of Systems All systems: reviewed and no additional remarkable complaints except - Psychiatric Psychiatric: Abnormal Sleep Pattern, Anxiety, Depression, Irritability, Mood Swings. absent: Auditory Hallucinations, Hallucinations, Homicidal Ideation, Suicidal Ideation Mental Status Examination - Personal Presentation Personal Presentation: Looks stated age - Affect Affect: Broad - Motor Activity Motor Activity: Calm - Reliability in Providing Information Reliability in Providing Information: Good - Mood Mood: Anxious - Formal Thought Process Formal Thought Process: No Impairment - Obsessions/Compulsions Obsessions: No Compulsions: No - Cognitive Functions Orientation: Person, Place, Situation, Time Sensorium: Alert Attention/Concentration: Attentive Abstract Thinking: [place] Estimate of Intelligence: Average Judgement: Intact, as evidence by: Good judgement Memory: Recent intact, as evidence by: Ability to recall events of the day, Remote intact, as evidenced by: Abilit to recall sig. life events DSM 5 DX - DSM 5 DSM 5 Diagnosis: Adjustment disorder with depressed mood - moderate - Recommended/Plan of Treatment Treatment Recommendations and Plan of Treatment: Start gabapentin Start Klonopin All risks, benefits and alternatives of the meds discussed, and the pt agreed and understood. Individual therapy daily Psychoeducation and support daily Encourage compliance with meds and after care Refer to outpatient program 32 minutes Projected ELOS: 4-5 days Prognosis: Good with continued outpatient followup Discharge Plan and Discharge Criteria: Continue medications and encourage follow-up - Smoking Cessation Smoking Cessation Initiated: No Reason for not providing: Nonsmoker
--- NOTE | 2018-02-07 23:01 | PN ---
DATE: 02/07/2018 SUBJECTIVE: The patient underwent a transurethral prostatic resection yesterday. He denies any chest pain or shortness of breath at this time. PHYSICAL EXAMINATION: VITAL SIGNS: Blood pressure 120/68, heart rate 67, temperature 98.9, and respirations 20. HEENT: Pale conjunctivae. CHEST: Minimal rhonchi. HEART: S1 and S2, regular. EXTREMITIES: No edema. LABORATORY DATA: Hemoglobin and hematocrit at 10.1 and 30.1, white count 20,000, platelet count 724,000. Today's BUN and creatinine are 28 and 1.8, glucose 147, the rest of the SMA-7 is within normal limits. Postoperative EKG today revealed normal sinus rhythm, minimal voltage criteria for LVH. ASSESSMENT: 1. Atrial flutter and atrial fibrillation. 2. Hyperthyroidism. 3. Status post transurethral prostatic resection. 4. Metastatic prostatic cancer, postobstructive uropathy, status post bilateral nephrostomy tube placement. RECOMMENDATIONS: Continue current IV Dilaudid p.r.n. at 1 mg q 4 hours, continue Flomax 0.4 mg once a day, Inderal 10 mg twice a day, Tapazole 5 mg daily, and Zosyn 2.25 gm intravenously q.8 hours. Larry Islas MD
--- NOTE | 2018-02-07 23:41 | CP.PCM.PN ---
Subjective - Date & Time of Evaluation Date of Evaluation: 02/07/18 Time of Evaluation: 23:41 - Subjective Subjective: # POD 1. PATIENT WITH CHRONIC PAIN FOLY +VE. S/P TURP 02/06/18. S/P B/L NT 01/22/18 SEEN BY PSYCHIATRY [facility] LABS REVIEWED Objective - Vital Signs/Intake and Output Vital Signs (last 24 hours): Temp Pulse Resp BP Pulse Ox 98.9 F 67 20 114/68 97 02/07/18 15:37 02/07/18 15:37 02/07/18 15:37 02/07/18 15:37 02/07/18 15:37 Intake and Output: 02/07/18 02/08/18 18:59 06:59 Intake Total 18360 Output Total 43719 Balance -785 - Medications Medications: Current Medications Acetaminophen (Tylenol 325mg Tab) 650 mg PO Q6 PRN PRN Reason: Fever >100.4 F Last Admin: 01/30/18 00:20 Dose: 650 mg Clonazepam (Klonopin) 0.5 mg PO BID [facility] Last Admin: 02/07/18 18:17 Dose: 0.5 mg Docusate Sodium (Colace) 100 mg PO TID [facility] Last Admin: 02/07/18 18:16 Dose: Not Given Fentanyl (Duragesic) 1 patch TD Q72H [facility] Last Admin: 02/07/18 07:29 Dose: 1 patch Flutamide (Eulexin) 125 mg PO Q8H [facility] Last Admin: 02/07/18 18:16 Dose: 125 mg Gabapentin (Neurontin) 300 mg PO TID [facility] Last Admin: 02/07/18 18:17 Dose: 300 mg Hydromorphone HCl (Dilaudid) 1 mg IVP Q4H PRN PRN Reason: breakthrough pain Last Admin: 02/07/18 21:00 Dose: 1 mg Piperacillin Sod/Tazobactam Sod (Zosyn 2.25 Gm Iv Premix) 2.25 gm in 50 mls @ 100 mls/hr IVPB Q8H [facility] PRN Reason: Protocol Last Admin: 02/07/18 23:39 Dose: 100 mls/hr Lidocaine (Lidoderm) 1 ea TD DAILY [facility] Last Admin: 02/07/18 10:41 Dose: 1 ea Magnesium Oxide (Mag-Ox) 400 mg PO BID [facility] Last Admin: 02/07/18 18:16 Dose: 400 mg Methimazole (Tapazole) 5 mg PO DAILY [facility] Last Admin: 02/07/18 10:42 Dose: 5 mg Mirtazapine (Remeron) 15 mg PO HS [facility] Last Admin: 02/07/18 22:03 Dose: 15 mg Ondansetron HCl (Zofran Inj) 4 mg IVP Q6 PRN PRN Reason: Nausea/Vomiting Last Admin: 01/30/18 08:28 Dose: 4 mg Pantoprazole Sodium (Protonix Ec Tab) 40 mg PO TID [facility] Last Admin: 02/07/18 18:17 Dose: 40 mg Propranolol HCl (Inderal) 10 mg PO BID [facility] Last Admin: 02/07/18 18:16 Dose: 10 mg Tamsulosin HCl (Flomax) 0.4 mg PO DAILY [facility] Last Admin: 02/07/18 10:42 Dose: 0.4 mg - Labs Labs: 02/07/18 14:03 02/07/18 14:03 PT 14.1 SECONDS (9.7-12.2) H 01/27/18 08:24 INR 1.2 01/27/18 08:24 APTT 36 SECONDS (21-34) H 01/27/18 08:24 - Constitutional Appears: No Acute Distress - Head Exam Head Exam: NORMAL INSPECTION - Eye Exam Eye Exam: EOMI, PERRL - ENT Exam ENT Exam: Normal Oropharynx - Neck Exam Neck Exam: Normal Inspection - Respiratory Exam Respiratory Exam: Clear to Ausculation Bilateral - GI/Abdominal Exam GI & Abdominal Exam: Soft, Normal Bowel Sounds - Extremities Exam Extremities Exam: absent: Calf Tenderness, Pedal Edema - Neurological Exam Neurological Exam: Awake, Oriented x3 - Psychiatric Exam Psychiatric exam: Normal Mood - Skin Skin Exam: Normal Color, Rash (CHRONIC.), Warm Assessment and Plan (1) Fever Assessment & Plan: ON iv ZOSYN 2.25 EVERY 8 HOURLY. DC IV DAPTOMYCIN 500 MG iv PIGGYBACK EVERY 48 HOURLY CONTINUE iv ANTIBIOTICS POSTOPERATIVELY. 02/06/18 Status: Acute (2) Obstructive uropathy Assessment & Plan: S/P TURP 02/06/18. =FOLYS /CBI S/P B/L NT 01/22/18 Status: Acute (3) Prostate cancer metastatic to bone Status: Acute (4) Hydronephrosis Status: Acute (5) Anemia Status: Acute (6) Polysubstance abuse Status: Acute (7) EMMETT (acute kidney injury) Status: Acute
--- NOTE | 2018-02-07 23:50 | CP.PCM.PN ---
Subjective - Date & Time of Evaluation Date of Evaluation: 02/07/18 Time of Evaluation: 18:00 - Subjective Subjective: Pt is seen and examined, s/p TURP, afebrile, no sob, bladder irrigated with 3 ways foleys, pt is c/o back pain, he is on pain meds and post op care Objective - Vital Signs/Intake and Output Vital Signs (last 24 hours): Temp Pulse Resp BP Pulse Ox 98.9 F 67 20 114/68 97 02/07/18 15:37 02/07/18 15:37 02/07/18 15:37 02/07/18 15:37 02/07/18 15:37 Intake and Output: 02/07/18 02/08/18 18:59 06:59 Intake Total 37467 Output Total 43067 Balance -785 - Medications Medications: Current Medications Acetaminophen (Tylenol 325mg Tab) 650 mg PO Q6 PRN PRN Reason: Fever >100.4 F Last Admin: 01/30/18 00:20 Dose: 650 mg Clonazepam (Klonopin) 0.5 mg PO BID [facility] Last Admin: 02/07/18 18:17 Dose: 0.5 mg Docusate Sodium (Colace) 100 mg PO TID [facility] Last Admin: 02/07/18 18:16 Dose: Not Given Fentanyl (Duragesic) 1 patch TD Q72H [facility] Last Admin: 02/07/18 07:29 Dose: 1 patch Flutamide (Eulexin) 125 mg PO Q8H [facility] Last Admin: 02/07/18 18:16 Dose: 125 mg Gabapentin (Neurontin) 300 mg PO TID [facility] Last Admin: 02/07/18 18:17 Dose: 300 mg Hydromorphone HCl (Dilaudid) 1 mg IVP Q4H PRN PRN Reason: breakthrough pain Last Admin: 02/07/18 21:00 Dose: 1 mg Piperacillin Sod/Tazobactam Sod (Zosyn 2.25 Gm Iv Premix) 2.25 gm in 50 mls @ 100 mls/hr IVPB Q8H [facility] PRN Reason: Protocol Last Admin: 02/07/18 23:39 Dose: 100 mls/hr Lidocaine (Lidoderm) 1 ea TD DAILY [facility] Last Admin: 02/07/18 10:41 Dose: 1 ea Magnesium Oxide (Mag-Ox) 400 mg PO BID [facility] Last Admin: 02/07/18 18:16 Dose: 400 mg Methimazole (Tapazole) 5 mg PO DAILY [facility] Last Admin: 02/07/18 10:42 Dose: 5 mg Mirtazapine (Remeron) 15 mg PO HS [facility] Last Admin: 02/07/18 22:03 Dose: 15 mg Ondansetron HCl (Zofran Inj) 4 mg IVP Q6 PRN PRN Reason: Nausea/Vomiting Last Admin: 01/30/18 08:28 Dose: 4 mg Pantoprazole Sodium (Protonix Ec Tab) 40 mg PO TID [facility] Last Admin: 02/07/18 18:17 Dose: 40 mg Propranolol HCl (Inderal) 10 mg PO BID [facility] Last Admin: 02/07/18 18:16 Dose: 10 mg Tamsulosin HCl (Flomax) 0.4 mg PO DAILY [facility] Last Admin: 02/07/18 10:42 Dose: 0.4 mg - Labs Labs: 02/07/18 14:03 02/07/18 14:03 PT 14.1 SECONDS (9.7-12.2) H 01/27/18 08:24 INR 1.2 01/27/18 08:24 APTT 36 SECONDS (21-34) H 01/27/18 08:24 - Constitutional Appears: No Acute Distress - Head Exam Head Exam: ATRAUMATIC, NORMAL INSPECTION, NORMOCEPHALIC - Eye Exam Eye Exam: EOMI, Normal appearance, PERRL Pupil Exam: NORMAL ACCOMODATION, PERRL - Respiratory Exam Respiratory Exam: Clear to Ausculation Bilateral, NORMAL BREATHING PATTERN - Cardiovascular Exam Cardiovascular Exam: REGULAR RHYTHM, +S1, +S2. absent: Murmur - GI/Abdominal Exam GI & Abdominal Exam: Soft, Normal Bowel Sounds. absent: Tenderness - Rectal Exam Rectal Exam: Deferred Assessment and Plan (1) Septicemia Status: Suspected (2) Obstructive uropathy Status: Acute (3) Renal insufficiency Status: Acute
[2018-02-08] MEDS: HYDROmorphone 1 mg/ml ISec IVP PRN (05:37)
[2018-02-08] MEDS: Sodium Chloride 0.45% 1,000 ML IV SCH (05:43)
[2018-02-08] MEDS: Piperacill/Tazo 2.25gm in Dex 2.25 GM/50 ML BAG IVPB SCH ×2 (07:42→16:17)
--- NOTE | 2018-02-08 09:33 | CP.PCM.PN ---
Subjective - Date & Time of Evaluation Date of Evaluation: 02/08/18 Time of Evaluation: 09:30 - Subjective Subjective: alert Good UO mostly via right nephrostomy Osorio output unclear creat down to 1.8 BP controlled weak, no new compalint Objective - Vital Signs/Intake and Output Vital Signs (last 24 hours): Temp Pulse Resp BP Pulse Ox 98.8 F 78 20 98/60 L 98 02/08/18 08:19 02/08/18 08:19 02/08/18 08:19 02/08/18 08:19 02/08/18 08:19 Intake and Output: 02/08/18 02/08/18 06:59 18:59 Intake Total 1880 Output Total 2945 Balance -1065 - Medications Medications: Current Medications Acetaminophen (Tylenol 325mg Tab) 650 mg PO Q6 PRN PRN Reason: Fever >100.4 F Last Admin: 01/30/18 00:20 Dose: 650 mg Clonazepam (Klonopin) 0.5 mg PO BID [facility] Last Admin: 02/07/18 18:17 Dose: 0.5 mg Docusate Sodium (Colace) 100 mg PO TID [facility] Last Admin: 02/07/18 18:16 Dose: Not Given Fentanyl (Duragesic) 1 patch TD Q72H [facility] Last Admin: 02/07/18 07:29 Dose: 1 patch Flutamide (Eulexin) 125 mg PO Q8H [facility] Last Admin: 02/08/18 01:16 Dose: 125 mg Gabapentin (Neurontin) 300 mg PO TID [facility] Last Admin: 02/07/18 18:17 Dose: 300 mg Hydromorphone HCl (Dilaudid) 1 mg IVP Q4H PRN PRN Reason: breakthrough pain Last Admin: 02/08/18 05:37 Dose: 1 mg Piperacillin Sod/Tazobactam Sod (Zosyn 2.25 Gm Iv Premix) 2.25 gm in 50 mls @ 100 mls/hr IVPB Q8H [facility] PRN Reason: Protocol Last Admin: 02/08/18 07:42 Dose: 100 mls/hr Lidocaine (Lidoderm) 1 ea TD DAILY [facility] Last Admin: 02/07/18 10:41 Dose: 1 ea Magnesium Oxide (Mag-Ox) 400 mg PO BID [facility] Last Admin: 02/07/18 18:16 Dose: 400 mg Methimazole (Tapazole) 5 mg PO DAILY [facility] Last Admin: 02/07/18 10:42 Dose: 5 mg Mirtazapine (Remeron) 15 mg PO HS [facility] Last Admin: 02/07/18 22:03 Dose: 15 mg Ondansetron HCl (Zofran Inj) 4 mg IVP Q6 PRN PRN Reason: Nausea/Vomiting Last Admin: 01/30/18 08:28 Dose: 4 mg Pantoprazole Sodium (Protonix Ec Tab) 40 mg PO TID [facility] Last Admin: 02/07/18 18:17 Dose: 40 mg Propranolol HCl (Inderal) 10 mg PO BID [facility] Last Admin: 02/07/18 18:16 Dose: 10 mg Tamsulosin HCl (Flomax) 0.4 mg PO DAILY [facility] Last Admin: 02/07/18 10:42 Dose: 0.4 mg - Labs Labs: 02/07/18 14:03 02/07/18 14:03 PT 14.1 SECONDS (9.7-12.2) H 01/27/18 08:24 INR 1.2 01/27/18 08:24 APTT 36 SECONDS (21-34) H 01/27/18 08:24 - Constitutional Appears: No Acute Distress, Chronically Ill - Head Exam Head Exam: ATRAUMATIC, NORMAL INSPECTION - Eye Exam Eye Exam: EOMI, Normal appearance - Neck Exam Neck Exam: Normal Inspection. absent: Tenderness - Respiratory Exam Respiratory Exam: Clear to Ausculation Bilateral, NORMAL BREATHING PATTERN - Cardiovascular Exam Cardiovascular Exam: REGULAR RHYTHM, +S1 - GI/Abdominal Exam GI & Abdominal Exam: Soft. absent: Tenderness - Extremities Exam Extremities Exam: Normal Inspection. absent: Tenderness - Neurological Exam Neurological Exam: Awake, CN II-XII Intact - Skin Skin Exam: Dry, Warm Assessment and Plan (1) Obstructive uropathy Status: Acute (2) Prostate cancer metastatic to bone Status: Acute (3) Substance abuse Status: Acute (4) EMMETT (acute kidney injury) Status: Acute (5) Uremia Status: Acute - Assessment and Plan (Free Text) Plan: periodically monitor chemistries monitor UO closely- would keep PNTs in for now- await follow up on maintenance IV fluids
[2018-02-08] MEDS: HYDROmorphone 0.5 mg/0.5 ml ISec IVP PRN ×3 (10:10→18:13)
[2018-02-08] MEDS: Magnesium Oxide 400 mg Tab UD PO SCH ×2 (10:13→18:45)
[2018-02-08] MEDS: Pantoprazole 40 mg EC Tab PO SCH ×3 (10:14→18:48)
[2018-02-08] MEDS: Lidocaine 5% Patch TD SCH (12:18)
[2018-02-08] MEDS: methIMAzole 5 MG TAB PO SCH (12:18)
--- NOTE | 2018-02-08 22:24 | CP.PCM.PN ---
Subjective - Date & Time of Evaluation Date of Evaluation: 02/08/18 Time of Evaluation: 17:30 - Subjective Subjective: Has some pelvic pain Objective - Vital Signs/Intake and Output Vital Signs (last 24 hours): Temp Pulse Resp BP Pulse Ox 101 F H 78 20 107/63 97 02/08/18 18:55 02/08/18 15:20 02/08/18 15:20 02/08/18 15:20 02/08/18 15:20 Intake and Output: 02/08/18 02/09/18 18:59 06:59 Output Total 750 Balance -750 - Medications Medications: Current Medications Acetaminophen (Tylenol 325mg Tab) 650 mg PO Q6 PRN PRN Reason: Fever >100.4 F Last Admin: 02/08/18 18:55 Dose: 650 mg Clonazepam (Klonopin) 0.5 mg PO BID [facility] Last Admin: 02/08/18 18:46 Dose: 0.5 mg Docusate Sodium (Colace) 100 mg PO TID [facility] Last Admin: 02/08/18 18:44 Dose: 100 mg Fentanyl (Duragesic) 1 patch TD Q72H [facility] Last Admin: 02/07/18 07:29 Dose: 1 patch Flutamide (Eulexin) 125 mg PO Q8H [facility] Last Admin: 02/08/18 18:45 Dose: 125 mg Gabapentin (Neurontin) 300 mg PO TID [facility] Last Admin: 02/08/18 18:45 Dose: 300 mg Hydromorphone HCl (Dilaudid) 1 mg IVP Q4H PRN PRN Reason: breakthrough pain Last Admin: 02/08/18 18:13 Dose: 1 mg Piperacillin Sod/Tazobactam Sod (Zosyn 2.25 Gm Iv Premix) 2.25 gm in 50 mls @ 100 mls/hr IVPB Q8H [facility] PRN Reason: Protocol Last Admin: 02/08/18 16:17 Dose: 100 mls/hr Lidocaine (Lidoderm) 1 ea TD DAILY [facility] Last Admin: 02/08/18 12:18 Dose: 1 ea Magnesium Oxide (Mag-Ox) 400 mg PO BID [facility] Last Admin: 02/08/18 18:45 Dose: 400 mg Methimazole (Tapazole) 5 mg PO DAILY [facility] Last Admin: 02/08/18 12:18 Dose: 5 mg Mirtazapine (Remeron) 15 mg PO HS [facility] Last Admin: 02/07/18 22:03 Dose: 15 mg Ondansetron HCl (Zofran Inj) 4 mg IVP Q6 PRN PRN Reason: Nausea/Vomiting Last Admin: 01/30/18 08:28 Dose: 4 mg Pantoprazole Sodium (Protonix Ec Tab) 40 mg PO TID [facility] Last Admin: 02/08/18 18:48 Dose: 40 mg Propranolol HCl (Inderal) 10 mg PO BID [facility] Last Admin: 02/08/18 18:46 Dose: 10 mg Tamsulosin HCl (Flomax) 0.4 mg PO DAILY [facility] Last Admin: 02/08/18 10:13 Dose: 0.4 mg - Labs Labs: 02/07/18 14:03 02/07/18 14:03 PT 14.1 SECONDS (9.7-12.2) H 01/27/18 08:24 INR 1.2 01/27/18 08:24 APTT 36 SECONDS (21-34) H 01/27/18 08:24 - Head Exam Head Exam: ATRAUMATIC - Eye Exam Eye Exam: Normal appearance - ENT Exam ENT Exam: Mucous Membranes Dry - Respiratory Exam Respiratory Exam: NORMAL BREATHING PATTERN - Cardiovascular Exam Cardiovascular Exam: +S1, +S2 - GI/Abdominal Exam GI & Abdominal Exam: Normal Bowel Sounds Assessment and Plan (1) Anemia Assessment & Plan: chronic disease, renal disease, hematuria, bone mets transfusion support PRN Status: Acute (2) Prostate cancer Assessment & Plan: stage IV castrate resistant will need addition of Zytiga as outpatient Status: Acute
--- NOTE | 2018-02-08 23:50 | CP.PCM.PN ---
Subjective - Date & Time of Evaluation Date of Evaluation: 02/08/18 Time of Evaluation: 23:49 - Subjective Subjective: POD #2 TMAX 101 WEAK, GOOD URINE OUTPUT.B/L NT. FOLYS IN PLACE- NO OUTPUT. ON ABX. F/U FEVER CURVE. Objective - Vital Signs/Intake and Output Vital Signs (last 24 hours): Temp Pulse Resp BP Pulse Ox 101 F H 78 20 107/63 97 02/08/18 18:55 02/08/18 15:20 02/08/18 15:20 02/08/18 15:20 02/08/18 15:20 Intake and Output: 02/08/18 02/09/18 18:59 06:59 Output Total 750 Balance -750 - Medications Medications: Current Medications Acetaminophen (Tylenol 325mg Tab) 650 mg PO Q6 PRN PRN Reason: Fever >100.4 F Last Admin: 02/08/18 18:55 Dose: 650 mg Clonazepam (Klonopin) 0.5 mg PO BID [facility] Last Admin: 02/08/18 18:46 Dose: 0.5 mg Docusate Sodium (Colace) 100 mg PO TID [facility] Last Admin: 02/08/18 18:44 Dose: 100 mg Fentanyl (Duragesic) 1 patch TD Q72H [facility] Last Admin: 02/07/18 07:29 Dose: 1 patch Flutamide (Eulexin) 125 mg PO Q8H [facility] Last Admin: 02/08/18 18:45 Dose: 125 mg Gabapentin (Neurontin) 300 mg PO TID [facility] Last Admin: 02/08/18 18:45 Dose: 300 mg Hydromorphone HCl (Dilaudid) 1 mg IVP Q4H PRN PRN Reason: breakthrough pain Last Admin: 02/08/18 18:13 Dose: 1 mg Piperacillin Sod/Tazobactam Sod (Zosyn 2.25 Gm Iv Premix) 2.25 gm in 50 mls @ 100 mls/hr IVPB Q8H [facility] PRN Reason: Protocol Last Admin: 02/08/18 16:17 Dose: 100 mls/hr Lidocaine (Lidoderm) 1 ea TD DAILY [facility] Last Admin: 02/08/18 12:18 Dose: 1 ea Magnesium Oxide (Mag-Ox) 400 mg PO BID [facility] Last Admin: 02/08/18 18:45 Dose: 400 mg Methimazole (Tapazole) 5 mg PO DAILY [facility] Last Admin: 02/08/18 12:18 Dose: 5 mg Mirtazapine (Remeron) 15 mg PO HS [facility] Last Admin: 02/08/18 22:27 Dose: 15 mg Ondansetron HCl (Zofran Inj) 4 mg IVP Q6 PRN PRN Reason: Nausea/Vomiting Last Admin: 01/30/18 08:28 Dose: 4 mg Pantoprazole Sodium (Protonix Ec Tab) 40 mg PO TID [facility] Last Admin: 02/08/18 18:48 Dose: 40 mg Propranolol HCl (Inderal) 10 mg PO BID [facility] Last Admin: 02/08/18 18:46 Dose: 10 mg Tamsulosin HCl (Flomax) 0.4 mg PO DAILY [facility] Last Admin: 02/08/18 10:13 Dose: 0.4 mg - Labs Labs: 02/07/18 14:03 02/07/18 14:03 PT 14.1 SECONDS (9.7-12.2) H 01/27/18 08:24 INR 1.2 01/27/18 08:24 APTT 36 SECONDS (21-34) H 01/27/18 08:24 - Constitutional Appears: No Acute Distress, Chronically Ill - Head Exam Head Exam: NORMAL INSPECTION - Eye Exam Eye Exam: EOMI, PERRL - ENT Exam ENT Exam: Normal Oropharynx - Neck Exam Neck Exam: Normal Inspection - Respiratory Exam Respiratory Exam: Decreased Breath Sounds, Wheezes - Cardiovascular Exam Cardiovascular Exam: Tachycardia, REGULAR RHYTHM, +S1, +S2 - GI/Abdominal Exam GI & Abdominal Exam: Soft, Tenderness (SUPRAPUBIC.) - Extremities Exam Extremities Exam: absent: Calf Tenderness, Pedal Edema - Neurological Exam Neurological Exam: Awake, CN II-XII Intact, Oriented x3 - Psychiatric Exam Psychiatric exam: Normal Mood - Skin Skin Exam: Normal Color, Warm Assessment and Plan (1) Fever Status: Acute (2) Obstructive uropathy Assessment & Plan: S/P TURP 02/06/18. +VE FOLYS WITH CBI ON IV ZOSYN. Status: Acute (3) Prostate cancer metastatic to bone Assessment & Plan: PER . Status: Acute (4) Hydronephrosis Status: Acute (5) Anemia Status: Acute (6) Polysubstance abuse Status: Acute (7) EMMETT (acute kidney injury) Status: Acute
[2018-02-09] MEDS: Piperacill/Tazo 2.25gm in Dex 2.25 GM/50 ML BAG IVPB SCH ×2 (00:32→08:30)
[2018-02-09] MEDS: HYDROmorphone 0.5 mg/0.5 ml ISec IVP PRN ×5 (05:30→21:10)
[2018-02-09] MEDS: Magnesium Oxide 400 mg Tab UD PO SCH ×2 (09:13→17:16)
[2018-02-09] MEDS: Pantoprazole 40 mg EC Tab PO SCH ×3 (09:14→17:16)
[2018-02-09] MEDS: methIMAzole 5 MG TAB PO SCH (09:17)
[2018-02-09] MEDS: Lidocaine 5% Patch TD SCH (13:06)
--- NOTE | 2018-02-09 14:12 | CP.PCM.PN ---
Subjective - Date & Time of Evaluation Date of Evaluation: 02/09/18 Time of Evaluation: 17:40 - Subjective Subjective: Pt seen and examined, remains afebrile, foleys in place, s/ p TURP, labs improving, pt is on post op care, medical management Objective - Vital Signs/Intake and Output Vital Signs (last 24 hours): Temp Pulse Resp BP Pulse Ox 102.2 F H 80 20 98/58 L 98 02/09/18 09:12 02/09/18 00:00 02/09/18 00:00 02/09/18 00:00 02/09/18 00:00 Intake and Output: 02/09/18 02/09/18 06:59 18:59 Intake Total 700 1100 Output Total 675 800 Balance 25 300 - Medications Medications: Current Medications Acetaminophen (Tylenol 325mg Tab) 650 mg PO Q6 PRN PRN Reason: Fever >100.4 F Last Admin: 02/09/18 09:12 Dose: 650 mg Clonazepam (Klonopin) 0.5 mg PO BID [facility] Last Admin: 02/09/18 09:13 Dose: 0.5 mg Docusate Sodium (Colace) 100 mg PO TID [facility] Last Admin: 02/09/18 13:11 Dose: Not Given Flutamide (Eulexin) 125 mg PO Q8H [facility] Last Admin: 02/09/18 09:17 Dose: 125 mg Gabapentin (Neurontin) 300 mg PO TID [facility] Last Admin: 02/09/18 13:04 Dose: 300 mg Hydromorphone HCl (Dilaudid) 1 mg IVP Q4H PRN PRN Reason: breakthrough pain Last Admin: 02/09/18 13:07 Dose: 1 mg Piperacillin Sod/Tazobactam Sod (Zosyn 2.25 Gm Iv Premix) 2.25 gm in 50 mls @ 100 mls/hr IVPB Q8H [facility] PRN Reason: Protocol Last Admin: 02/09/18 08:30 Dose: 100 mls/hr Meropenem 500 mg/ Sodium (Chloride) 100 mls @ 100 mls/hr IVPB Q12 [facility] PRN Reason: Protocol Lidocaine (Lidoderm) 1 ea TD DAILY [facility] Last Admin: 02/09/18 13:06 Dose: 1 ea Magnesium Oxide (Mag-Ox) 400 mg PO BID [facility] Last Admin: 02/09/18 09:13 Dose: 400 mg Methimazole (Tapazole) 5 mg PO DAILY [facility] Last Admin: 02/09/18 09:17 Dose: 5 mg Mirtazapine (Remeron) 15 mg PO HS [facility] Last Admin: 02/08/18 22:27 Dose: 15 mg Ondansetron HCl (Zofran Inj) 4 mg IVP Q6 PRN PRN Reason: Nausea/Vomiting Last Admin: 01/30/18 08:28 Dose: 4 mg Pantoprazole Sodium (Protonix Ec Tab) 40 mg PO TID [facility] Last Admin: 02/09/18 13:06 Dose: 40 mg Propranolol HCl (Inderal) 10 mg PO BID [facility] Last Admin: 02/09/18 09:17 Dose: 10 mg Tamsulosin HCl (Flomax) 0.4 mg PO DAILY [facility] Last Admin: 02/09/18 09:13 Dose: 0.4 mg - Labs Labs: 02/07/18 14:03 02/07/18 14:03 PT 14.1 SECONDS (9.7-12.2) H 01/27/18 08:24 INR 1.2 01/27/18 08:24 APTT 36 SECONDS (21-34) H 01/27/18 08:24 - Constitutional Appears: No Acute Distress - Head Exam Head Exam: ATRAUMATIC, NORMAL INSPECTION, NORMOCEPHALIC - Eye Exam Eye Exam: EOMI, Normal appearance, PERRL Pupil Exam: NORMAL ACCOMODATION, PERRL - Respiratory Exam Respiratory Exam: Clear to Ausculation Bilateral, NORMAL BREATHING PATTERN - Cardiovascular Exam Cardiovascular Exam: REGULAR RHYTHM, +S1, +S2. absent: Murmur - GI/Abdominal Exam GI & Abdominal Exam: Soft, Normal Bowel Sounds. absent: Tenderness - Neurological Exam Neurological Exam: Alert, Awake, CN II-XII Intact, Normal Gait, Oriented x3 Assessment and Plan (1) Septicemia Status: Suspected (2) Obstructive uropathy Assessment & Plan: s/p TURP [address] Status: Acute (3) Renal insufficiency Status: Acute
--- NOTE | 2018-02-09 14:12 | CP.PCM.PN ---
Subjective - Date & Time of Evaluation Date of Evaluation: 02/08/18 Time of Evaluation: 18:00 - Subjective Subjective: Pt seen and examined, s/p TURP, pt has h/o prostarte cancer wbc 25 , but afeberile, creatinine improving,pt has foleys in place , on post op care Objective - Vital Signs/Intake and Output Vital Signs (last 24 hours): Temp Pulse Resp BP Pulse Ox 102.2 F H 80 20 98/58 L 98 02/09/18 09:12 02/09/18 00:00 02/09/18 00:00 02/09/18 00:00 02/09/18 00:00 Intake and Output: 02/09/18 02/09/18 06:59 18:59 Intake Total 700 1100 Output Total 675 800 Balance 25 300 - Medications Medications: Current Medications Acetaminophen (Tylenol 325mg Tab) 650 mg PO Q6 PRN PRN Reason: Fever >100.4 F Last Admin: 02/09/18 09:12 Dose: 650 mg Clonazepam (Klonopin) 0.5 mg PO BID [facility] Last Admin: 02/09/18 09:13 Dose: 0.5 mg Docusate Sodium (Colace) 100 mg PO TID [facility] Last Admin: 02/09/18 13:11 Dose: Not Given Flutamide (Eulexin) 125 mg PO Q8H [facility] Last Admin: 02/09/18 09:17 Dose: 125 mg Gabapentin (Neurontin) 300 mg PO TID [facility] Last Admin: 02/09/18 13:04 Dose: 300 mg Hydromorphone HCl (Dilaudid) 1 mg IVP Q4H PRN PRN Reason: breakthrough pain Last Admin: 02/09/18 13:07 Dose: 1 mg Piperacillin Sod/Tazobactam Sod (Zosyn 2.25 Gm Iv Premix) 2.25 gm in 50 mls @ 100 mls/hr IVPB Q8H [facility] PRN Reason: Protocol Last Admin: 02/09/18 08:30 Dose: 100 mls/hr Meropenem 500 mg/ Sodium (Chloride) 100 mls @ 100 mls/hr IVPB Q12 [facility] PRN Reason: Protocol Lidocaine (Lidoderm) 1 ea TD DAILY [facility] Last Admin: 02/09/18 13:06 Dose: 1 ea Magnesium Oxide (Mag-Ox) 400 mg PO BID [facility] Last Admin: 02/09/18 09:13 Dose: 400 mg Methimazole (Tapazole) 5 mg PO DAILY [facility] Last Admin: 02/09/18 09:17 Dose: 5 mg Mirtazapine (Remeron) 15 mg PO HS [facility] Last Admin: 02/08/18 22:27 Dose: 15 mg Ondansetron HCl (Zofran Inj) 4 mg IVP Q6 PRN PRN Reason: Nausea/Vomiting Last Admin: 01/30/18 08:28 Dose: 4 mg Pantoprazole Sodium (Protonix Ec Tab) 40 mg PO TID [facility] Last Admin: 02/09/18 13:06 Dose: 40 mg Propranolol HCl (Inderal) 10 mg PO BID [facility] Last Admin: 02/09/18 09:17 Dose: 10 mg Tamsulosin HCl (Flomax) 0.4 mg PO DAILY [facility] Last Admin: 02/09/18 09:13 Dose: 0.4 mg - Labs Labs: 02/07/18 14:03 02/07/18 14:03 PT 14.1 SECONDS (9.7-12.2) H 01/27/18 08:24 INR 1.2 01/27/18 08:24 APTT 36 SECONDS (21-34) H 01/27/18 08:24 - Constitutional Appears: No Acute Distress - Head Exam Head Exam: ATRAUMATIC, NORMAL INSPECTION, NORMOCEPHALIC - Eye Exam Eye Exam: EOMI, Normal appearance, PERRL Pupil Exam: NORMAL ACCOMODATION, PERRL - Respiratory Exam Respiratory Exam: Clear to Ausculation Bilateral, NORMAL BREATHING PATTERN - Cardiovascular Exam Cardiovascular Exam: REGULAR RHYTHM, +S1, +S2. absent: Murmur - GI/Abdominal Exam GI & Abdominal Exam: Soft, Normal Bowel Sounds. absent: Tenderness - Rectal Exam Rectal Exam: Deferred Assessment and Plan (1) Septicemia Status: Suspected (2) Obstructive uropathy Status: Acute (3) Renal insufficiency Status: Acute
[2018-02-09] MEDS: Meropenem 500 MG in Sodium Chloride 0.9% 100 ML IVPB SCH (21:29)
--- NOTE | 2018-02-09 23:05 | CP.PCM.PN ---
Subjective - Date & Time of Evaluation Date of Evaluation: 02/09/18 Time of Evaluation: 23:04 - Subjective Subjective: # POD 3. S/P TURP 02/06/18 SPIKING TEMP 102.3- 102.9 VS BP 104/66 +VE FOLYS HX B/L NT 01/22/18. LABS NOTED . WBC 20.0 HIGH CREAT1.8/BUN 28 IMPROVING. Objective - Vital Signs/Intake and Output Vital Signs (last 24 hours): Temp Pulse Resp BP Pulse Ox 98.8 F 82 20 104/66 98 02/09/18 15:00 02/09/18 15:00 02/09/18 15:00 02/09/18 15:00 02/09/18 15:00 Intake and Output: 02/09/18 02/10/18 18:59 06:59 Intake Total 1100 Output Total 800 Balance 300 - Medications Medications: Current Medications Acetaminophen (Tylenol 325mg Tab) 650 mg PO Q6 PRN PRN Reason: Fever >100.4 F Last Admin: 02/09/18 09:12 Dose: 650 mg Clonazepam (Klonopin) 0.5 mg PO BID [facility] Last Admin: 02/09/18 17:15 Dose: 0.5 mg Docusate Sodium (Colace) 100 mg PO TID [facility] Last Admin: 02/09/18 17:18 Dose: Not Given Flutamide (Eulexin) 125 mg PO Q8H [facility] Last Admin: 02/09/18 17:16 Dose: 125 mg Gabapentin (Neurontin) 300 mg PO TID [facility] Last Admin: 02/09/18 17:16 Dose: 300 mg Hydromorphone HCl (Dilaudid) 1 mg IVP Q4H PRN PRN Reason: breakthrough pain Meropenem 500 mg/ Sodium (Chloride) 100 mls @ 100 mls/hr IVPB Q12 [facility] PRN Reason: Protocol Last Admin: 02/09/18 21:29 Dose: 100 mls/hr Lidocaine (Lidoderm) 1 ea TD DAILY [facility] Last Admin: 02/09/18 13:06 Dose: 1 ea Magnesium Oxide (Mag-Ox) 400 mg PO BID [facility] Last Admin: 02/09/18 17:16 Dose: 400 mg Methimazole (Tapazole) 5 mg PO DAILY [facility] Last Admin: 02/09/18 09:17 Dose: 5 mg Mirtazapine (Remeron) 15 mg PO HS [facility] Last Admin: 02/09/18 21:25 Dose: 15 mg Ondansetron HCl (Zofran Inj) 4 mg IVP Q6 PRN PRN Reason: Nausea/Vomiting Last Admin: 01/30/18 08:28 Dose: 4 mg Pantoprazole Sodium (Protonix Ec Tab) 40 mg PO TID [facility] Last Admin: 02/09/18 17:16 Dose: 40 mg Propranolol HCl (Inderal) 10 mg PO BID [facility] Last Admin: 02/09/18 17:17 Dose: 10 mg Tamsulosin HCl (Flomax) 0.4 mg PO DAILY [facility] Last Admin: 02/09/18 09:13 Dose: 0.4 mg - Labs Labs: 02/07/18 14:03 02/07/18 14:03 PT 14.1 SECONDS (9.7-12.2) H 01/27/18 08:24 INR 1.2 01/27/18 08:24 APTT 36 SECONDS (21-34) H 01/27/18 08:24 - Constitutional Appears: No Acute Distress - Head Exam Head Exam: NORMAL INSPECTION - Eye Exam Eye Exam: EOMI, PERRL - ENT Exam ENT Exam: Normal Oropharynx - Neck Exam Neck Exam: Normal Inspection - Respiratory Exam Respiratory Exam: Clear to Ausculation Bilateral - Cardiovascular Exam Cardiovascular Exam: Tachycardia, REGULAR RHYTHM, +S1, +S2 - GI/Abdominal Exam GI & Abdominal Exam: Soft, Tenderness (SUPRAPUBIC.), Hypoactive Bowel Sounds - Extremities Exam Extremities Exam: absent: Calf Tenderness, Pedal Edema - Neurological Exam Neurological Exam: Awake, CN II-XII Intact, Oriented x3 - Psychiatric Exam Psychiatric exam: Normal Mood - Skin Skin Exam: Normal Color, Warm Assessment and Plan (1) Fever Assessment & Plan: PANCULTURE UA/URINE CULTURE RT/LT NT DC IV ZOSYN . START IV MERREM 500MG IV Q 12HRLY 02/09/18. CASE DISCUSSSED WITH RN ON DUTY MS CASTRO. Status: Acute (2) Obstructive uropathy Assessment & Plan: S/P TURP 02/06/18. POST OPTIVE CARE PER . Status: Acute (3) Prostate cancer metastatic to bone Status: Acute (4) Hydronephrosis Status: Acute (5) Anemia Status: Acute (6) Polysubstance abuse Status: Acute (7) EMMETT (acute kidney injury) Status: Acute
[2018-02-10] MEDS: HYDROmorphone 1 mg/ml ISec IVP PRN ×6 (01:06→23:42)
[2018-02-10 06:49] LABS: BASO # 0.1 K/uL (0.0-0.2); BASO % 0.6 % (0.0-2.0); EOS # 0.2 K/uL (0.0-0.7); EOS % 1.4 % (0.0-4.0); HEMOGLOBIN 9.5 g/dL (12.0-18.0); LYMPH # 1.6 K/uL (1.0-4.3); LYMPH % 10.3 % (20.0-40.0); MEAN CELL VOLUME 76.2 fL (80.0-94.0); MEAN CORPUSCULAR HEMOGLOBIN 24.5 pg (27.0-31.0); MEAN CORPUSCULAR HGB CONC 32.2 g/dL (33.0-37.0); MEAN PLATELET VOLUME 7.8 fL (7.2-11.7); MONO # 1.9 K/uL (0.0-0.8); MONO % 12.5 % (0.0-10.0); NEUT # 11.5 K/uL (1.8-7.0); NEUT % 75.2 % (50.0-75.0); NRBC % 0.1 % (0.0-2.0); RBC 3.85 Mil/uL (4.40-5.90); RED CELL DISTRIBUTION WIDTH 19.9 % (11.5-14.5); WHITE BLOOD COUNT 15.3 K/uL (4.8-10.8)
[2018-02-10 07:48] LABS: CALCIUM 9.4 mg/dl (8.6-10.4)
[2018-02-10] MEDS: Pantoprazole 40 mg EC Tab PO SCH ×5 (09:35→18:14)
[2018-02-10] MEDS: methIMAzole 5 MG TAB PO SCH (09:36)
[2018-02-10] MEDS: Magnesium Oxide 400 mg Tab UD PO SCH ×2 (09:36→18:14)
[2018-02-10] MEDS: Lidocaine 5% Patch TD SCH ×2 (09:37→09:40)
[2018-02-10] MEDS: Meropenem 500 MG in Sodium Chloride 0.9% 100 ML IVPB SCH ×2 (10:27→21:09)
[2018-02-10] MEDS: Sodium Chloride 0.9% 1,000 ML IV SCH ×2 (11:05→12:16)
--- NOTE | 2018-02-10 11:34 | CP.PCM.PN ---
Subjective - Date & Time of Evaluation Date of Evaluation: 02/10/18 Time of Evaluation: 11:31 - Subjective Subjective: BP dropped- ordering IV NS bolus Had fevers over last 2 days- pancultured IV ABs ordered by ID last creat 2; mostly UO from right nephrostomy- little from del roi altered now as BP low Objective - Vital Signs/Intake and Output Vital Signs (last 24 hours): Temp Pulse Resp BP Pulse Ox 101.1 F H 92 H 20 103/78 96 02/10/18 08:26 02/10/18 08:26 02/10/18 08:26 02/10/18 08:26 02/10/18 08:26 Intake and Output: 02/10/18 02/10/18 06:59 18:59 Intake Total 700 Output Total 1250 Balance -550 - Medications Medications: Current Medications Acetaminophen (Tylenol 325mg Tab) 650 mg PO Q6 PRN PRN Reason: Fever >100.4 F Last Admin: 02/10/18 09:23 Dose: 650 mg Clonazepam (Klonopin) 0.5 mg PO BID [facility] Last Admin: 02/10/18 09:36 Dose: 0.5 mg Docusate Sodium (Colace) 100 mg PO TID [facility] Last Admin: 02/10/18 09:34 Dose: 100 mg Flutamide (Eulexin) 125 mg PO Q8H [facility] Last Admin: 02/10/18 09:36 Dose: 125 mg Gabapentin (Neurontin) 300 mg PO TID [facility] Last Admin: 02/10/18 09:36 Dose: 300 mg Hydromorphone HCl (Dilaudid) 1 mg IVP Q4H PRN PRN Reason: breakthrough pain Last Admin: 02/10/18 09:20 Dose: 1 mg Meropenem 500 mg/ Sodium (Chloride) 100 mls @ 100 mls/hr IVPB Q12 [facility] PRN Reason: Protocol Last Admin: 02/10/18 10:27 Dose: 100 mls/hr Lidocaine (Lidoderm) 1 ea TD DAILY [facility] Last Admin: 02/10/18 09:40 Dose: 1 ea Magnesium Oxide (Mag-Ox) 400 mg PO BID [facility] Last Admin: 02/10/18 09:36 Dose: 400 mg Methimazole (Tapazole) 5 mg PO DAILY [facility] Last Admin: 03/19/18 09:36 Dose: 5 mg Mirtazapine (Remeron) 15 mg PO HS [facility] Last Admin: 02/09/18 21:25 Dose: 15 mg Ondansetron HCl (Zofran Inj) 4 mg IVP Q6 PRN PRN Reason: Nausea/Vomiting Last Admin: 01/30/18 08:28 Dose: 4 mg Pantoprazole Sodium (Protonix Ec Tab) 40 mg PO TID [facility] Last Admin: 02/10/18 09:39 Dose: 40 mg Tamsulosin HCl (Flomax) 0.4 mg PO DAILY [facility] Last Admin: 02/10/18 09:36 Dose: 0.4 mg - Labs Labs: 02/10/18 06:39 02/10/18 06:39 PT 14.1 SECONDS (9.7-12.2) H 01/27/18 08:24 INR 1.2 01/27/18 08:24 APTT 36 SECONDS (21-34) H 01/27/18 08:24 - Constitutional Appears: In Acute Distress, Chronically Ill - Head Exam Head Exam: ATRAUMATIC, NORMAL INSPECTION - Eye Exam Eye Exam: EOMI, Normal appearance - Neck Exam Neck Exam: Normal Inspection. absent: Tenderness - Respiratory Exam Respiratory Exam: Clear to Ausculation Bilateral, NORMAL BREATHING PATTERN - Cardiovascular Exam Cardiovascular Exam: REGULAR RHYTHM, +S1 - GI/Abdominal Exam GI & Abdominal Exam: Soft. absent: Tenderness - Extremities Exam Extremities Exam: Normal Inspection. absent: Tenderness - Neurological Exam Neurological Exam: Alert, CN II-XII Intact - Skin Skin Exam: Dry, Warm Assessment and Plan (1) Obstructive uropathy Status: Acute (2) Prostate cancer metastatic to bone Status: Acute (3) Substance abuse Status: Acute (4) EMMETT (acute kidney injury) Status: Acute (5) Uremia Status: Acute - Assessment and Plan (Free Text) Plan: stop inderal IV fluids for low BP IV ABs as per ID monitor chemistreis
[2018-02-10] MEDS ORDERED: Sodium Chloride 0.9% 500 ML IV ONE (11:35)
--- NOTE | 2018-02-10 11:47 | PCM.URO ---
Urology Progress Note - Objective Lab Studies: Reviewed (plans: trial of void) Lab Results Last 24 Hours: Laboratory Results - last 24 hr 02/10/18 02/10/18 06:39 06:39 WBC 15.3 H RBC 3.85 L Hgb 9.5 L Hct 29.4 L MCV 76.2 L MCH 24.5 L MCHC 32.2 L RDW 19.9 H Plt Count 615 H D MPV 7.8 Neut % (Auto) 75.2 H Lymph % (Auto) 10.3 L [place] % (Auto) 12.5 H Eos % (Auto) 1.4 Baso % (Auto) 0.6 Neut # (Auto) 11.5 H Lymph # (Auto) 1.6 [place] # (Auto) 1.9 H Eos # (Auto) 0.2 Baso # (Auto) 0.1 Sodium 139 Potassium 4.1 Chloride 102 Carbon Dioxide 26 Anion Gap 16 BUN 37 H Creatinine 2.0 H Est GFR ( Amer) 42 Est GFR (Non-Af Amer) 35 Random Glucose 102 Calcium 9.4 Intake & Output: Intake & Output 02/09/18 02/10/18 02/10/18 18:59 06:59 18:59 Intake Total 1100 700 Output Total 800 1250 Balance 300 -550 Intake: Intake, IV Amount 500 Right Wrist 500 Oral 600 700 Output: Drainage 800 1250 Left Back 100 200 Right Back 700 1050 Urine 0 0 Urethral (Osorio) 0 0 Vital Signs: Vital Signs - 24 hr 02/09/18 02/09/18 02/10/18 15:00 23:58 00:00 Temperature 98.8 F 102.9 F H 98.9 F Pulse Rate 82 86 Respiratory 20 20 Rate Blood Pressure 104/66 110/66 O2 Sat by Pulse 98 100 Oximetry 02/10/18 02/10/18 00:58 08:26 Temperature 98.9 F 101.1 F H Pulse Rate 92 H Respiratory 20 Rate Blood Pressure 103/78 O2 Sat by Pulse 96 Oximetry
--- NOTE | 2018-02-10 14:03 | PN ---
HISTORY OF PRESENT ILLNESS: The patient denies any chest pain or shortness of breath. PHYSICAL EXAMINATION: VITAL SIGNS: Blood pressure 107/63, heart rate 78, temperature 98.3, respirations 20. The patient has no output from the left nephrostomy tube during shift. He had 750 mL from the right nephrostomy tube and sanguineous urine from the Osorio catheter. Postoperative EKG revealed normal sinus rhythm. ASSESSMENT: 1. prostatic disease, status post transurethral prostatic resection. 2. Improving renal insufficiency. 3. Paroxysmal atrial fibrillation. 4. Hyperthyroidism. RECOMMENDATIONS: Inderal 10 mg twice a day, p.r.n. IV Dilaudid, and Tapazole 5 mg once a day. Continue Zosyn 2.25 gm intravenously q.8 hours. Larry Islas MD
--- NOTE | 2018-02-10 23:24 | CP.PCM.PN ---
Subjective - Date & Time of Evaluation Date of Evaluation: 02/10/18 Time of Evaluation: 17:00 Objective - Vital Signs/Intake and Output Vital Signs (last 24 hours): Temp Pulse Resp BP Pulse Ox 98.1 F 80 20 118/74 97 02/10/18 15:00 02/10/18 15:00 02/10/18 15:00 02/10/18 15:00 02/10/18 15:00 Intake and Output: 02/10/18 02/11/18 18:59 06:59 Intake Total 1800 Output Total 2660 Balance -860 - Medications Medications: Current Medications Acetaminophen (Tylenol 325mg Tab) 650 mg PO Q6 PRN PRN Reason: Fever >100.4 F Last Admin: 02/10/18 18:15 Dose: 650 mg Clonazepam (Klonopin) 0.5 mg PO BID [facility] Last Admin: 02/10/18 18:15 Dose: 0.5 mg Docusate Sodium (Colace) 100 mg PO TID [facility] Last Admin: 02/10/18 18:15 Dose: 100 mg Fentanyl (Duragesic) 1 patch TD Q72H [facility] Last Admin: 02/10/18 21:09 Dose: 1 patch Flutamide (Eulexin) 125 mg PO Q8H [facility] Last Admin: 02/10/18 18:23 Dose: 125 mg Gabapentin (Neurontin) 300 mg PO TID [facility] Last Admin: 02/10/18 18:22 Dose: 300 mg Hydromorphone HCl (Dilaudid) 1 mg IVP Q4H PRN PRN Reason: breakthrough pain Last Admin: 02/10/18 19:23 Dose: 1 mg Meropenem 500 mg/ Sodium (Chloride) 100 mls @ 100 mls/hr IVPB Q12 [facility] PRN Reason: Protocol Last Admin: 02/10/18 21:09 Dose: 100 mls/hr Sodium Chloride (Sodium Chloride 0.9%) 1,000 mls @ 50 mls/hr IV .Q20H [facility] Last Admin: 02/10/18 12:16 Dose: 50 mls/hr Lidocaine (Lidoderm) 1 ea TD DAILY [facility] Last Admin: 02/10/18 09:40 Dose: 1 ea Magnesium Oxide (Mag-Ox) 400 mg PO BID [facility] Last Admin: 02/10/18 18:14 Dose: 400 mg Methimazole (Tapazole) 5 mg PO DAILY [facility] Last Admin: 02/10/18 09:36 Dose: 5 mg Mirtazapine (Remeron) 15 mg PO HS [facility] Last Admin: 02/10/18 21:10 Dose: 15 mg Ondansetron HCl (Zofran Inj) 4 mg IVP Q6 PRN PRN Reason: Nausea/Vomiting Last Admin: 01/30/18 08:28 Dose: 4 mg Pantoprazole Sodium (Protonix Ec Tab) 40 mg PO TID [facility] Last Admin: 02/10/18 18:14 Dose: 40 mg Tamsulosin HCl (Flomax) 0.4 mg PO DAILY [facility] Last Admin: 02/10/18 09:36 Dose: 0.4 mg - Labs Labs: 02/10/18 06:39 02/10/18 06:39 PT 14.1 SECONDS (9.7-12.2) H 01/27/18 08:24 INR 1.2 01/27/18 08:24 APTT 36 SECONDS (21-34) H 01/27/18 08:24 Assessment and Plan (1) Septicemia Status: Suspected (2) Obstructive uropathy Status: Acute (3) Renal insufficiency Status: Acute
[2018-02-11] MEDS ORDERED: HYDROmorphone 0.5 mg/0.5 ml ISec IVP STA (01:38)
[2018-02-11] MEDS: HYDROmorphone 1 mg/ml ISec IVP PRN ×3 (05:29→17:36)
[2018-02-11 06:20] LABS: HEMOGLOBIN 8.8 g/dL (12.0-18.0); MEAN CORPUSCULAR HEMOGLOBIN 25.3 pg (27.0-31.0); MEAN CORPUSCULAR HGB CONC 33.3 g/dL (33.0-37.0); MEAN PLATELET VOLUME 8.1 fL (7.2-11.7); RBC 3.46 Mil/uL (4.40-5.90); RED CELL DISTRIBUTION WIDTH 19.8 % (11.5-14.5); WHITE BLOOD COUNT 11.4 K/uL (4.8-10.8)
[2018-02-11 06:55] LABS: ALB/GLOB RATIO 0.7 (1.0-2.1); ALBUMIN 3.5 g/dL (3.5-5.0); CALCIUM 9.2 mg/dl (8.6-10.4)
[2018-02-11] MEDS: Sodium Chloride 0.9% 1,000 ML IV SCH (07:55)
[2018-02-11] MEDS: methIMAzole 5 MG TAB PO SCH (09:21)
[2018-02-11] MEDS: Pantoprazole 40 mg EC Tab PO SCH ×3 (09:22→17:36)
[2018-02-11] MEDS: Magnesium Oxide 400 mg Tab UD PO SCH ×2 (09:22→17:36)
[2018-02-11] MEDS: Meropenem 500 MG in Sodium Chloride 0.9% 100 ML IVPB SCH (09:22)
[2018-02-11] MEDS: Lidocaine 5% Patch TD SCH (09:26)
--- NOTE | 2018-02-11 10:33 | CP.PCM.PN ---
Subjective - Date & Time of Evaluation Date of Evaluation: 02/11/18 Time of Evaluation: 10:32 - Subjective Subjective: seen and examined afebrile labs noted still w/ hematuria no n/v/d/sob/cp/cough/f/c/dizziness/weakness/numbness/rash Objective - Vital Signs/Intake and Output Vital Signs (last 24 hours): Temp Pulse Resp BP Pulse Ox 98.2 F 89 20 116/73 96 02/11/18 08:00 02/11/18 08:00 02/11/18 08:00 02/11/18 08:00 02/11/18 08:00 Intake and Output: 02/11/18 02/11/18 06:59 18:59 Output Total 1550 700 Balance -1550 -700 - Medications Medications: Current Medications Acetaminophen (Tylenol 325mg Tab) 650 mg PO Q6 PRN PRN Reason: Fever >100.4 F Last Admin: 02/10/18 18:15 Dose: 650 mg Clonazepam (Klonopin) 0.5 mg PO BID [facility] Last Admin: 02/11/18 09:22 Dose: 0.5 mg Docusate Sodium (Colace) 100 mg PO TID [facility] Last Admin: 02/11/18 09:21 Dose: 100 mg Fentanyl (Duragesic) 1 patch TD Q72H [facility] Last Admin: 02/10/18 21:09 Dose: 1 patch Flutamide (Eulexin) 125 mg PO Q8H [facility] Last Admin: 02/11/18 09:21 Dose: 125 mg Gabapentin (Neurontin) 300 mg PO TID [facility] Last Admin: 02/11/18 09:22 Dose: 300 mg Hydromorphone HCl (Dilaudid) 1 mg IVP Q4H PRN PRN Reason: breakthrough pain Last Admin: 02/11/18 05:29 Dose: 1 mg Meropenem 500 mg/ Sodium (Chloride) 100 mls @ 100 mls/hr IVPB Q12 [facility] PRN Reason: Protocol Last Admin: 02/11/18 09:22 Dose: 100 mls/hr Sodium Chloride (Sodium Chloride 0.9%) 1,000 mls @ 50 mls/hr IV .Q20H [facility] Last Admin: 02/11/18 07:55 Dose: Not Given Lidocaine (Lidoderm) 1 ea TD DAILY [facility] Last Admin: 02/11/18 09:26 Dose: 1 ea Magnesium Oxide (Mag-Ox) 400 mg PO BID [facility] Last Admin: 02/11/18 09:22 Dose: 400 mg Methimazole (Tapazole) 5 mg PO DAILY [facility] Last Admin: 02/11/18 09:21 Dose: 5 mg Mirtazapine (Remeron) 15 mg PO HS [facility] Last Admin: 02/10/18 21:10 Dose: 15 mg Ondansetron HCl (Zofran Inj) 4 mg IVP Q6 PRN PRN Reason: Nausea/Vomiting Last Admin: 01/30/18 08:28 Dose: 4 mg Pantoprazole Sodium (Protonix Ec Tab) 40 mg PO TID [facility] Last Admin: 02/11/18 09:22 Dose: 40 mg Tamsulosin HCl (Flomax) 0.4 mg PO DAILY [facility] Last Admin: 02/11/18 09:21 Dose: 0.4 mg - Labs Labs: 02/11/18 06:16 02/11/18 06:16 PT 14.1 SECONDS (9.7-12.2) H 01/27/18 08:24 INR 1.2 01/27/18 08:24 APTT 36 SECONDS (21-34) H 01/27/18 08:24 - Constitutional Appears: No Acute Distress, Older Than Stated Age, Chronically Ill - Head Exam Head Exam: NORMAL INSPECTION, NORMOCEPHALIC - Eye Exam Eye Exam: Normal appearance, PERRL Pupil Exam: NORMAL ACCOMODATION - ENT Exam ENT Exam: Mucous Membranes Moist, Normal Exam - Neck Exam Neck Exam: Full ROM, Normal Inspection - Respiratory Exam Respiratory Exam: Clear to Ausculation Bilateral, NORMAL BREATHING PATTERN - Cardiovascular Exam Cardiovascular Exam: REGULAR RHYTHM, RRR - GI/Abdominal Exam GI & Abdominal Exam: Distended (b/l nephrostomies. draining, bag full), Soft - Extremities Exam Extremities Exam: Normal Inspection - Neurological Exam Neurological Exam: Alert, Awake - Psychiatric Exam Psychiatric exam: Normal Affect, Normal Mood - Skin Skin Exam: Normal Color, Warm Assessment and Plan (1) EMMETT (acute kidney injury) Status: Acute (2) Anemia Status: Acute (3) Obstructive uropathy Status: Acute (4) Prostate cancer metastatic to bone Status: Acute - Assessment and Plan (Free Text) Assessment: stable renal function maintain gentle iv fluids blood and urine cultures neg so far
--- NOTE | 2018-02-11 16:47 | CP.PCM.PN ---
Subjective - Date & Time of Evaluation Date of Evaluation: 02/11/18 Time of Evaluation: 16:47 - Subjective Subjective: LOWW GRADE TEMP . T MAX 100. FEELING BETTER, C/O PAIN NOT CONTROLLED. LABS REVIEWED. REPEAT BLOOD CULTURES -VE REPEAT URINE CULTURE 02/09/18 -VE GROWTH. SOURCE OF FEVER ? VS MALIGNANCY. Objective - Vital Signs/Intake and Output Vital Signs (last 24 hours): Temp Pulse Resp BP Pulse Ox 98.2 F 89 20 116/73 96 02/11/18 08:00 02/11/18 08:00 02/11/18 08:00 02/11/18 08:00 02/11/18 08:00 Intake and Output: 02/11/18 02/11/18 06:59 18:59 Output Total 1550 700 Balance -1550 -700 - Medications Medications: Current Medications Acetaminophen (Tylenol 325mg Tab) 650 mg PO Q6 PRN PRN Reason: Fever >100.4 F Last Admin: 02/10/18 18:15 Dose: 650 mg Clonazepam (Klonopin) 0.5 mg PO BID [facility] Last Admin: 02/11/18 09:22 Dose: 0.5 mg Docusate Sodium (Colace) 100 mg PO TID [facility] Last Admin: 02/11/18 14:20 Dose: Not Given Fentanyl (Duragesic) 1 patch TD Q72H [facility] Last Admin: 02/11/18 14:19 Dose: 1 patch Flutamide (Eulexin) 125 mg PO Q8H [facility] Last Admin: 02/11/18 09:21 Dose: 125 mg Gabapentin (Neurontin) 300 mg PO TID [facility] Last Admin: 02/11/18 14:19 Dose: 300 mg Hydromorphone HCl (Dilaudid) 1 mg IVP Q4H PRN PRN Reason: breakthrough pain Last Admin: 02/11/18 12:18 Dose: 1 mg Meropenem 500 mg/ Sodium (Chloride) 100 mls @ 100 mls/hr IVPB Q12 [facility] PRN Reason: Protocol Last Admin: 02/11/18 09:22 Dose: 100 mls/hr Sodium Chloride (Sodium Chloride 0.9%) 1,000 mls @ 50 mls/hr IV .Q20H [facility] Last Admin: 02/11/18 07:55 Dose: Not Given Lidocaine (Lidoderm) 1 ea TD DAILY [facility] Last Admin: 02/11/18 09:26 Dose: 1 ea Magnesium Oxide (Mag-Ox) 400 mg PO BID [facility] Last Admin: 02/11/18 09:22 Dose: 400 mg Methimazole (Tapazole) 5 mg PO DAILY [facility] Last Admin: 02/11/18 09:21 Dose: 5 mg Mirtazapine (Remeron) 15 mg PO HS [facility] Last Admin: 02/10/18 21:10 Dose: 15 mg Ondansetron HCl (Zofran Inj) 4 mg IVP Q6 PRN PRN Reason: Nausea/Vomiting Last Admin: 01/30/18 08:28 Dose: 4 mg Pantoprazole Sodium (Protonix Ec Tab) 40 mg PO TID [facility] Last Admin: 02/11/18 14:19 Dose: Not Given Tamsulosin HCl (Flomax) 0.4 mg PO DAILY [facility] Last Admin: 02/11/18 09:21 Dose: 0.4 mg - Labs Labs: 02/11/18 06:16 02/11/18 06:16 PT 14.1 SECONDS (9.7-12.2) H 01/27/18 08:24 INR 1.2 01/27/18 08:24 APTT 36 SECONDS (21-34) H 01/27/18 08:24 - Constitutional Appears: No Acute Distress, Chronically Ill - Head Exam Head Exam: NORMAL INSPECTION - ENT Exam ENT Exam: Mucous Membranes Moist, Normal Oropharynx - Neck Exam Neck Exam: Normal Inspection - Respiratory Exam Respiratory Exam: Clear to Ausculation Bilateral - Cardiovascular Exam Cardiovascular Exam: REGULAR RHYTHM, +S1, +S2 - GI/Abdominal Exam GI & Abdominal Exam: Soft, Normal Bowel Sounds - Extremities Exam Extremities Exam: absent: Calf Tenderness, Pedal Edema - Neurological Exam Neurological Exam: Awake, CN II-XII Intact, Oriented x3 - Psychiatric Exam Psychiatric exam: Normal Mood - Skin Skin Exam: Rash (CH RASH /ECZEMA), Warm Assessment and Plan (1) Fever Assessment & Plan: RESOLVED. ALL CULTURES -VE TO DATE. Status: Acute (2) Obstructive uropathy Assessment & Plan: S/P TURP 02/06/18. POST OPTIVE CARE PER . DC IV MERREM. PO VANTIN 200MG BID X5DAYS . WATCH LFTS. CASE DISCUSSED WITH LOSS CONTROL MANAGER MS KIRK. PT FOR GEETHA TODAY. WILL F/U PT WHILE IN HOSPITAL. Status: Acute (3) Prostate cancer metastatic to bone Status: Acute (4) Hydronephrosis Status: Acute (5) Anemia Status: Acute (6) Polysubstance abuse Status: Acute (7) EMMETT (acute kidney injury) Status: Acute
[2018-02-11 16:56] VITALS: BP 95/53; PULSE 102; O2SAT 97
--- NOTE | 2018-02-11 17:42 | CP.PCM.PN ---
Subjective - Date & Time of Evaluation Date of Evaluation: 02/11/18 Time of Evaluation: 17:42 - Subjective Subjective: Alert and oriented x3, complaints of pain , nephrostomy tube in place and intact. Objective - Vital Signs/Intake and Output Vital Signs (last 24 hours): Temp Pulse Resp BP Pulse Ox 100 F H 102 H 20 95/53 L 97 02/11/18 16:46 02/11/18 16:00 02/11/18 16:00 02/11/18 16:00 02/11/18 16:00 Intake and Output: 02/11/18 02/11/18 06:59 18:59 Output Total 1550 700 Balance -1550 -700 - Medications Medications: Current Medications Acetaminophen (Tylenol 325mg Tab) 650 mg PO Q6 PRN PRN Reason: Fever >100.4 F Last Admin: 02/11/18 16:46 Dose: 650 mg Clonazepam (Klonopin) 0.5 mg PO BID [facility] Last Admin: 02/11/18 09:22 Dose: 0.5 mg Docusate Sodium (Colace) 100 mg PO TID [facility] Last Admin: 02/11/18 14:20 Dose: Not Given Fentanyl (Duragesic) 1 patch TD Q72H [facility] Last Admin: 02/11/18 14:19 Dose: 1 patch Flutamide (Eulexin) 125 mg PO Q8H [facility] Last Admin: 02/11/18 09:21 Dose: 125 mg Gabapentin (Neurontin) 300 mg PO TID [facility] Last Admin: 02/11/18 14:19 Dose: 300 mg Hydromorphone HCl (Dilaudid) 1 mg IVP Q4H PRN PRN Reason: breakthrough pain Last Admin: 02/11/18 12:18 Dose: 1 mg Meropenem 500 mg/ Sodium (Chloride) 100 mls @ 100 mls/hr IVPB Q12 [facility] PRN Reason: Protocol Last Admin: 02/11/18 09:22 Dose: 100 mls/hr Sodium Chloride (Sodium Chloride 0.9%) 1,000 mls @ 50 mls/hr IV .Q20H [facility] Last Admin: 02/11/18 07:55 Dose: Not Given Lidocaine (Lidoderm) 1 ea TD DAILY [facility] Last Admin: 02/11/18 09:26 Dose: 1 ea Magnesium Oxide (Mag-Ox) 400 mg PO BID [facility] Last Admin: 02/11/18 09:22 Dose: 400 mg Methimazole (Tapazole) 5 mg PO DAILY [facility] Last Admin: 02/11/18 09:21 Dose: 5 mg Mirtazapine (Remeron) 15 mg PO HS [facility] Last Admin: 02/10/18 21:10 Dose: 15 mg Ondansetron HCl (Zofran Inj) 4 mg IVP Q6 PRN PRN Reason: Nausea/Vomiting Last Admin: 01/30/18 08:28 Dose: 4 mg Pantoprazole Sodium (Protonix Ec Tab) 40 mg PO TID [facility] Last Admin: 02/11/18 14:19 Dose: Not Given Tamsulosin HCl (Flomax) 0.4 mg PO DAILY [facility] Last Admin: 02/11/18 09:21 Dose: 0.4 mg - Labs Labs: 02/11/18 06:16 02/11/18 06:16 PT 14.1 SECONDS (9.7-12.2) H 01/27/18 08:24 INR 1.2 01/27/18 08:24 APTT 36 SECONDS (21-34) H 01/27/18 08:24 Assessment and Plan - Assessment and Plan (Free Text) Assessment: 57 year old male with metastatic prostate cancer, on pain management, await for jail placement, found bed in [facility]. Seen and examined. Pain is not well controlled with inj dilaudid. Increased Fentanyl patch to 50 mcg/hr. Discussed with DR Ely and DR Ryan, plant to discharge today on vantin po and percocet and fentanyl pach for pain. Patient in agreement with the plan.To be followed up by DR Oreilly and DR Orozco for his condition.
[2018-02-11 17:46] VITALS: TEMP 97.9
--- NOTE | 2018-02-12 00:35 | CP.PCM.DIS ---
Provider - Provider Date of Admission: 01/18/18 22:25 Attending physician: Freddie Ely MD Time Spent in preparation of Discharge (in minutes): 56 Diagnosis - Discharge Diagnosis (1) Septicemia Status: Suspected (2) Obstructive uropathy Status: Acute (3) Renal insufficiency Status: Acute Hospital Course - Lab Results Lab Results: Micro Results 02/09/18 21:00 Blood Blood Culture - Preliminary NO GROWTH AFTER 48 HOURS 02/09/18 14:01 Blood Blood Culture - Preliminary NO GROWTH AFTER 48 HOURS 02/09/18 09:00 Urine Urine Culture - Preliminary No growth. 02/09/18 21:11 Urine Urine Culture - Preliminary No growth. 01/28/18 16:15 Blood Blood Culture - Final NO GROWTH AFTER 5 DAYS 01/28/18 16:15 Blood Gram Stain - Final TEST NOT PERFORMED 01/28/18 14:00 Blood Blood Culture - Final NO GROWTH AFTER 5 DAYS 01/28/18 14:00 Blood Gram Stain - Final TEST NOT PERFORMED 01/28/18 12:59 Wound Catheter Tip Culture - Final No growth. 01/27/18 22:50 Urine Urine Culture - Final No Growth (<1,000 CFU/ML) Most Recent Lab Values WBC 11.4 K/uL (4.8-10.8) H 02/11/18 06:16 RBC 3.46 Mil/uL (4.40-5.90) L 02/11/18 06:16 Hgb 8.8 g/dL (12.0-18.0) L 02/11/18 06:16 Hct 26.3 % (35.0-51.0) L 02/11/18 06:16 MCV 76.0 fL (80.0-94.0) L 02/11/18 06:16 MCH 25.3 pg (27.0-31.0) L 02/11/18 06:16 MCHC 33.3 g/dL (33.0-37.0) 02/11/18 06:16 RDW 19.8 % (11.5-14.5) H 02/11/18 06:16 Plt Count 534 K/uL (130-400) H 02/11/18 06:16 MPV 8.1 fL (7.2-11.7) 02/11/18 06:16 Neut % (Auto) 75.2 % (50.0-75.0) H 02/10/18 06:39 Lymph % (Auto) 10.3 % (20.0-40.0) L 02/10/18 06:39 [place] % (Auto) 12.5 % (0.0-10.0) H 02/10/18 06:39 Eos % (Auto) 1.4 % (0.0-4.0) 02/10/18 06:39 Baso % (Auto) 0.6 % (0.0-2.0) 02/10/18 06:39 Neut # (Auto) 11.5 K/uL (1.8-7.0) H 02/10/18 06:39 Lymph # (Auto) 1.6 K/uL (1.0-4.3) 02/10/18 06:39 [place] # (Auto) 1.9 K/uL (0.0-0.8) H 02/10/18 06:39 Eos # (Auto) 0.2 K/uL (0.0-0.7) 02/10/18 06:39 Baso # (Auto) 0.1 K/uL (0.0-0.2) 02/10/18 06:39 Neutrophils % (Manual) 92 % (50-75) H 02/07/18 14:03 Lymphocytes % (Manual) 3 % (20-40) L 02/07/18 14:03 Monocytes % (Manual) 4 % (0-10) 02/07/18 14:03 Eosinophils % (Manual) 1 % (0-4) 02/07/18 14:03 Basophils % (Manual) 1 % (0-2) 01/28/18 06:05 Myelocytes % 1 % (0-0) H 01/28/18 06:05 Toxic Granulation Present 01/28/18 06:05 Platelet Estimate Increased (NORMAL) H 02/07/18 14:03 Large Platelets Present 01/28/18 06:05 Giant Platelets Present 01/28/18 06:05 Hypochromasia (manual) Slight 01/28/18 06:05 Poikilocytosis (manual Slight 01/28/18 06:05 Anisocytosis (manual) Moderate 02/07/18 14:03 Target Cells Slight 02/07/18 14:03 PT 14.1 SECONDS (9.7-12.2) H 01/27/18 08:24 INR 1.2 01/27/18 08:24 APTT 36 SECONDS (21-34) H 01/27/18 08:24 Sodium 141 mmol/L (132-148) 02/11/18 06:16 Potassium 4.0 mmol/L (3.6-5.2) 02/11/18 06:16 Chloride 105 mmol/L (98-107) 02/11/18 06:16 Carbon Dioxide 26 mmol/L (22-30) 02/11/18 06:16 Anion Gap 14 (10-20) 02/11/18 06:16 BUN 31 mg/dL (9-20) H 02/11/18 06:16 Creatinine 1.7 mg/dL (0.8-1.5) H 02/11/18 06:16 Est GFR ( Amer) 51 02/11/18 06:16 Est GFR (Non-Af Amer) 42 02/11/18 06:16 POC Glucose (mg/dL) 91 mg/dL (65-110) 02/06/18 12:16 Random Glucose 104 mg/dL (75-110) 02/11/18 06:16 Hemoglobin A1c 5.8 % (4.2-6.5) 01/19/18 19:44 Calcium 9.2 mg/dl (8.6-10.4) 02/11/18 06:16 Phosphorus 3.4 mg/dL (2.5-4.5) 02/01/18 06:04 Magnesium 2.0 mg/dL (1.6-2.3) 02/11/18 06:16 Iron 14 ug/dL (49-181) L 01/19/18 19:44 TIBC 214 ug/dL (250-450) L 01/19/18 19:44 % Saturation 7 (20-55) L 01/19/18 19:44 Ferritin 169.0 ng/mL 01/21/18 06:42 Total Bilirubin 0.6 mg/dL (0.2-1.3) 02/11/18 06:16 AST 105 U/L (17-59) H D 02/11/18 06:16 ALT 110 U/L (21-72) H 02/11/18 06:16 Alkaline Phosphatase 195 U/L (38-126) H 02/11/18 06:16 Total Creatine Kinase 159 U/L (55-170) 01/28/18 06:05 CK-MB (Mass) < 0.22 ng/mL (0.0-3.38) 01/28/18 06:05 Troponin I < 0.0120 ng/mL (0.00-0.120) 01/28/18 06:05 Total Protein 8.1 g/dL (6.3-8.3) 02/11/18 06:16 Albumin 3.5 g/dL (3.5-5.0) 02/11/18 06:16 Globulin 4.6 gm/dL (2.2-3.9) H 02/11/18 06:16 Albumin/Globulin Ratio 0.7 (1.0-2.1) L 02/11/18 06:16 Prostate Specific Ag 269 ng/mL (0.00-4.0) H 01/21/18 06:42 Vitamin B12 351 pg/mL (239-931) 01/19/18 19:44 Folate 9.5 ng/mL 01/19/18 19:44 TSH 3rd Generation 1.37 mIU/L (0.46-4.68) 01/20/18 06:14 Testosterone Level 11.7 ng/mL 01/21/18 06:42 PTH Intact Whole Molec 51 pg/mL (14-64) 01/23/18 11:09 Urine Color Red (YELLOW) 01/27/18 23:01 Urine Clarity Clear (Clear) 01/27/18 23:01 Urine pH 8.0 (5.0-8.0) 01/27/18 23:01 Ur Specific [place] 1.009 (1.003-1.030) 01/27/18 23:01 Urine Protein 1+ mg/dL (NEGATIVE) H 01/27/18 23:01 Urine Glucose (UA) Normal mg/dL (Normal) 01/27/18 23:01 Urine Ketones Negative mg/dL (NEGATIVE) 01/27/18 23:01 Urine Blood 3+ (NEGATIVE) H 01/27/18 23:01 Urine Nitrate Negative (NEGATIVE) 01/27/18 23:01 Urine Bilirubin Negative (NEGATIVE) 01/27/18 23:01 Urine Urobilinogen Normal mg/dL (0.2-1.0) 01/27/18 23:01 Ur Leukocyte Esterase Trace [place]/uL (Negative) 01/27/18 23:01 Urine WBC (Auto) 4 /hpf (0-5) 01/27/18 23:01 Urine RBC (Auto) 862 /hpf (0-3) H 01/27/18 23:01 Urine WBC Clumps (Auto) Many /hpf (NONE) H 01/18/18 20:05 Calcium Oxalate Crystal Few /hpf (<OCC) H 01/27/18 23:01 Random Vancomycin 6.55 ug/mL 01/29/18 07:17 Hep Bs Antigen Negative (NEGATIVE) 01/23/18 11:09 Hep Bs Antibody Positive (NEGATIVE) 01/23/18 11:09 Hep B Core IgM Ab Negative (NEGATIVE) 01/23/18 11:09 Hepatitis C Antibody Negative (NEGATIVE) 01/23/18 11:09 Blood Type B POSITIVE 02/05/18 14:15 Blood Type Confirm B POSITIVE 01/18/18 22:40 Antibody Screen Negative 02/05/18 14:15 - Hospital Course Hospital Course: [facility], is stable for discharge Discharge Exam - Head Exam Head Exam: NORMAL INSPECTION, NORMOCEPHALIC Discharge Plan - Discharge Medications Prescriptions: oxyCODONE/Acetaminophen [Percocet 5/325 mg Tab] 1 ea PO Q4H #20 tab Cefpodoxime [Vantin] 200 mg PO Q12H #10 tab - Follow Up Plan Condition: FAIR Disposition: REHAB FACILITY/REHAB UNIT Instructions: Renal Failure Diet (DC)
--- NOTE | 2018-02-12 21:44 | CARD ---
APPROVED REPORT EKG Measurement Heart [id number] <Conclusion> Normal sinus rhythm Minimal voltage criteria for LVH, may be normal variant Borderline ECG
--- NOTE | 2018-03-11 06:12 | OP ---
PROCEDURE DATE: 02/06/2018 PREOPERATIVE DIAGNOSES: Gross hematuria, urinary retention, prostate cancer with metastatic prostate cancer. POSTOPERATIVE DIAGNOSES: Gross hematuria, urinary retention, prostate cancer with metastatic prostate cancer. PROCEDURE: Transurethral resection of prostate, and cautery of bleeding vessels. SURGEON: Mao Orozco MD COMPLICATIONS: There were no complications. ESTIMATED BLOOD LOSS: Less than 50 mL. At the termination of the procedure, the patient has a drain. INDICATIONS: See history and physical, see multiple consultations, see the physical notes daily of late. This is a patient with metastatic prostate cancer. He has stents. He has retention, see elevated BUN and creatinine, multiple consults on the chart. The issue for us is that he has residual bleeding. We discussed options and including possibility for radiation due to prostate for localized control just to stop the bleeding. After days after we discussed, the patient is here now for the above procedure. The patient has a baseline narcotic abuse problem, for which he is also being evaluated. We explained to the patient about expectations about trying to control bleeding, but really we had other options. For various reasons, we are trying to see if we can control bleeding with a little scraping of the surface and also cautery and insertion of Osorio catheter, managing it lightly. In terms of his overall treatment for his prostate cancer, he will also be managed by Oncology as well. DESCRIPTION OF PROCEDURE: After obtaining informed consent, the patient was placed on the operating table. Routine monitor was placed. Time-out was called to confirm the patient and positioning. We introduced the scope via urethra. We irrigated out a tremendous amount of clot. Now along the circumflex to the prostate, we resected some tissue. This was sent off. We then cauterized as much as we could gently and carefully. Throughout the procedure, the patient remained stable. Anesthesia monitored the patient. We now inserted Osorio catheter via the urethra and placed it securely with a mild traction, the urine is actually very clear at this point. Overall, the patient tolerated the procedure well without complications. ADDENDUM: Again, I explained to the patient the various options and doing a minimal TURP with minimal anesthesia and hoping that this will stop the bleeding. It is the plan, and then further plans will follow. Mao Orozco MD [facility] # [id number]
--- NOTE | 2018-03-21 07:51 | OP ---
PROCEDURE DATE: 01/23/2018. PREOPERATIVE DIAGNOSES: Gross hematuria, metastatic prostate cancer, urinary retention, voiding dysfunction. POSTOPERATIVE DIAGNOSES: Gross hematuria, metastatic prostate cancer, urinary retention, voiding dysfunction and bleeding is of prostatic origin. PROCEDURE: Cystoscopy, evacuation of clots, cystogram, insertion of Osorio catheter. INDICATIONS: A very pleasant gentleman who indicates the history and physical with the details but basically, the patient has nephrostomy tube. He is having gross hematuria with clots, and he is here now for the above-listed procedure which was cysto evacuation of clot. Overall, the patient tolerated the procedure well. Blood loss less than 50 mL. The urology recommendation yesterday is to consider radiation therapy and/or TURP not to control the cancer. The cancer is metastatic and the control is eluding us but the issue is really the presence of gross hematuria for which we will recommend minimal TURP. We also would consider and recommend radiation. Apparently, the patient has had no already. DESCRIPTION OF PROCEDURE: After obtaining informed consent, the patient has been placed on the table. Routine monitors were placed. Timeout was called. We confirmed the patient and positioning. We introduced the cystoscope via the urethra. There were so many clots. We irrigated it carefully. Eventually, we see stents. The bladder was heavily trabeculated. At this point, we provided some gentle cautery once there were no clots just to see if we could help. However, at this point, we inserted a Osorio catheter via the urethra. The patient tolerated the procedure well without complications. Note: We will try various techniques, we can try CBI, we can try bladder installation, but my overall goal is GreenLight laser. We can discuss this further. Also, the possibility of external beam radiation, again not secure but just to control the bleeding maybe beneficial. In the meantime, we can discuss further medical therapy. Mao Orozco MD
== END 2018-02-11 21:00 | DRG 571 ==
LOC: C.ER 18:44 → C.9E 22:25 → C.3T 23:23 → C.6T 01-24 21:29 → C.3T 02-08 06:38
PROVIDERS: ADMIT Internal Medicine; ATTEND Internal Medicine
PROC: 0TJB8ZZ Inspection of Bladder, Via Natural or Artificial Opening Endoscopic (ICD-10-PCS; 2018-01-23)
PROC: 0T9130Z Drainage of Left Kidney with Drainage Device, Percutaneous Approach (ICD-10-PCS; 2018-01-24)
PROC: 0TH53YZ Insertion of Other Device into Kidney, Percutaneous Approach (ICD-10-PCS; 2018-01-24)
PROC: 02HV33Z Insertion of Infusion Device into Superior Vena Cava, Percutaneous Approach (ICD-10-PCS; 2018-01-24)
PROC: B518ZZA Fluoroscopy of Superior Vena Cava, Guidance (ICD-10-PCS; 2018-01-24)
PROC: 5A1D70Z Performance of Urinary Filtration, Intermittent, Less than 6 Hours Per Day (ICD-10-PCS; 2018-01-24)
PROC: 5A1D70Z Performance of Urinary Filtration, Intermittent, Less than 6 Hours Per Day (ICD-10-PCS; 2018-01-27)
PROC: 30233N1 Transfusion of Nonautologous Red Blood Cells into Peripheral Vein, Percutaneous Approach (ICD-10-PCS; 2018-02-06)
PROC: 0VT08ZZ Resection of Prostate, Via Natural or Artificial Opening Endoscopic (ICD-10-PCS; principal; 2018-02-06 15:00)
PROC: 5A1D70Z Performance of Urinary Filtration, Intermittent, Less than 6 Hours Per Day (ICD-10-PCS; 2018-02-11)
DX: C61 Malignant neoplasm of prostate (principal); A41.9 Sepsis, unspecified organism; N17.9 Acute kidney failure, unspecified; J90 Pleural effusion, not elsewhere classified; C79.51 Secondary malignant neoplasm of bone; C77.2 Secondary and unspecified malignant neoplasm of intra-abdominal lymph nodes; I12.0 Hypertensive chronic kidney disease with stage 5 chronic kidney disease or end stage renal disease; N18.6 End stage renal disease; I48.92 Unspecified atrial flutter; D62 Acute posthemorrhagic anemia; E87.5 Hyperkalemia; F11.10 Opioid abuse, uncomplicated; F14.90 Cocaine use, unspecified, uncomplicated; E05.20 Thyrotoxicosis with toxic multinodular goiter without thyrotoxic crisis or storm; I48.0 Paroxysmal atrial fibrillation; N13.1 Hydronephrosis with ureteral stricture, not elsewhere classified; R31.0 Gross hematuria; D63.8 Anemia in other chronic diseases classified elsewhere; E16.2 Hypoglycemia, unspecified; F17.200 Nicotine dependence, unspecified, uncomplicated; N32.9 Bladder disorder, unspecified; F43.21 Adjustment disorder with depressed mood; G89.29 Other chronic pain; I73.9 Peripheral vascular disease, unspecified; E83.42 Hypomagnesemia; K59.00 Constipation, unspecified; J45.909 Unspecified asthma, uncomplicated; F41.9 Anxiety disorder, unspecified; Z59.0 Homelessness; N20.0 Calculus of kidney

== ENCOUNTER 2018-02-15 22:07 | Inpatient (IN) | payer MEDICAID ==
[2018-02-15 22:18] VITALS: BMI 22.2
--- NOTE | 2018-02-15 22:55 | C.PDOC ---
History Of Present Illness 57 y/o male with a past medical history of metastatic prostate cancer, s/p bilateral nephrectomies, presents to the Emergency Department complaining of persistent generalized body pain. Patient was recently admitted here, and discharged to [facility] 4 days ago. Now he presents stating his PO pain meds are not controlling his pain. Requests IV diluadid. PMD: Dale Buck Time Seen by Provider: 02/15/18 22:35 Chief Complaint (Nursing): Pain, Chronic History Per: Patient History/Exam Limitations: no limitations Onset/Duration Of Symptoms: Persistent Current Symptoms Are (Timing): Still Present Reports Recently: Hospitalized Past Medical History Reviewed: Historical Data, Nursing Documentation, Vital Signs Vital Signs: Last Vital Signs Temp 98.3 F 02/15/18 22:18 Pulse 82 02/15/18 22:18 Resp 16 02/15/18 22:18 BP 117/82 02/15/18 22:18 Pulse Ox 97 02/15/18 22:59 - Medical History PMH: Anemia, Asthma, Hyperthyroidism, Malignancy (prostate CA stage IV) Denies: Chronic Kidney Disease - [facility] Procedures (01/18/18) (01/18/18) DRAINAGE OF BLADDER WITH DRAINAGE DEVICE, VIA OPENING (12/24/17) DRAINAGE OF LEFT KIDNEY WITH DRAINAGE DEVICE, PERC APPROACH (01/18/18) FLUOROSCOPY OF SUPERIOR VENA CAVA, GUIDANCE (01/18/18) INSERTION OF INFUSION DEV INTO SUP VENA CAVA, PERC APPROACH (01/18/18) INSPECTION OF BLADDER, ENDO (01/18/18) RESECTION OF PROSTATE, ENDO (01/18/18) TRANSFUSE NONAUT RED BLOOD CELLS IN PERIPH VEIN, PERC (01/18/18) Family History: States: Unknown Family Hx - Social History Hx Alcohol Use: No Hx Substance Use: Yes - Immunization History Hx Tetanus Toxoid Vaccination: No Hx Influenza Vaccination: Yes Hx Pneumococcal Vaccination: Yes Review Of Systems Except As Marked, All Systems Reviewed And Found Negative. Musculoskeletal: Positive for: Other (generalized body pain) Physical Exam - Physical Exam Appears: No Acute Distress, Other (Crying on exam) Skin: Normal Color, Warm, Dry Head: Atraumatic, Normacephalic Eye(s): bilateral: Normal Inspection, PERRL, EOMI Nose: Normal Oral Mucosa: Moist Neck: Normal ROM, Supple Chest: Symmetrical Cardiovascular: Rhythm Regular, No Murmur Respiratory: Normal Breath Sounds, No Accessory Muscle Use Gastrointestinal/Abdominal: Soft, No Tenderness, No Distention, Other ( bilateral nephrostomy tubes in place, both bags with urine and one appears bloody) Extremity: Bilateral: Atraumatic, Normal Color And Temperature Neurological/Psych: Oriented x3, Normal Speech ED Course And Treatment - Laboratory Results Result Diagrams: 02/15/18 23:08 02/15/18 23:08 Lab Interpretation: No Acute Changes O2 Sat by Pulse Oximetry: 97 (RA) Pulse Ox Interpretation: Normal Reevaluation Time: 00:44 Reassessment Condition: Improved (only slightly with IV dilaudid.) - Physician Consult Information Outcome Of Conversation: Case discussed with Dr Eduin Buck who is managing him in the skilled nursing. He requests patient be admitted for pain management. Dr Blum is injection mold technician and accepts patient on his service. Medical Decision Making Medical Decision Making: Time: 22:50 Initial Plan: * CMP * CBC * Dilaudid 2 mg IVP * Reevaluation Disposition - Disposition Disposition: HOSPITALIZED Disposition Time: 00:47 Condition: STABLE - POA Present On Arrival: None - Clinical Impression Clinical Impression: Chronic pain, Prostate cancer metastatic to bone - Scribe Statement The provider has reviewed the documentation as recorded by the Elias Jara Provider Attestation: All medical record entries made by the Elias were at my direction and personally dictated by me. I have reviewed the chart and agree that the record accurately reflects my personal performance of the history, physical exam, medical decision making, and the department course for this patient. I have also personally directed, reviewed, and agree with the discharge instructions and disposition.
[2018-02-15 23:13] LABS: BASO # 0.1 K/uL (0.0-0.2); BASO % 0.8 % (0.0-2.0); EOS # 0.4 K/uL (0.0-0.7); EOS % 3.7 % (0.0-4.0); HEMOGLOBIN 10.2 g/dL (12.0-18.0); LYMPH # 1.1 K/uL (1.0-4.3); LYMPH % 9.6 % (20.0-40.0); MEAN CELL VOLUME 75.4 fL (80.0-94.0); MEAN CORPUSCULAR HEMOGLOBIN 25.5 pg (27.0-31.0); MEAN CORPUSCULAR HGB CONC 33.9 g/dL (33.0-37.0); MEAN PLATELET VOLUME 7.9 fL (7.2-11.7); MONO # 0.8 K/uL (0.0-0.8); MONO % 6.8 % (0.0-10.0); NEUT # 8.8 K/uL (1.8-7.0); NEUT % 79.1 % (50.0-75.0); PLATELET COUNT 584 K/uL (130-400); RBC 4.01 Mil/uL (4.40-5.90); RED CELL DISTRIBUTION WIDTH 19.6 % (11.5-14.5); WHITE BLOOD COUNT 11.1 K/uL (4.8-10.8)
[2018-02-15 23:31] LABS: ALB/GLOB RATIO 0.7 (1.0-2.1); ALT/SGPT 166 U/L (21-72); AST/SGOT 73 U/L (17-59); BLOOD UREA NITROGEN 27 mg/dL (9-20); CALCIUM 10.3 mg/dl (8.6-10.4); GFR AFRICAN-AMERICAN > 60; GFR NON-AFRICAN AMERICAN 57
[2018-02-15 23:47] LABS: EOSINOPHIL 4 % (0-4); LYMPHOCYTE 8 % (20-40); MONOCYTE 7 % (0-10); NEUTROPHIL 81 % (50-75); PLATELET ESTIMATE SLIGHTLY INCREASED (NORMAL); TOTAL CELLS COUNTED 100
[2018-02-15 23:48] LABS: ANISOCYTOSIS SLIGHT; POIKILOCYTOSIS SLIGHT
[2018-02-15 23:49] LABS: MICROCYTOSIS SLIGHT; OVALOCYTES SLIGHT; TEARDROP CELLS SLIGHT
--- NOTE | 2018-02-16 00:59 | CP.PCM.HP ---
History of Present Illness - History of Present Illness History of Present Illness: CC: pain This is a 57 year old male with PMHx Stage 4 metastatic prostate cancer with metastasis to the bones, hyperthyroidism, asthma, polysubstance abuse who [facility] stating he is not tolerating pain well. Patient was last discharged to [facility] 4 days ago on percocet 5/325 q4h prn pain and fentanyl 50. Patient is known to the hospital for history of chronic diffuse pain secondary to his metastatic cancer. Patient denies fever, chills, abdominal pain. Patient states he has pain in his legs and back PMHx: Stage IV Prostate Cancer, prior history of Hyperthyroidism, Asthma, Eczema PSHx: Denies Allergies: NKDA Social: Current smoker 5 or 6 cigarettes daily for many years, but quit 4 months ago. Patient also admitted to to snorting half a gram of cocaine and 1 bag of heroin daily on previous visit. Denies alcohol use. Family: Brother & Sister have asthma, mom from unknown cause, does not know father Social: Smokes 5-6 cigarettes daily, drinks alcohol once a week. Patient states he used to snort 1-2 bags of heroin every other day to control his diffuse body pain, but does not do it any longer PMD: [facility] Oncologist: Dr. Oreilly Present on Admission - Present on Admission Any Indicators Present on Admission: No History of DVT/PE: No History of Uncontrolled Diabetes: No Urinary Catheter: No Decubitus Ulcer Present: No Past Patient History - Past Medical History & Family History Past Medical History?: Yes - Past Social History Smoking Status: Former Smoker - CARDIAC Hx Cardiac Disorders: No - PULMONARY Hx Asthma: Yes - NEUROLOGICAL Hx Neurological Disorder: No - HEENT Hx HEENT Problems: No - RENAL Hx Chronic Kidney Disease: No - ENDOCRINE/METABOLIC Hx Hyperthyroidism: Yes - HEMATOLOGICAL/ONCOLOGICAL Hx Anemia: Yes - INTEGUMENTARY Hx Dermatological Problems: Yes Hx Eczema: Yes - MUSCULOSKELETAL/RHEUMATOLOGICAL Hx Back Pain: Yes - GASTROINTESTINAL Hx Gastrointestinal Disorders: No - GENITOURINARY/GYNECOLOGICAL Hx Genitourinary Disorders: Yes Hx Prostate Cancer: Yes - PSYCHIATRIC Hx Substance Use: Yes - SURGICAL HISTORY Hx Surgeries: Yes Other/Comment: BONE BIOPSY. nephrostomy B/L - ANESTHESIA Hx Anesthesia: Yes Hx Anesthesia Reactions: No Hx Malignant Hyperthermia: No Meds Allergies/Adverse Reactions: Allergies Allergy/AdvReac Type Severity Reaction Status Date / Time honey Allergy Verified 02/15/18 22:18 Physical Exam - Constitutional Appears: Non-toxic, No Acute Distress - Head Exam Head Exam: ATRAUMATIC, NORMAL INSPECTION, NORMOCEPHALIC - Eye Exam Eye Exam: EOMI, Normal appearance - ENT Exam ENT Exam: Mucous Membranes Dry - Respiratory Exam Respiratory Exam: Clear to Auscultation Bilateral, NORMAL BREATHING PATTERN - Cardiovascular Exam Cardiovascular Exam: REGULAR RHYTHM, +S1, +S2 - GI/Abdominal Exam GI & Abdominal Exam: Normal Bowel Sounds, Soft - Extremities Exam Extremities exam: Positive for: full ROM, normal inspection - Back Exam Back exam: tenderness Additional comments: bilateral nephrostomy - Neurological Exam Neurological exam: CN II-XII Intact, Normal Gait, Oriented x3 - Psychiatric Exam Psychiatric exam: Normal Affect, Normal Mood - Skin Skin Exam: Dry, Intact, Mottled, Pallor Results - Vital Signs Recent Vital Signs: Last Vital Signs Temp 98.3 F 02/15/18 22:18 Pulse 82 02/15/18 22:18 Resp 16 02/15/18 22:18 BP 117/82 02/15/18 22:18 Pulse Ox 97 02/16/18 00:48 - Labs Result Diagrams: 02/15/18 23:08 02/15/18 23:08 Labs: Laboratory Results - last 24 hr 02/15/18 02/15/18 23:08 23:08 WBC 11.1 H RBC 4.01 L Hgb 10.2 L Hct 30.2 L MCV 75.4 L MCH 25.5 L MCHC 33.9 RDW 19.6 H Plt Count 584 H MPV 7.9 Neut % (Auto) 79.1 H Lymph % (Auto) 9.6 L [place] % (Auto) 6.8 Eos % (Auto) 3.7 Baso % (Auto) 0.8 Neut # (Auto) 8.8 H Lymph # (Auto) 1.1 [place] # (Auto) 0.8 Eos # (Auto) 0.4 Baso # (Auto) 0.1 Neutrophils % (Manual) 81 H Lymphocytes % (Manual) 8 L Monocytes % (Manual) 7 Eosinophils % (Manual) 4 Platelet Estimate Slightly increased H Poikilocytosis (manual Slight Anisocytosis (manual) Slight Microcytosis (manual) Slight Tear Drop Cells Slight Ovalocytes Slight Sodium 138 Potassium 4.5 Chloride 96 L Carbon Dioxide 26 Anion Gap 20 BUN 27 H Creatinine 1.3 Est GFR ( Amer) > 60 Est GFR (Non-Af Amer) 57 Random Glucose 117 H Calcium 10.3 Total Bilirubin 0.8 AST 73 H D ALT 166 H D Alkaline Phosphatase 340 H D Total Protein 9.8 H Albumin 4.0 Globulin 5.8 H Albumin/Globulin Ratio 0.7 L Assessment & Plan - Assessment and Plan (Free Text) Assessment: 57M presents with pain not well controlled by medications he was discharged to [facility] with percocet and fentanyl. Patient states he is in pain, but upon physical exam, no tenderness is noted with palpation. Stage IV Prostate Cancer with chronic pain in ED Patient received Dilaudid 2mg IVP patient was discharged on percocet and fentanyl patches. Motrin 400mg Q6H prn mild pain Percocet 5/325 mg q6h prn moderate pain Morphine 1 mg Q8H prn severe pain prior history of Hyperthyroidism, resolved f/u TSH free T4 Asthma monitor vitals duonebs q6h prn SOB Eczema monitor prophylaxis: SCDs heparin 5000 u sc Q8H protonix 40 mg qd - Date & Time Date: 02/16/18 Time: 01:10
[2018-02-16] MEDS ORDERED: Oxycodone/Acetaminophen 5/325 mg Tab PO PRN (01:14)
[2018-02-16] MEDS ORDERED: Albuterol-Ipratrop 3 mg / 0.5 (3 ml) UD INH PRN (01:25)
[2018-02-16] MEDS: Sodium Chloride 0.9% 1,000 ML IV SCH ×2 (01:45→21:30)
[2018-02-16 01:58] VITALS: RESP 20
[2018-02-16 06:48] LABS: URINE BACTERIA RARE (<OCC); URINE BILIRUBIN NEGATIVE (NEGATIVE); URINE BLOOD 2+ (NEGATIVE); URINE CLARITY Clear (Clear); URINE COLOR Yellow (YELLOW); URINE GLUCOSE (UA) NORMAL (Normal); URINE LEUKOCYTE ESTERASE TRACE Leu/uL (Negative); URINE PROTEIN 1+ mg/dL (NEGATIVE); URINE UROBILINOGEN NORMAL mg/dL (0.2-1.0)
[2018-02-16 07:17] LABS: BASO # 0.1 K/uL (0.0-0.2); BASO % 1.1 % (0.0-2.0); EOS # 0.3 K/uL (0.0-0.7); EOS % 3.4 % (0.0-4.0); HEMOGLOBIN 8.7 g/dL (12.0-18.0); LYMPH # 1.1 K/uL (1.0-4.3); LYMPH % 11.6 % (20.0-40.0); MEAN CELL VOLUME 74.7 fL (80.0-94.0); MEAN CORPUSCULAR HEMOGLOBIN 24.9 pg (27.0-31.0); MEAN CORPUSCULAR HGB CONC 33.3 g/dL (33.0-37.0); MONO # 0.8 K/uL (0.0-0.8); MONO % 8.9 % (0.0-10.0); RBC 3.5 Mil/uL (4.40-5.90); RED CELL DISTRIBUTION WIDTH 19.4 % (11.5-14.5); WHITE BLOOD COUNT 9.3 K/uL (4.8-10.8)
[2018-02-16 08:01] LABS: ALB/GLOB RATIO 0.7 (1.0-2.1); ALBUMIN 3.1 g/dL (3.5-5.0); ALT/SGPT 117 U/L (21-72); AST/SGOT 59 U/L (17-59); BLOOD UREA NITROGEN 23 mg/dL (9-20); CALCIUM 8.2 mg/dl (8.6-10.4); GFR AFRICAN-AMERICAN > 60; GFR NON-AFRICAN AMERICAN > 60
--- NOTE | 2018-02-16 08:44 | CP.PCM.PN ---
Subjective - Date & Time of Evaluation Date of Evaluation: 02/16/18 Time of Evaluation: 08:41 - Subjective Subjective: PGY-[address] Blum's service: Pt seen and examined at bedside. Nursing reports no acute events overnight. Patient reporting 10/10 pain in his lower back, knees, and joints. Patient states he was recently discharged from [facility] and was at [facility]. Patient reports he left [facility] because "he was not getting dilaudid" and that it is the only thing that controls his pain. Patient reports bilateral nephrostomy tubes functioning without difficulty and have been regularly producing urine. Objective - Vital Signs/Intake and Output Vital Signs (last 24 hours): Temp Pulse Resp BP Pulse Ox 98.8 F 69 20 120/68 97 02/16/18 01:45 02/16/18 01:45 02/16/18 01:45 02/16/18 01:45 02/16/18 01:45 Intake and Output: 02/16/18 02/16/18 06:59 18:59 Intake Total 550 Output Total 950 Balance -400 - Medications Medications: Current Medications Albuterol/Ipratropium (Duoneb 3 Mg/0.5 Mg (3 Ml) Ud) 3 ml INH RQ4 PRN PRN Reason: Shortness of Breath Flutamide (Eulexin) 125 mg PO Q8 [facility] Last Admin: 02/16/18 06:10 Dose: 125 mg Heparin Sodium (Porcine) (Heparin) 5,000 units SC Q8 [facility] Last Admin: 02/16/18 06:00 Dose: 5,000 units Sodium Chloride (Sodium Chloride 0.9%) 1,000 mls @ 50 mls/hr IV .Q20H [facility] Last Admin: 02/16/18 01:45 Dose: 50 mls/hr Ibuprofen (Motrin Tab) 400 mg PO Q6 PRN PRN Reason: Other Methimazole (Tapazole) 5 mg PO BID [facility] Morphine Sulfate (Morphine) 1 mg IVP Q8H PRN PRN Reason: Pain, severe (8-10) Last Admin: 02/16/18 02:40 Dose: 1 mg Oxycodone/Acetaminophen (Percocet 5/325 Mg Tab) 1 tab PO Q6H PRN PRN Reason: Pain, moderate (4-7) Stop: 02/19/18 01:15 Last Admin: 02/16/18 05:57 Dose: 1 tab Pantoprazole Sodium (Protonix Inj) 40 mg IVP DAILY YARELIS Tamsulosin HCl (Flomax) 0.4 mg PO DAILY [facility] - Labs Labs: 02/16/18 07:09 02/16/18 07:09 APTT 37 SECONDS (21-34) H 02/16/18 07:09 - Additional Findings Additional findings: - Constitutional Appears: Non-toxic, No Acute Distress - Head Exam Head Exam: ATRAUMATIC, NORMAL INSPECTION, NORMOCEPHALIC - Eye Exam Eye Exam: EOMI, Normal appearance - ENT Exam ENT Exam: Mucous Membranes Dry - Respiratory Exam Respiratory Exam: Clear to Auscultation Bilateral, NORMAL BREATHING PATTERN - Cardiovascular Exam Cardiovascular Exam: REGULAR RHYTHM, +S1, +S2 - GI/Abdominal Exam GI & Abdominal Exam: Normal Bowel Sounds, Soft - Extremities Exam Extremities exam: Positive for: full ROM, normal inspection - Back Exam Back exam: tenderness Additional comments: bilateral nephrostomy producing 500cc in right; 100cc left in urine - Neurological Exam Neurological exam: CN II-XII Intact, Normal Gait, Oriented x3 - Psychiatric Exam Psychiatric exam: Normal Affect, Normal Mood - Skin Skin Exam: Dry, Intact, Mottled, Pallor Assessment and Plan - Assessment and Plan (Free Text) Plan: 57M presents with pain not well controlled by medications he was discharged to [facility] with percocet and fentanyl. Patient states he is in pain, but upon physical exam, no tenderness is noted with palpation. Stage IV Prostate Cancer with chronic pain in ED Patient received Dilaudid 2mg IVP; 0.5mg IV once - No additional Dilaudid per DR. Blum - patient was discharged on percocet and fentanyl patches. recent TURP procedure on last admission in December Dr. Oreilly on consult, Hem/Onc - help appreciated Hospice evaluation/Palliative care, per Dr. Blum Flutamide 125mg PO Q8H YARELIS Flomax 0.4mg PO daily Motrin 400mg Q6H prn mild pain Percocet 5/325 mg q6h prn moderate pain Morphine 1 mg Q8H prn severe pain History of Hyperthyroidism Tapazole 5mg PO BID f/u TSH/free T4 Hx of Nephrostomy tube placements functioning well, producing urine Monitor Asthma monitor vitals duonebs q6h prn SOB Anemia Hbg 8.7 on AM labs from 10.2 at admission Hemoccult negative at bedside Etiology: Combination of Chronic renal dz, [place], hematuria Hematuria 2+ blood Etiology: 2/2 prostate CA persistent on UAs since 11/2017 Elevated transaminases AST/ALT 73/166, Alk phos 340 at admission - now downtrending Likely due to long-term narcotic use Eczema monitor Electrolyte abnormalities K 3.4 on AM labs, repleted Mg 1.5 repleted prophylaxis: SCDs heparin 5000 u sc Q8H protonix 40 mg qd Disposition: Pt requesting Dilaudid exclusively for pain control. Pain told he is not able to get these at most outpatient rehab and will need other pain control, which he is resistant to. Hospice evaluation/Palliative care consults to determine goals. D/w Dr. Viktoria Mars PGY-2
[2018-02-16] MEDS: methIMAzole 5 MG TAB PO SCH ×2 (09:42→18:00)
[2018-02-16] MEDS: Potassium Chloride 20 mEq ER Tab PO SCH ×2 (11:00→12:11)
[2018-02-16] MEDS ORDERED: HYDROmorphone 0.5 mg/0.5 ml ISec IVP STA (12:57)
[2018-02-16] MEDS ORDERED: Magnesium Sulfate 1 gm in D5W 1 GM/100 ML BAG IVPB ONE (13:02)
[2018-02-17] MEDS: methIMAzole 5 MG TAB PO SCH ×2 (09:31→17:46)
--- NOTE | 2018-02-17 10:31 | CP.PCM.CON ---
History of Present Illness - History of Present Illness History of Present Illness: Palliative consult requested by Doctor Mars for goals of care discussion Patient is a 57 yo readmitted to hospital just 4 days after being discharged to [facility]. It is reported that patient's pain could not be controled on PO pain meds and he requested IV Dilaudid for pain. Patient has known Hx of advanced prostate cancer with mets to liver. Patient is fallowed by Doctor Afia. On this admission patient fond to have gross hemathuria and Hb dropped to 8.7. The AST and ALTs are elevated. Pain currently controld on <otrin PO and Fentamyl patch. PMH: Stage IV prostate CA with mets to liver, S/P B/L nephrectomies on last admission, Soc. Hx; Ex prisoner, homeless, single, has daughter who visits and is involved with care Fam. Hx: denies known Hx of CA Review of Systems - Constitutional Constitutional: Fatigue, Weight Loss, Weakness - EENT Eyes: absent: As Per HPI, Blind Spots, Blurred Vision, Change in Vision, Decreased Night Vision, Diplopia, Discharge, Dry Eye, Exophthalmos, Floaters, Irritation, Itchy Eyes, Loss of Peripheral Vision, Pain, Photophobia, Requires Corrective Lenses, Sees Flashes, Spots in Vision, Tunnel Vision, Other Visual Disturbances, Loss of Vision, Other Ears: absent: As Per HPI, Decreased Hearing, Ear Discharge, Ear Pain, Tinnitus, Abnormal Hearing, Disequilibrium, Dizziness, Other Nose/Mouth/Throat: absent: As Per HPI, Epistaxis, Nasal Congestion, Nasal Discharge, Nasal Obstruction, Nasal Trauma, Nose Pain, Post Nasal Drip, Sinus Pain, Sinus Pressure, Bleeding Gums, Change in Voice, Dental Pain, Dry Mouth, Dysphagia, Halitosis, Hoarsness, Lip Swelling, Mouth Lesions, Mouth Pain, Odynophagia, Sore Throat, Throat Swelling, Tongue Swelling, Facial Pain, Neck Pain, Neck Mass, Other - Cardiovascular Cardiovascular: absent: As Per HPI, Acrocyanosis, Chest Pain, Chest Pain at Rest , Chest Pain with Activity, Claudication, Diaphoresis, Dyspnea, Dyspnea on Exertion, Edema, Irregular Heart Rhythm, Pain Radiating to Arm/Neck/Jaw, Leg Edema, Leg Ulcers, Lightheadedness, Orthopnea, Palpitations, Paroxysmal Nocturnal Dyspnea, Pedal Edema, Radiating Pain, Rapid Heart Rate, Slow Heart Rate, Syncope, Other - Respiratory Respiratory: absent: As Per HPI, Cough, Dyspnea, Hemoptysis, Dyspnea on Exertion , Wheezing, Snoring, Stridor, Pain on Inspiration, Chest Congestion, Excessive Mucous Production, Change in Mucous Color, Pain with Coughing, Other - Gastrointestinal Gastrointestinal: absent: As Per HPI, Abdominal Pain, Belching, Bloating, Change in Bowel Habits, Change in Stool Character, Coffee Ground Emesis, Constipation, Cramping, Diarrhea, Dyspepsia, Dysphagia, Early Satiety, Excessive Flatus, Fecal Incontinence, Heartburn, Hematemesis, Hematochezia, Loose Stools, Melena, Nausea, Odynophagia, Temesmus, Vomiting, Other - Genitourinary Genitourinary: Hematuria, Hx /Renal Surgery - Musculoskeletal Additional comments: knees pain - Integumentary Integumentary: absent: As Per HPI, Acne, Alopecia, Bleeding Lesions, Change in Hair, Change in Nails, Change in Pigmentation, Changing Lesions, Dry Skin, Erythema, Furuncle, Hirsutism, Lesions, New Lesions, Non-Healing Lesions, Photosensitivity, Pruritus, Rash, Skin Pain, Skin Ulcer, Sores, Striae, Swelling , Unusual Bruising, Wounds, Jaundice, Other - Neurological Neurological: absent: As Per HPI, Abnormal Gait, Abnormal Hearing, Abnormal Movements, Abnormal Speech, Behavioral Changes, Burning Sensations, Confusion, Convulsions, Disequilibrium, Dizziness, Numbness, Focal Weakness, Frequent Falls , Headaches, Lack of Coordination, Loss of Vision, Memory Loss, Paresthesias, Radicular Pain, Restless Legs, Sensory Deficit, Syncope, Tingling, Tremor, Vertigo, Weakness, Other Visual Disturbances, Other - Psychiatric Psychiatric: Anxiety - Endocrine Endocrine: absent: As Per HPI, Change in Body Appearance, Change in Libido, Cold Intolorance, Deepening of Voice, Excessive Sweating, Fatigue, Flushing, Heat Intolorance, Increase in Ring/Shoe/Hat Size, Palpitations, Polydipsia, Polyphagia, Polyuria, Other - Hematologic/Lymphatic Hematologic: Easy Bleeding Past Patient History - Past Medical History & Family History Past Medical History?: Yes - Past Social History Smoking Status: Former Smoker - CARDIAC Hx Cardiac Disorders: No - PULMONARY Hx Asthma: Yes - NEUROLOGICAL Hx Neurological Disorder: No - HEENT Hx HEENT Problems: No - RENAL Hx Chronic Kidney Disease: No - ENDOCRINE/METABOLIC Hx Hyperthyroidism: Yes - HEMATOLOGICAL/ONCOLOGICAL Hx Anemia: Yes - INTEGUMENTARY Hx Dermatological Problems: Yes Hx Eczema: Yes - MUSCULOSKELETAL/RHEUMATOLOGICAL Hx Back Pain: Yes - GASTROINTESTINAL Hx Gastrointestinal Disorders: No - GENITOURINARY/GYNECOLOGICAL Hx Genitourinary Disorders: Yes Hx Prostate Cancer: Yes - PSYCHIATRIC Hx Substance Use: Yes - SURGICAL HISTORY Hx Surgeries: Yes Other/Comment: BONE BIOPSY. nephrostomy B/L - ANESTHESIA Hx Anesthesia: Yes Hx Anesthesia Reactions: No Hx Malignant Hyperthermia: No Meds Allergies/Adverse Reactions: Allergies Allergy/AdvReac Type Severity Reaction Status Date / Time honey Allergy Verified 02/15/18 22:18 - Medications Medications: Current Medications Albuterol/Ipratropium (Duoneb 3 Mg/0.5 Mg (3 Ml) Ud) 3 ml INH RQ4 PRN PRN Reason: Shortness of Breath Fentanyl (Duragesic) 1 patch TD Q72H [facility] Last Admin: 02/16/18 20:33 Dose: 1 patch Flutamide (Eulexin) 125 mg PO Q8 [facility] Last Admin: 02/17/18 07:27 Dose: 125 mg Heparin Sodium (Porcine) (Heparin) 5,000 units SC Q8 [facility] Last Admin: 02/17/18 07:28 Dose: 5,000 units Sodium Chloride (Sodium Chloride 0.9%) 1,000 mls @ 50 mls/hr IV .Q20H [facility] Last Admin: 02/16/18 21:30 Dose: Not Given Ibuprofen (Motrin Tab) 400 mg PO Q6 PRN PRN Reason: Other Last Admin: 02/17/18 07:28 Dose: 400 mg Methimazole (Tapazole) 5 mg PO BID [facility] Last Admin: 02/17/18 09:31 Dose: 5 mg Pantoprazole Sodium (Protonix Inj) 40 mg IVP DAILY [facility] Last Admin: 02/17/18 09:31 Dose: 40 mg Tamsulosin HCl (Flomax) 0.4 mg PO DAILY [facility] Last Admin: 02/17/18 09:29 Dose: 0.4 mg Physical Exam - Constitutional Appears: Chronically Ill - Head Exam Head Exam: ATRAUMATIC, NORMAL INSPECTION, NORMOCEPHALIC - Eye Exam Eye Exam: EOMI, Normal appearance, PERRL Pupil Exam: NORMAL ACCOMODATION, PERRL - ENT Exam ENT Exam: Mucous Membranes Moist, Normal Exam - Neck Exam Neck exam: Positive for: Normal Inspection - Respiratory Exam Respiratory Exam: Clear to Auscultation Bilateral, NORMAL BREATHING PATTERN - Cardiovascular Exam Cardiovascular Exam: Tachycardia, REGULAR RHYTHM - GI/Abdominal Exam GI & Abdominal Exam: Normal Bowel Sounds, Soft - Rectal Exam Rectal Exam: Deferred - Extremities Exam Extremities exam: Positive for: normal inspection - Back Exam Back exam: NORMAL INSPECTION - Neurological Exam Neurological exam: Alert, Oriented x3 - Psychiatric Exam Psychiatric exam: Anxious - Skin Skin Exam: Pallor Results - Vital Signs Recent Vital Signs: Last Vital Signs Temp 97.6 F 02/17/18 08:00 Pulse 67 02/17/18 08:00 Resp 20 02/17/18 08:00 BP 110/67 02/17/18 08:00 Pulse Ox 99 02/17/18 08:00 - Labs Result Diagrams: 02/16/18 07:09 02/16/18 07:09 Assessment & Plan - Assessment and Plan (Free Text) Assessment: Palliative consult Full Code, POLST signed by patient on last admission. PPS 30% I reviewed medical records, all diagnostic studies, examined and interviewed patient in the bed. Patient is AAO X3, looking chronically ill. Patient believes he has lost some weight. Skin pale, hb 8.7 down from 10.2 on admision. Breath sounds normal. Abdomen soft, active bowel sounds, denies pain, denies constipation. Reports just recently abdomen was very painful, and he would not allow anybody to touch it. Reports poor appetite due to overall pain, denies nausea. urinates red blood in urine, as per patient report. B/L nephrostomies drain clear yellow urine. Doctor Ernesto is still to see patient today. Ambulates usin cane due to B/L knees pain. Reports improvement in pain control since Motrin started. Reports mild generalized pain. patient strongly believes Motrin works well for him, and his pain has diminished significantly since Motrin started. Fentanyl [address]. Complains of insomnia as " my thoughts are rising" during the night. Patient was on Klonopin Q HS what helped him get restful sleep. Goals of care discussed with patient. He s fully aware of his diagnosis. I offered more information on prostate cancer .Patient states being determined to fight the disease until the end. Denies depression or ideas of giving up on his life. Daughter is his big support. Patient occasionally talks on the phone to his grandchildren . Does not want them to visit and see him being sick. Placement at [facility] discussed. Patient does not want to return to [facility]. Patient believes his daughter will help him with placement " as she is trying to put him on her insurance". Impression * Chronically ill man with advanced cancer * Pain cancer related, responding well to Motrin PO and Duragesic patch * Hematuria * Insomnia, anxiety related; requesting Klonopin Q HS as it worked for him in the past * Patient states readiness to fight for his life; has family support from the daughter * lack of housing Suggestions * Continue Motrin PO and Fentanyl patch for pain * Would consider Klonopin 1 mg PO Q HS for control of anxiety and to promote better sleep * Monitor Hb, blood transfusion may be needed, F/U with Doctor Afia * per Doctor Ernesto * for discharge planing * Full Code Palliative care will continue to fallow up with this patient as needed. Thank you for consulting Palliative Care
[2018-02-17] MEDS: Sodium Chloride 0.9% 1,000 ML IV SCH (16:41)
--- NOTE | 2018-02-17 17:03 | CP.PCM.PN ---
Subjective - Date & Time of Evaluation Date of Evaluation: 02/17/18 Time of Evaluation: 16:59 - Subjective Subjective: PGY-[address] Blum. No acute events noted overnight. Patient refused bloodwork this AM. Patient stated he was no longer in pain. He stated he had an episode of hematuria which he occasionally gets. He asked if his diet can be switched to a regular diet. He otherwise did not offer any complaints. He stated he did not want to go back to [facility]. He stated he would rather be discharged to a detention. Objective - Vital Signs/Intake and Output Vital Signs (last 24 hours): Temp Pulse Resp BP Pulse Ox 97.6 F 67 20 110/67 99 02/17/18 08:00 02/17/18 08:00 02/17/18 08:00 02/17/18 08:00 02/17/18 08:00 Intake and Output: 02/17/18 02/17/18 06:59 18:59 Intake Total 750 840 Output Total 950 1225 Balance -200 -385 - Medications Medications: Current Medications Albuterol/Ipratropium (Duoneb 3 Mg/0.5 Mg (3 Ml) Ud) 3 ml INH RQ4 PRN PRN Reason: Shortness of Breath Fentanyl (Duragesic) 1 patch TD Q72H [facility] Last Admin: 02/16/18 20:33 Dose: 1 patch Flutamide (Eulexin) 125 mg PO Q8 [facility] Last Admin: 02/17/18 13:27 Dose: 125 mg Sodium Chloride (Sodium Chloride 0.9%) 1,000 mls @ 50 mls/hr IV .Q20H [facility] Last Admin: 02/17/18 16:41 Dose: 50 mls/hr Ibuprofen (Motrin Tab) 400 mg PO Q6 PRN PRN Reason: Other Last Admin: 02/17/18 14:49 Dose: 400 mg Methimazole (Tapazole) 5 mg PO BID [facility] Last Admin: 02/17/18 09:31 Dose: 5 mg Pantoprazole Sodium (Protonix Inj) 40 mg IVP DAILY [facility] Last Admin: 02/17/18 09:31 Dose: Not Given Tamsulosin HCl (Flomax) 0.4 mg PO DAILY [facility] Last Admin: 02/17/18 09:29 Dose: 0.4 mg - Labs Labs: 02/16/18 07:09 02/16/18 07:09 APTT 37 SECONDS (21-34) H 02/16/18 07:09 - Additional Findings Additional findings: - Constitutional Appears: Non-toxic, No Acute Distress - Head Exam Head Exam: ATRAUMATIC, NORMAL INSPECTION, NORMOCEPHALIC - Eye Exam Eye Exam: EOMI, Normal appearance - ENT Exam ENT Exam: Mucous Membranes Dry - Respiratory Exam Respiratory Exam: Clear to Auscultation Bilateral, NORMAL BREATHING PATTERN - Cardiovascular Exam Cardiovascular Exam: REGULAR RHYTHM, +S1, +S2 - GI/Abdominal Exam GI & Abdominal Exam: Normal Bowel Sounds, Soft - Extremities Exam Extremities exam: Positive for: full ROM, normal inspection - Back Exam Back exam: tenderness Additional comments: bilateral nephrostomy producing 100cc in right; 100cc left in urine - Neurological Exam Neurological exam: CN II-XII Intact, Normal Gait, Oriented x3 - Psychiatric Exam Psychiatric exam: Normal Affect, Normal Mood - Skin Skin Exam: Dry, Intact, Mottled, Pallor Assessment and Plan - Assessment and Plan (Free Text) Assessment: 57M presents with pain not well controlled by medications he was discharged to [facility] with percocet and fentanyl. Patient states he is in pain, but upon physical exam, no tenderness is noted with palpation. Stage IV Prostate Cancer with chronic pain in ED Patient received Dilaudid 2mg IVP; 0.5mg IV once - No additional Dilaudid per DR. Blum - patient was discharged on percocet and fentanyl patches. recent TURP procedure on last admission in December Dr. Oreilly on consult, Hem/Onc - help appreciated Hospice evaluation/Palliative care, per Dr. Blum * Would consider Klonopin 1 mg PO Q HS for control of anxiety and to promote better sleep Flutamide 125mg PO Q8H [facility] Flomax 0.4mg PO daily Motrin 400mg Q6H prn mild pain Percocet 5/325 mg q6h prn moderate pain Morphine 1 mg Q8H prn severe pain History of Hyperthyroidism Tapazole 5mg PO BID f/u TSH/free T4 Hx of Nephrostomy tube placements functioning well, producing urine Monitor Asthma monitor vitals duonebs q6h prn SOB Anemia Hbg 8.7 on AM labs from 10.2 at admission Hemoccult negative at bedside Etiology: Combination of Chronic renal dz, Washout, hematuria Hematuria 2+ blood Etiology: 2/2 prostate CA persistent on UAs since 11/2017 Elevated transaminases AST/ALT 73/166, Alk phos 340 at admission - now downtrending Likely due to long-term narcotic use Eczema monitor Electrolyte abnormalities K 3.4 on AM labs, repleted Mg 1.5 repleted prophylaxis: SCDs heparin 5000 u sc Q8H protonix 40 mg qd Disposition: Patient does not want to go back to [facility]. He stated he rather go to a detention. He will need scripts for pain meds upon discharge. Discharge being planned for 02/18/18.
--- NOTE | 2018-02-17 23:40 | CP.PCM.CON ---
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 His initial PSA was about 400 and he had evidence of retroperitoneal and bone metastasis. He was started on Lupron 30mg and Casodex on 04/25/17. During his last admission he was found to have a rising PSA despite total androgen deprivation, consistent with androgen deprivation. Past medical history: HTN, prostate cancer Past surgical history: Denies Family history: Denies hematologic and oncologic problems Social history: Heroin abuse Allergies: NKA Review of systems: All remaining review of systems including HEENT, cardiovascular, respiratory, gastrointestinal, genitourinary, musculoskeletal, dermatologic, neurologic, and psychiatric are negative unless mentioned in the HPI. Past Patient History - Past Medical History & Family History Past Medical History?: Yes - Past Social History Smoking Status: Former Smoker - CARDIAC Hx Cardiac Disorders: No - PULMONARY Hx Asthma: Yes - NEUROLOGICAL Hx Neurological Disorder: No - HEENT Hx HEENT Problems: No - RENAL Hx Chronic Kidney Disease: No - ENDOCRINE/METABOLIC Hx Hyperthyroidism: Yes - HEMATOLOGICAL/ONCOLOGICAL Hx Anemia: Yes - INTEGUMENTARY Hx Dermatological Problems: Yes Hx Eczema: Yes - MUSCULOSKELETAL/RHEUMATOLOGICAL Hx Back Pain: Yes - GASTROINTESTINAL Hx Gastrointestinal Disorders: No - GENITOURINARY/GYNECOLOGICAL Hx Genitourinary Disorders: Yes Hx Prostate Cancer: Yes - PSYCHIATRIC Hx Substance Use: Yes - SURGICAL HISTORY Hx Surgeries: Yes Other/Comment: BONE BIOPSY. nephrostomy B/L - ANESTHESIA Hx Anesthesia: Yes Hx Anesthesia Reactions: No Hx Malignant Hyperthermia: No Meds Allergies/Adverse Reactions: Allergies Allergy/AdvReac Type Severity Reaction Status Date / Time honey Allergy Verified 02/15/18 22:18 - Medications Medications: Current Medications Albuterol/Ipratropium (Duoneb 3 Mg/0.5 Mg (3 Ml) Ud) 3 ml INH RQ4 PRN PRN Reason: Shortness of Breath Fentanyl (Duragesic) 1 patch TD Q72H [facility] Last Admin: 02/16/18 20:33 Dose: 1 patch Flutamide (Eulexin) 125 mg PO Q8 [facility] Last Admin: 03/26/18 21:46 Dose: 125 mg Sodium Chloride (Sodium Chloride 0.9%) 1,000 mls @ 50 mls/hr IV .Q20H [facility] Last Admin: 02/17/18 16:41 Dose: 50 mls/hr Ibuprofen (Motrin Tab) 400 mg PO Q6 PRN PRN Reason: Other Last Admin: 02/17/18 21:46 Dose: 400 mg Methimazole (Tapazole) 5 mg PO BID [facility] Last Admin: 02/17/18 17:46 Dose: 5 mg Pantoprazole Sodium (Protonix Inj) 40 mg IVP DAILY [facility] Last Admin: 02/17/18 09:31 Dose: Not Given Tamsulosin HCl (Flomax) 0.4 mg PO DAILY [facility] Last Admin: 02/17/18 09:29 Dose: 0.4 mg Physical Exam - Head Exam Head Exam: ATRAUMATIC - Eye Exam Eye Exam: Normal appearance - ENT Exam ENT Exam: Mucous Membranes Dry - Respiratory Exam Respiratory Exam: NORMAL BREATHING PATTERN - Cardiovascular Exam Cardiovascular Exam: +S1, +S2 - GI/Abdominal Exam GI & Abdominal Exam: Normal Bowel Sounds - Extremities Exam Extremities exam: Positive for: normal inspection - Neurological Exam Neurological exam: Oriented x3 - Psychiatric Exam Psychiatric exam: Normal Affect, Normal Mood - Skin Skin Exam: Warm Results - Vital Signs Recent Vital Signs: Last Vital Signs Temp 98.1 F 02/17/18 15:15 Pulse 73 02/17/18 15:15 Resp 20 02/17/18 15:15 BP 100/68 02/17/18 15:15 Pulse Ox 96 02/17/18 15:15 - Labs Result Diagrams: 02/16/18 07:09 02/16/18 07:09 Assessment & Plan (1) Anemia Assessment and Plan: anemia of chronic disease, bone metastasis transfusion support PRN Status: Acute (2) Prostate cancer Assessment and Plan: stage IV castrate resistant outpatient androgen deprivation and addition of Zytiga Thank you for this interesting consult. Status: Acute
[2018-02-18 01:15] VITALS: BP 116/64; PULSE 62; TEMP 98.5; O2SAT 98
[2018-02-18] MEDS: methIMAzole 5 MG TAB PO SCH (11:02)
[2018-02-18] MEDS ORDERED: Potassium Chloride 20 mEq ER Tab PO ONE (14:48)
--- NOTE | 2018-02-18 15:00 | CP.PCM.DIS ---
Provider - Provider Date of Admission: 02/16/18 00:48 Attending physician: Gonzalo Blum Jr, MD Primary care physician: PMD: [facility] Consults: Pain Management: Dr Toscano Hematology/Oncologist: Dr Eliu Oreilly Time Spent in preparation of Discharge (in minutes): 37 Hospital Course - Lab Results Lab Results: Micro Results 02/16/18 02:15 Urine,Clean Catch Urine Culture - Final No Growth (<1,000 CFU/ML) Most Recent Lab Values WBC 9.3 K/uL (4.8-10.8) 02/16/18 07:09 RBC 3.50 Mil/uL (4.40-5.90) L 02/16/18 07:09 Hgb 8.7 g/dL (12.0-18.0) L 02/16/18 07:09 Hct 26.1 % (35.0-51.0) L 02/16/18 07:09 MCV 74.7 fL (80.0-94.0) L 02/16/18 07:09 MCH 24.9 pg (27.0-31.0) L 02/16/18 07:09 MCHC 33.3 g/dL (33.0-37.0) 02/16/18 07:09 RDW 19.4 % (11.5-14.5) H 02/16/18 07:09 Plt Count 550 K/uL (130-400) H 02/16/18 07:09 MPV 8.0 fL (7.2-11.7) 02/16/18 07:09 Neut % (Auto) 75.0 % (50.0-75.0) 02/16/18 07:09 Lymph % (Auto) 11.6 % (20.0-40.0) L 02/16/18 07:09 Crosby % (Auto) 8.9 % (0.0-10.0) 02/16/18 07:09 Eos % (Auto) 3.4 % (0.0-4.0) 02/16/18 07:09 Baso % (Auto) 1.1 % (0.0-2.0) 02/16/18 07:09 Neut # (Auto) 7.0 K/uL (1.8-7.0) 02/16/18 07:09 Lymph # (Auto) 1.1 K/uL (1.0-4.3) 02/16/18 07:09 Crosby # (Auto) 0.8 K/uL (0.0-0.8) 02/16/18 07:09 Eos # (Auto) 0.3 K/uL (0.0-0.7) 02/16/18 07:09 Baso # (Auto) 0.1 K/uL (0.0-0.2) 02/16/18 07:09 Neutrophils % (Manual) 81 % (50-75) H 02/15/18 23:08 Lymphocytes % (Manual) 8 % (20-40) L 02/15/18 23:08 Monocytes % (Manual) 7 % (0-10) 02/15/18 23:08 Eosinophils % (Manual) 4 % (0-4) 02/15/18 23:08 Platelet Estimate Slightly increased (NORMAL) H 02/15/18 23:08 Poikilocytosis (manual Slight 02/15/18 23:08 Anisocytosis (manual) Slight 02/15/18 23:08 Microcytosis (manual) Slight 02/15/18 23:08 Tear Drop Cells Slight 02/15/18 23:08 Ovalocytes Slight 02/15/18 23:08 APTT 37 SECONDS (21-34) H 02/16/18 07:09 Sodium 140 mmol/L (132-148) 02/16/18 07:09 Potassium 3.4 mmol/L (3.6-5.2) L 02/16/18 07:09 Chloride 106 mmol/L (98-107) 02/16/18 07:09 Carbon Dioxide 23 mmol/L (22-30) 02/16/18 07:09 Anion Gap 14 (10-20) 02/16/18 07:09 BUN 23 mg/dL (9-20) H 02/16/18 07:09 Creatinine 1.1 mg/dL (0.8-1.5) 02/16/18 07:09 Est GFR ( Amer) > 60 02/16/18 07:09 Est GFR (Non-Af Amer) > 60 02/16/18 07:09 Random Glucose 90 mg/dL (75-110) 02/16/18 07:09 Calcium 8.2 mg/dl (8.6-10.4) L 02/16/18 07:09 Phosphorus 4.0 mg/dL (2.5-4.5) 02/16/18 07:09 Magnesium 1.6 mg/dL (1.6-2.3) 02/16/18 07:09 Total Bilirubin 0.5 mg/dL (0.2-1.3) 02/16/18 07:09 AST 59 U/L (17-59) 02/16/18 07:09 ALT 117 U/L (21-72) H D 02/16/18 07:09 Alkaline Phosphatase 243 U/L (38-126) H D 02/16/18 07:09 Total Protein 7.4 g/dL (6.3-8.3) 02/16/18 07:09 Albumin 3.1 g/dL (3.5-5.0) L D 02/16/18 07:09 Globulin 4.3 gm/dL (2.2-3.9) H 02/16/18 07:09 Albumin/Globulin Ratio 0.7 (1.0-2.1) L 02/16/18 07:09 Urine Color Yellow (YELLOW) 02/16/18 06:32 Urine Clarity Clear (Clear) 02/16/18 06:32 Urine pH 5.0 (5.0-8.0) 02/16/18 06:32 Ur Specific [place] 1.012 (1.003-1.030) 02/16/18 06:32 Urine Protein 1+ mg/dL (NEGATIVE) H 02/16/18 06:32 Urine Glucose (UA) Normal mg/dL (Normal) 02/16/18 06:32 Urine Ketones Negative mg/dL (NEGATIVE) 02/16/18 06:32 Urine Blood 2+ (NEGATIVE) H 02/16/18 06:32 Urine Nitrate Negative (NEGATIVE) 02/16/18 06:32 Urine Bilirubin Negative (NEGATIVE) 02/16/18 06:32 Urine Urobilinogen Normal mg/dL (0.2-1.0) 02/16/18 06:32 Ur Leukocyte Esterase Trace [place]/uL (Negative) 02/16/18 06:32 Urine WBC (Auto) 5 /hpf (0-5) 02/16/18 06:32 Urine RBC (Auto) 11 /hpf (0-3) H 02/16/18 06:32 Urine Bacteria Rare (<OCC) 02/16/18 06:32 - Hospital Course Hospital Course: CC: pain This is a 57 year old male with PMHx Stage 4 metastatic prostate cancer with metastasis to the bones, hyperthyroidism, asthma, polysubstance abuse who presented from residential stating he is not tolerating pain well. Patient was last discharged to [facility] 4 days ago on percocet 5/325 q4h prn pain and fentanyl 50. Patient is known to the hospital for history of chronic diffuse pain secondary to his metastatic cancer. Patient denies fever, chills, abdominal pain. Patient states he has pain in his legs and back PMHx: Stage IV Prostate Cancer, prior history of Hyperthyroidism, Asthma, Eczema PSHx: Denies Allergies: NKDA Social: Current smoker 5 or 6 cigarettes daily for many years, but quit 4 months ago. Patient also admitted to to snorting half a gram of cocaine and 1 bag of heroin daily on previous visit. Denies alcohol use. Family: Brother & Sister have asthma, mom from unknown cause, does not know father Social: Smokes 5-6 cigarettes daily, drinks alcohol once a week. Patient states he used to snort 1-2 bags of heroin every other day to control his diffuse body pain, but does not do it any longer PMD: [facility] Oncologist: Dr. Oreilly HOSPITAL COURSE: 57 year old male with PMHx of metastatic prostate cancer with metastasis to bones presented to hospital from residential called [facility] stating he is not tolerating pain well. Patients outpatient pain regimen was percocet 5/325 q4h prn and fentayl 50. Patient was treated in the ED with 2mg dilaudid IVP and Dilaudid .5mg IV once in the ER. He was transfered to the floor where he was started on percocet 5/325 mg q6h prn, morphine 1mg Q8H pern, motrin 400mg Q6H prn and fentanyl patch 50mcg/hr. On admission patient was found to have a hemoglobin of 10.2 on 02/16/18 which decreased to 8.7 on 02/17/18 likely due to hematuria 2/2 to prostate CA as well as chronic anemia 2/2 to bone mets. Transfusion was not needed as patient is near his baseline and was without symptoms (dizziness, lightheadedness). Dr. Oreilly from heme/oncology as consulted who also see's the patient outpatient. Hospice was consulted who recommended considering klonopin 1mg po qHS for anxiety and sleep control however these recommendations were not carried out as patient's main complaint was a fine-tuning of his pain med regimen. Pain management was also consulted, patient stated that what works best for is percocet 10/325 every 6 hours (which he was not getting at the [facility] which is why he came to [facility] ER). However given the patient was not currently in pain the patient stated he did not require pain scripts at this time. He stated he will go see his oncologist, Dr Eliu Oreilly, who can write him pain script if he needs it. Upon discharge patient's pain was well controlled. He wished to not be discharged back to the residential [facility] and preferred to be discharged to a correction. Please see most latest progress note for complete hospital management. Assessment: 57M presents with pain not well controlled by medications he was discharged to [facility] with percocet and fentanyl. Patient states he is in pain, but upon physical exam, no tenderness is noted with palpation. Stage IV Prostate Cancer with chronic pain in ED Patient received Dilaudid 2mg IVP; 0.5mg IV once - No additional Dilaudid per DR. Blum - patient was discharged on percocet and fentanyl patches. recent TURP procedure on last admission in December Dr. Oreilly on consult, Hem/Onc - help appreciated Hospice evaluation/Palliative care, per Dr. Blum * Would consider Klonopin 1 mg PO Q HS for control of anxiety and to promote better sleep Flutamide 125mg PO Q8H YARELIS Flomax 0.4mg PO daily Motrin 400mg Q6H prn mild pain Percocet 5/325 mg q6h prn moderate pain Morphine 1 mg Q8H prn severe pain History of Hyperthyroidism Tapazole 5mg PO BID f/u TSH/free T4 Hx of Nephrostomy tube placements functioning well, producing urine Monitor Asthma monitor vitals duonebs q6h prn SOB Anemia Hbg 8.7 on AM labs from 10.2 at admission Hemoccult negative at bedside Etiology: Combination of Chronic renal dz, Washout, hematuria Hematuria 2+ blood Etiology: 2/2 prostate CA persistent on UAs since 11/2017 Elevated transaminases AST/ALT 73/166, Alk phos 340 at admission - now downtrending Likely due to long-term narcotic use Eczema monitor Electrolyte abnormalities K 3.4 on AM labs, repleted Mg 1.5 repleted prophylaxis: SCDs heparin 5000 u sc Q8H protonix 40 mg qd Discharge Exam - Head Exam Head Exam: ATRAUMATIC - Additional Findings Additional findings: - Constitutional Appears: Non-toxic, No Acute Distress - Head Exam Head Exam: ATRAUMATIC, NORMAL INSPECTION, NORMOCEPHALIC - Eye Exam Eye Exam: EOMI, Normal appearance - ENT Exam ENT Exam: Mucous Membranes Dry - Respiratory Exam Respiratory Exam: Clear to Auscultation Bilateral, NORMAL BREATHING PATTERN - Cardiovascular Exam Cardiovascular Exam: REGULAR RHYTHM, +S1, +S2 - GI/Abdominal Exam GI & Abdominal Exam: Normal Bowel Sounds, Soft - Extremities Exam Extremities exam: Positive for: full ROM, normal inspection - Back Exam Back exam: tenderness Additional comments: bilateral nephrostomy producing 100cc in right; 100cc left in urine - Neurological Exam Neurological exam: CN II-XII Intact, Normal Gait, Oriented x3 - Psychiatric Exam Psychiatric exam: Normal Affect, Normal Mood - Skin Skin Exam: Dry, Intact, Mottled, Pallor Discharge Plan - Follow Up Plan Condition: STABLE Disposition: HOME/ ROUTINE Additional Instructions: Patient is medically stable for discharge. Patient will follow-up with Oncologist Dr Eliu Oreilly regarding his pain medications as Dr Oreilly has written pain meds in the past and is aware of the correct pain med regimen. Additionally, Dr Eliu Oreilly can make recommendations regarding his chronic issues as well. Patient will need to follow-up with Urologist Dr Jaswant Orozco (regarding his nephrostomy tubes) on 02/25/18 at 9:30AM. However in order to see Dr Orozco, patient must first go to [facility] so he may attain a referral. If an appointment at [facility] cannot be made prior to appointment with Dr Orozco, patient should come to [facility] as a walk-in so he may attain the referral. Patient should continue all his normal home medications. If symptoms return, go to your nearest emergency department. Referrals: [facility] [Outside] Eliu Oreilly MD [Staff Provider] -
--- NOTE | 2018-02-18 17:37 | CP.PCM.PN ---
Subjective - Date & Time of Evaluation Date of Evaluation: 02/18/18 Time of Evaluation: 13:00 - Subjective Subjective: Pain improved Objective - Vital Signs/Intake and Output Vital Signs (last 24 hours): Temp Pulse Resp BP Pulse Ox 98.5 F 62 20 116/64 98 02/18/18 00:00 02/18/18 00:00 02/18/18 00:00 02/18/18 00:00 02/18/18 00:00 Intake and Output: 02/18/18 02/18/18 06:59 18:59 Intake Total 1350 1080 Output Total 1980 1180 Balance -630 -100 - Labs Labs: 02/16/18 07:09 02/16/18 07:09 APTT 37 SECONDS (21-34) H 02/16/18 07:09 - Head Exam Head Exam: ATRAUMATIC - Eye Exam Eye Exam: Normal appearance - ENT Exam ENT Exam: Mucous Membranes Dry - Respiratory Exam Respiratory Exam: NORMAL BREATHING PATTERN - Cardiovascular Exam Cardiovascular Exam: +S1, +S2 - GI/Abdominal Exam GI & Abdominal Exam: Normal Bowel Sounds Assessment and Plan (1) Anemia Assessment & Plan: chronic disease, bone mets Status: Acute (2) Prostate cancer Assessment & Plan: stage IV castrate resistant outpatient treatment Status: Acute
--- NOTE | 2018-02-18 19:34 | CP.PCM.CON ---
Past Patient History - Past Medical History & Family History Past Medical History?: Yes - Past Social History Smoking Status: Former Smoker - CARDIAC Hx Cardiac Disorders: No - PULMONARY Hx Asthma: Yes - NEUROLOGICAL Hx Neurological Disorder: No - HEENT Hx HEENT Problems: No - RENAL Hx Chronic Kidney Disease: No - ENDOCRINE/METABOLIC Hx Hyperthyroidism: Yes - HEMATOLOGICAL/ONCOLOGICAL Hx Anemia: Yes - INTEGUMENTARY Hx Dermatological Problems: Yes Hx Eczema: Yes - MUSCULOSKELETAL/RHEUMATOLOGICAL Hx Back Pain: Yes - GASTROINTESTINAL Hx Gastrointestinal Disorders: No - GENITOURINARY/GYNECOLOGICAL Hx Genitourinary Disorders: Yes Hx Prostate Cancer: Yes - PSYCHIATRIC Hx Substance Use: Yes - SURGICAL HISTORY Hx Surgeries: Yes Other/Comment: BONE BIOPSY. nephrostomy B/L - ANESTHESIA Hx Anesthesia: Yes Hx Anesthesia Reactions: No Hx Malignant Hyperthermia: No Meds Allergies/Adverse Reactions: Allergies Allergy/AdvReac Type Severity Reaction Status Date / Time honey Allergy Verified 02/15/18 22:18 Results - Vital Signs Recent Vital Signs: Last Vital Signs Temp 98.5 F 02/18/18 00:00 Pulse 62 02/18/18 00:00 Resp 20 02/18/18 00:00 BP 116/64 02/18/18 00:00 Pulse Ox 98 02/18/18 00:00 - Labs Result Diagrams: 02/16/18 07:09 02/16/18 07:09 Assessment & Plan - Assessment and Plan (Free Text) Assessment: Patient is a 57 year old male with metastatic prostate cancer admitted for generalized body aches. I was originally consulted to write a prescription for a fentanyl patch or other narcotic for patient's pending discharge today as primary team unable to do so; patient's pain otherwise under control in the hospital. However, when I spoke to patient, he said that Dr. Oreilly, his oncologist, has been the one prescribing him pain medications (percocet 10/325 q6-8h), and that he would be able to see Dr. Oreilly as soon as he is discharged from the hospital. Patient stated that he was previously unable to do so as he had been staying at a assisted. Moreover, the assisted, he says, had been undertreating his pain, only giving him percocet 5/325 q12h. The patient is, therefore, requesting to be discharged to [facility], which he says is within walking distance of Dr. Oreilly's office. He plans to see Dr. Oreilly in the next day or so for a follow-up appointment and refill of his pain medications. I relayed the patient's requests to the primary team.
== END 2018-02-18 16:45 | disposition home or self-care (01) | DRG 463 ==
LOC: C.ER 22:07 → C.3T 02-16 00:48
PROVIDERS: ADMIT Internal Medicine; ATTEND Internal Medicine
DX: G89.3 Neoplasm related pain (acute) (chronic) (principal); C79.51 Secondary malignant neoplasm of bone; C78.7 Secondary malignant neoplasm of liver and intrahepatic bile duct; N13.30 Unspecified hydronephrosis; C61 Malignant neoplasm of prostate; D63.8 Anemia in other chronic diseases classified elsewhere; F11.10 Opioid abuse, uncomplicated; F17.210 Nicotine dependence, cigarettes, uncomplicated; I10 Essential (primary) hypertension; J45.909 Unspecified asthma, uncomplicated; L30.9 Dermatitis, unspecified; Z51.5 Encounter for palliative care; Z79.891 Long term (current) use of opiate analgesic; Z82.5 Family history of asthma and other chronic lower respiratory diseases; F41.9 Anxiety disorder, unspecified; R31.9 Hematuria, unspecified; R74.0 Nonspecific elevation of levels of transaminase and lactic acid dehydrogenase [LDH]